=== PATIENT | female | born 1940 | race Caucasian/White ===

== ENCOUNTER → 2019-09-15 | Day surgery (SDC) | payer MEDICARE ==
[2019-09-14 08:36] VITALS: BMI 27.4
[~2019-09-15] MED LIST: LACTATED RINGERS 1,000 ML IV SCH; LIDOCAINE 1% (10MG/ML) FOR IV START INTRADERMA PRN; MORPHINE SULFATE 2 MG/ML SYRINGE IV PRN; ONDANSETRON 4 MG/2 ML VIAL IVP PRN; PROPOFOL 10 MG/ML 20 ML VIAL IV ONE; SODIUM CHLORIDE 0.9% 1,000 ML IV SCH
[2019-09-15 11:21] VITALS: TEMP 97.8
[2019-09-15 11:27] LABS: Glucose,Whole Blood 137 mg/dL (75-99)
--- NOTE | 2019-09-15 12:33 | CE ---
CARDIAC ELECTROPHYSIOLOGY REPORT DATE OF SERVICE: 09/15/2019. PROCEDURE: Electrical cardioversion. INDICATION: Persistent atrial fibrillation. CLINICAL INFORMATION: Mrs. Willoughby is an 79-year-old lady with type 2 diabetes, hypertension, hyperlipidemia, COPD with a recent onset persistent atrial fibrillation. She has been started on amiodarone and was adequately anticoagulated with Eliquis 5 mg b.i.d. and brought in for the procedure electively. PROCEDURE NOTE: Under the influence of ultra short-acting intravenous anesthetic with the anesthesiologist in attendance, a single synchronized shock was delivered with anterior and posterior patches to the chest wall of 200 joules. Patient converted to sinus rhythm, remained hemodynamically stable and neurologically intact. This was a successful electrical cardioversion. The patient will be discharged later on today if she remains stable. MMODL / ANNITAN: [id number] /
[2019-09-15 14:43] VITALS: PULSE 62
[2019-09-15 14:44] VITALS: BP 123/63; RESP 16
== END ==
LOC: CATHCVL 11:00
PROVIDERS: ATTEND Internal Medicine Interventional Cardiology
DX: I48.19 Other persistent atrial fibrillation (principal); E11.22 Type 2 diabetes mellitus with diabetic chronic kidney disease; I12.9 Hypertensive chronic kidney disease with stage 1 through stage 4 chronic kidney disease, or unspecified chronic kidney disease; N18.3 Chronic kidney disease, stage 3 (moderate); E78.5 Hyperlipidemia, unspecified; J44.9 Chronic obstructive pulmonary disease, unspecified; I25.2 Old myocardial infarction; Z79.01 Long term (current) use of anticoagulants; Z79.899 Other long term (current) drug therapy; Z79.84 Long term (current) use of oral hypoglycemic drugs; Z88.8 Allergy status to other drugs, medicaments and biological substances; Z87.891 Personal history of nicotine dependence; Z82.49 Family history of ischemic heart disease and other diseases of the circulatory system
CPT/HCPCS: 92960; J2704

== ENCOUNTER 2019-10-19 09:02 | Emergency (ER) | payer MEDICARE ==
--- NOTE | 2019-10-19 09:32 | ED ---
Back Pain HPI - General Chief Complaint: Back Pain/Injury Stated Complaint: back Time Seen by Provider: 10/19/19 09:13 Source: patient, family Limitations: no limitations - History of Present Illness Initial Comments: Patient is an 79-year-old female presenting to the emergency Department with complaints of left-sided low back pain for 2 days. Patient states she has been recovering from being in the hospital over [place] time from bronchitis and upper respiratory issues. She states she has been sleeping in a recliner because she is able to breathe better sleeping in a more upright position in. Patient states 2 days ago she noticed pain in her left low back. She describes it as cramy, sore, constant, and with some radiation into her left side and left gluteal area. She denies any falls or trauma to the area. Patient states she recently did strain her upper back reaching to try to get out of bed, however she feels like at this is different. She does have history of lumbar surgery many years ago. Patient denies any recent fever, or urinary complaints. She states she has had occasional sharp pains over her bladder. She does have a history of kidney disease. She states she's never had a kidney stone. She has no other complaints at this time. Upon arrival to the ER, BP is slightly elevated at 171/84, rest of vitals are normal. - Related Data Home Medications Medication Instructions Recorded Confirmed Amiodarone [Cordarone] 200 mg PO BID 09/14/19 09/15/19 Apixaban [Eliquis] 5 mg PO BID 09/14/19 09/15/19 Cholecalciferol [Vitamin D3 (25 1,000 unit PO DAILY 09/14/19 09/15/19 Mcg = 1000 Iu)] Diltiazem HCl [Cardizem CD] 120 mg PO Q24HR 09/14/19 09/15/19 Glimepiride [Amaryl] 0.5 mg PO AC-BRKFST 09/14/19 09/15/19 Lisinopril [Zestril] 10 mg PO DAILY 09/14/19 09/15/19 Metoprolol Tartrate [Lopressor] 25 mg PO BID 09/14/19 09/15/19 Pravastatin Sodium [Pravachol] 80 mg PO DAILY 09/14/19 09/15/19 Previous Rx's Medication Instructions Recorded Cephalexin [Keflex] 500 mg PO BID 5 Days #10 cap 10/19/19 Allergies Allergy/AdvReac Type Severity Reaction Status Date / Time celecoxib [From Celebrex] Allergy Swelling Verified 10/19/19 09:10 ibuprofen [From Motrin] Allergy Swelling Verified 10/19/19 09:10 Review of Systems ROS Statement: Those systems with pertinent positive or pertinent negative responses have been documented in the HPI. ROS Other: All systems not noted in ROS Statement are negative. Past Medical History Past Medical History: Atrial Fibrillation, Cancer, COPD, Diabetes Mellitus, Hyperlipidemia, Hypertension, Myocardial Infarction ([place]), Renal Disease Additional Past Medical History / Comment(s): uterine cancer. stage III kidney failure. [place] x2 Last Myocardial Infarction Date:: unknown History of Any Multi-Drug Resistant Organisms: None Reported Past Surgical History: Back Surgery, Cholecystectomy, Hysterectomy Past Anesthesia/Blood Transfusion Reactions: No Reported Reaction Past Psychological History: No Psychological Hx Reported Smoking Status: Former smoker Past Alcohol Use History: None Reported Past Drug Use History: None Reported - Past Family History Brother(s) Family Medical History: Cancer Additional Family Medical History / Comment(s): 2 brothers cancer. 1 brother cabg General Exam - General Exam Comments Initial Comments: GENERAL: Well-appearing, well-nourished and in no acute distress. HEAD: Atraumatic, normocephalic. EYES: Pupils equal round and reactive to light, extraocular movements intact, sclera anicteric, conjunctiva are normal. ENT: TMs normal, nares patent, oropharynx clear without exudates. Moist mucous membranes. NECK: Normal range of motion, supple without lymphadenopathy or JVD. LUNGS: Mild bilateral scattered wheezes. Patient is recovering from bronchitis. HEART: Regular rate and rhythm without murmurs, rubs or gallops. ABDOMEN: Soft, nontender, normoactive bowel sounds. No guarding, no rebound. No masses appreciated. : Deferred EXTREMITIES: Normal range of motion, no pitting or edema. No clubbing or cyanosis. Mild pain with palpation of the low back/lumbar paraspinals and gluteal region. No flank pain. NEUROLOGICAL: Normal speech. PSYCH: Normal mood, normal affect. SKIN: Warm, Dry, normal turgor, no rashes or lesions noted. Limitations: no limitations Course Vital Signs 10/19/19 10/19/19 09:07 11:07 Temperature 98.7 F 98.5 F Pulse Rate 69 66 Respiratory 18 16 Rate Blood Pressure 171/84 168/71 O2 Sat by Pulse 97 96 Oximetry Medical Decision Making - Medical Decision Making Patient is an 79-year-old female presenting with left low back pain 2 days. No injuries or falls. Vital signs are stable, no fevers. On exam patient is slightly tender in the lumbar left paraspinals and into left gluteal area. Urine does reveal evidence for UTI. Lumbar x-ray reveals no acute fractures/dislocations. Patient was given Tylenol for discomfort and will be given 1 g of Rocephin in the ER for UTI. She'll be continued on Keflex. Urine culture is pending at this time. I discussed with patient that her left low back pain could be due to her sleeping in a recliner as well as the UTI. I feel this is more musculoskeletal in nature. She will follow up with her PCP in the next 1-3 days. She is stable for discharge at this time. Return parameters were discussed with the patient and she verbalized understanding. Case discussed with Dr. guaman. - Lab Data Lab Results 10/19/19 Range/Units 09:57 Urine Color Yellow Urine Appearance Cloudy H (Clear) Urine pH 5.5 (5.0-8.0) Ur Specific [place] 1.009 (1.001-1.035) Urine Protein 2+ H (Negative) Urine Glucose (UA) Negative (Negative) Urine Ketones Negative (Negative) Urine Blood Moderate H (Negative) Urine Nitrite Negative (Negative) Urine Bilirubin Negative (Negative) Urine Urobilinogen <2.0 (<2.0) mg/dL Ur Leukocyte Esterase Moderate H (Negative) Urine RBC 7 H (0-5) /hpf Urine WBC 45 H (0-5) /hpf Ur Squamous Epith Cells <1 (0-4) /hpf Urine Bacteria Few H (None) /hpf Hyaline Casts 3 H (0-2) /lpf Urine Mucus Rare H (None) /hpf Disposition Clinical Impression: Low back pain, UTI (urinary tract infection) Disposition: HOME SELF-CARE Condition: Stable Instructions (If sedation given, give patient instructions): Urinary Tract Infection in Women (ED) Additional Instructions: Please return to the Emergency Department if symptoms worsen or any other concerns. Take antibiotics as prescribed. May take Tylenol for pain. Follow-up with PCP in 1-3 days. Prescriptions: Cephalexin [Keflex] 500 mg PO BID 5 Days #10 cap Is patient prescribed a controlled substance at d/c from ED?: No Referrals: Roger Callahan DO [Primary Care Provider] - 1-2 days
[2019-10-19 10:16] LABS: Appearance,Urine Cloudy (Clear); Bacteria,Urine Few /hpf; Bilirubin,Urine Negative (Negative); Blood,Urine Moderate (Negative); Color,Urine Yellow; Glucose,Urine (UA) Negative (Negative); Hyaline Casts,Urine 3 /lpf (0-2); Ketones,Urine Negative (Negative); Leukocyte Esterase,Urine Moderate (Negative); Mucus,Urine Rare /hpf; Nitrite,Urine Negative (Negative); PH, Urine 5.5 (5.0-8.0); Protein,Urine 2+ (Negative); RBC,Urine 7 /hpf (0-5); Specific Gravity,Urine 1.009 (1.001-1.035); Squamous Epithelial Cell,Urine <1 /hpf (0-4); Urobilinogen,Urine <2.0 mg/dL (<2.0); WBC,Urine 45 /hpf (0-5)
--- NOTE | 2019-10-19 10:24 | XR ---
EXAMINATION TYPE: XR lumbar spine 2 or 3V DATE OF EXAM: 10/19/2019 CLINICAL HISTORY: Acute back pain TECHNIQUE: Frontal and lateral images of the lumbar spine are obtained. COMPARISON: None FINDINGS: There is surgical fixation of the lumbosacral junction. Flowing anterior osteophytes are se en of the thoracolumbar spine with multilevel facet arthropathy. Multilevel intervertebral disc space narrowing is also seen. Grade 1 anterolisthesis of L5 on S1 is identified. No compression deformity present. Extensive atherosclerosis of the abdominal aorta and its branches. Diffuse osseous demineral ization. IMPRESSION: Surgical fixation of the lumbosacral spine and grade 1 anterolisthesis of L5 on S1. Moder ate multilevel degenerative disc disease. No compression deformities are seen.
[2019-10-19] MEDS ORDERED: cefTRIAXone 1,000 MG VIAL (IM USE) IM STA (10:43)
[2019-10-19] MEDS ORDERED: ACETAMINOPHEN TAB 325 MG TAB PO STA (10:43)
[2019-10-19 11:12] VITALS: BP 168/71; PULSE 66; RESP 16; TEMP 98.5
== END 2019-10-19 11:25 | disposition home or self-care (01) ==
LOC: EC 09:02
DX: N39.0 Urinary tract infection, site not specified (principal); I48.91 Unspecified atrial fibrillation; E78.5 Hyperlipidemia, unspecified; I25.2 Old myocardial infarction; I12.9 Hypertensive chronic kidney disease with stage 1 through stage 4 chronic kidney disease, or unspecified chronic kidney disease; E11.22 Type 2 diabetes mellitus with diabetic chronic kidney disease; N18.3 Chronic kidney disease, stage 3 (moderate); Z79.84 Long term (current) use of oral hypoglycemic drugs; Z79.01 Long term (current) use of anticoagulants; Z79.899 Other long term (current) drug therapy; Z90.49 Acquired absence of other specified parts of digestive tract; Z88.6 Allergy status to analgesic agent; Z87.891 Personal history of nicotine dependence; Z98.890 Other specified postprocedural states; Z85.42 Personal history of malignant neoplasm of other parts of uterus
CPT/HCPCS: 81001; 87086; 72100; 96372; 99283; J0696

== ENCOUNTER 2020-01-19 16:38 | Emergency (ER) | payer MEDICARE ==
[2020-01-19 16:49] VITALS: PULSE 57; RESP 18; TEMP 98.6
--- NOTE | 2020-01-19 17:16 | ED ---
General Adult HPI - General Chief complaint: Recheck/Abnormal Lab/Rx Stated complaint: High BP Time Seen by Provider: 01/19/20 16:57 Source: patient, RN notes reviewed Mode of arrival: ambulatory Limitations: no limitations - History of Present Illness Initial comments: Patient is a pleasant 79-year-old female presenting to the emergency department with concerns regarding blood pressure. Patient states it is been labile over the past couple of weeks. Patient states several days ago it was up to 200. Patient states today it was up to 180 systolic. Patient called her doctor and took an extra 10 mg of lisinopril at 3:30. Patient has no complaints otherwise. No speech problems or confusion or weakness. No chest pain or dyspnea. - Related Data Home Medications Medication Instructions Recorded Confirmed Amiodarone [Cordarone] 200 mg PO BID 09/14/19 09/15/19 Apixaban [Eliquis] 5 mg PO BID 09/14/19 09/15/19 Cholecalciferol [Vitamin D3 (25 1,000 unit PO DAILY 09/14/19 09/15/19 Mcg = 1000 Iu)] Diltiazem HCl [Cardizem CD] 120 mg PO Q24HR 09/14/19 09/15/19 Glimepiride [Amaryl] 0.5 mg PO AC-BRKFST 09/14/19 09/15/19 Lisinopril [Zestril] 10 mg PO DAILY 09/14/19 09/15/19 Metoprolol Tartrate [Lopressor] 25 mg PO BID 09/14/19 09/15/19 Pravastatin Sodium [Pravachol] 80 mg PO DAILY 09/14/19 09/15/19 Previous Rx's Medication Instructions Recorded Cephalexin [Keflex] 500 mg PO BID 5 Days #10 cap 10/19/19 Allergies Allergy/AdvReac Type Severity Reaction Status Date / Time celecoxib [From Celebrex] Allergy Swelling Verified 01/19/20 16:49 ibuprofen [From Motrin] Allergy Swelling Verified 01/19/20 16:49 steroid Allergy Unknown Uncoded 01/19/20 16:50 Review of Systems ROS Statement: Those systems with pertinent positive or pertinent negative responses have been documented in the HPI. ROS Other: All systems not noted in ROS Statement are negative. Constitutional: Denies: fever Eyes: Denies: eye pain ENT: Denies: ear pain Respiratory: Denies: cough, dyspnea Cardiovascular: Denies: chest pain Endocrine: Denies: fatigue Gastrointestinal: Denies: abdominal pain Genitourinary: Denies: dysuria Musculoskeletal: Denies: back pain Skin: Denies: rash Neurological: Denies: weakness, confusion Past Medical History Past Medical History: Atrial Fibrillation, Cancer, COPD, Diabetes Mellitus, Hyperlipidemia, Hypertension, Myocardial Infarction ([place]), Renal Disease Additional Past Medical History / Comment(s): uterine cancer. stage III kidney failure. [place] x2 Last Myocardial Infarction Date:: unknown History of Any Multi-Drug Resistant Organisms: None Reported Past Surgical History: Back Surgery, Cholecystectomy, Hysterectomy Past Anesthesia/Blood Transfusion Reactions: No Reported Reaction Past Psychological History: No Psychological Hx Reported Smoking Status: Former smoker Past Alcohol Use History: None Reported Past Drug Use History: None Reported - Past Family History Brother(s) Family Medical History: Cancer Additional Family Medical History / Comment(s): 2 brothers cancer. 1 brother cabg General Exam Limitations: no limitations General appearance: alert, in no apparent distress Head exam: Present: normocephalic Eye exam: Present: normal appearance, PERRL Neck exam: Present: normal inspection Respiratory exam: Present: normal lung sounds bilaterally Cardiovascular Exam: Present: regular rate, normal rhythm GI/Abdominal exam: Present: soft. Absent: tenderness Neurological exam: Present: alert, CN II-XII intact. Absent: motor sensory deficit Expanded Motor strength exam: RUE: 5, LUE: 5 Psychiatric exam: Present: normal affect, normal mood Skin exam: Present: normal color Course Vital Signs 01/19/20 01/19/20 16:45 17:38 Temperature 98.6 F Pulse Rate 57 L Respiratory 18 Rate Blood Pressure 160/74 153/70 O2 Sat by Pulse 99 Oximetry Medical Decision Making - Medical Decision Making Patient reevaluated and remained symptom-free. Blood pressure 153/70. Patient is comfortable with discharge home. Patient admits she gets anxious regarding her blood pressure. Patient also admits that she is actually had 3 recent visits to different emergency departments regarding her blood pressure. Patient advised that she could take an next of 5 mg of lisinopril blood pressure runs high. Patient is advised to do close follow-up with her primary care physician as well as her tool design checker. Disposition Clinical Impression: Hypertension Disposition: HOME SELF-CARE Condition: Stable Instructions (If sedation given, give patient instructions): Hypertension (ED) Additional Instructions: Please follow-up with your primary care physician and tool design checker in the next couple of days for recheck. Keep a diary of your blood pressure to show your doctors. Return for increased blood pressure, weakness or confusion, chest pain or difficulty breathing, worsening symptoms or other concerns. Is patient prescribed a controlled substance at d/c from ED?: No Referrals: Roger Callahan DO [Primary Care Provider] - 1-2 days Time of Disposition: 17:45
[2020-01-19 17:40] VITALS: BP 153/70
== END 2020-01-19 17:48 | disposition home or self-care (01) ==
LOC: EC 16:38
DX: I12.9 Hypertensive chronic kidney disease with stage 1 through stage 4 chronic kidney disease, or unspecified chronic kidney disease (principal); N18.3 Chronic kidney disease, stage 3 (moderate); I48.91 Unspecified atrial fibrillation; E11.9 Type 2 diabetes mellitus without complications; E78.5 Hyperlipidemia, unspecified; I25.2 Old myocardial infarction; Z79.01 Long term (current) use of anticoagulants; Z79.84 Long term (current) use of oral hypoglycemic drugs; Z79.899 Other long term (current) drug therapy; Z87.891 Personal history of nicotine dependence; Z88.6 Allergy status to analgesic agent; Z88.8 Allergy status to other drugs, medicaments and biological substances; Z85.42 Personal history of malignant neoplasm of other parts of uterus
CPT/HCPCS: 99283

== ENCOUNTER 2020-03-01 17:07 | Emergency (ER) | payer MEDICARE ==
[2020-03-01 17:12] VITALS: TEMP 98.4
[2020-03-01] MEDS ORDERED: ACETAMINOPHEN TAB 325 MG TAB PO STA (17:49)
[2020-03-01] MEDS ORDERED: ONDANSETRON 4 MG/2 ML VIAL IVP STA (18:04)
[2020-03-01] MEDS ORDERED: SODIUM CHLORIDE 0.9% 500 ML 500 ML IV STA (18:04)
[2020-03-01] MEDS ORDERED: diphenhydrAMINE 50 MG/ML 1 ML VIAL IVP STA (18:04)
[2020-03-01 18:26] LABS: Basophils % (A) 1 %; Eosinophils # (A) 0.2 k/uL (0-0.7); Eosinophils % (A) 2 %; HCT 40.5 % (34.0-46.0); HGB 14.2 gm/dL (11.4-16.0); Lymphocytes # (A) 2.1 k/uL (1.0-4.8); Lymphocytes % (A) 27 %; MCH 34.7 pg (25.0-35.0); MCHC 35.2 g/dL (31.0-37.0); MCV 98.8 fL (80.0-100.0); Mean Platelet Volume 8.1; Monocytes # (A) 0.5 k/uL (0-1.0); Monocytes % (A) 6 %; Neutrophils # (A) 4.8 k/uL (1.3-7.7); Neutrophils % (A) 62 %; Platelet Count 259 k/uL (150-450); RDW 13.5 % (11.5-15.5); WBC 7.8 k/uL (3.8-10.6)
[2020-03-01 18:31] LABS: Albumin 4.7 g/dL (3.5-5.0); Calcium 9.8 mg/dL (8.4-10.2); Magnesium 1.9 mg/dL (1.6-2.3); Potassium 5.1 mmol/L (3.5-5.1); Total Bilirubin 0.5 mg/dL (0.2-1.3); Total Protein 8.1 g/dL (6.3-8.2)
[2020-03-01 18:32] LABS: Amorphous Sediment,Urine Rare /hpf; Appearance,Urine Clear (Clear); Bacteria,Urine Few /hpf; Bilirubin,Urine Negative (Negative); Blood,Urine Small (Negative); Color,Urine Light Yellow; Glucose,Urine (UA) Negative (Negative); Ketones,Urine Negative (Negative); Leukocyte Esterase,Urine Large (Negative); Mucus,Urine Rare /hpf; Nitrite,Urine Negative (Negative); Protein,Urine Negative (Negative); RBC,Urine 3 /hpf (0-5); Specific Gravity,Urine 1.008 (1.001-1.035); Squamous Epithelial Cell,Urine <1 /hpf (0-4); Urobilinogen,Urine <2.0 mg/dL (<2.0); WBC,Urine 48 /hpf (0-5)
--- NOTE | 2020-03-01 18:39 | ED ---
Headache HPI - General Chief Complaint: Headache Stated Complaint: headache Time Seen by Provider: 03/01/20 17:39 Mode of arrival: ambulatory Limitations: no limitations - History of Present Illness Initial Comments: Patient is an 80-year-old female presenting to the emergency Department with complaints of a headache that has been intermittent for the last 10-11 days. Patient states her blood pressure has also been going up and down as well. She states she just feels more fatigued than usual. Patient states she was seen at [facility] days ago and was evaluated with lab work and a computed tomography scan which was normal. Patient states she has been mon itoring her blood pressure which has still been fluctuating. Patient states she also has a headache and wanted to be seen. She describes her headache as mostly on the top, it is intermittent. She denies that this is the worst headache of her life. She denies any falls or trauma. She states currently it is a 5/10. She denies any blurry vision, jaw pain, fever, chills. She denies any abdominal pain. She denies any vomiting. She denies any urinary complaints. She has no further complaints at this time. Upon arrival to the ER, her vital signs are stable. - Related Data Home Medications Medication Instructions Recorded Confirmed Amiodarone [Cordarone] 200 mg PO BID 09/14/19 09/15/19 Apixaban [Eliquis] 5 mg PO BID 09/14/19 09/15/19 Cholecalciferol [Vitamin D3 (25 1,000 unit PO DAILY 09/14/19 09/15/19 Mcg = 1000 Iu)] Diltiazem HCl [Cardizem CD] 120 mg PO Q24HR 09/14/19 09/15/19 Glimepiride [Amaryl] 0.5 mg PO AC-BRKFST 09/14/19 09/15/19 Lisinopril [Zestril] 10 mg PO DAILY 09/14/19 09/15/19 Metoprolol Tartrate [Lopressor] 25 mg PO BID 09/14/19 09/15/19 Pravastatin Sodium [Pravachol] 80 mg PO DAILY 09/14/19 09/15/19 Previous Rx's Medication Instructions Recorded Cephalexin [Keflex] 500 mg PO BID 5 Days #10 cap 10/19/19 Cephalexin [Keflex] 500 mg PO BID 5 Days #10 cap 03/01/20 Allergies Allergy/AdvReac Type Severity Reaction Status Date / Time celecoxib [From Celebrex] Allergy Swelling Verified 03/01/20 17:12 ibuprofen [From Motrin] Allergy Swelling Verified 03/01/20 17:12 steroid Allergy Unknown Uncoded 03/01/20 17:12 Review of Systems ROS Statement: Those systems with pertinent positive or pertinent negative responses have been documented in the HPI. ROS Other: All systems not noted in ROS Statement are negative. Past Medical History Past Medical History: Atrial Fibrillation, Cancer, COPD, Diabetes Mellitus, Hyperlipidemia, Hypertension, Myocardial Infarction ([place]), Renal Disease Additional Past Medical History / Comment(s): uterine cancer. stage III kidney failure. [place] x2 Last Myocardial Infarction Date:: unknown History of Any Multi-Drug Resistant Organisms: None Reported Past Surgical History: Back Surgery, Cholecystectomy, Hysterectomy Past Anesthesia/Blood Transfusion Reactions: No Reported Reaction Past Psychological History: No Psychological Hx Reported Past Alcohol Use History: None Reported Past Drug Use History: None Reported - Past Family History Brother(s) Family Medical History: Cancer Additional Family Medical History / Comment(s): 2 brothers cancer. 1 brother cabg General Exam - General Exam Comments Initial Comments: GENERAL: Well-appearing, well-nourished and in no acute distress. HEAD: Atraumatic, normocephalic. EYES: Pupils equal round and reactive to light, extraocular movements intact, sclera anicteric, conjunctiva are normal. ENT: TMs normal, nares patent, oropharynx clear without exudates. Moist mucous mem branes. NECK: Normal range of motion, supple without lymphadenopathy or JVD. LUNGS: Breath sounds clear to auscultation bilaterally and equal. No wheezes rales or rhonchi. HEART: Regular rate and rhythm without murmurs, rubs or gallops. ABDOMEN: Soft, nontender, normoactive bowel sounds. No guarding, no rebound. No masses appreciated. : Deferred EXTREMITIES: Normal range of motion, no pitting or edema. No clubbing or cyanosis. Strength is 5 out of 5 upper and lower extremities bilaterally. NEUROLOGICAL: Cranial nerves II through XII grossly intact. Normal speech, normal gait. PSYCH: Normal mood, normal affect. SKIN: Warm, Dry, normal turgor, no rashes or lesions noted. Limitations: no limitations Course Vital Signs 03/01/20 17:08 Temperature 98.4 F Pulse Rate 59 L Respiratory 18 Rate Blood Pressure 164/76 O2 Sat by Pulse 96 Oximetry Medical Decision Making - Medical Decision Making Patient is an 80-year-old female here for an intermittent headache over the past 2 weeks. She was seen at [facility] 3 days ago and was evaluated with lab work as well as is a normal CT of the head. Patient states her blood pressures have also been fluctuating. Her blood pressure upon arrival here today is 164/76, rest of vitals normal. Due to lab work which shows a normal white count. Creatinine is slightly elevated at 1.60. Urine does reveal a large amount leukocyte esterase, WBCs, clumps, bacteria. I did give patient pain medicine, Benadryl and some fluids for her headache. She does report improvement in her headache. Patient will be given 1 g Rocephin in the ER. I will continue her outpatient on Keflex. She states she does have a plan with her PCP in 2 days. Patient also has a referral to neurologist with the appointment March. Patient is stable for discharge and patient is in agreement with this plan of care. Return parameters were discussed with the patient she verbalized understanding. Case discussed with Dr. Butt. - Lab Data Result diagrams: 03/01/20 17:54 03/01/20 17:54 Lab Results 03/01/20 03/01/20 03/01/20 Range/Units 17:54 17:54 17:54 WBC 7.8 (3.8-10.6) k/uL RBC 4.10 (3.80-5.40) m/uL Hgb 14.2 (11.4-16.0) gm/dL Hct 40.5 (34.0-46.0) % MCV 98.8 (80.0-100.0) fL MCH 34.7 (25.0-35.0) pg MCHC 35.2 (31.0-37.0) g/dL RDW 13.5 (11.5-15.5) % Plt Count 259 (150-450) k/uL Neutrophils % 62 % Lymphocytes % 27 % Monocytes % 6 % Eosinophils % 2 % Basophils % 1 % Neutrophils # 4.8 (1.3-7.7) k/uL Lymphocytes # 2.1 (1.0-4.8) k/uL Monocytes # 0.5 (0-1.0) k/uL Eosinophils # 0.2 (0-0.7) k/uL Basophils # 0.0 (0-0.2) k/uL Sodium 135 L (137-145) mmol/L Potassium 5.1 (3.5-5.1) mmol/L Chloride 101 (98-107) mmol/L Carbon Dioxide 24 (22-30) mmol/L Anion Gap 10 mmol/L BUN 37 H (7-17) mg/dL Creatinine 1.60 H (0.52-1.04) mg/dL Est GFR (CKD-EPI)AfAm 34 (>60 ml/min/1.73 sqM) Est GFR (CKD-EPI)NonAf 30 (>60 ml/min/1.73 sqM) Glucose 115 H (74-99) mg/dL Calcium 9.8 (8.4-10.2) mg/dL Magnesium 1.9 (1.6-2.3) mg/dL Total Bilirubin 0.5 (0.2-1.3) mg/dL AST 28 (14-36) U/L ALT 28 (4-34) U/L Alkaline Phosphatase 113 (38-126) U/L Total Protein 8.1 (6.3-8.2) g/dL Albumin 4.7 (3.5-5.0) g/dL Urine Color Light Yellow Urine Appearance Clear (Clear) Urine pH 5.0 (5.0-8.0) Ur Specific [place] 1.008 (1.001-1.035) Urine Protein Negative (Negative) Urine Glucose (UA) Negative (Negative) Urine Ketones Negative (Negative) Urine Blood Small H (Negative) Urine Nitrite Negative (Negative) Urine Bilirubin Negative (Negative) Urine Urobilinogen <2.0 (<2.0) mg/dL Ur Leukocyte Esterase Large H (Negative) Urine RBC 3 (0-5) /hpf Urine WBC 48 H (0-5) /hpf Urine WBC Clumps Few H (None) /hpf Ur Squamous Epith Cells <1 (0-4) /hpf Amorphous Sediment Rare H (None) /hpf Urine Bacteria Few H (None) /hpf Urine Mucus Rare H (None) /hpf Disposition Clinical Impression: Head ache, UTI (urinary tract infection), Dehydration Disposition: HOME SELF-CARE Condition: Stable Instructions (If sedation given, give patient instructions): Urinary Tract Infection in Women (ED) Additional Instructions: Please return to the Emergency Department if symptoms worsen or any other concerns. Take antibiotic as prescribed. Follow up with PCP. Prescriptions: Cephalexin [Keflex] 500 mg PO BID 5 Days #10 cap Is patient prescribed a controlled substance at d/c from ED?: No Referrals: Roger Callahan DO [Primary Care Provider] - 1-2 days
[2020-03-01] MEDS ORDERED: cefTRIAXone IN SWFI 1,000 MG/10 ML SYRINGE IVP STA (18:52)
[2020-03-01 19:05] VITALS: BP 149/76; PULSE 86; RESP 16
== END 2020-03-01 19:04 | disposition home or self-care (01) ==
LOC: EC 17:07
DX: R51 Headache (principal); N39.0 Urinary tract infection, site not specified; E86.0 Dehydration; R79.89 Other specified abnormal findings of blood chemistry; R53.83 Other fatigue; I48.91 Unspecified atrial fibrillation; E78.5 Hyperlipidemia, unspecified; I25.2 Old myocardial infarction; I12.9 Hypertensive chronic kidney disease with stage 1 through stage 4 chronic kidney disease, or unspecified chronic kidney disease; E11.22 Type 2 diabetes mellitus with diabetic chronic kidney disease; N18.3 Chronic kidney disease, stage 3 (moderate); Z90.49 Acquired absence of other specified parts of digestive tract; Z90.710 Acquired absence of both cervix and uterus; Z85.42 Personal history of malignant neoplasm of other parts of uterus; Z79.01 Long term (current) use of anticoagulants; Z79.84 Long term (current) use of oral hypoglycemic drugs; Z79.899 Other long term (current) drug therapy; Z88.6 Allergy status to analgesic agent; Z88.8 Allergy status to other drugs, medicaments and biological substances
CPT/HCPCS: 36415; 80053; 83735; 85025; 81001; 87086; 99284; 96374; 96375 ×2; 96361; J1200; J2405; J0696

== ENCOUNTER 2020-03-11 12:29 | Inpatient (IN) | payer MEDICARE ==
[2020-03-11] MEDS ORDERED: diphenhydrAMINE 50 MG/ML 1 ML VIAL IVP STA ×2 (13:25→15:02)
[2020-03-11] MEDS ORDERED: SODIUM CHLORIDE 0.9% 1,000 ML IV STA (13:25)
[2020-03-11] MEDS ORDERED: METOCLOPRAMIDE 5 MG/ML 2 ML VIAL IVP STA (13:25)
--- NOTE | 2020-03-11 13:28 | ED ---
General Adult HPI - General Chief complaint: Headache Stated complaint: headache Time Seen by Provider: 03/11/20 12:55 Source: patient, RN notes reviewed Mode of arrival: ambulatory Limitations: no limitations - History of Present Illness Initial comments: Patient is a pleasant 80-year-old female presenting to the emergency Department with complaints of headache. Patient states headache has been present for 25 days now. Patient has been seen previously here as well as a different emergency department. Headache is frontal as well as posterior. Headache is waxing and waning, sometimes severe. Headache is currently 7 or 8/10. No nausea vomiting. No visual change. No confusion. No weakness. No history of chronic headaches. No recent injury. Patient is on Eliquis. - Related Data Home Medications Medication Instructions Recorded Confirmed Amiodarone [Cordarone] 200 mg PO DAILY 09/14/19 03/11/20 Cholecalciferol [Vitamin D3 (25 1,000 unit PO DAILY 09/14/19 03/11/20 Mcg = 1000 Iu)] Metoprolol Tartrate [Lopressor] 25 mg PO BID 09/14/19 03/11/20 Pravastatin Sodium [Pravachol] 80 mg PO HS 09/14/19 03/11/20 lisinopriL [Zestril] 10 mg PO DAILY 09/14/19 03/11/20 Apixaban [Eliquis] 2.5 mg PO BID 03/11/20 03/11/20 Furosemide [Lasix] 20 mg PO DAILY PRN 03/11/20 03/11/20 Glimepiride [Amaryl] 0.5 mg PO AC-BRKFST 03/11/20 03/11/20 Potassium Chloride [Klor-Con 20] 20 meq PO DAILY PRN 03/11/20 03/11/20 Spectravite 50+ Multivitamin 1 tab PO DAILY 03/11/20 03/11/20 amLODIPine [Norvasc] 2.5 mg PO HS 03/11/20 03/11/20 Allergies Allergy/AdvReac Type Severity Reaction Status Date / Time celecoxib [From Celebrex] Allergy Swelling Verified 03/11/20 15:12 ibuprofen [From Motrin] Allergy Swelling Verified 03/11/20 15:12 steroid Allergy Unknown Uncoded 03/11/20 12:50 Review of Systems ROS Statement: Those systems with pertinent positive or pertinent negative responses have been documented in the HPI. ROS Other: All systems not noted in ROS Statement are negative. Constitutional: Denies: fever Eyes: Denies: eye pain ENT: Denies: ear pain Respiratory: Denies: cough Cardiovascular: Denies: chest pain Endocrine: Denies: fatigue Gastrointestinal: Denies: abdominal pain Genitourinary: Denies: dysuria Musculoskeletal: Denies: back pain Skin: Denies: rash Neurological: Reports: headache. Denies: weakness, confusion Past Medical History Past Medical History: Atrial Fibrillation, Cancer, COPD, Diabetes Mellitus, Hyperlipidemia, Hypertension, Myocardial Infarction ([place]), Renal Disease Additional Past Medical History / Comment(s): uterine cancer. stage III kidney failure. [place] x2 Last Myocardial Infarction Date:: unknown History of Any Multi-Drug Resistant Organisms: None Reported Past Surgical History: Back Surgery, Cholecystectomy, Hysterectomy Past Anesthesia/Blood Transfusion Reactions: No Reported Reaction Past Psychological History: No Psychological Hx Reported Smoking Status: Never smoker Past Alcohol Use History: None Reported Past Drug Use History: None Reported - Past Family History Brother(s) Family Medical History: Cancer Additional Family Medical History / Comment(s): 2 brothers cancer. 1 brother cabg General Exam Limitations: no limitations General appearance: alert, in no apparent distress Head exam: Present: normocephalic, other (No tenderness over the temporal arteries) Eye exam: Present: normal appearance, PERRL, EOMI. Absent: nystagmus ENT exam: Present: normal oropharynx Neck exam: Present: normal inspection Respiratory exam: Present: normal lung sounds bilaterally Cardiovascular Exam: Present: regular rate, normal rhythm GI/Abdominal exam: Present: soft. Absent: tenderness Extremities exam: Present: normal inspection Neurological exam: Present: alert Psychiatric exam: Present: normal affect, normal mood Skin exam: Present: normal color Course Vital Signs 03/11/20 03/11/20 03/11/20 12:48 14:11 15:18 Temperature 98.4 F Pulse Rate 55 L 52 L 70 Respiratory 18 18 17 Rate Blood Pressure 129/69 164/72 162/69 O2 Sat by Pulse 98 99 100 Oximetry 03/11/20 15:58 Temperature Pulse Rate 57 L Respiratory 18 Rate Blood Pressure 144/63 O2 Sat by Pulse 100 Oximetry - Reevaluation(s) Reevaluation #1: 03/11/20 15:03 Discussion had with patient regarding contrast with angiogram. Patient states she believes there may be some sort of ALLERGY with contrast however is not clear what or why. Patient states when she has heart catheterization they give her Benadryl. Patient refuses steroids stating that steroid makes her stop breathing. Patient is receptive to have angiogram with Benadryl only. Discussion was also had regarding renal function. Medical Decision Making - Medical Decision Making Patient reevaluated and somewhat improved. Patient still has headache however is mild at this time. Patient states she would prefer to stay in the hospital. Case was discussed with Dr. Vázquez, covering for Dr. Callahan, who will admit. IV fluids will be continued. - Lab Data Result diagrams: 03/11/20 14:16 03/11/20 14:16 Lab Results 03/11/20 03/11/20 03/11/20 Range/Units 14:16 14:16 14:16 WBC 6.7 (3.8-10.6) k/uL RBC 4.32 (3.80-5.40) m/uL Hgb 13.6 (11.4-16.0) gm/dL Hct 41.4 (34.0-46.0) % MCV 95.9 (80.0-100.0) fL MCH 31.5 (25.0-35.0) pg MCHC 32.9 (31.0-37.0) g/dL RDW 12.8 (11.5-15.5) % Plt Count 248 (150-450) k/uL Neutrophils % 64 % Lymphocytes % 26 % Monocytes % 5 % Eosinophils % 2 % Basophils % 1 % Neutrophils # 4.3 (1.3-7.7) k/uL Lymphocytes # 1.7 (1.0-4.8) k/uL Monocytes # 0.3 (0-1.0) k/uL Eosinophils # 0.2 (0-0.7) k/uL Basophils # 0.1 (0-0.2) k/uL ESR 49 H (0-20) mm/hr PT 9.6 (9.0-12.0) sec INR 0.9 (<1.2) APTT 22.6 (22.0-30.0) sec Sodium 131 L (137-145) mmol/L Potassium 6.0 H (3.5-5.1) mmol/L Chloride 94 L (98-107) mmol/L Carbon Dioxide 27 (22-30) mmol/L Anion Gap 10 mmol/L BUN 39 H (7-17) mg/dL Creatinine 1.59 H (0.52-1.04) mg/dL Est GFR (CKD-EPI)AfAm 35 (>60 ml/min/1.73 sqM) Est GFR (CKD-EPI)NonAf 30 (>60 ml/min/1.73 sqM) Glucose 112 H (74-99) mg/dL POC Glucose (mg/dL) (75-99) mg/dL POC Glu Clinic Assistant ID Calcium 9.9 (8.4-10.2) mg/dL Total Bilirubin 0.4 (0.2-1.3) mg/dL AST 29 (14-36) U/L ALT 32 (4-34) U/L Alkaline Phosphatase 123 (38-126) U/L Total Protein 7.8 (6.3-8.2) g/dL Albumin 4.6 (3.5-5.0) g/dL 03/11/20 Range/Units 14:18 WBC (3.8-10.6) k/uL RBC (3.80-5.40) m/uL Hgb (11.4-16.0) gm/dL Hct (34.0-46.0) % MCV (80.0-100.0) fL MCH (25.0-35.0) pg MCHC (31.0-37.0) g/dL RDW (11.5-15.5) % Plt Count (150-450) k/uL Neutrophils % % Lymphocytes % % Monocytes % % Eosinophils % % Basophils % % Neutrophils # (1.3-7.7) k/uL Lymphocytes # (1.0-4.8) k/uL Monocytes # (0-1.0) k/uL Eosinophils # (0-0.7) k/uL Basophils # (0-0.2) k/uL ESR (0-20) mm/hr PT (9.0-12.0) sec INR (<1.2) APTT (22.0-30.0) sec Sodium (137-145) mmol/L Potassium (3.5-5.1) mmol/L Chloride (98-107) mmol/L Carbon Dioxide (22-30) mmol/L Anion Gap mmol/L BUN (7-17) mg/dL Creatinine (0.52-1.04) mg/dL Est GFR (CKD-EPI)AfAm (>60 ml/min/1.73 sqM) Est GFR (CKD-EPI)NonAf (>60 ml/min/1.73 sqM) Glucose (74-99) mg/dL POC Glucose (mg/dL) 121 H (75-99) mg/dL POC Glu Clinic Assistant ID [place] Calcium (8.4-10.2) mg/dL Total Bilirubin (0.2-1.3) mg/dL AST (14-36) U/L ALT (4-34) U/L Alkaline Phosphatase (38-126) U/L Total Protein (6.3-8.2) g/dL Albumin (3.5-5.0) g/dL - Radiology Data Radiology results: report reviewed (Computed tomography scan of the brain shows no hemorrhage or shift or mass effect. CT angiogram of the head and neck shows 50% stenosis origin left internal carotid artery. Otherwise patent.) Disposition Clinical Impression: Cephalgia, Acute renal failure (ARF) Disposition: ADMITTED IP TO THIS HOSP Is patient prescribed a controlled substance at d/c from ED?: No Referrals: Roger Callahan DO [Primary Care Provider] - 1-2 days Decision Time: 16:39
[2020-03-11 14:21] LABS: Glucose,Whole Blood 121 mg/dL (75-99)
[2020-03-11 14:27] LABS: Basophils # (A) 0.1 k/uL (0-0.2); Basophils % (A) 1 %; Eosinophils # (A) 0.2 k/uL (0-0.7); Eosinophils % (A) 2 %; HCT 41.4 % (34.0-46.0); HGB 13.6 gm/dL (11.4-16.0); Lymphocytes # (A) 1.7 k/uL (1.0-4.8); Lymphocytes % (A) 26 %; MCH 31.5 pg (25.0-35.0); MCHC 32.9 g/dL (31.0-37.0); MCV 95.9 fL (80.0-100.0); Mean Platelet Volume 8.1; Monocytes # (A) 0.3 k/uL (0-1.0); Monocytes % (A) 5 %; Neutrophils # (A) 4.3 k/uL (1.3-7.7); Neutrophils % (A) 64 %; Platelet Count 248 k/uL (150-450); RBC 4.32 m/uL (3.80-5.40); RDW 12.8 % (11.5-15.5); WBC 6.7 k/uL (3.8-10.6)
[2020-03-11 14:38] LABS: Albumin 4.6 g/dL (3.5-5.0); Calcium 9.9 mg/dL (8.4-10.2); Total Bilirubin 0.4 mg/dL (0.2-1.3); Total Protein 7.8 g/dL (6.3-8.2)
[2020-03-11 14:41] LABS: INR 0.9 (<1.2); Partial Thromboplastin Time 22.6 sec (22.0-30.0); Prothrombin Time 9.6 sec (9.0-12.0)
[2020-03-11] MEDS ORDERED: FAMOTIDINE 20 MG/2 ML VIAL IV STA (15:02)
[2020-03-11 15:16] LABS: Erythrocyte Sedimentation Rate 49 mm/hr (0-20)
--- NOTE | 2020-03-11 15:56 | CT ---
EXAMINATION TYPE: CT brain wo con DATE OF EXAM: 03/11/2020 HISTORY: Headache x [address] DLP: 1081.8 mGycm. Automated Exposure Control for Dose Reduction was Utilized. TECHNIQUE: CT scan of the head is performed without contrast. COMPARISON: None FINDINGS: There is no acute intracranial hemorrhage, midline shift, or mass effect identified. Moderate diffuse volume loss. The ventricles, sulci, and cisterns are prominent due to volume loss and normal in conf iguration. Patchy white matter hypodensities most likely related to chronic microvascular ischemic ch anges. No extra-axial fluid collection. Bones and extracranial soft tissues are intact. The globes are gross ly symmetric. Visualized sinuses and mastoid air cells are clear. IMPRESSION: No acute intracranial hemorrhage, midline shift, or mass effect.
--- NOTE | 2020-03-11 16:08 | CT ---
EXAMINATION TYPE: CT angio head neck DATE OF EXAM: 03/11/2020 HISTORY: Headache x 25 days. COMPARISON: None CT DLP: 427.9 mGycm. Automated Exposure Control for Dose Reduction was Utilized. TECHNIQUE: CTA scan of the neck is performed with IV Contrast, patient injected with 65 mL of Isovue 370, axial images are obtained, coronal and sagittal reformatted images are reviewed. Three-D and IN P reconstructed images are created on an independent workstation and reviewed. FINDINGS: Carotid/Vascular Structures: The vascular structures of the neck demonstrate no evidence of dissection or occlusion. There is vasc ular calcification of the bilateral carotid bulbs and proximal ICAs. There is approximately 50% steno sis of the origin of the left internal carotid artery due to calcification. The vascular structures of the head demonstrate no evidence of dissection, occlusion, or aneurysm. Th ere is codominant vertebrobasilar system. Normal variant absent right P-comm. Three-dimensional and MIP images are consistent with the above findings. IMPRESSION: 1. 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 2. Otherwise vascular structures of the head and neck are patent.
[2020-03-11] MEDS ORDERED: NALOXONE 0.4 MG/ML 1 ML VIAL IV PRN (16:39)
[2020-03-11] MEDS ORDERED: traMADol 50 MG TAB PO PRN (16:39)
[2020-03-11] MEDS ORDERED: MORPHINE SULFATE 4 MG/ML SYRINGE IV PRN (16:39)
[2020-03-11] MEDS ORDERED: SODIUM POLYSTYRENE SULFONATE 15 GM/60 ML BOTTLE PO STA (18:53)
[2020-03-11] MEDS: amLODIPine 2.5 MG TAB PO SCH (20:04)
[2020-03-11] MEDS: APIXABAN 2.5 MG TABLET PO SCH (20:04)
[2020-03-11] MEDS: PRAVASTATIN SODIUM 80 MG TAB PO SCH (20:04)
[2020-03-11] MEDS: ACETAMINOPHEN TAB 325 MG TAB PO PRN (20:04)
[2020-03-11] MEDS: SODIUM CHLORIDE 0.9% 1,000 ML IV SCH (20:08)
[2020-03-11] MEDS: INSULIN ASPART (NovoLOG) 100 UNIT/ML VIAL SQ SCH (20:41)
[2020-03-11 20:42] LABS: Glucose,Whole Blood 147 mg/dL (75-99)
[2020-03-11] MEDS ORDERED: METOPROLOL TARTRATE 25 MG TAB PO SCH (21:00)
[2020-03-11] MEDS ORDERED: DEXTROSE 50% SYRINGE 50 ML IVP STA (22:10)
--- NOTE | 2020-03-11 22:14 | P.HPIM ---
History of Present Illness This is a pleasant 80 years old female with past medical history of diabetes mellitus, hypertension, hyperlipidemia, atrial fibrillation, chronic heart failure and cardiomyopathy, chronic kidney disease stage III, 7 cm aortic aneury sm. She is patient of Dr. Callahan. She presents because of headache or 25, she went to see her PCP Dr. Callahan few days ago who prescribed him 13 with no benefit, and today comes with a several pain mainly in the frontal area radiating to the top and to the occipital area felt like pressure about 10/10 in severity, down to 6/10. Associated with numbness around the left jaw and in the right hand for the last 2 days, no weakness in arms or legs, no slurred speech, no difficulty swallowing. No neck stiffness Patient is slightly tachycardic at 105, however she is saturating 97% on 3 L oxygen, so vitals are stable. Patient denies any new medication started. CT of the brain: No acute process Unremarkable CBC and Liver Enzymes, Creatinine Increased to 1.5, It Was 1.3 on 12/2019, Potassium Is Elevated at 6.0. Sodium Was Low at 131. Review of Systems CONSTITUTIONAL: No fever, no malaise, no fatigue. HEENT: No recent visual problems or hearing problems. Denied any sore throat. CARDIOVASCULAR: No orthopnea, PND, no palpitations, no syncope. PULMONARY: No shortness of breath, no cough, no hemoptysis. GASTROINTESTINAL: No diarrhea, no nausea, no vomiting, no abdominal pain. Normoactive bowel sounds. NEUROLOGICAL: No headaches, no weakness, no numbness. HEMATOLOGICAL: Denies any bleeding or petechiae. GENITOURINARY: Denies any burning micturition, frequency, or urgency. MUSCULOSKELETAL/RHEUMATOLOGICAL: Denies any joint pain, swelling, or any muscle pain. ENDOCRINE: Denies any polyuria or polydipsia. Past Medical History Past Medical History: Atrial Fibrillation, Cancer, COPD, Diabetes Mellitus, Hyperlipidemia, Hypertension, Myocardial Infarction ([place]), Renal Disease Additional Past Medical History / Comment(s): uterine cancer. stage III kidney failure. [place] x2 Last Myocardial Infarction Date:: unknown History of Any Multi-Drug Resistant Organisms: None Reported Past Surgical History: Back Surgery, Cholecystectomy, Hysterectomy Past Anesthesia/Blood Transfusion Reactions: No Reported Reaction Past Psychological History: No Psychological Hx Reported Smoking Status: Former smoker Past Alcohol Use History: None Reported Additional Past Alcohol Use History / Comment(s): 1- 1 1/2 ppd quit 08/06 Past Drug Use History: None Reported - Past Family History Brother(s) Family Medical History: Cancer Additional Family Medical History / Comment(s): 2 brothers cancer. 1 brother cabg Medications and Allergies Home Medications Medication Instructions Recorded Confirmed Type Amiodarone [Cordarone] 200 mg PO DAILY 09/14/19 03/11/20 History Cholecalciferol [Vitamin D3 (25 1,000 unit PO DAILY 09/14/19 03/11/20 History Mcg = 1000 Iu)] Metoprolol Tartrate [Lopressor] 25 mg PO BID 09/14/19 03/11/20 History Pravastatin Sodium [Pravachol] 80 mg PO HS 09/14/19 03/11/20 History lisinopriL [Zestril] 10 mg PO DAILY 09/14/19 03/11/20 History Apixaban [Eliquis] 2.5 mg PO BID 03/11/20 03/11/20 History Furosemide [Lasix] 20 mg PO DAILY PRN 03/11/20 03/11/20 History Glimepiride [Amaryl] 0.5 mg PO AC-BRKFST 03/11/20 03/11/20 History Potassium Chloride [Klor-Con 20] 20 meq PO DAILY PRN 03/11/20 03/11/20 History Spectravite 50+ Multivitamin 1 tab PO DAILY 03/11/20 03/11/20 History amLODIPine [Norvasc] 2.5 mg PO HS 03/11/20 03/11/20 History Allergies Allergy/AdvReac Type Severity Reaction Status Date / Time celecoxib [From Celebrex] Allergy Swelling Verified 03/11/20 19:23 ibuprofen [From Motrin] Allergy Swelling Verified 03/11/20 19:23 steroid Allergy Unknown Uncoded 03/11/20 19:23 Physical Exam Vitals: Vital Signs Temp Pulse Pulse Resp BP BP Pulse Ox 03/11/20 19:09 96.3 F L 58 L 17 152/66 99 03/11/20 18:31 98.2 F 61 16 120/68 100 03/11/20 15:58 57 L 18 144/63 100 03/11/20 15:18 70 17 162/69 100 03/11/20 14:11 52 L 18 164/72 99 03/11/20 12:48 98.4 F 55 L 18 129/69 98 Intake and Output 03/11/20 03/11/20 03/11/20 06:59 14:59 22:59 Other: Voiding Method Toilet Weight 72.575 kg GENERAL: The patient is alert and oriented x3, not in any acute distress. Well developed, well nourished. HEENT: Pupils are round and equally reacting to light. EOMI. No scleral icterus. No conjunctival pallor. Normocephalic, atraumatic. No pharyngeal erythema. No thyromegaly. CARDIOVASCULAR: S1 and S2 present. No murmurs, rubs, or gallops. PULMONARY: Chest is clear to auscultation, no wheezing or crackles. ABDOMEN: Soft, nontender, nondistended, normoactive bowel sounds. No palpable organomegaly. MUSCULOSKELETAL: No joint swelling or deformity. EXTREMITIES: No cyanosis, clubbing, or pedal edema. NEUROLOGICAL: Gross neurological examination did not reveal any focal deficits. SKIN: No rashes. No petechiae Results CBC & Chem 7: 03/11/20 14:16 03/11/20 14:16 Labs: Abnormal Lab Results - Last 24 Hours (Table) 03/11/20 03/11/20 03/11/20 Range/Units 14:16 14:16 14:18 ESR 49 H (0-20) mm/hr Sodium 131 L (137-145) mmol/L Potassium 6.0 H (3.5-5.1) mmol/L Chloride 94 L (98-107) mmol/L BUN 39 H (7-17) mg/dL Creatinine 1.59 H (0.52-1.04) mg/dL Glucose 112 H (74-99) mg/dL POC Glucose (mg/dL) 121 H (75-99) mg/dL 03/11/20 Range/Units 20:40 ESR (0-20) mm/hr Sodium (137-145) mmol/L Potassium (3.5-5.1) mmol/L Chloride (98-107) mmol/L BUN (7-17) mg/dL Creatinine (0.52-1.04) mg/dL Glucose (74-99) mg/dL POC Glucose (mg/dL) 147 H (75-99) mg/dL Thrombosis Risk Factor Assmnt - Choose All That Apply Any of the Below Risk Factors Present?: Yes Each Factor Represents 1 point: Abnormal pulmonary function (COPD), Obesity (BMI >25) Other Risk Factors: Yes Each Risk Factor Represents 3 Points: Age 75 years or older Other congenital or acquired thrombophilia - If yes, enter type in comment: No Thrombosis Risk Factor Assessment Total Risk Factor Score: 5 Thrombosis Risk Factor Assessment Level: High Risk Assessment and Plan Assessment: Subacute Headache with numbness of the left jaw and right hand Acute kidney injury with Hyperkalemia Hypovolemic hyponatremia Diabetes mellitus Hypertension Hyperlipidemia Chronic heart failure and cardiomyopathy A. fib Chronic kidney disease, stage III Abdominal aortic aneurysm, 7 cm Plan: This is a pleasant 80 years old female who presents with headache and numbness of the joint and hand. Continue with pain management, consultation with neurology service. Continue with IV fluids, Kayexalate and insulin and D50. Monitor potassium. Monitor creatinine Labs and medication were reviewed.. Continue same treatment. Continue with symptomatic treatment. Resume home medication. Monitor lytes and vitals. DVT and GI prophylaxis. Further recommendations of the clinical course of the patient DVT prophylaxis: Eliquis GI Prophylaxis: Pepcid Prognosis is guarded
[2020-03-11] MEDS ORDERED: INSULIN REGULAR 100 UNIT/ML VIAL IV ONE (22:15)
[2020-03-12] MEDS: SODIUM CHLORIDE 0.9% 1,000 ML IV SCH ×3 (04:59→23:59)
[2020-03-12] MEDS: ACETAMINOPHEN TAB 325 MG TAB PO PRN (06:04)
[2020-03-12 06:52] LABS: Glucose,Whole Blood 102 mg/dL (75-99)
[2020-03-12 07:03] LABS: Calcium 8.5 mg/dL (8.4-10.2); Potassium 4.7 mmol/L (3.5-5.1)
[2020-03-12] MEDS: MULTIVITAMINS, THERA 1 EACH TAB PO SCH (08:16)
[2020-03-12] MEDS: CHOLECALCIFEROL 1,000 UNIT TAB PO SCH (08:17)
[2020-03-12] MEDS: INSULIN ASPART (NovoLOG) 100 UNIT/ML VIAL SQ SCH ×4 (08:17→21:11)
[2020-03-12] MEDS: AMIODARONE 200 MG TAB PO SCH (08:17)
[2020-03-12] MEDS: METOPROLOL TARTRATE 25 MG TAB PO SCH (08:17)
[2020-03-12] MEDS: GLIMEPIRIDE 0.5 MG TAB PO SCH ×2 (08:17→08:20)
[2020-03-12] MEDS: APIXABAN 2.5 MG TABLET PO SCH ×2 (08:17→20:49)
[2020-03-12 11:20] LABS: Glucose,Whole Blood 66 mg/dL (75-99)
[2020-03-12 11:35] LABS: Glucose,Whole Blood 77 mg/dL (75-99)
[2020-03-12] MEDS: BUTALB/APAP/CAFF 50-325-40MG TAB PO PRN ×2 (14:23→20:49)
[2020-03-12 16:58] LABS: Glucose,Whole Blood 100 mg/dL (75-99)
--- NOTE | 2020-03-12 18:00 | P.CNNES ---
History of Present Illness Consult date: 03/12/20 Reason for Consult: cephalgia Chief complaint: cephalgia History of Present Illness: The patient is an 80-year-old female who is seen in neurologic consultation on March 12, 2020, via teleneurology. The patient reports coming to the emergency department because of a headache. She says this headache has been present for the past 26 days. When she came into the hospital the headache was quite severe. She says that the severity waxes and wanes. She feels as if when the headache is real bad, her blood pres sure goes up. She noted that over the weekend, she had an episode of severe headache and found her blood pressure to be 222/91. The patient reports blurring of the vision from her left thigh. She feels this is new. She denies eye pain. She does report intermittent burning of her eyes. She denies tenderness to touch of her head. She denies nausea, vomiting, photophobia and phonophobia associated with the headache. In addition, the patient reports neck pain. She states that she has had problems with her neck for the past 2 years or so. She did buy a new pillow and this has helped with her neck pain. She does report a history of a neck x-ray showing arthritic changes. At home, the p zoe has taken Tylenol for her headache, with minimal relief. Approximately 20 minutes prior to our visit with the patient, she received a dose of Fioricet. Her headache begins to improve as we are evaluating her. Past Medical History Past Medical History: Atrial Fibrillation, Cancer, COPD, Diabetes Mellitus, Hyperlipidemia, Hypertension, Myocardial Infarction ([place]), Renal Disease Additional Past Medical History / Comment(s): uterine cancer. stage III kidney failure. [place] x2 Last Myocardial Infarction Date:: unknown History of Any Multi-Drug Resistant Organisms: None Reported Past Surgical History: Back Surgery, Cholecystectomy, Hysterectomy Past Anesthesia/Blood Transfusion Reactions: No Reported Reaction Past Psychological History: No Psychological Hx Reported Smoking Status: Former smoker Past Alcohol Use History: None Reported Additional Past Alcohol Use History / Comment(s): 1- 1 08/20 ppd quit 08/06 Past Drug Use History: None Reported - Past Family History Brother(s) Family Medical History: Cancer Additional Family Medical History / Comment(s): 2 brothers cancer. 1 brother cabg Medications and Allergies Home Medications Medication Instructions Recorded Confirmed Type Amiodarone [Cordarone] 200 mg PO DAILY 09/14/19 03/11/20 History Cholecalciferol [Vitamin D3 (25 1,000 unit PO DAILY 09/14/19 03/11/20 History Mcg = 1000 Iu)] Metoprolol Tartrate [Lopressor] 25 mg PO BID 09/14/19 03/11/20 History Pravastatin Sodium [Pravachol] 80 mg PO HS 09/14/19 03/11/20 History lisinopriL [Zestril] 10 mg PO DAILY 09/14/19 03/11/20 History Apixaban [Eliquis] 2.5 mg PO BID 03/11/20 03/11/20 History Furosemide [Lasix] 20 mg PO DAILY PRN 03/11/20 03/11/20 History Glimepiride [Amaryl] 0.5 mg PO AC-BRKFST 03/11/20 03/11/20 History Potassium Chloride [Klor-Con 20] 20 meq PO DAILY PRN 03/11/20 03/11/20 History Spectravite 50+ Multivitamin 1 tab PO DAILY 03/11/20 03/11/20 History amLODIPine [Norvasc] 2.5 mg PO HS 03/11/20 03/11/20 History Allergies Allergy/AdvReac Type Severity Reaction Status Date / Time celecoxib [From Celebrex] Allergy Swelling Verified 03/11/20 19:23 ibuprofen [From Motrin] Allergy Swelling Verified 03/11/20 19:23 steroid Allergy Unknown Uncoded 03/11/20 19:23 Physical Examination - Vital Signs Vital Signs: Vital Signs Temp Pulse Pulse Resp BP BP Pulse Ox 03/12/20 09:00 98.1 F 65 14 140/62 98 03/12/20 00:00 97.6 F 56 L 18 102/59 100 03/11/20 19:09 96.3 F L 58 L 17 152/66 99 03/11/20 18:31 98.2 F 61 16 120/68 100 03/11/20 15:58 57 L 18 144/63 100 03/11/20 15:18 70 17 162/69 100 Intake and Output 03/12/20 03/12/20 03/12/20 06:59 14:59 22:59 Intake Total 400 Balance 400 Intake: Intake, IV Titration 400 Amount Sodium Chloride 0.9% 1, 400 000 ml @ 100 mls/hr IV . Q10H [facility] Rx#:[id number] Other: Voiding Method Toilet # Voids 2 Gen.: The patient is reclining in the bed. She is well-nourished, well- developed and in no acute distress. She has a cold wash cloth on her forehead and across the back of her neck. HEENT: Head is atraumatic, normocephalic. Fundus not visualized. There is no scleral icterus. Mucous membranes are moist. There is no tenderness to palpation of the head. Neck: There is tenderness to palpation of the neck, as well as with flexion of the neck. Heart: Regular rate and rhythm Extremities: Without edema Neurological examination Mental status: The patient is awake, alert and oriented 3. Her speech is clear. There is no dysarthria or aphasia. Cranial nerves: Pupils are equal, round and reactive to light. Visual guaman are full to confrontation. Extraocular movements are intact. There is no nystagmus. Facial sensation is intact. There is no facial asymmetry. Hearing is grossly intact. Uvula and palate are midline. Shoulder shrug is symmetric. Tongue protrudes midline. Motor: Strength is 5/5 throughout Sensation: Grossly intact to light touch throughout Coordination: Finger to nose and rapid alternating movements are intact Deep tendon reflexes: 3+/4+ throughout, with the exception of the bilateral Achilles reflexes at 2+/4+. Gait: Not assessed Results - Laboratory Findings CBC and BMP: 03/11/20 14:16 03/12/20 05:52 Abnormal Lab Findings: Abnormal Labs 03/11/20 03/11/20 03/11/20 14:16 14:16 14:18 ESR 49 H Sodium 131 L Potassium 6.0 H Chloride 94 L BUN 39 H Creatinine 1.59 H Glucose 112 H POC Glucose (mg/dL) 121 H 03/11/20 03/12/20 03/12/20 20:40 05:52 06:51 ESR Sodium 135 L Potassium Chloride BUN 39 H Creatinine 1.49 H Glucose POC Glucose (mg/dL) 147 H 102 H 03/12/20 11:18 ESR Sodium Potassium Chloride BUN Creatinine Glucose POC Glucose (mg/dL) 66 L Assessment and Plan Assessment: 1. Headache, neck pain and diffuse hyperreflexia-suspect cervical spinal stenosis 2. Acute renal failure-this may contribute to headache as well Plan: 1. MRI cervical spine without gadolinium 2. If patient is medically stable, she may be discharged and have the MRI done as an outpatient Thank you for allowing me to participate in the care of this patient Time with Patient: Greater than 30 (sspent 45 minutes with patient via teleneurology)
--- NOTE | 2020-03-12 19:39 | P.PN ---
Subjective This is a pleasant 80 years old female with past medical history of diabetes mellitus, hypertension, hyperlipidemia, atrial fibrillation, chronic heart failure and cardiomyopathy, chronic kidney disease stage III, 7 cm aortic aneurysm. She is patient of Dr. Callahan. She presents because of headache or 25, she went to see her PCP Dr. Callahan few days ago who prescribed him 13 with no benefit, and today comes with a several pain mainly in the frontal area radiating to the top and to the occipital area felt like pressure about 10/10 in severity, down to 6/10. Associated with numbness around the left jaw and in the right hand for the last 2 days, no weakness in arms or legs, no slurred speech, no difficulty swallowing. No neck stiffness Patient is slightly tachycardic at 105, however she is saturating 97% on 3 L oxygen, so vitals are stable. Patient denies any new medication started. CT of the brain: No acute process Unremarkable CBC and Liver Enzymes, Creatinine Increased to 1.5, It Was 1.3 on 12/2019, Potassium Is Elevated at 6.0. Sodium Was Low at 131. 03/12/2020 Patient is awake and alert, she still have headache and numbness in her right lateral 2 fingers however numbness individual disappeared and said she has numbness in her left arm. No other complaints. Neurologist evaluated the patient and recommended MRI of the cervical spine to rule out cervical stenosis Fioricet is been added to control her pain Review of systems CONSTITUTIONAL: No fever, no malaise, no fatigue. HEENT: No recent visual problems or hearing problems. Denied any sore throat. CARDIOVASCULAR: No orthopnea, PND, no palpitations, no syncope. PULMONARY: No shortness of breath, no cough, no hemoptysis. GASTROINTESTINAL: No diarrhea, no nausea, no vomiting, no abdominal pain. Normoactive bowel sounds. NEUROLOGICAL: No headaches, no weakness, no numbness. HEMATOLOGICAL: Denies any bleeding or petechiae. GENITOURINARY: Denies any burning micturition, frequency, or urgency. MUSCULOSKELETAL/RHEUMATOLOGICAL: Denies any joint pain, swelling, or any muscle pain. ENDOCRINE: Denies any polyuria or polydipsia. Active Medications Generic Name Dose Route Start Last Admin Trade Name Freq PRN Reason Stop Dose Admin Acetaminophen 650 mg 03/11/20 16:39 03/12/20 06:04 Tylenol Tab PO 650 mg Q6HR PRN Administration Mild Pain or Fever > 100.5 Acetaminophen/Butalbital/Caffeine 1 each 03/12/20 14:09 03/12/20 14:23 Fioricet 50-325-40 PO 1 each Q4HR PRN Administration Headache Amiodarone HCl 200 mg 03/12/20 09:00 03/12/20 08:17 Cordarone PO 200 mg DAILY HAKEEM Administration Amlodipine Besylate 2.5 mg 03/11/20 21:00 03/11/20 20:04 Norvasc PO 2.5 mg HS HAKEEM Administration Apixaban 2.5 mg 03/11/20 21:00 03/12/20 08:17 Eliquis PO 2.5 mg BID HAKEEM Administration Cholecalciferol 1,000 unit 03/12/20 09:00 03/12/20 08:17 Vitamin D3 (25 Mcg = 1000 Iu) PO 1,000 unit DAILY HAKEEM Administration Glimepiride 0.5 mg 03/12/20 07:30 03/12/20 08:20 Amaryl PO Not Given AC-BRKFST ON LICENSE OF [facility] Sodium Chloride 1,000 mls @ 50 mls/hr 03/11/20 16:45 03/12/20 12:56 Saline 0.9% IV Not Given .Q20H ON LICENSE OF [facility] Insulin Aspart 0 unit 03/11/20 21:00 03/12/20 17:03 Novolog SQ Not Given [facility] Protocol Metoprolol Tartrate 25 mg 03/12/20 09:00 03/12/20 08:17 Lopressor PO 25 mg DAILY ON LICENSE OF [facility] Administration Morphine Sulfate 4 mg 03/11/20 16:39 Morphine Sulfate (Inj) IV Q4HR PRN Severe Pain Multivitamins 1 each 03/12/20 09:00 03/12/20 08:16 Theragran PO 1 each DAILY ON LICENSE OF [facility] Administration Naloxone HCl 0.2 mg 03/11/20 16:39 Narcan IV Q2M PRN Opioid Reversal Pravastatin Sodium 80 mg 03/11/20 21:00 03/11/20 20:04 Pravachol PO 80 mg HS ON LICENSE OF [facility] Administration Tramadol HCl 50 mg 03/11/20 16:39 Ultram PO Q6H PRN Moderate Pain Objective - Vital Signs Vital signs: Vital Signs Temp 98.1 F 03/12/20 09:00 Pulse 65 03/12/20 09:00 Resp 14 07/25/20 09:00 BP 140/62 03/12/20 09:00 Pulse Ox 98 03/12/20 09:00 Intake & Output 03/12/20 03/12/20 03/13/20 06:59 18:59 06:59 Intake Total 800 Balance 800 Intake: Intake, IV Titration 800 Amount Sodium Chloride 0.9% 1, 800 000 ml @ 50 mls/hr IV . Q20H [facility] Rx#:[id number] Other: Voiding Method Toilet # Voids 2 - Exam GENERAL: The patient is alert and oriented x3, not in any acute distress. Well developed, well nourished. HEENT: Pupils are round and equally reacting to light. EOMI. No scleral icterus. No conjunctival pallor. Normocephalic, atraumatic. No pharyngeal erythema. No thyromegaly. CARDIOVASCULAR: S1 and S2 present. No murmurs, rubs, or gallops. PULMONARY: Chest is clear to auscultation, no wheezing or crackles. ABDOMEN: Soft, nontender, nondistended, normoactive bowel sounds. No palpable organomegaly. MUSCULOSKELETAL: No joint swelling or deformity. EXTREMITIES: No cyanosis, clubbing, or pedal edema. NEUROLOGICAL: Gross neurological examination did not reveal any focal deficits. SKIN: No rashes. no petechiae. - Labs CBC & Chem 7: 03/11/20 14:16 03/12/20 05:52 Labs: Abnormal Lab Results - Last 24 Hours (Table) 03/11/20 03/12/20 03/12/20 Range/Units 20:40 05:52 06:51 Sodium 135 L (137-145) mmol/L BUN 39 H (7-17) mg/dL Creatinine 1.49 H (0.52-1.04) mg/dL POC Glucose (mg/dL) 147 H 102 H (75-99) mg/dL 03/12/20 03/12/20 Range/Units 11:18 16:56 Sodium (137-145) mmol/L BUN (7-17) mg/dL Creatinine (0.52-1.04) mg/dL POC Glucose (mg/dL) 66 L 100 H (75-99) mg/dL Assessment and Plan Assessment: Subacute Headache with numbness of the left jaw, left arm and right hand Chronic kidney disease with some elements of Acute kidney injury with Hyperkal emia, resolved Hypovolemic hyponatremia Diabetes mellitus Hypertension Hyperlipidemia Chronic heart failure and cardiomyopathy A. fib Chronic kidney disease, stage III Abdominal aortic aneurysm, 7 cm Plan: This is a pleasant 80 years old female who presents with headache and numbness of the joint and hand. Continue with pain management, consultation with neurol ogy service who recommended MRI of the cervical spine. Discontinue IV fluids, monitor creatinine Labs and medication were reviewed.. Continue same treatment. Continue with symptomatic treatment. Resume home medication. Monitor lytes and vitals. DVT and GI prophylaxis. Further recommendations of the clinical course of the patient DVT prophylaxis: Eliquis GI Prophylaxis: Pepcid Prognosis is guarded
[2020-03-12 20:31] LABS: Glucose,Whole Blood 107 mg/dL (75-99)
[2020-03-12] MEDS: PRAVASTATIN SODIUM 80 MG TAB PO SCH (20:49)
[2020-03-12] MEDS: amLODIPine 2.5 MG TAB PO SCH (20:49)
[2020-03-13 02:16] LABS: Glucose,Whole Blood 113 mg/dL (75-99)
[2020-03-13] MEDS: ACETAMINOPHEN TAB 325 MG TAB PO PRN ×2 (03:38→18:02)
[2020-03-13 06:40] LABS: Glucose,Whole Blood 106 mg/dL (75-99)
[2020-03-13] MEDS: MULTIVITAMINS, THERA 1 EACH TAB PO SCH (08:13)
[2020-03-13] MEDS: CHOLECALCIFEROL 1,000 UNIT TAB PO SCH (08:13)
[2020-03-13] MEDS: AMIODARONE 200 MG TAB PO SCH (08:13)
[2020-03-13] MEDS: METOPROLOL TARTRATE 25 MG TAB PO SCH (08:14)
[2020-03-13] MEDS: APIXABAN 2.5 MG TABLET PO SCH ×2 (08:14→21:00)
[2020-03-13] MEDS: INSULIN ASPART (NovoLOG) 100 UNIT/ML VIAL SQ SCH ×4 (08:14→20:52)
[2020-03-13] MEDS ORDERED: HYDROcodone/APAP 5-325MG 1 EACH TAB PO PRN (11:41)
[2020-03-13 11:54] LABS: Glucose,Whole Blood 109 mg/dL (75-99)
[2020-03-13 16:46] LABS: Glucose,Whole Blood 142 mg/dL (75-99)
[2020-03-13] MEDS: SODIUM CHLORIDE 0.9% 1,000 ML IV SCH ×2 (18:02→21:01)
[2020-03-13 19:12] VITALS: RESP 18
[2020-03-13 20:48] LABS: Glucose,Whole Blood 111 mg/dL (75-99)
[2020-03-13] MEDS: amLODIPine 2.5 MG TAB PO SCH (21:00)
[2020-03-13] MEDS: PRAVASTATIN SODIUM 80 MG TAB PO SCH (21:00)
--- NOTE | 2020-03-13 23:46 | P.PN ---
Subjective This is a pleasant 80 years old female with past medical history of diabetes mellitus, hypertension, hyperlipidemia, atrial fibrillation, chronic heart failure and cardiomyopathy, chronic kidney disease stage III, 7 cm aortic aneurysm. She is patient of Dr. Callahan. She presents because of headache or 25, she went to see her PCP Dr. Callahan few days ago who prescribed him 13 with no benefit, and today comes with a several pain mainly in the frontal area radiating to the top and to the occipital area felt like pressure about 10/10 in severity, down to 6/10. Associated with numbness around the left jaw and in the right hand for the last 2 days, no weakness in arms or legs, no slurred speech, no difficulty swallowing. No neck stiffness Patient is slightly tachycardic at 105, however she is saturating 97% on 3 L oxygen, so vitals are stable. Patient denies any new medication started. CT of the brain: No acute process Unremarkable CBC and Liver Enzymes, Creatinine Increased to 1.5, It Was 1.3 on 12/2019, Potassium Is Elevated at 6.0. Sodium Was Low at 131. 03/12/2020 Patient is awake and alert, she still have headache and numbness in her right lateral 2 fingers however numbness individual disappeared and said she has numbness in her left arm. No other complaints. Neurologist evaluated the patient and recommended MRI of the cervical spine to rule out cervical stenosis Fioricet is been added to control her pain 03/13/2020 Patient presents with headache and hyperreflexia, neurologist evaluated the patient and recommended MRI of the neck. Patient still complaining of headache which is poorly controlled, fiorocet was tried but did not work well for the patient, switched to an [place] Also patient has very little areas of numbness in her left and right upper extremities Because patient still symptomatic, and her symptoms are poorly controlled. We'll give the patient in the hospital to do the MRI tomorrow as it is not avai lable over the weekend. Other than that she is fully awake and oriented, hemodynamically stable and sugar control Sugar was low and her glimepiride was stopped, she switched to regular diet and now is around 111 Objective - Vital Signs Vital signs: Vital Signs Temp 97.6 F 03/13/20 08:43 Pulse 95 03/13/20 08:43 Resp 11 L 03/13/20 08:43 BP 141/66 03/13/20 08:43 Pulse Ox 97 03/13/20 08:43 Intake & Output 03/12/20 03/13/20 03/13/20 18:59 06:59 18:59 Intake Total 800 150 Balance 800 150 Intake: Intake, IV Titration 800 150 Amount Sodium Chloride 0.9% 1, 800 150 000 ml @ 50 mls/hr IV . Q20H [facility] Rx#:[id number] Other: Voiding Method Toilet # Voids 1 - Exam GENERAL: The patient is alert and oriented x3, not in any acute distress. Well developed, well nourished. HEENT: Pupils are round and equally reacting to light. EOMI. No scleral icterus. No conjunctival pallor. Normocephalic, atraumatic. No pharyngeal erythema. No thyromegaly. CARDIOVASCULAR: S1 and S2 present. No murmurs, rubs, or gallops. PULMONARY: Chest is clear to auscultation, no wheezing or crackles. ABDOMEN: Soft, nontender, nondistended, normoactive bowel sounds. No palpable organomegaly. MUSCULOSKELETAL: No joint swelling or deformity. EXTREMITIES: No cyanosis, clubbing, or pedal edema. NEUROLOGICAL: Gross neurological examination did not reveal any focal deficits. SKIN: No rashes. no petechiae. - Labs CBC & Chem 7: 03/11/20 14:16 03/12/20 05:52 Labs: Abnormal Lab Results - Last 24 Hours (Table) 03/12/20 03/12/20 03/13/20 Range/Units 16:56 20:29 02:14 POC Glucose (mg/dL) 100 H 107 H 113 H (75-99) mg/dL 03/13/20 03/13/20 Range/Units 06:37 11:52 POC Glucose (mg/dL) 106 H 109 H (75-99) mg/dL Assessment and Plan Assessment: Subacute Headache with numbness of the left jaw, left arm and right hand Chronic kidney disease with some elements of Acute kidney injury with Hype rkalemia, resolved Hypovolemic hyponatremia Diabetes mellitus Hypertension Hyperlipidemia Chronic heart failure and cardiomyopathy A. fib Chronic kidney disease, stage III Abdominal aortic aneurysm, 7 cm Plan: This is a pleasant 80 years old female who presents with headache and numbness of the joint and hand. Continue with pain management, consultation with [place] urology service who recommended MRI of the cervical spine. Discontinue IV fluids, monitor creatinine Labs and medication were reviewed.. Continue same treatment. Continue with symptomatic treatment. Resume home medication. Monitor lytes and vitals. DVT and GI prophylaxis. Further recommendations of the clinical course of the patient DVT prophylaxis: Eliquis GI Prophylaxis: Pepcid Prognosis is guarded
[2020-03-14] MEDS: ACETAMINOPHEN TAB 325 MG TAB PO PRN (05:35)
[2020-03-14 06:28] LABS: Glucose,Whole Blood 134 mg/dL (75-99)
[2020-03-14 07:42] VITALS: BP 140/63; PULSE 60; TEMP 96.9
[2020-03-14] MEDS: INSULIN ASPART (NovoLOG) 100 UNIT/ML VIAL SQ SCH (08:20)
[2020-03-14] MEDS: METOPROLOL TARTRATE 25 MG TAB PO SCH (08:21)
[2020-03-14] MEDS: MULTIVITAMINS, THERA 1 EACH TAB PO SCH (08:21)
[2020-03-14] MEDS: CHOLECALCIFEROL 1,000 UNIT TAB PO SCH (08:22)
[2020-03-14] MEDS: APIXABAN 2.5 MG TABLET PO SCH (08:22)
[2020-03-14] MEDS: AMIODARONE 200 MG TAB PO SCH (08:24)
--- NOTE | 2020-03-14 10:11 | P.DS ---
Providers Date of admission: 03/11/20 16:39 Expected date of discharge: 03/14/20 Attending physician: Roger Callahan Consults: 03/11/20 16:40 Consult Physician Urgent Consulting Provider: Max Trujillo Consult Reason/Comments: cephalgia Do you want consulting provider notified?: Yes Primary care physician: Roger Callahan [facility] Course: Final Diagnoses: Subacute Headache, neck pain, possible new onset of migraines, possible cervical spinal stenosis-MRI pending. Left internal carotid artery 50% stenosis, further monitoring/follow-up outpatient. Hypertension Acute on chronic renal failure, stage III, appears close to baseline with holding of AUBREY inhibitor. Hypovolemic hyponatremia Abdominal aortic aneurysm 7 cm Diabetes mellitus Hyperlipidemia Chronic A. fib CAD, history of [place] History of uterine cancer Former nicotine dependence 70-year-old female admitted with headache, neck pain , renal failure and multiple other medical issues. Evaluated by neurology with neuro workup completed. Repeat CT reported no acute intracranial hemorrhage, midline shift, or mass effect. Angiography CT reported 50% left internal carotid artery stenosis. Cervical spine MRI recommended to have either inpatient or outpatient. Patient does have orthopedic hardware from prior spinal surgery. This morning, minimal frontal headache rated at a "2/10", denies lightheadedness, dizziness or focal deficits-visual "blurriness" resolved. Reports left facial numbness resolved, some neck tightness. Denies nausea vomiting or diarrhea. Denies chest pain, palpitations or shortness of breath. Declining pain medications except for Tylenol. Significant clinical improvement. Patient has been cleared by neurology for discharge. Patient has a scheduled appointment with Dr. Pilo Vyas, neurology this Saturday03/16/20. Patient discharged home in a stable condition with guarded prognosis. The impression and plan of care has been dictated as directed. : I performed a history and examination of this patient, discussed the same with the dictator. I agree with the dictator's note ,documented as a scribe. Any additional findings or plans will be noted. Patient Condition at Discharge: Stable Plan - Discharge Summary Discharge Rx Participant: No New Discharge Prescriptions: Continue Pravastatin Sodium [Pravachol] 80 mg PO HS Amiodarone [Cordarone] 200 mg PO DAILY Metoprolol Tartrate [Lopressor] 25 mg PO BID Cholecalciferol [Vitamin D3 (25 Mcg = 1000 Iu)] 1,000 unit PO DAILY Spectravite 50+ Multivitamin 1 tab PO DAILY amLODIPine [Norvasc] 2.5 mg PO HS Apixaban [Eliquis] 2.5 mg PO BID Glimepiride [Amaryl] 0.5 mg PO AC-BRKFST Discontinued lisinopriL [Zestril] 10 mg PO DAILY Discharge Medication List Amiodarone [Cordarone] 200 mg PO DAILY 09/14/19 [History] Cholecalciferol [Vitamin D3 (25 Mcg = 1000 Iu)] 1,000 unit PO DAILY 09/14/19 [History] Metoprolol Tartrate [Lopressor] 25 mg PO BID 09/14/19 [History] Pravastatin Sodium [Pravachol] 80 mg PO HS 09/14/19 [History] Apixaban [Eliquis] 2.5 mg PO BID 03/11/20 [History] Glimepiride [Amaryl] 0.5 mg PO AC-BRKFST 03/11/20 [History] Spectravite 50+ Multivitamin 1 tab PO DAILY 03/11/20 [History] amLODIPine [Norvasc] 2.5 mg PO HS 03/11/20 [History] Follow up Appointment(s)/Referral(s): Roger Callahan DO [Primary Care Provider] - 3 Days Lina Vyas MD [REFERRING] - 03/16/20 Ambulatory/Diagnostic Orders: Complete Blood Count w/diff [LAB.AMB] Time Frame: 3 Days, Location: None Selected Activity/Diet/Wound Care/Special Instructions: If MRI not done as an inpatient. Can be scheduled as an outpatient. Aubrey on hold r/t renal f.
[2020-03-14 12:09] LABS: Hemoglobin A1C 6.4 % (4.0-6.0)
== END 2020-03-14 11:30 | disposition home or self-care (01) | DRG 552 ==
LOC: EC 12:29 → 1SOBS 16:39 → OBSVTOIN 03-14 06:38
PROVIDERS: ADMIT Family Medicine; ATTEND Family Medicine
DX: M48.02 Spinal stenosis, cervical region (principal); E87.1 Hypo-osmolality and hyponatremia; I13.0 Hypertensive heart and chronic kidney disease with heart failure and stage 1 through stage 4 chronic kidney disease, or unspecified chronic kidney disease; I42.9 Cardiomyopathy, unspecified; I48.20 Chronic atrial fibrillation, unspecified; N17.9 Acute kidney failure, unspecified; G43.909 Migraine, unspecified, not intractable, without status migrainosus; N18.3 Chronic kidney disease, stage 3 (moderate); I50.9 Heart failure, unspecified; E11.22 Type 2 diabetes mellitus with diabetic chronic kidney disease; J44.9 Chronic obstructive pulmonary disease, unspecified; E78.5 Hyperlipidemia, unspecified; E86.1 Hypovolemia; E87.5 Hyperkalemia; Z11.59 Encounter for screening for other viral diseases; I25.10 Atherosclerotic heart disease of native coronary artery without angina pectoris; I25.2 Old myocardial infarction; I65.22 Occlusion and stenosis of left carotid artery; I71.4 Abdominal aortic aneurysm, without rupture; Z79.01 Long term (current) use of anticoagulants; Z79.899 Other long term (current) drug therapy; Z88.8 Allergy status to other drugs, medicaments and biological substances; Z85.42 Personal history of malignant neoplasm of other parts of uterus; Z87.891 Personal history of nicotine dependence; Z90.710 Acquired absence of both cervix and uterus; Z90.49 Acquired absence of other specified parts of digestive tract; Z82.49 Family history of ischemic heart disease and other diseases of the circulatory system; Z80.9 Family history of malignant neoplasm, unspecified
CPT/HCPCS: 36415; 70450; 70496; 70498; 80048; 80053; 83036; 85025; 85610; 85652; 85730; 96361; 96374; 96375; 96376; 99285

== ENCOUNTER → 2020-10-26 | Outpatient (CLI) | payer MEDICARE ==
--- NOTE | 2020-10-26 15:00 | XR ---
EXAMINATION TYPE: XR shoulder complete RT DATE OF EXAM: 10/26/2020 Comparison: None Clinical History: 80-year-old female R52 pain R shoulder Findings: Mild degenerative change at the AC joint. Prominent inferior spurring is present. There is rounded co ntour of the greater tuberosity with loss of the subacromial space. Mild degenerative change with spu rring at the glenohumeral joint. Impression: 1. 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 2. Mild AC joint OA with a large inferior spur encroaching onto the subacromial space. 3. Mild glenohumeral joint OA.
== END | disposition home or self-care (01) ==
LOC: RADXRMAIN 12:51
PROVIDERS: ATTEND Family Medicine
DX: M19.011 Primary osteoarthritis, right shoulder (principal)

== ENCOUNTER → 2024-01-23 | Outpatient (CLI) | payer MEDICARE ==
--- NOTE | 2024-01-23 12:35 | US ---
EXAMINATION TYPE: US arterial LE multi level DATE OF EXAM: 01/23/2024 10:40 AM CLINICAL INDICATION: Female, 83 years old with history of [id number] PERIPHERAL VASCULAR DISEASE, UNSPECIFI ED; Non healing wound left calf History of: Smoker: Previous Hypertension: Yes Diabetic: Yes Hyperlipidemia: Yes TIA/CVA: No [place]: Yes - 10+ years ago Doppler Waveforms: Right: Biphasic Left: Biphasic Right Brachial Pressure: 125 Left Brachial Pressure: 114 Ankle-Brachial Indices: Right: 0.90 Left: CNO (Vessel hardening > 1.4; Normal 0.9 - 1.4, Moderate 0.7 - 0.9, Severe 0.5-0.7) IMPRESSION: Ankle-brachial indices and Doppler waveforms indicate mild peripheral vascular disease i n the left lower extremity and at least moderate peripheral vascular disease in the right lower extre mity.
== END | disposition home or self-care (01) ==
LOC: RADUSWWP 09:43
PROVIDERS: ATTEND Internal Medicine Interventional Cardiology
DX: E11.51 Type 2 diabetes mellitus with diabetic peripheral angiopathy without gangrene (principal); I73.9 Peripheral vascular disease, unspecified
CPT/HCPCS: 93923

== ENCOUNTER 2024-04-14 13:49 | Emergency (ER) | payer MEDICARE ==
--- NOTE | 2024-04-14 14:20 | ED ---
Recheck HPI - General Source: patient, RN notes reviewed Mode of arrival: wheelchair Limitations: no limitations <Cintia Orozco - Last Filed: 04/14/24 14:19> <Aman Butt - Last Filed: 04/14/24 17:01> - General Chief Complaint: Recheck/Abnormal Lab/Rx Stated Complaint: low hemaglobin Time Seen by Provider: 04/14/24 14:19 - History of Present Illness Initial Comments: Quick [id number] female presenting for low hemoglobin. Patient states she had labs performed by casino cage manager last week. Patient received a call stating that her hemoglobin was "in the sevens". Patient was unable to follow-up with Dr. Callahan, so she was instructed to come to the ER for hemoglobin check and possible transfusion. Patient denies symptoms. (Cintia Orozco) - Related Data Home Medications Medication Instructions Recorded Confirmed Glimepiride [Amaryl] 1 mg PO AC-BRKFST 03/11/20 04/14/24 Pravastatin Sodium [Pravachol] 80 mg PO HS 04/30/23 04/14/24 Amiodarone [Cordarone] 200 mg PO DAILY 04/14/24 04/14/24 Apixaban [Eliquis] 2.5 mg PO BID 04/14/24 04/14/24 Bumetanide [Bumex] See Taper PO HS 04/14/24 04/14/24 Metoprolol Tartrate [Lopressor] 50 mg PO BID 04/14/24 04/14/24 Previous Rx's Medication Instructions Recorded Clopidogrel [Plavix] 75 mg PO DAILY #90 tab 12/21/22 Allergies Allergy/AdvReac Type Severity Reaction Status Date / Time celecoxib [From Celebrex] Allergy Swelling Verified 04/14/24 16:46 ibuprofen [From Motrin] Allergy Swelling Verified 04/14/24 16:46 steroid Allergy Unknown Uncoded 04/14/24 16:46 Review of Systems ROS Other: All systems not noted in ROS Statement are negative. <Cintia Orozco - Last Filed: 04/14/24 14:19> ROS Other: All systems not noted in ROS Statement are negative. <Aman Butt - Last Filed: 04/14/24 17:01> ROS Statement: Those systems with pertinent positive or pertinent negative responses have been documented in the HPI. Past Medical History Past Medical History: Atrial Fibrillation, Cancer, COPD, Diabetes Mellitus, Hyperlipidemia, Hypertension, Myocardial Infarction ([place]), Renal Disease Additional Past Medical History / Comment(s): Moderate to severe mitral regurgitation/SOB, mild aortic stenosis, NIDDM, uterine cancer/surgery only, [place] x 2, stage III kidney failure Last Myocardial Infarction Date:: unknown History of Any Multi-Drug Resistant Organisms: None Reported Past Surgical History: Appendectomy, Back Surgery, Cholecystectomy, Heart Cathet erization, Heart Catheterization With Stent, Hysterectomy Additional Past Surgical History / Comment(s): Cardioversions, hysterectomy/left one ovary Past Anesthesia/Blood Transfusion Reactions: No Reported Reaction Additional Past Anesthesia/Blood Transfusion Reaction / Comment(s): Pt has had autotransfusion only. Date of Last Stent Placement:: 12/2022 Past Psychological History: No Psychological Hx Reported Smoking Status: Former smoker Past Alcohol Use History: None Reported Past Drug Use History: None Reported - Past Family History Brother(s) Family Medical History: Cancer Additional Family Medical History / Comment(s): 2 brothers cancer. 1 brother cabg <Cintia Orozco - Last Filed: 04/14/24 14:19> General Exam Limitations: no limitations <Cintia Orozco - Last Filed: 04/14/24 14:19> - General Exam Comments Initial Comments: Visual Physical Exam Vital signs reviewed General: Well-appearing, nontoxic, no acute distress. Head: Normocephalic, atraumatic Eyes: PERRLA, EOMI ENT: Airway patent Chest: Nonlabored breathing Skin: No visual rash, normal skin tone Neuro: Alert and oriented 3 Musculoskeletal: No gross abnormalities (Cintia Orozco) Course Vital Signs 04/14/24 04/14/24 13:50 15:23 Temperature 97.8 F Pulse Rate 91 77 Respiratory 18 20 Rate Blood Pressure 99/64 127/81 O2 Sat by Pulse 99 97 Oximetry Medical Decision Making <Cintia Orozco - Last Filed: 04/14/24 14:19> - Lab Data Result diagrams: 04/14/24 14:39 04/14/24 14:39 <Aman Butt - Last Filed: 04/14/24 17:01> - Medical Decision Making I completed the quick note portion of this chart signed Cintia Orozco PA-C (Cintia Orozco) Was pt. sent in by a medical professional or institution (, PA, VENDING MACHINE MECHANIC, urgent care, hospital, or detention...) When possible be specific @ -No Did you speak to anyone other than the patient for history (EMS, parent, family, police, friend...)? What history was obtained from this source @ -No Did you review nursing and triage notes (agree or disagree)? Why? @ -I reviewed and agree with nursing and triage notes Were old charts reviewed (outside hosp., previous admission, EMS record, old EKG, old radiological studies, urgent care reports/EKG's, detention records)? Report findings @ -No old charts were reviewed Differential Diagnosis (chest pain, altered mental status, abdominal pain women, abdominal pain men, vaginal bleeding, musculoskeletal, weakness, fever, dyspnea, syncope, headache, dizziness, GI bleed, back pain, seizure, CVA, palpatations, mental health)? @ -Anemia, GI bleed, iron deficiency EKG interpreted by me (3pts min.). @ -None done X-rays interpreted by me (1pt min.). @ -None done CT interpreted by me (1pt min.). @ -None done U/S interpreted by me (1pt. min.). @ -None done What testing was considered but not performed or refused? (CT, X-rays, U/S, labs)? Why? @ -None What meds were considered but not given or refused? Why? @ -None Was smoking cessation discussed for >3mins.? @ -No Were there social determinants of health that impacted care today? How? (Homelessness, low income, unemployed, alcoholism, drug addiction, transportation, low edu. Level, literacy, decrease access to med. care, half-way, rehab)? @ -No Was there de-escalation of care discussed even if they declined (Discuss DNR or withdrawal of care, Hospice)? DNR status @ -No What co-morbidities impacted this encounter? (DM, HTN, Smoking, COPD, CAD, Cancer, CVA, ARF, Chemo, Hep., AIDS, mental health diagnosis, sleep apnea, morbid obesity)? @ -Anticoagulation use Was patient admitted / discharged? Hospital course, mention meds given and route, prescriptions, significant lab abnormalities, going to OR and other pertinent info. @ -84-year-old female with alleged outpatient labs with hemoglobin of 6.7. Vital signs stable. Patient well-appearing at the bedside. Laboratory evalua tion obtained. Hemoglobin is 8.0. Previous labs were reviewed last year she had hemoglobin of 7.8. So-called blood is positive. Rest of labs unremarkable. Case was discussed in detail with Dr. Roger Callahan he request that patient be discharged and he will take care of at his office. Request patient be seen in his office before the weekend. Family and patient were notified of Dr. Callahan's recommendations. Patient discharged. Did you discuss the management of the patient with other professionals (professionals i.e. , PA, VENDING MACHINE MECHANIC, lab, RT, psych nurse, social service liaison, blanket washer, teacher, senior escrow officer, high risk case manager)? Give summary @ -See above Was critical care preformed (if so, how long)? @ -No Undiagnosed new problem with uncertain prognosis? @ -No Drug Therapy requiring intensive monitoring for toxicity (Heparin, Nitro, Insulin, Cardizem)? @ -No Were any procedures done? @ -No Diagnosis/symptom? Acute, or Chronic, or Acute on Chronic? Uncomplicated (without systemic symptoms) or Complicated (systemic symptoms)? @ -Abnormal outpatient lab Side effects of treatment? @ -No Exacerbation, Progression, or Severe Exacerbation? @ -No Poses a threat to life or bodily function? How? (Chest pain, [place], [place], pneumonia, PE, COPD, DKA, ARF, appy, cholecystitis, CVA, Diverticulitis, Homicidal, Suicidal, threat to staff... and all critical care pts) @ -yes (Aman Butt) - Lab Data Lab Results 04/14/24 04/14/24 04/14/24 Range/Units 14:38 14:39 14:39 WBC 5.6 (3.8-10.6) k/uL RBC 3.37 L (3.80-5.40) m/uL Hgb 8.0 L (11.4-16.0) gm/dL Hct 26.6 L (34.0-46.0) % MCV 79.1 L (80.0-100.0) fL MCH 23.8 L (25.0-35.0) pg MCHC 30.1 L (31.0-37.0) g/dL RDW 16.4 H (11.5-15.5) % Plt Count 394 (150-450) k/uL MPV 8.6 Neutrophils % 62 % Lymphocytes % 27 % Monocytes % 6 % Eosinophils % 1 % Basophils % 0 % Neutrophils # 3.5 (1.3-7.7) k/uL Lymphocytes # 1.5 (1.0-4.8) k/uL Monocytes # 0.4 (0-1.0) k/uL Eosinophils # 0.1 (0-0.7) k/uL Basophils # 0.0 (0-0.2) k/uL Hypochromasia Marked Poikilocytosis Slight Anisocytosis Slight Microcytosis Slight PT 12.4 (10.0-12.5) sec INR 1.2 H (<1.2) APTT 28.0 (22.0-30.0) sec Sodium (137-145) mmol/L Potassium (3.5-5.1) mmol/L Chloride (98-107) mmol/L Carbon Dioxide (22-30) mmol/L Anion Gap mmol/L BUN (7-17) mg/dL Creatinine (0.52-1.04) mg/dL Est GFR (CKD-EPI)AfAm (>60 ml/min/1.73 sqM) Est GFR (CKD-EPI)NonAf (>60 ml/min/1.73 sqM) Glucose (74-99) mg/dL Calcium (8.4-10.2) mg/dL Total Bilirubin (0.2-1.3) mg/dL AST (14-36) U/L ALT (4-34) U/L Alkaline Phosphatase (38-126) U/L Total Protein (6.3-8.2) g/dL Albumin (3.5-5.0) g/dL Stool Occult Blood (Negative) Blood Type A Positive Blood Type Recheck No Previous Record Bld Type Recheck Status [facility] ONLY 04/14/24 04/14/24 Range/Units 14:39 15:22 WBC (3.8-10.6) k/uL RBC (3.80-5.40) m/uL Hgb (11.4-16.0) gm/dL Hct (34.0-46.0) % MCV (80.0-100.0) fL MCH (25.0-35.0) pg MCHC (31.0-37.0) g/dL RDW (11.5-15.5) % Plt Count (150-450) k/uL MPV Neutrophils % % Lymphocytes % % Monocytes % % Eosinophils % % Basophils % % Neutrophils # (1.3-7.7) k/uL Lymphocytes # (1.0-4.8) k/uL Monocytes # (0-1.0) k/uL Eosinophils # (0-0.7) k/uL Basophils # (0-0.2) k/uL Hypochromasia Poikilocytosis Anisocytosis Microcytosis PT (10.0-12.5) sec INR (<1.2) APTT (22.0-30.0) sec Sodium 133 L (137-145) mmol/L Potassium 3.5 (3.5-5.1) mmol/L Chloride 94 L (98-107) mmol/L Carbon Dioxide 33 H (22-30) mmol/L Anion Gap 6 mmol/L BUN 41 H (7-17) mg/dL Creatinine 1.50 H (0.52-1.04) mg/dL Est GFR (CKD-EPI)AfAm 36 (>60 ml/min/1.73 sqM) Est GFR (CKD-EPI)NonAf 31 (>60 ml/min/1.73 sqM) Glucose 168 H (74-99) mg/dL Calcium 8.5 (8.4-10.2) mg/dL Total Bilirubin 0.4 (0.2-1.3) mg/dL AST 24 (14-36) U/L ALT 18 (4-34) U/L Alkaline Phosphatase 120 (38-126) U/L Total Protein 5.8 L (6.3-8.2) g/dL Albumin 3.1 L (3.5-5.0) g/dL Stool Occult Blood Positive H (Negative) Blood Type Blood Type Recheck Bld Type Recheck Status Disposition <Cintia Orozco - Last Filed: 04/14/24 14:19> Is patient prescribed a controlled substance at d/c from ED?: No Time of Disposition: 17:01 <Aman Butt - Last Filed: 04/14/24 17:01> Clinical Impression: Anemia Disposition: HOME SELF-CARE Condition: Good Instructions (If sedation given, give patient instructions): Anemia (ED) Referrals: Roger Callahan DO [Primary Care Provider] - 1-2 days
[2024-04-14 14:50] LABS: Anisocytosis Slight; Basophils % (A) 0 %; Eosinophils # (A) 0.1 k/uL (0-0.7); Eosinophils % (A) 1 %; HCT 26.6 % (34.0-46.0); Hypochromasia Marked; Lymphocytes # (A) 1.5 k/uL (1.0-4.8); Lymphocytes % (A) 27 %; MCH 23.8 pg (25.0-35.0); MCHC 30.1 g/dL (31.0-37.0); MCV 79.1 fL (80.0-100.0); Mean Platelet Volume 8.6; Microcytosis Slight; Monocytes # (A) 0.4 k/uL (0-1.0); Monocytes % (A) 6 %; Neutrophils # (A) 3.5 k/uL (1.3-7.7); Neutrophils % (A) 62 %; Platelet Count 394 k/uL (150-450); Poikilocytosis Slight; RBC 3.37 m/uL (3.80-5.40); RDW 16.4 % (11.5-15.5); WBC 5.6 k/uL (3.8-10.6)
[2024-04-14 15:06] LABS: INR 1.2 (<1.2); Prothrombin Time 12.4 sec (10.0-12.5)
[2024-04-14 15:12] LABS: ALT 18 U/L (4-34); AST 24 U/L (14-36); African American GFR (CKD) 36 (>60 ml/min/1.73 sqM); Albumin 3.1 g/dL (3.5-5.0); Alkaline Phosphatase 120 U/L (38-126); Anion Gap 6 mmol/L; Blood Urea Nitrogen 41 mg/dL (7-17); Calcium 8.5 mg/dL (8.4-10.2); Carbon Dioxide 33 mmol/L (22-30); Chloride 94 mmol/L (98-107); Glucose 168 mg/dL (74-99); Non-African American GFR(CKD) 31 (>60 ml/min/1.73 sqM); Potassium 3.5 mmol/L (3.5-5.1); Sodium 133 mmol/L (137-145); Total Bilirubin 0.4 mg/dL (0.2-1.3); Total Protein 5.8 g/dL (6.3-8.2)
[2024-04-14 17:20] VITALS: BP 109/82; PULSE 84; RESP 14; TEMP 97.6
== END 2024-04-14 17:23 | disposition home or self-care (01) ==
LOC: EC 13:49
DX: D64.9 Anemia, unspecified
CPT/HCPCS: 36415; 80053; 82272; 85025; 85610; 85730; 86900; 86901; 99284

== ENCOUNTER 2024-04-22 19:40 | Inpatient (IN) | payer MEDICARE ==
--- NOTE | 2024-04-22 20:48 | ED ---
General Adult HPI - General Chief complaint: Abdominal Pain Stated complaint: Feet Swollen,Bloated Time Seen by Provider: 04/22/24 20:40 Source: patient, EMS, RN notes reviewed Mode of arrival: EMS Limitations: no limitations - History of Present Illness Initial comments: This is an 84-year-old female who presents to the emergency department for abdominal bloating as well as swelling in her feet. Symptoms started 2 to 3 days ago. Reports a history of CHF and is also increasingly short of breath. States that when she has flareups her feet often swell, however she has not had swelling in her abdomen with this before. She does have generalized discomfort associated with this. She does wear oxygen at home due to COPD but has not increased usage. She is on a diuretic. Denies any chest pain associated with this. - Related Data Home Medications Medication Instructions Recorded Confirmed Glimepiride [Amaryl] 1 mg PO AC-BRKFST 03/11/20 04/23/24 Pravastatin Sodium [Pravachol] 80 mg PO HS 04/30/23 04/23/24 Amiodarone [Cordarone] 200 mg PO DAILY 04/14/24 04/23/24 Apixaban [Eliquis] 2.5 mg PO BID 04/14/24 04/23/24 Bumetanide [Bumex] 1 mg PO DAILY 04/14/24 04/23/24 Metoprolol Tartrate [Lopressor] 50 mg PO BID 04/14/24 04/23/24 Previous Rx's Medication Instructions Recorded Clopidogrel [Plavix] 75 mg PO DAILY #90 tab 12/21/22 Allergies Allergy/AdvReac Type Severity Reaction Status Date / Time celecoxib [From Celebrex] Allergy Swelling Verified 04/23/24 07:23 ibuprofen [From Motrin] Allergy Swelling Verified 04/23/24 07:23 steroid Allergy Unknown Uncoded 04/23/24 07:23 Review of Systems ROS Statement: Those systems with pertinent positive or pertinent negative responses have been documented in the HPI. ROS Other: All systems not noted in ROS Statement are negative. Past Medical History Past Medical History: Atrial Fibrillation, Cancer, COPD, Diabetes Mellitus, Hyperlipidemia, Hypertension, Myocardial Infarction ([place]), Renal Disease Additional Past Medical History / Comment(s): Moderate to severe mitral regurgitation/SOB, mild aortic stenosis, NIDDM, uterine cancer/surgery only, [place] x 2, stage III kidney failure Last Myocardial Infarction Date:: unknown History of Any Multi-Drug Resistant Organisms: None Reported Past Surgical History: Appendectomy, Back Surgery, Cholecystectomy, Heart Catheterization, Heart Catheterization With Stent, Hysterectomy Additional Past Surgical History / Comment(s): Cardioversions, hysterectomy/left one ovary Past Anesthesia/Blood Transfusion Reactions: No Reported Reaction Additional Past Anesthesia/Blood Transfusion Reaction / Comment(s): Pt has had autotransfusion only. Date of Last Stent Placement:: 12/2022 Past Psychological History: No Psychological Hx Reported Smoking Status: Former smoker Past Alcohol Use History: None Reported Past Drug Use History: None Reported - Past Family History Brother(s) Family Medical History: Cancer Additional Family Medical History / Comment(s): 2 brothers cancer. 1 brother cabg General Exam Limitations: no limitations General appearance: alert, in no apparent distress Head exam: Present: atraumatic, normocephalic, normal inspection Respiratory exam: Present: normal lung sounds bilaterally. Absent: respiratory distress, wheezes, rales, rhonchi, stridor Cardiovascular Exam: Present: regular rate, normal rhythm, normal heart sounds. Absent: systolic murmur, diastolic murmur, rubs, gallop, clicks GI/Abdominal exam: Present: distended Extremities exam: Present: pedal edema Neurological exam: Present: alert, oriented X3, CN II-XII intact Psychiatric exam: Present: normal affect, normal mood Skin exam: Present: warm, dry, intact, normal color. Absent: rash Course Vital Signs 04/22/24 04/22/24 04/22/24 19:42 22:20 23:09 Temperature 97.5 F L Pulse Rate 78 90 92 Respiratory 18 18 18 Rate Blood Pressure 125/74 121/111 133/91 O2 Sat by Pulse 93 L 98 98 Oximetry 04/23/24 04/23/24 04/23/24 00:21 03:26 04:07 Temperature Pulse Rate 74 81 69 Respiratory 18 18 16 Rate Blood Pressure 132/83 120/72 121/71 O2 Sat by Pulse 97 98 97 Oximetry 04/23/24 04/23/24 05:16 06:21 Temperature Pulse Rate 72 63 Respiratory 16 18 Rate Blood Pressure 134/94 131/67 O2 Sat by Pulse 99 97 Oximetry Medical Decision Making - Medical Decision Making This is an 84-year-old female who presents to the emergency department for shortness of breath and abdominal bloating. Was pt. sent in by a medical professional or institution? @ -No Did you speak to anyone other than the patient for history? @ -No Did you review nursing and triage notes? @ -Yes, and I agree, it is accurate with regards to the patient's symptoms. Were old charts reviewed? @ -No Differential Diagnosis? @ -Differential Dyspnea: Coronary syndrome, arrhythmia, tamponade, asthma, COPD, pulmonary embolism, pneumonia, pneumothorax, pulmonary effusion, anaphylaxis, diabetic ketoacidosis, flailed chest, pulmonary contusion, diaphragmatic rupture, anemia, neuromuscular, this is not meant to be an all-inclusive list. EKG interpreted by me (3pts min.)? @ -EKG interpreted by me demonstrating the following: Atrial fibrillation. Ventricular rate 85 bpm, QRS duration 85 ms, QTc 422 ms. X-rays interpreted by me (1pt min.)? @ -Chest x-ray obtained. My interpretation identifies bilateral airspace consolidations. CT interpreted by me (1pt min.)? @ -CT scan of the abdomen and pelvis obtained. My interpretation identifies bilateral pleural effusions. U/S interpreted by me (1pt. min.)? @ -Not obtained What testing was considered but not performed? (CT, X-rays, U/S, labs)? Why? @ -None What meds were considered but not given? Why? @ -None Did you discuss the management of the patient with other professionals? @ -Yes, Dr. Callahan, who accepts the patient for admission. Did you reconcile home meds? @ -No Was smoking cessation discussed for >3mins.? @ -No Was critical care preformed (if so, how long)? @ -No Were there social determinants of health that impacted care today? How? (Homelessness, low income, unemployed, alcoholism, drug addiction, transportation, low edu. Level, literacy, decrease access to med. care, custodial, rehab)? @ -No Was there de-escalation of care discussed even if they declined? (Discuss DNR or withdrawal of care, Hospice)? @ -No What co-morbidities impacted this encounter? (DM, HTN, Smoking, COPD, CAD, Cancer, CVA, Hep., AIDS, mental health diagnosis, sleep apnea, morbid obesity)? @ -A-fib, COPD, HTN, HLD, DM Was patient admitted / discharged? @ -Admitted. Lab work demonstrates an elevated BNP of 7210. Low hemoglobin is stable when compared with prior. Renal function is also stable when compared with prior. Urinalysis does have an elevated number of white blood cells and was sent for culture for further evaluation. Chest x-ray demonstrates bilateral consolidations and a right pleural effusion. CT scan of the abdomen and pelvis obtained as well. This demonstrates bilateral pleural effusions and findings suggestive of multilobar pneumonia. Mild colitis noted as well. Patient admitted to medicine for CHF exacerbation and multifocal pneumonia. 40mg IV Lasix administered and she was started on the pneumonia protocol with Ceftriaxone and azithromycin. Consult placed for cardiology. Blood and sputum cultures obtained as well. Case discussed with ED attending Dr. Huang. Undiagnosed new problem with uncertain prognosis? @ -None Drug Therapy requiring intensive monitoring for toxicity (Heparin, Nitro, Insulin, Cardizem)? @ -None Were any procedures done? @ -None Diagnosis/symptom? @ -CHF exacerbation Acute, or Chronic, or Acute on Chronic? @ -Acute on chronic Uncomplicated (without systemic symptoms) or Complicated (systemic symptoms)? @ -Complicated Side effects of treatment? @ -None Exacerbation, Progression, or Severe Exacerbation] @ -Severe exacerbation Poses a threat to life or bodily function? @ -Yes, can become life-threatening if not treated. Diagnosis/symptom? @ -Multifocal pneumonia Acute, or Chronic, or Acute on Chronic? @ -Acute Uncomplicated (without systemic symptoms) or Complicated (systemic symptoms)? @ -Uncomplicated Side effects of treatment? @ -None Exacerbation, Progression, or Severe Exacerbation] @ -Not applicable Poses a threat to life or bodily function? @ -Yes, can lead to further infection and - Lab Data Result diagrams: 04/23/24 08:57 04/23/24 08:57 Lab Results 04/22/24 04/22/24 04/22/24 Range/Units 21:26 21:26 21:26 WBC 10.2 (3.8-10.6) k/uL RBC 3.53 L (3.80-5.40) m/uL Hgb 8.1 L (11.4-16.0) gm/dL Hct 26.9 L (34.0-46.0) % MCV 76.2 L (80.0-100.0) fL MCH 22.8 L (25.0-35.0) pg MCHC 30.0 L (31.0-37.0) g/dL RDW 16.5 H (11.5-15.5) % Plt Count 450 (150-450) k/uL MPV 7.5 Neutrophils % 73 % Lymphocytes % 20 % Monocytes % 4 % Eosinophils % 0 % Basophils % 0 % Neutrophils # 7.5 (1.3-7.7) k/uL Lymphocytes # 2.0 (1.0-4.8) k/uL Monocytes # 0.5 (0-1.0) k/uL Eosinophils # 0.0 (0-0.7) k/uL Basophils # 0.0 (0-0.2) k/uL Hypochromasia Marked Poikilocytosis Slight Anisocytosis Slight Microcytosis Slight PT 12.1 (10.0-12.5) sec INR 1.1 (<1.2) APTT 24.8 (22.0-30.0) sec Sodium 131 L (137-145) mmol/L Potassium 4.0 (3.5-5.1) mmol/L Chloride 92 L (98-107) mmol/L Carbon Dioxide 33 H (22-30) mmol/L Anion Gap 6 mmol/L BUN 49 H (7-17) mg/dL Creatinine 1.45 H (0.52-1.04) mg/dL Est GFR (CKD-EPI)AfAm 38 (>60 ml/min/1.73 sqM) Est GFR (CKD-EPI)NonAf 33 (>60 ml/min/1.73 sqM) Glucose 147 H (74-99) mg/dL Plasma Lactic Acid Kenneth (0.7-2.0) mmol/L Calcium 8.6 (8.4-10.2) mg/dL Magnesium 1.9 (1.6-2.3) mg/dL Total Bilirubin 0.4 (0.2-1.3) mg/dL AST 30 (14-36) U/L ALT 24 (4-34) U/L Alkaline Phosphatase 120 (38-126) U/L Troponin I (0.000-0.034) ng/mL NT-Pro-B Natriuret Pep 7210 pg/mL Total Protein 6.0 L (6.3-8.2) g/dL Albumin 3.2 L (3.5-5.0) g/dL Urine Color Urine Appearance (Clear) Urine pH (5.0-8.0) Ur Specific [place] (1.001-1.035) Urine Protein (Negative) Urine Glucose (UA) (Negative) Urine Ketones (Negative) Urine Blood (Negative) Urine Nitrite (Negative) Urine Bilirubin (Negative) Urine Urobilinogen (<2.0) mg/dL Ur Leukocyte Esterase (Negative) Urine RBC (0-5) /hpf Urine WBC (0-5) /hpf Ur Squamous Epith Cells (0-4) /hpf Uric Acid Crystals (None) /hpf Urine Bacteria (None) /hpf Hyaline Casts (0-2) /lpf Urine Mucus (None) /hpf 04/22/24 04/22/24 04/22/24 Range/Units 21:26 21:26 21:57 WBC (3.8-10.6) k/uL RBC (3.80-5.40) m/uL Hgb (11.4-16.0) gm/dL Hct (34.0-46.0) % MCV (80.0-100.0) fL MCH (25.0-35.0) pg MCHC (31.0-37.0) g/dL RDW (11.5-15.5) % Plt Count (150-450) k/uL MPV Neutrophils % % Lymphocytes % % Monocytes % % Eosinophils % % Basophils % % Neutrophils # (1.3-7.7) k/uL Lymphocytes # (1.0-4.8) k/uL Monocytes # (0-1.0) k/uL Eosinophils # (0-0.7) k/uL Basophils # (0-0.2) k/uL Hypochromasia Poikilocytosis Anisocytosis Microcytosis PT (10.0-12.5) sec INR (<1.2) APTT (22.0-30.0) sec Sodium (137-145) mmol/L Potassium (3.5-5.1) mmol/L Chloride (98-107) mmol/L Carbon Dioxide (22-30) mmol/L Anion Gap mmol/L BUN (7-17) mg/dL Creatinine (0.52-1.04) mg/dL Est GFR (CKD-EPI)AfAm (>60 ml/min/1.73 sqM) Est GFR (CKD-EPI)NonAf (>60 ml/min/1.73 sqM) Glucose (74-99) mg/dL Plasma Lactic Acid Kenneth 1.2 (0.7-2.0) mmol/L Calcium (8.4-10.2) mg/dL Magnesium (1.6-2.3) mg/dL Total Bilirubin (0.2-1.3) mg/dL AST (14-36) U/L ALT (4-34) U/L Alkaline Phosphatase (38-126) U/L Troponin I <0.012 (0.000-0.034) ng/mL NT-Pro-B Natriuret Pep pg/mL Total Protein (6.3-8.2) g/dL Albumin (3.5-5.0) g/dL Urine Color Light Yellow Urine Appearance Cloudy H (Clear) Urine pH 5.0 (5.0-8.0) Ur Specific [place] 1.013 (1.001-1.035) Urine Protein Negative (Negative) Urine Glucose (UA) Negative (Negative) Urine Ketones Negative (Negative) Urine Blood Small H (Negative) Urine Nitrite Negative (Negative) Urine Bilirubin Negative (Negative) Urine Urobilinogen <2.0 (<2.0) mg/dL Ur Leukocyte Esterase Large H (Negative) Urine RBC 5 (0-5) /hpf Urine WBC 25 H (0-5) /hpf Ur Squamous Epith Cells 1 (0-4) /hpf Uric Acid Crystals Rare H (None) /hpf Urine Bacteria Rare H (None) /hpf Hyaline Casts 12 H (0-2) /lpf Urine Mucus Rare H (None) /hpf - Radiology Data Radiology results: report reviewed, image reviewed Disposition Clinical Impression: CHF exacerbation, Multifocal pneumonia Disposition: ADMITTED IP TO THIS HOSP
[2024-04-22 21:52] LABS: Anisocytosis Slight; Basophils % (A) 0 %; Eosinophils % (A) 0 %; HCT 26.9 % (34.0-46.0); HGB 8.1 gm/dL (11.4-16.0); Hypochromasia Marked; Lymphocytes % (A) 20 %; MCH 22.8 pg (25.0-35.0); MCV 76.2 fL (80.0-100.0); Mean Platelet Volume 7.5; Microcytosis Slight; Monocytes # (A) 0.5 k/uL (0-1.0); Monocytes % (A) 4 %; Neutrophils # (A) 7.5 k/uL (1.3-7.7); Neutrophils % (A) 73 %; Platelet Count 450 k/uL (150-450); Poikilocytosis Slight; RBC 3.53 m/uL (3.80-5.40); RDW 16.5 % (11.5-15.5); WBC 10.2 k/uL (3.8-10.6)
[2024-04-22 22:07] LABS: INR 1.1 (<1.2); Partial Thromboplastin Time 24.8 sec (22.0-30.0); Prothrombin Time 12.1 sec (10.0-12.5)
[2024-04-22 22:18] LABS: Appearance,Urine Cloudy (Clear); Bacteria,Urine Rare /hpf; Bilirubin,Urine Negative (Negative); Blood,Urine Small (Negative); Color,Urine Light Yellow; Glucose,Urine (UA) Negative (Negative); Hyaline Casts,Urine 12 /lpf (0-2); Ketones,Urine Negative (Negative); Leukocyte Esterase,Urine Large (Negative); Mucus,Urine Rare /hpf; Nitrite,Urine Negative (Negative); Protein,Urine Negative (Negative); RBC,Urine 5 /hpf (0-5); Specific Gravity,Urine 1.013 (1.001-1.035); Squamous Epithelial Cell,Urine 1 /hpf (0-4); Uric Acid Crystals,Urine Rare /hpf; Urobilinogen,Urine <2.0 mg/dL (<2.0); WBC,Urine 25 /hpf (0-5)
[2024-04-22 22:26] LABS: African American GFR (CKD) 38 (>60 ml/min/1.73 sqM); Anion Gap 6 mmol/L; Blood Urea Nitrogen 49 mg/dL (7-17); Calcium 8.6 mg/dL (8.4-10.2); Carbon Dioxide 33 mmol/L (22-30); Chloride 92 mmol/L (98-107); Glucose 147 mg/dL (74-99); Magnesium 1.9 mg/dL (1.6-2.3); Non-African American GFR(CKD) 33 (>60 ml/min/1.73 sqM); Sodium 131 mmol/L (137-145)
[2024-04-22 22:27] LABS: ALT 24 U/L (4-34); AST 30 U/L (14-36); Albumin 3.2 g/dL (3.5-5.0); Alkaline Phosphatase 120 U/L (38-126); Total Bilirubin 0.4 mg/dL (0.2-1.3)
[2024-04-22 22:34] LABS: NT-Pro-B-Type Natriuretic Pept 7210 pg/mL
[2024-04-22] MEDS ORDERED: ONDANSETRON 4 MG/2 ML VIAL IVP PRN (22:59)
[2024-04-22] MEDS ORDERED: NALOXONE 0.4 MG/ML 1 ML VIAL IV PRN (22:59)
[2024-04-22] MEDS ORDERED: HYDROcodone/APAP 5-325MG 1 EACH TAB PO PRN (22:59)
[2024-04-22] MEDS: FUROSEMIDE 10 MG/ML 4 ML VIAL IV STA (23:11)
[2024-04-22 23:20] LABS: Glucose,Whole Blood 183 mg/dL (70-110)
--- NOTE | 2024-04-23 00:22 | XR ---
EXAM: XR Chest, 2 Views CLINICAL HISTORY: ITS.REASON XR Reason: difficulty breathing TECHNIQUE: Frontal and lateral views of the chest. COMPARISON: No relevant prior studies available. FINDINGS: Lungs: Patchy bilateral airspace consolidations, consistent with multilobar pneumonia. Small RIGHT pleural effusion. Pleural space: See above. Heart: Cardiomegaly. Mediastinum: Unremarkable. Normal mediastinal contour. Bones/joints: Unremarkable. No acute fracture. Vasculature: Calcified aorta. IMPRESSION: Patchy bilateral airspace consolidations, consistent with multilobar pneumonia. Small RIGHT pleural effusion.
--- NOTE | 2024-04-23 00:24 | CT ---
EXAM: CT Abdomen and Pelvis Without Intravenous Contrast CLINICAL HISTORY: ITS.REASON CT Reason: Abdominal distention TECHNIQUE: Axial computed tomography images of the abdomen and pelvis without intravenous contrast. CTDI is 10.4 mGy and DLP is 161.3 mGy-cm. This CT exam was performed using one or more of the following dose reduction techniques: automated exposure control, adjustment of the mA and/or kV according to patient size, and/or use of iterative reconstruction technique. COMPARISON: No relevant prior studies available. FINDINGS: Lung bases: See below. Pleural space: Moderate RIGHT and small LEFT pleural effusions. Dependent airspace consolidations, consistent with multilobar pneumonia. ABDOMEN: Liver: Unremarkable. Gallbladder and bile ducts: Cholecystectomy. No ductal dilation. Pancreas: Unremarkable. No ductal dilation. Spleen: Unremarkable. No splenomegaly. Adrenals: Unremarkable. No mass. Kidneys and ureters: Atrophy of the kidneys. RIGHT renal cyst measures 3.4 cm. No obstructing stones. No hydronephrosis. Stomach and bowel: Mild wall thickening of the sigmoid colon, correlate for mild colitis. Diverticulosis, without acute diverticulitis. No small bowel obstruction. No free intraperitoneal air. PELVIS: Appendix: No findings to suggest acute appendicitis. Bladder: Unremarkable. No stones. Reproductive: Hysterectomy. ABDOMEN and PELVIS: Intraperitoneal space: Unremarkable. No free air. No significant fluid collection. Bones/joints: Degenerative changes of the spine. No acute fracture. No dislocation. Soft tissues: Unremarkable. Vasculature: Atherosclerotic changes of the aorta. No abdominal aortic aneurysm. Lymph nodes: Unremarkable. No enlarged lymph nodes. IMPRESSION: 1. Moderate RIGHT and small LEFT pleural effusions. Dependent airspace consolidations, consistent with multilobar pneumonia. 2. Mild wall thickening of the sigmoid colon, correlate for mild colitis. 3. Hysterectomy. 4. Cholecystectomy. 5. Diverticulosis, without acute diverticulitis. No small bowel obstruction. No free intraperitoneal air.
[2024-04-23] MEDS ORDERED: PNEUMONIA PROTOCOL UTILIZED 1 EACH MISC PO PRN (02:24)
[2024-04-23] MEDS: AZITHROMYCIN 500 MG in SODIUM CHLORIDE 0.9% 250 ML IVPB STA (04:04)
[2024-04-23] MEDS ORDERED: DEXTROSE 50% SYRINGE 50 ML IVP PRN ×2 (08:06)
[2024-04-23 09:42] LABS: Anisocytosis Slight; HCT 26.8 % (34.0-46.0); HGB 7.9 gm/dL (11.4-16.0); Hypochromasia Marked; MCH 22.3 pg (25.0-35.0); MCHC 29.4 g/dL (31.0-37.0); MCV 75.8 fL (80.0-100.0); Mean Platelet Volume 7.5; Microcytosis Slight; Platelet Count 452 k/uL (150-450); Poikilocytosis Slight; RBC 3.53 m/uL (3.80-5.40); RDW 16.5 % (11.5-15.5); WBC 9.1 k/uL (3.8-10.6)
[2024-04-23 09:55] LABS: African American GFR (CKD) 36 (>60 ml/min/1.73 sqM); Anion Gap 7 mmol/L; Blood Urea Nitrogen 47 mg/dL (7-17); Calcium 8.6 mg/dL (8.4-10.2); Carbon Dioxide 34 mmol/L (22-30); Chloride 94 mmol/L (98-107); Glucose 143 mg/dL (74-99); Non-African American GFR(CKD) 31 (>60 ml/min/1.73 sqM); Potassium 3.6 mmol/L (3.5-5.1); Sodium 135 mmol/L (137-145)
[2024-04-23] MEDS: AMIODARONE 200 MG TAB PO SCH (09:56)
[2024-04-23] MEDS: APIXABAN 2.5 MG TABLET PO SCH (09:56)
[2024-04-23] MEDS: CLOPIDOGREL 75 MG TAB PO SCH (09:56)
[2024-04-23] MEDS: FUROSEMIDE 10 MG/ML 4 ML VIAL IV SCH ×2 (09:56→21:00)
[2024-04-23] MEDS: METOPROLOL TARTRATE 50 MG TAB PO SCH (09:56)
[2024-04-23] MEDS: PANTOPRAZOLE 40 MG/10 ML VIAL IVP SCH (09:56)
[2024-04-23] MEDS: ACETAMINOPHEN TAB 325 MG TAB PO PRN (10:59)
[2024-04-23 12:26] LABS: Glucose,Whole Blood 147 mg/dL (70-110)
[2024-04-23] MEDS: INSULIN ASPART (NovoLOG) 100 UNIT/ML VIAL SQ SCH (12:30)
--- NOTE | 2024-04-23 13:41 | P.CRDCN ---
History of Present Illness Consult date: 04/23/24 Consult reason: congestive heart failure (Exacerbation) History of present illness: This is an 84-year-old female patient of Dr. Walker with past medical history of CAD with prior PCI of the LAD, persistent atrial fibrillation on Eliquis, hypertension, hyperlipidemia, diabetes, obesity, remote history of tobacco use, COPD, chronic hypoxic respiratory failure on home O2, chronic kidney disease. We have been asked to evaluate the patient for CHF. Patient was last seen in the office on 04/06 and plan was for her to follow-up with Dr. Field which she has done. Patient states that she was post to have a blood transfusion but when she arrived to the hospital her hemoglobin was high enough that she did not require a transfusion. Patient states that she developed abdominal bloating and feet swelling couple days ago and seem to be worsening. Blood pressure 117/80, heart rate 71, pulse ox 100% on 2 L nasal cannula. Patient has been started on IV Lasix 40 mg daily. EKG: Atrial fibrillation with controlled ventricular rate Chest x-ray: Patchy bilateral airspace consolidations consistent with multilobar pneumonia. Small right pleural effusion CT abdomen and pelvis for abdominal distention revealed moderate right and small left pleural effusions, possible mild colitis, diverticulosis. Laboratory studies: WBC 9.1, hemoglobin 7.9, platelet count 452. Sodium 135, potassium 3.6, BUN 47 creatinine 1.51. Troponin negative x 1. proBNP 7210. Home cardiac medications: Amiodarone 200 mg daily, Eliquis 2.5 mg twice daily, Bumex 1 mg daily, Plavix 75 mg daily, Lopressor 50 mg twice daily, pravastatin 80 mg at bedtime Cardiac catheterization 12/20/2022: Left dominant system diffusely diseased, nondominant RCA, small distribution left main okay, circumflex has diffuse disease, PDA of the circumflex has a distal subtotal 95% lesion. LAD has mid lesion 90 to 95% proximal lesion is 60% and both stented with TERRI Echocardiogram performed 03/23/2024 revealed EF 55%, moderate MR and TR, RVSP greater than 60. Lexiscan stress test performed 05/06/2020 revealed EF of 60% and no ischemia. Review Of Systems: At the time of my exam: CONSTITUTIONAL: Denies fever or chills. HEENT: Denies blurred vision, vision changes, or eye pain. Denies hemoptysis CARDIOVASCULAR: Denies chest pain. Denies orthopnea. Denies PND. Denies palpitations reports edema RESPIRATORY: Reports shortness of breath. GASTROINTESTINAL: Denies abdominal pain. Denies nausea or vomiting. HEMATOLOGIC: Denies bleeding disorders. GENITOURINARY: Denies any blood in urine. SKIN: Denies puritis. Denies rash. Physical examination: Gen: This is an 84-year-old female in no acute distress VS: reviewed HEENT: Head is atraumatic, normocephalic. Pupils equal, round. Sclerae is anicteric. NECK: Supple. No JVD. LUNGS: Diminished bilaterally. No intercostal retractions. HEART: Irregular rate and rhythm. 2/6 systolic murmur at the left sternal border. ABDOMEN: Soft No tenderness. EXTREMITIES: Mild bilateral lower extremity edema. No calf tenderness. NEUROLOGICAL: Patient is awake, alert and oriented x3. Assessment: Acute exacerbation of diastolic heart failure secondary to volume overload Chronic kidney disease Stable CAD with prior PCI Anemia Persistent atrial fibrillation Hypertension Hyperlipidemia Diabetes COPD Plan: Resume patient's home cardiac medications Consult added for nephrology regarding cautious diuresing and iron transfusion Obtain 2-D echocardiogram and Doppler study to assess cardiac structure and function Further recommendations to follow based upon clinical course Thank you kindly for this consultation. Nurse practitioner note has been reviewed, I agree with documented findings and plan of care. Patient was seen and examined. Past Medical History Past Medical History: Atrial Fibrillation, Cancer, COPD, Diabetes Mellitus, Hyperlipidemia, Hypertension, Myocardial Infarction ([place]), Renal Disease Additional Past Medical History / Comment(s): Moderate to severe mitral regurgitation/SOB, mild aortic stenosis, NIDDM, uterine cancer/surgery only, [place] x 2, stage III kidney failure Last Myocardial Infarction Date:: unknown History of Any Multi-Drug Resistant Organisms: None Reported Past Surgical History: Appendectomy, Back Surgery, Cholecystectomy, Heart Catheterization, Heart Catheterization With Stent, Hysterectomy Additional Past Surgical History / Comment(s): Cardioversions, hysterectomy/left one ovary Past Anesthesia/Blood Transfusion Reactions: No Reported Reaction Additional Past Anesthesia/Blood Transfusion Reaction / Comment(s): Pt has had autotransfusion only. Date of Last Stent Placement:: 12/2022 Past Psychological History: No Psychological Hx Reported Additional Psychological History / Comment(s): Pt resides alone. Smoking Status: Former smoker Past Alcohol Use History: None Reported Additional Past Alcohol Use History / Comment(s): Pt started smoking in 1953 was a 1- 1 1/2 ppd quit 08/06 Past Drug Use History: None Reported - Past Family History Brother(s) Family Medical History: Cancer Additional Family Medical History / Comment(s): 2 brothers cancer. 1 brother cabg Medications and Allergies Home Medications Medication Instructions Recorded Confirmed Type Glimepiride [Amaryl] 1 mg PO AC-BRKFST 03/11/20 04/23/24 History Clopidogrel [Plavix] 75 mg PO DAILY #90 tab 12/21/22 04/23/24 Rx Pravastatin Sodium [Pravachol] 80 mg PO HS 04/30/23 04/23/24 History Amiodarone [Cordarone] 200 mg PO DAILY 04/14/24 04/23/24 History Apixaban [Eliquis] 2.5 mg PO BID 04/14/24 04/23/24 History Bumetanide [Bumex] 1 mg PO DAILY 04/14/24 04/23/24 History Metoprolol Tartrate [Lopressor] 50 mg PO BID 04/14/24 04/23/24 History Allergies Allergy/AdvReac Type Severity Reaction Status Date / Time celecoxib [From Celebrex] Allergy Swelling Verified 04/23/24 07:23 ibuprofen [From Motrin] Allergy Swelling Verified 04/23/24 07:23 steroid Allergy Unknown Uncoded 04/23/24 07:23 Physical Exam Vitals: Vital Signs Temp Pulse Pulse Resp BP BP Pulse Ox 04/23/24 08:10 97.4 F L 71 21 117/80 100 04/23/24 06:21 63 18 131/67 97 04/23/24 05:16 72 16 134/94 99 04/23/24 04:07 69 16 121/71 97 04/23/24 03:26 81 18 120/72 98 04/23/24 00:21 74 18 132/83 97 04/22/24 23:09 92 18 133/91 98 04/22/24 22:20 90 18 121/111 98 04/22/24 19:42 97.5 F L 78 18 125/74 93 L Intake and Output 04/22/24 04/23/24 04/23/24 22:59 06:59 14:59 Other: Voiding Method External Catheter Weight 79.379 kg 79.379 kg Results 04/23/24 08:57 04/23/24 08:57 Cardiac Enzymes 04/22/24 04/22/24 Range/Units 21:26 21:26 AST 30 (14-36) U/L Troponin I <0.012 (0.000-0.034) ng/mL Coagulation 04/22/24 Range/Units 21:26 PT 12.1 (10.0-12.5) sec APTT 24.8 (22.0-30.0) sec CBC 04/22/24 04/23/24 Range/Units 21:26 08:57 WBC 10.2 9.1 (3.8-10.6) k/uL RBC 3.53 L 3.53 L (3.80-5.40) m/uL Hgb 8.1 L 7.9 L (11.4-16.0) gm/dL Hct 26.9 L 26.8 L (34.0-46.0) % Plt Count 450 452 H (150-450) k/uL Comprehensive Metabolic Panel 04/22/24 04/23/24 Range/Units 21:26 08:57 Sodium 131 L 135 L (137-145) mmol/L Potassium 4.0 3.6 (3.5-5.1) mmol/L Chloride 92 L 94 L (98-107) mmol/L Carbon Dioxide 33 H 34 H (22-30) mmol/L BUN 49 H 47 H (7-17) mg/dL Creatinine 1.45 H 1.51 H (0.52-1.04) mg/dL Glucose 147 H 143 H (74-99) mg/dL Calcium 8.6 8.6 (8.4-10.2) mg/dL AST 30 (14-36) U/L ALT 24 (4-34) U/L Alkaline Phosphatase 120 (38-126) U/L Total Protein 6.0 L (6.3-8.2) g/dL Albumin 3.2 L (3.5-5.0) g/dL Current Medications Generic Name Dose Route Start Last Admin Trade Name Freq PRN Reason Stop Dose Admin Acetaminophen 650 mg 04/22/24 22:59 04/23/24 10:59 Acetaminophen Tab 325 Mg Tab PO 650 mg Q6HR PRN Administration Mild Pain or Fever > 100.5 Hydrocodone Bitart/Acetaminophen 1 each 04/22/24 22:59 Hydrocodone/Apap 5-325mg 1 Each Tab PO Q4HR PRN Moderate Pain (Scale 4 to 6) Amiodarone HCl 200 mg 04/23/24 09:00 04/23/24 09:56 Amiodarone 200 Mg Tab PO 200 mg DAILY [facility] Administration Apixaban 2.5 mg 04/23/24 09:00 04/23/24 09:56 Apixaban 2.5 Mg Tablet PO 2.5 mg BID [facility] Administration Protocol Azithromycin 500 mg 04/24/24 09:00 Azithromycin 500 Mg Tab PO 04/25/24 09:01 DAILY [facility] Protocol Clopidogrel Bisulfate 75 mg 04/23/24 09:00 04/23/24 09:56 Clopidogrel 75 Mg Tab PO 75 mg DAILY [facility] Administration Dextrose/Water 25 ml 04/23/24 08:06 Dextrose 50% Syringe 50 Ml IVP PER PROTOCOL PRN Hypoglycemia Protocol Dextrose/Water 50 ml 04/23/24 08:06 Dextrose 50% Syringe 50 Ml IVP PER PROTOCOL PRN Hypoglycemia Protocol Furosemide 40 mg 04/23/24 09:00 04/23/24 09:56 Furosemide 10 Mg/Ml 4 Ml Vial IV 40 mg DAILY [facility] Administration Ceftriaxone Sodium 2 gm/ 50 mls @ 100 mls/hr 04/24/24 09:00 Sodium Chloride IVPB 04/27/24 09:29 Q24HR [facility] Protocol Insulin Aspart 0 unit 04/23/24 12:30 Insulin Aspart (Novolog) 100 Unit/Ml Vial SQ ACHS [facility] Protocol Metoprolol Tartrate 50 mg 04/23/24 09:00 04/23/24 09:56 Metoprolol Tartrate 50 Mg Tab PO 50 mg BID [facility] Administration Miscellaneous Information 1 each 04/23/24 02:24 Pneumonia Protocol Utilized 1 Each Misc PO ONCE PRN Per Protocol Naloxone HCl 0.2 mg 04/22/24 22:59 Naloxone 0.4 Mg/Ml 1 Ml Vial IV Q2M PRN Opioid Reversal Ondansetron HCl 4 mg 04/22/24 22:59 Ondansetron 4 Mg/2 Ml Vial IVP Q8HR PRN Nausea And Vomiting Pantoprazole Sodium 40 mg 04/23/24 09:00 04/23/24 09:56 Pantoprazole 40 Mg/10 Ml Vial IVP 40 mg DAILY [facility] Administration Intake and Output 04/22/24 04/23/24 04/23/24 22:59 06:59 14:59 Other: Voiding Method External Catheter Weight 79.379 kg 79.379 kg Patient Weight 04/24/24 06:59 Weight 79.379 kg 04/23/24 08:57 04/23/24 08:57
--- NOTE | 2024-04-23 15:59 | P.HPIM ---
History of Present Illness H&P Date: 04/23/24 Chief Complaint: Abdominal bloating with discomfort, swollen lower extremities This is an 84-year-old female with past medical history significant for atrial fibrillation on Eliquis, mild aortic stenosis, moderate to severe mitral regurgitation , anemia, hypertension, hyperlipidemia, [place], chronic kidney disease stage III,prior nicotine dependence, COPD, chronic hypoxic respiratory failure wears 2 L nasal cannula at home, diabetes mellitus, obesity and multiple other medical issues, presented to the ER with complaints of abdominal bloating accompanied by abdominal discomfort, bilateral lower extremity edema. Denies chest pain, palpitations. Patient reports recently she was scheduled to have a blood transfusion but her hemoglobin was sufficient and did not require tr ansfusion. Hemoglobin currently 7.9, platelets 452. proBNP was 7200, troponin negative x 1 ,EKG reported atrial fibrillation with controlled ventricular rate, chest x-ray reported patchy bilateral airspace consolidations consistent with multilobar pneumonia, small right pleural effusion. CT of abdomen and pelvis reported moderate right and small left pleural effusions, mild wall thickening of the sigmoid colon, diverticulosis. Afebrile, normal WBC. sodium 135, potassium 3.6, BUN 47, creatinine 1.51(baseline). Blood sugars ranging from 140s to 180s. UA reported negative nitrates, large leukocytes rare bacteria. Legionella negative. Review of Systems ROS Statement: Those systems with pertinent positive or pertinent negative responses have been documented in the HPI. ROS Other: All systems not noted in ROS Statement are negative. Past Medical History Past Medical History: Atrial Fibrillation, Cancer, COPD, Diabetes Mellitus, Hyperlipidemia, Hypertension, Myocardial Infarction ([place]), Renal Disease Additional Past Medical History / Comment(s): Moderate to severe mitral regurgitation/SOB, mild aortic stenosis, NIDDM, uterine cancer/surgery only, [place] x 2, stage III kidney failure Last Myocardial Infarction Date:: unknown History of Any Multi-Drug Resistant Organisms: None Reported Past Surgical History: Appendectomy, Back Surgery, Cholecystectomy, Heart Catheterization, Heart Catheterization With Stent, Hysterectomy Additional Past Surgical History / Comment(s): Cardioversions, hysterectomy/left one ovary Past Anesthesia/Blood Transfusion Reactions: No Reported Reaction Additional Past Anesthesia/Blood Transfusion Reaction / Comment(s): Pt has had autotransfusion only. Date of Last Stent Placement:: 12/2022 Past Psychological History: No Psychological Hx Reported Smoking Status: Former smoker Past Alcohol Use History: None Reported Past Drug Use History: None Reported - Past Family History Brother(s) Family Medical History: Cancer Additional Family Medical History / Comment(s): 2 brothers cancer. 1 brother cabg Medications and Allergies Home Medications Medication Instructions Recorded Confirmed Type Glimepiride [Amaryl] 1 mg PO AC-BRKFST 03/11/20 04/23/24 History Clopidogrel [Plavix] 75 mg PO DAILY #90 tab 12/21/22 04/23/24 Rx Pravastatin Sodium [Pravachol] 80 mg PO HS 04/30/23 04/23/24 History Amiodarone [Cordarone] 200 mg PO DAILY 04/14/24 04/23/24 History Apixaban [Eliquis] 2.5 mg PO BID 04/14/24 04/23/24 History Bumetanide [Bumex] 1 mg PO DAILY 04/14/24 04/23/24 History Metoprolol Tartrate [Lopressor] 50 mg PO BID 04/14/24 04/23/24 History Allergies Allergy/AdvReac Type Severity Reaction Status Date / Time celecoxib [From Celebrex] Allergy Swelling Verified 04/23/24 07:23 ibuprofen [From Motrin] Allergy Swelling Verified 04/23/24 07:23 steroid Allergy Unknown Uncoded 04/23/24 07:23 Physical Exam Vitals: Vital Signs Temp Pulse Resp BP Pulse Ox 04/23/24 06:21 63 18 131/67 97 04/23/24 05:16 72 16 134/94 99 04/23/24 04:07 69 16 121/71 97 04/23/24 03:26 81 18 120/72 98 04/23/24 00:21 74 18 132/83 97 04/22/24 23:09 92 18 133/91 98 04/22/24 22:20 90 18 121/111 98 04/22/24 19:42 97.5 F L 78 18 125/74 93 L Intake and Output 04/22/24 04/23/24 04/23/24 22:59 06:59 14:59 Other: Weight 79.379 kg GENERAL: This is a pleasant 84-year-old female, alert and oriented x 3, no acute distress. HEENT: Head is atraumatic, normocephalic. Pupils are equal, round, and reactive to light. Sclerae anicteric. Conjunctivae are clear. MMM. RESPIRATORY: Unlabored, equal air entry, clear to auscultation. No wheezes, rales, or rhonchi. No use of accessory muscles. No chest wall tenderness is noted on palpation or with deep breathing. CARDIOVASCULAR: heart irregular irregularity, systolic murmur GASTROINTESTINAL: Soft, distended , nontender, positive bowel sounds INTEGUMENTARY: No cyanosis. Minimal edema and erythema to the lower extremities, left greater than right. Scabbed scratches on left lower extremity. EXTREMITIES: 2+ peripheral pulses. Mild peripheral edema. No calf tenderness noted. NEUROLOGIC: Cranial nerves II-XII intact. PSYCHIATRIC: Awake, alert, and oriented X 3. Appropriate affect. Intact judgement and insight. Results CBC & Chem 7: 04/23/24 08:57 04/23/24 08:57 Labs: Abnormal Lab Results - Last 24 Hours (Table) 04/22/24 04/22/24 04/22/24 Range/Units 21:26 21:26 21:57 RBC 3.53 L (3.80-5.40) m/uL Hgb 8.1 L (11.4-16.0) gm/dL Hct 26.9 L (34.0-46.0) % MCV 76.2 L (80.0-100.0) fL MCH 22.8 L (25.0-35.0) pg MCHC 30.0 L (31.0-37.0) g/dL RDW 16.5 H (11.5-15.5) % Sodium 131 L (137-145) mmol/L Chloride 92 L (98-107) mmol/L Carbon Dioxide 33 H (22-30) mmol/L BUN 49 H (7-17) mg/dL Creatinine 1.45 H (0.52-1.04) mg/dL Glucose 147 H (74-99) mg/dL POC Glucose (mg/dL) (70-110) mg/dL Total Protein 6.0 L (6.3-8.2) g/dL Albumin 3.2 L (3.5-5.0) g/dL Urine Appearance Cloudy H (Clear) Urine Blood Small H (Negative) Ur Leukocyte Esterase Large H (Negative) Urine WBC 25 H (0-5) /hpf Uric Acid Crystals Rare H (None) /hpf Urine Bacteria Rare H (None) /hpf Hyaline Casts 12 H (0-2) /lpf Urine Mucus Rare H (None) /hpf 04/22/24 Range/Units 23:18 RBC (3.80-5.40) m/uL Hgb (11.4-16.0) gm/dL Hct (34.0-46.0) % MCV (80.0-100.0) fL MCH (25.0-35.0) pg MCHC (31.0-37.0) g/dL RDW (11.5-15.5) % Sodium (137-145) mmol/L Chloride (98-107) mmol/L Carbon Dioxide (22-30) mmol/L BUN (7-17) mg/dL Creatinine (0.52-1.04) mg/dL Glucose (74-99) mg/dL POC Glucose (mg/dL) 183 H (70-110) mg/dL Total Protein (6.3-8.2) g/dL Albumin (3.5-5.0) g/dL Urine Appearance (Clear) Urine Blood (Negative) Ur Leukocyte Esterase (Negative) Urine WBC (0-5) /hpf Uric Acid Crystals (None) /hpf Urine Bacteria (None) /hpf Hyaline Casts (0-2) /lpf Urine Mucus (None) /hpf Assessment and Plan Assessment: Acute CHF exacerbation, diastolic dysfunction Multilobar pneumonia Chronic hypoxic respiratory failure, wears 2 L nasal cannula O2 at home Diabetes mellitus Chronic kidney disease stage III CAD, x 2, prior PCI Moderate to severe mitral regurgitation Mild aortic stenosis Persistent atrial fibrillation coagulated on Eliquis Hypertension Hyperlipidemia COPD Former nicotine dependence Chronic lower extremity cellulitis Obesity Plan: Continue on current medication regimen ,monitoring and symptomatic treatment. 2D echo pending. Cautious diuresing with close monitoring of renal function and electrolytes .Daily weights/strict CLEM's .evaluated by cardiology with recommendations noted and appreciated including nephrology consult. Continue with antibiotics. The impression and plan of care has been dictated as directed. : I performed a history and examination of this patient, discussed the same with the dictator. I agree with the dictator's note ,documented as a scribe. Any additional findings or plans will be noted.
[2024-04-23 17:13] LABS: Glucose,Whole Blood 193 mg/dL (70-110)
[2024-04-23 20:10] LABS: Glucose,Whole Blood 193 mg/dL (70-110)
[2024-04-24 07:12] LABS: Glucose,Whole Blood 166 mg/dL (70-110)
[2024-04-24] MEDS: AZITHROMYCIN 500 MG TAB PO SCH (08:08)
[2024-04-24] MEDS: PANTOPRAZOLE 40 MG TABLET PO SCH (08:08)
[2024-04-24] MEDS: BUMETANIDE 1 MG TAB PO SCH ×2 (08:08→13:04)
[2024-04-24 08:57] LABS: Basophils # (A) 0.03 X 10*3/uL (0.00-0.10); Basophils % (A) 0.2 %; Eosinophils # (A) 0.02 X 10*3/uL (0.04-0.35); Eosinophils % (A) 0.2 %; HGB 7.3 g/dL (12.0-15.0); Lymphocytes # (A) 2.34 X 10*3/uL (0.90-5.00); Lymphocytes % (A) 18.6 %; MCH 21.5 pg (27.0-32.0); MCHC 28.1 g/dL (32.0-37.0); MCV 76.7 FL (80.0-97.0); Mean Platelet Volume 10.1 FL (9.5-12.2); Monocytes # (A) 1.02 X 10*3/uL (0.20-1.00); Monocytes % (A) 8.1 %; NRBC Per 100 WBC 0.02 X 10*3/uL (0.00-0.01); Neutrophils # (A) 9.07 X 10*3/uL (1.80-7.70); Neutrophils % (A) 72.1 %; Platelet Count 407 X 10*3/uL (140-440); RBC 3.39 X 10*6/uL (4.10-5.20); RDW 17.3 % (11.5-14.5); WBC 12.58 X 10*3/uL (4.50-10.00)
[2024-04-24 09:33] LABS: BUN/Creat Ratio 24.29 Ratio (12.00-20.00); Calcium 8.6 mg/dL (8.7-10.3); Carbon Dioxide 30.9 mmol/L (21.6-31.8); Chloride 94 mmol/L (96-109); Glucose 160 mg/dL (70-110); Sodium 138 mmol/L (135-145)
--- NOTE | 2024-04-24 11:16 | P.PN ---
Subjective Progress Note Date: 04/24/24 Consult reason: congestive heart failure (Exacerbation) History of present illness: This is an 84-year-old female patient of Dr. Walker with past medical history of CAD with prior PCI of the LAD, persistent atrial fibrillation on Eliquis, hypertension, hyperlipidemia, diabetes, obesity, remote history of tobacco use, COPD, chronic hypoxic respiratory failure on home O2, chronic kidney disease. We have been asked to evaluate the patient for CHF. Patient was last seen in the office on 04/06 and plan was for her to follow-up with Dr. Field which she has done. Patient states that she was post to have a blood transfusion but when she arrived to the hospital her hemoglobin was high enough that she did not require a transfusion. Patient states that she developed abdominal bloating and feet swelling couple days ago and seem to be worsening. Blood pressure 117/80, heart rate 71, pulse ox 100% on 2 L nasal cannula. Patient has been started on IV Lasix 40 mg daily. EKG: Atrial fibrillation with controlled ventricular rate Chest x-ray: Patchy bilateral airspace consolidations consistent with multilobar pneumonia. Small right pleural effusion CT abdomen and pelvis for abdominal distention revealed moderate right and small left pleural effusions, possible mild colitis, diverticulosis. Laboratory studies: WBC 9.1, hemoglobin 7.9, platelet count 452. Sodium 135, potassium 3.6, BUN 47 creatinine 1.51. Troponin negative x 1. proBNP 7210. Home cardiac medications: Amiodarone 200 mg daily, Eliquis 2.5 mg twice daily, Bumex 1 mg daily, Plavix 75 mg daily, Lopressor 50 mg twice daily, pravastatin 80 mg at bedtime Cardiac catheterization 12/20/2022: Left dominant system diffusely diseased, nondominant RCA, small distribution left main okay, circumflex has diffuse disease, PDA of the circumflex has a distal subtotal 95% lesion. LAD has mid lesion 90 to 95% proximal lesion is 60% and both stented with TERRI Echocardiogram performed 03/23/2024 revealed EF 55%, moderate MR and TR, RVSP greater than 60. Lexiscan stress test performed 05/06/2020 revealed EF of 60% and no ischemia. 04/24 Yesterday, patient was maintained on Lasix 40 mg IVP q12h and transitioned to Bumex 1 mg in the am and 0.5 mg in the afternoon. LE edema is much improved. Cxr films reviewed. Repeat blood work: BUN 54, creatinine 2.1. Nephrology consult in place. Physical examination: Gen: This is an 84-year-old female in no acute distress VS: reviewed HEENT: Head is atraumatic, normocephalic. Pupils equal, round. Sclerae is anicteric. NECK: Supple. No JVD. LUNGS: Diminished bilaterally. No intercostal retractions. HEART: Irregular rate and rhythm. 2/6 systolic murmur at the left sternal border. ABDOMEN: Soft No tenderness. EXTREMITIES: Mild bilateral lower extremity edema. No calf tenderness. NEUROLOGICAL: Patient is awake, alert and oriented x3. Assessment: Acute exacerbation of diastolic heart failure secondary to volume overload Chronic kidney disease Stable CAD with prior PCI Anemia Persistent atrial fibrillation Hypertension Hyperlipidemia Diabetes COPD Plan: Continue patient's home cardiac medications Consult added for nephrology regarding cautious diuresing and iron transfusion Continue Bumex 1 mg in the am and 0.5 mg in the afternoon Recommend discontinuing antibiotics If patient is cleared by nephrology, patient is cleared by cardiology and may follow up with Dr. Wlaker in 1-2 weeks. Nurse practitioner note has been reviewed, I agree with documented findings and plan of care. Patient was seen and examined. Objective - Vital Signs Vital signs: Vital Signs Temp 97.9 F 04/24/24 08:00 Pulse 76 04/24/24 08:00 Resp 15 04/24/24 08:00 BP 96/65 04/24/24 08:00 Pulse Ox 99 04/24/24 08:00 FiO2 Intake & Output 04/23/24 04/24/24 04/24/24 18:59 06:59 18:59 Output Total 325 400 Balance -325 -400 Weight 79.379 kg Output: Urine 325 400 Other: Voiding Method External Catheter # Voids 1 2 1 # Bowel Movements 2 - Labs CBC & Chem 7: 04/24/24 03:38 04/24/24 03:38 Labs: Abnormal Lab Results - Last 24 Hours (Table) 04/23/24 04/23/24 04/23/24 Range/Units 08:57 08:57 12:25 WBC (4.50-10.00) X 10*3/uL RBC 3.53 L (3.80-5.40) m/uL Hgb 7.9 L (11.4-16.0) gm/dL Hct 26.8 L (34.0-46.0) % MCV 75.8 L (80.0-100.0) fL MCH 22.3 L (25.0-35.0) pg MCHC 29.4 L (31.0-37.0) g/dL RDW 16.5 H (11.5-15.5) % Plt Count 452 H (150-450) k/uL Immature Gran # (0.00-0.04) X 10*3/uL Neutrophils # (1.80-7.70) X 10*3/uL Monocytes # (0.20-1.00) X 10*3/uL Eosinophils # (0.04-0.35) X 10*3/uL NRBC/100 WBC Diff (0.00-0.01) X 10*3/uL Sodium 135 L (137-145) mmol/L Chloride 94 L (98-107) mmol/L Carbon Dioxide 34 H (22-30) mmol/L BUN 47 H (7-17) mg/dL Creatinine 1.51 H (0.52-1.04) mg/dL Glucose 143 H (74-99) mg/dL POC Glucose (mg/dL) 147 H (70-110) mg/dL Hemoglobin A1c (<=6.0) % 04/23/24 04/23/24 04/24/24 Range/Units 17:09 20:08 03:38 WBC (4.50-10.00) X 10*3/uL RBC (3.80-5.40) m/uL Hgb (11.4-16.0) gm/dL Hct (34.0-46.0) % MCV (80.0-100.0) fL MCH (25.0-35.0) pg MCHC (31.0-37.0) g/dL RDW (11.5-15.5) % Plt Count (150-450) k/uL Immature Gran # (0.00-0.04) X 10*3/uL Neutrophils # (1.80-7.70) X 10*3/uL Monocytes # (0.20-1.00) X 10*3/uL Eosinophils # (0.04-0.35) X 10*3/uL NRBC/100 WBC Diff (0.00-0.01) X 10*3/uL Sodium (137-145) mmol/L Chloride (98-107) mmol/L Carbon Dioxide (22-30) mmol/L BUN (7-17) mg/dL Creatinine (0.52-1.04) mg/dL Glucose (74-99) mg/dL POC Glucose (mg/dL) 193 H 193 H (70-110) mg/dL Hemoglobin A1c 7.7 H (<=6.0) % 04/24/24 04/24/24 Range/Units 03:38 07:10 WBC 12.58 H (4.50-10.00) X 10*3/uL RBC 3.39 L (3.80-5.40) m/uL Hgb 7.3 L (11.4-16.0) gm/dL Hct 26.0 L (34.0-46.0) % MCV 76.7 L (80.0-100.0) fL MCH 21.5 L (25.0-35.0) pg MCHC 28.1 L (31.0-37.0) g/dL RDW 17.3 H (11.5-15.5) % Plt Count (150-450) k/uL Immature Gran # 0.10 H (0.00-0.04) X 10*3/uL Neutrophils # 9.07 H (1.80-7.70) X 10*3/uL Monocytes # 1.02 H (0.20-1.00) X 10*3/uL Eosinophils # 0.02 L (0.04-0.35) X 10*3/uL NRBC/100 WBC Diff 0.02 H (0.00-0.01) X 10*3/uL Sodium (137-145) mmol/L Chloride (98-107) mmol/L Carbon Dioxide (22-30) mmol/L BUN (7-17) mg/dL Creatinine (0.52-1.04) mg/dL Glucose (74-99) mg/dL POC Glucose (mg/dL) 166 H (70-110) mg/dL Hemoglobin A1c (<=6.0) % Microbiology - Last 24 Hours (Table) 04/22/24 22:26 Urine Culture - Final Urine,Clean Catch
[2024-04-24 12:03] LABS: Glucose,Whole Blood 131 mg/dL (70-110)
--- NOTE | 2024-04-24 12:14 | P.NPCON ---
History of Present Illness - Reason for Consult acute renal failure - History of Present Illness patient is an 84-year-old female with history of hypertension, COPD, A. fib, CK D stage IIIwith baseline creatinine around 1.4 mg/dLshe is admitted to the hospital with complaints of increased lower extremity swelling. Patient had some shortness of breath. She denied any chest pain. No significant urinary symptoms. Serum creatinine was 1.4 on 04/22/2024 and increased to 2.1 today. Patient is currently being diuresed. IV Lasix has been switched to oral Bumex. Occasional hypotension noted with systolic blood pressure in the 90s. Patient states she has been voiding. External catheter noted. Review of Systems as per HPI Past Medical History Past Medical History: Atrial Fibrillation, Cancer, COPD, Diabetes Mellitus, Hyperlipidemia, Hypertension, Myocardial Infarction (VT), Renal Disease Additional Past Medical History / Comment(s): Moderate to severe mitral regurgitation/SOB, mild aortic stenosis, NIDDM, uterine cancer/surgery only, VT x 2, stage III kidney failure Last Myocardial Infarction Date:: unknown History of Any Multi-Drug Resistant Organisms: None Reported Past Surgical History: Appendectomy, Back Surgery, Cholecystectomy, Heart Catheterization, Heart Catheterization With Stent, Hysterectomy Additional Past Surgical History / Comment(s): Cardioversions, hysterectomy/left one ovary Past Anesthesia/Blood Transfusion Reactions: No Reported Reaction Additional Past Anesthesia/Blood Transfusion Reaction / Comment(s): Pt has had autotransfusion only. Date of Last Stent Placement:: 12/2022 Past Psychological History: No Psychological Hx Reported Smoking Status: Former smoker Past Alcohol Use History: None Reported Past Drug Use History: None Reported - Past Family History Brother(s) Family Medical History: Cancer Additional Family Medical History / Comment(s): 2 brothers cancer. 1 brother cabg Medications and Allergies Home Medications Medication Instructions Recorded Confirmed Type Glimepiride [Amaryl] 1 mg PO [id number] 03/11/20 04/23/24 History Clopidogrel [Plavix] 75 mg PO DAILY #90 tab 12/21/22 04/23/24 Rx Pravastatin Sodium [Pravachol] 80 mg PO HS 04/30/23 04/23/24 History Amiodarone [Cordarone] 200 mg PO DAILY 04/14/24 04/23/24 History Apixaban [Eliquis] 2.5 mg PO BID 04/14/24 04/23/24 History Bumetanide [Bumex] 1 mg PO DAILY 04/14/24 04/23/24 History Metoprolol Tartrate [Lopressor] 50 mg PO BID 04/14/24 04/23/24 History Allergies Allergy/AdvReac Type Severity Reaction Status Date / Time celecoxib [From Celebrex] Allergy Swelling Verified 04/23/24 07:23 ibuprofen [From Motrin] Allergy Swelling Verified 04/23/24 07:23 steroid Allergy Unknown Uncoded 04/23/24 07:23 Physical Exam Vitals: Vital Signs Temp Pulse Resp BP Pulse Ox 04/24/24 08:00 97.9 F 76 15 96/65 99 04/24/24 04:00 96 04/24/24 01:34 97.9 F 75 16 114/70 99 04/23/24 21:06 88 124/85 04/23/24 20:00 16 04/23/24 19:17 97.4 F L 83 16 108/61 100 04/23/24 12:20 97.4 F L 82 18 91/60 99 Intake and Output 04/23/24 04/24/24 04/24/24 22:59 06:59 14:59 Output Total 325 400 Balance -325 -400 Output: Urine 325 400 Other: Voiding Method Bedside Commode # Voids 1 2 1 # Bowel Movements 2 1 on examination patient is comfortable awake not in any acute distress. Alert oriented 3 Examination of the heart S1 and S2 Examination of the lungs shows decreased breath sounds at the bases Abdomen is softon nontender Examination of lower extremity shows edema 1+ bilaterally APPLICATIONS INTERN exam grossly intact Results - Lab Results Most recent lab results Calcium 8.6 mg/dL (8.7-10.3) L 04/24/24 03:38 Magnesium 1.9 mg/dL (1.6-2.3) 04/22/24 21:26 04/24/24 03:38 04/24/24 03:38 Assessment and Plan Assessment: 1. Acute kidney injury, cardiorenal and associated with some degree of hypotensionand diuresis. Nonoliguric. Diuretics have been decreased. UA shows small blood, wbc's 25, no protein. 2. CK D stage III 3be with baseline creatinine about 1.4-1.5 mg/dL secondary to nephrosclerosis. 3. Acute on chronic diastolic CHF 4. Volume overload 5. Chronic A. fib 6. Coronary artery disease with previous history of coronary stents. 7. Anemia of chronic disease, rule out iron deficiency Plan: agree with decreasing diuretics. May continue current dose of Bumex. Check iron profile check post void bladder scan rule out urine retention Repeat labs in a.m. Avoid any nephrotoxic agents. Thank you for the consultation. We will continue to follow the patient with you during her hospitalization.
--- NOTE | 2024-04-24 12:17 | XR ---
EXAMINATION TYPE: XR chest 2V DATE OF EXAM: 04/24/2024 COMPARISON: 04/22/2024 HISTORY: 84-year-old female pneumonia TECHNIQUE: Frontal and lateral views FINDINGS: Heart mildly enlarged. Patchy midlung airspace opacities. Moderate right pleural effusion persists. A eration minimally improved on the left. IMPRESSION: 1. Ongoing moderate right pleural effusion with adjacent atelectasis and/or consolidation. 2. Continued patchy airspace disease, right greater than left mid lung. Slight interval improvement o n the left.
--- NOTE | 2024-04-24 15:51 | P.PN ---
Subjective Progress Note Date: 04/24/24 H&P Date: 04/23/24 Chief Complaint: Abdominal bloating with discomfort, swollen lower extremities This is an 84-year-old female with past medical history significant for atrial fibrillation on Eliquis, mild aortic stenosis, moderate to severe mitral regurg itation , anemia, hypertension, hyperlipidemia, [place], chronic kidney disease stage III,prior nicotine dependence, COPD, chronic hypoxic respiratory failure wears 2 L nasal cannula at home, diabetes mellitus, obesity and multiple other medical issues, presented to the ER with complaints of abdominal bloating accompanied by abdominal discomfort, bilateral lower extremity edema. Denies chest pain, pal pitations. Patient reports recently she was scheduled to have a blood transfusion but her hemoglobin was sufficient and did not require transfusion. Hemoglobin currently 7.9, platelets 452. proBNP was 7200, troponin negative x 1 ,EKG reported atrial fibrillation with controlled ventricular rate, chest x-ray reported patchy bilateral airspace consolidations consistent with multilobar pneumonia, small right pleural effusion. CT of abdomen and pelvis reported moderate right and small left pleural effusions, mild wall thickening of the sigmoid colon, diverticulosis. Afebrile, normal WBC. sodium 135, potassium 3.6, BUN 47, creatinine 1.51(baseline). Blood sugars ranging from 140s to 180s. UA reported negative nitrates, large leukocytes rare bacteria. Legionella negative. 04/24/2024 diuresed well on Lasix IV push yesterday, I&Os inaccurate,not weighed this morning, but does show significant improvement in bilateral lower extremity edema, and shortness of breath. Creatinine increased to 2.1. IV push diuretics transition to oral Bumex. Nephrology recommendations pending .chest x-ray reporting ongoing moderate right pleural effusion with adjacent atelectasis and/or consolidation, continued patchy airspace disease, right greater than left midlung with improvement in left pleural effusion. Objective - Vital Signs Vital signs: Vital Signs Temp 97.9 F 04/24/24 08:00 Pulse 76 04/24/24 08:00 Resp 15 04/24/24 08:00 BP 96/65 04/24/24 08:00 Pulse Ox 99 04/24/24 08:00 FiO2 Intake & Output 04/23/24 04/24/24 04/24/24 18:59 06:59 18:59 Output Total 325 400 Balance -325 -400 Weight 79.379 kg Output: Urine 325 400 Other: Voiding Method External Catheter Bedside Commode # Voids 1 2 1 # Bowel Movements 2 1 - Exam VITAL SIGNS: Reviewed. GENERAL APPEARANCE: Alert and orient x 3, sitting up in chair,, no acute distress. HEENT: pupils equal ,conjunctiva normal,MMM. NECK; supple, no JVD. RESPIRATORY: Unlabored, clear to auscultation with bilateral bases diminished CARDIOVASCULAR: S1-S2, irregular R&R, positive systolic murmur GI: abdomen soft, nontender, positive bowel sounds. EXTREMITIES: 2+ peripheral pulses. Mild peripheral edema. No calf tenderness noted. NEUROLOGIC: Cranial nerves II-XII intact. No focal deficits SKIN: Warm and dry, no rash noted. - Labs CBC & Chem 7: 04/24/24 03:38 04/24/24 03:38 Labs: Abnormal Lab Results - Last 24 Hours (Table) 04/23/24 04/23/24 04/23/24 Range/Units 12:25 17:09 20:08 WBC (4.50-10.00) X 10*3/uL RBC (4.10-5.20) X 10*6/uL Hgb (12.0-15.0) g/dL Hct (37.2-46.3) % MCV (80.0-97.0) FL MCH (27.0-32.0) pg MCHC (32.0-37.0) g/dL RDW (11.5-14.5) % Immature Gran # (0.00-0.04) X 10*3/uL Neutrophils # (1.80-7.70) X 10*3/uL Monocytes # (0.20-1.00) X 10*3/uL Eosinophils # (0.04-0.35) X 10*3/uL NRBC/100 WBC Diff (0.00-0.01) X 10*3/uL Chloride (96-109) mmol/L Anion Gap (4.00-12.00) mmol/L BUN (9.0-27.0) mg/dL Creatinine (0.6-1.5) mg/dL Est GFR (CKD-EPI) (>=60) BUN/Creatinine Ratio (12.00-20.00) Ratio Glucose (70-110) mg/dL POC Glucose (mg/dL) 147 H 193 H 193 H (70-110) mg/dL Hemoglobin A1c (<=6.0) % Calcium (8.7-10.3) mg/dL 04/24/24 04/24/24 04/24/24 Range/Units 03:38 03:38 03:38 WBC 12.58 H (4.50-10.00) X 10*3/uL RBC 3.39 L (4.10-5.20) X 10*6/uL Hgb 7.3 L (12.0-15.0) g/dL Hct 26.0 L (37.2-46.3) % MCV 76.7 L (80.0-97.0) FL MCH 21.5 L (27.0-32.0) pg MCHC 28.1 L (32.0-37.0) g/dL RDW 17.3 H (11.5-14.5) % Immature Gran # 0.10 H (0.00-0.04) X 10*3/uL Neutrophils # 9.07 H (1.80-7.70) X 10*3/uL Monocytes # 1.02 H (0.20-1.00) X 10*3/uL Eosinophils # 0.02 L (0.04-0.35) X 10*3/uL NRBC/100 WBC Diff 0.02 H (0.00-0.01) X 10*3/uL Chloride 94 L (96-109) mmol/L Anion Gap 13.10 H (4.00-12.00) mmol/L BUN 51.0 H (9.0-27.0) mg/dL Creatinine 2.1 H (0.6-1.5) mg/dL Est GFR (CKD-EPI) 23 L (>=60) BUN/Creatinine Ratio 24.29 H (12.00-20.00) Ratio Glucose 160 H (70-110) mg/dL POC Glucose (mg/dL) (70-110) mg/dL Hemoglobin A1c 7.7 H (<=6.0) % Calcium 8.6 L (8.7-10.3) mg/dL 04/24/24 Range/Units 07:10 WBC (4.50-10.00) X 10*3/uL RBC (4.10-5.20) X 10*6/uL Hgb (12.0-15.0) g/dL Hct (37.2-46.3) % MCV (80.0-97.0) FL MCH (27.0-32.0) pg MCHC (32.0-37.0) g/dL RDW (11.5-14.5) % Immature Gran # (0.00-0.04) X 10*3/uL Neutrophils # (1.80-7.70) X 10*3/uL Monocytes # (0.20-1.00) X 10*3/uL Eosinophils # (0.04-0.35) X 10*3/uL NRBC/100 WBC Diff (0.00-0.01) X 10*3/uL Chloride (96-109) mmol/L Anion Gap (4.00-12.00) mmol/L BUN (9.0-27.0) mg/dL Creatinine (0.6-1.5) mg/dL Est GFR (CKD-EPI) (>=60) BUN/Creatinine Ratio (12.00-20.00) Ratio Glucose (70-110) mg/dL POC Glucose (mg/dL) 166 H (70-110) mg/dL Hemoglobin A1c (<=6.0) % Calcium (8.7-10.3) mg/dL Microbiology - Last 24 Hours (Table) 04/22/24 22:26 Urine Culture - Final Urine,Clean Catch Assessment and Plan Assessment: Acute CHF exacerbation, diastolic dysfunction Multilobar pneumonia, ruled out. Pleural effusions, improving with diuresing. Chronic hypoxic respiratory failure, wears 2 L nasal cannula O2 at home Diabetes mellitus Acute on chronic kidney disease stage IIIB, cardiorenal CAD, x 2, prior PCI Moderate to severe mitral regurgitation Mild aortic stenosis Persistent atrial fibrillation coagulated on Eliquis Hypertension Hyperlipidemia COPD Former nicotine dependence Chronic lower extremity cellulitis Obesity Plan: Continue on current medication regimen ,monitoring and symptomatic treatment. Renal function increasing, cautious diuresing with close monitoring of renal function and electrolytes. Nephrology consult in place, recommendations pending. antibiotics discontinued, pleural effusions improving with diuresing. The impression and plan of care has been dictated as directed. : I performed a history and examination of this patient, discussed the same with the dictator. I agree with the dictator's note ,documented as a scribe. Any additional findings or plans will be noted.
[2024-04-24 17:15] LABS: Glucose,Whole Blood 185 mg/dL (70-110)
[2024-04-24 20:39] LABS: Glucose,Whole Blood 149 mg/dL (70-110)
[2024-04-25 07:09] LABS: Glucose,Whole Blood 159 mg/dL (70-110)
[2024-04-25 10:10] LABS: BUN/Creat Ratio 26.89 Ratio (12.00-20.00); Blood Urea Nitrogen 48.4 mg/dL (9.0-27.0); Calcium 8.4 mg/dL (8.7-10.3); Carbon Dioxide 32.2 mmol/L (21.6-31.8); Chloride 95 mmol/L (96-109); Glucose 152 mg/dL (70-110); Potassium 3.9 mmol/L (3.5-5.5); Sodium 138 mmol/L (135-145)
[2024-04-25 10:29] LABS: Basophils # (A) 0.04 X 10*3/uL (0.00-0.10); Basophils % (A) 0.4 %; Eosinophils # (A) 0.04 X 10*3/uL (0.04-0.35); Eosinophils % (A) 0.4 %; HCT 24.3 % (37.2-46.3); HGB 6.7 g/dL (12.0-15.0); Hypochromasia (M) 2+; Lymphocytes % (A) 21.7 %; MCH 21.7 pg (27.0-32.0); MCHC 27.6 g/dL (32.0-37.0); MCV 78.6 FL (80.0-97.0); Mean Platelet Volume 10.2 FL (9.5-12.2); Monocytes # (A) 0.86 X 10*3/uL (0.20-1.00); Monocytes % (A) 8.5 %; NRBC Per 100 WBC 0.02 X 10*3/uL (0.00-0.01); Neutrophils # (A) 6.94 X 10*3/uL (1.80-7.70); Neutrophils % (A) 68.3 %; Platelet Count 388 X 10*3/uL (140-440); RBC 3.09 X 10*6/uL (4.10-5.20); RDW 17.5 % (11.5-14.5); WBC 10.15 X 10*3/uL (4.50-10.00)
[2024-04-25 12:15] LABS: Glucose,Whole Blood 153 mg/dL (70-110)
--- NOTE | 2024-04-25 13:28 | P.PN ---
Subjective Patient is seen for follow-up for acute kidney injury. She is currently being diuresed for volume overload. Serum creatinine slightly improved to 1.8 from 2.1 yesterday. Maintained on oral Bumex. Hemoglobin dropped to 6.7 today. Scheduled to receive packed RBCs transfusion. Objective - Vital Signs Vital signs: Vital Signs Temp 97.8 F 04/25/24 12:28 Pulse 74 04/25/24 12:28 Resp 16 04/25/24 12:28 BP 105/68 04/25/24 12:28 Pulse Ox 100 04/25/24 12:28 FiO2 Intake & Output 04/24/24 04/25/24 04/25/24 18:59 06:59 18:59 Intake Total 540 120 Output Total 200 450 Balance -200 90 120 Weight 79.7 kg 79.3 kg Intake: Oral 540 120 Output: Urine 200 450 Other: Voiding Method Bedside Commode Bedside Commode # Voids 1 1 # Bowel Movements 1 - Exam patient is comfortable awake not in any acute distress. Alert oriented 3 Examination of the heart S1 and S2 Examination of the lungs shows decreased breath sounds at the bases Abdomen is softon nontender Examination of lower extremity shows edema 1+ bilaterally CIG[employer] HAND exam grossly intact - Labs CBC & Chem 7: 04/25/24 03:24 04/25/24 03:24 Labs: Abnormal Lab Results - Last 24 Hours (Table) 04/24/24 04/24/24 04/25/24 Range/Units 17:13 20:38 03:24 WBC 10.15 H (4.50-10.00) X 10*3/uL RBC 3.09 L (4.10-5.20) X 10*6/uL Hgb 6.7 A* (12.0-15.0) g/dL Hct 24.3 L (37.2-46.3) % MCV 78.6 L (80.0-97.0) FL MCH 21.7 L (27.0-32.0) pg MCHC 27.6 L (32.0-37.0) g/dL RDW 17.5 H (11.5-14.5) % Immature Gran # 0.07 H (0.00-0.04) X 10*3/uL NRBC/100 WBC Diff 0.02 H (0.00-0.01) X 10*3/uL Hypochromasia (manual) 2+ A Chloride (96-109) mmol/L Carbon Dioxide (21.6-31.8) mmol/L BUN (9.0-27.0) mg/dL Creatinine (0.6-1.5) mg/dL Est GFR (CKD-EPI) (>=60) BUN/Creatinine Ratio (12.00-20.00) Ratio Glucose (70-110) mg/dL POC Glucose (mg/dL) 185 H 149 H (70-110) mg/dL Calcium (8.7-10.3) mg/dL 04/25/24 04/25/24 04/25/24 Range/Units 03:24 07:07 12:13 WBC (4.50-10.00) X 10*3/uL RBC (4.10-5.20) X 10*6/uL Hgb (12.0-15.0) g/dL Hct (37.2-46.3) % MCV (80.0-97.0) FL MCH (27.0-32.0) pg MCHC (32.0-37.0) g/dL RDW (11.5-14.5) % Immature Gran # (0.00-0.04) X 10*3/uL NRBC/100 WBC Diff (0.00-0.01) X 10*3/uL Hypochromasia (manual) Chloride 95 L (96-109) mmol/L Carbon Dioxide 32.2 H (21.6-31.8) mmol/L BUN 48.4 H (9.0-27.0) mg/dL Creatinine 1.8 H (0.6-1.5) mg/dL Est GFR (CKD-EPI) 27 L (>=60) BUN/Creatinine Ratio 26.89 H (12.00-20.00) Ratio Glucose 152 H (70-110) mg/dL POC Glucose (mg/dL) 159 H 153 H (70-110) mg/dL Calcium 8.4 L (8.7-10.3) mg/dL Microbiology - Last 24 Hours (Table) 04/23/24 04:22 Blood Culture - Preliminary Blood Assessment and Plan Assessment: 1. Acute kidney injury, cardiorenal and associated with some degree of hypotension, severe anemia and diuresis. Nonoliguric. Diuretics have been decreased. UA shows small blood, wbc's 25, no protein. 2. CK D stage III 3be with baseline creatinine about 1.4-1.5 mg/dL secondary to nephrosclerosis. 3. Acute on chronic diastolic CHF 4. Volume overload 5. Chronic A. fib 6. Coronary artery disease with previous history of coronary stents. 7. Anemia of chronic disease, rule out iron deficiency. 1 unit packed RBCs ordered today for hemoglobin of 6.7. Plan: Continue current dose of Bumex Check iron profile check post void bladder scan rule out urine retention Repeat labs in a.m. Avoid any nephrotoxic agents.
--- NOTE | 2024-04-25 13:30 | P.PN ---
Subjective Progress Note Date: 04/25/24 This is an 84-year-old female with past medical history significant for atrial fibrillation on Eliquis, mild aortic stenosis, moderate to severe mitral regurgitation , anemia, hypertension, hyperlipidemia, OR, chronic kidney disease stage III,prior nicotine dependence, COPD, chronic hypoxic respiratory failure wears 2 L nasal cannula at home, diabetes mellitus, obesity and multiple other medical issues, presented to the ER with complaints of abdominal bloating accompanied by abdominal discomfort, bilateral lower extremity edema. Denies chest pain, palpitations. Patient reports recently she was scheduled to have a blood transfusion but her hemoglobin was sufficient and did not require transfusion. Hemoglobin currently 7.9, platelets 452. proBNP was 7200, troponin negative x 1 ,EKG reported atrial fibrillation with controlled ventricular rate, chest x-ray reported patchy bilateral airspace consolidations consistent with multilobar pneumonia, small right pleural effusion. CT of abdomen and pelvis reported moderate right and small left pleural effusions, mild wall thickening of the sigmoid colon, diverticulosis. Afebrile, normal WBC. sodium 135, potassium 3.6, BUN 47, creatinine 1.51(baseline). Blood sugars ranging from 140s to 180s. UA reported negative nitrates, large leukocytes rare bacteria. Legionella negative. 04/24/2024 diuresed well on Lasix IV push yesterday, I&Os inaccurate,not weighed this morning, but does show significant improvement in bilateral lower extremity edema, and shortness of breath. Creatinine increased to 2.1. IV push diuretics transition to oral Bumex. Nephrology recommendations pending .chest x-ray reporting ongoing moderate right pleural effusion with adjacent atelectasis and/or consolidation, continued patchy airspace disease, right greater than left midlung with improvement in left pleural effusion 04/25. Patient seen and examined. States she feels better. Hemoglobin this morning is 6.7. States swelling of legs is improved. Will order 1 unit of packed red blood cell REVIEW OF SYSTEMS: CONSTITUTIONAL: No fever, no malaise,. CARDIOVASCULAR: No chest pain, no palpitations, no syncope. PULMONARY: No shortness of breath, no cough, GASTROINTESTINAL: No diarrhea, no nausea, no vomiting, no abdominal pain. NEUROLOGICAL: No headaches, no weakness, PHYSICAL EXAMINATION: GENERAL: The patient is alert and oriented x3, not in any acute distress. Ill looking HEENT: Pupils are round and equally reacting to light. EOMI. No scleral icterus. No conjunctival pallor. Normocephalic, atraumatic. No pharyngeal erythema. No thyromegaly. CARDIOVASCULAR: S1 and S2 present. No murmurs, rubs, or gallops. PULMONARY: Diminished breath sound in the bases bilaterally ABDOMEN: Soft, nontender, nondistended, normoactive bowel sounds. No palpable organomegaly. MUSCULOSKELETAL: 1+ pitting edema lower extremities bilaterally EXTREMITIES: No cyanosis, clubbing, or pedal edema. NEUROLOGICAL: Gross neurological examination did not reveal any focal deficits. SKIN: No rashes. Assessment and plan Acute CHF exacerbation, diastolic dysfunction Multilobar pneumonia, ruled out. Pleural effusions, improving with diuresing. Anemia Chronic hypoxic respiratory failure, wears 2 L nasal cannula O2 at home Diabetes mellitus Acute on chronic kidney disease stage IIIB, cardiorenal CAD, x 2, prior PCI Moderate to severe mitral regurgitation Mild aortic stenosis Persistent atrial fibrillation coagulated on Eliquis Hypertension Hyperlipidemia COPD Former nicotine dependence Chronic lower extremity cellulitis Obesity Monitor vital signs Monitor CBC Monitor CMP Continue telemetry monitoring Ordered unit of packed red blood cell Continue amiodarone Continue Plavix and Eliquis Cardiology following nephrology consulted Labs and medication were reviewed.. Continue same treatment. Continue with symptomatic treatment. Resume home medication. Monitor labs and vitals. DVT and GI prophylaxis. Further recommendations as per clinical course of the patient Dictation was produced using [employer] dictation software. please excuse any g rammatical, word or spelling errors. Objective - Vital Signs Vital signs: Vital Signs Temp 97.8 F 04/25/24 12:28 Pulse 74 04/25/24 12:28 Resp 16 04/25/24 12:28 BP 105/68 04/25/24 12:28 Pulse Ox 100 04/25/24 12:28 FiO2 Intake & Output 04/24/24 04/25/24 04/25/24 18:59 06:59 18:59 Intake Total 540 120 Output Total 200 450 Balance -200 90 120 Weight 79.7 kg 79.3 kg Intake: Oral 540 120 Output: Urine 200 450 Other: Voiding Method Bedside Commode Bedside Commode # Voids 1 1 # Bowel Movements 1 - Labs CBC & Chem 7: 04/25/24 03:24 04/25/24 03:24 Labs: Abnormal Lab Results - Last 24 Hours (Table) 04/24/24 04/24/24 04/25/24 Range/Units 17:13 20:38 03:24 WBC 10.15 H (4.50-10.00) X 10*3/uL RBC 3.09 L (4.10-5.20) X 10*6/uL Hgb 6.7 A* (12.0-15.0) g/dL Hct 24.3 L (37.2-46.3) % MCV 78.6 L (80.0-97.0) FL MCH 21.7 L (27.0-32.0) pg MCHC 27.6 L (32.0-37.0) g/dL RDW 17.5 H (11.5-14.5) % Immature Gran # 0.07 H (0.00-0.04) X 10*3/uL NRBC/100 WBC Diff 0.02 H (0.00-0.01) X 10*3/uL Hypochromasia (manual) 2+ A Chloride (96-109) mmol/L Carbon Dioxide (21.6-31.8) mmol/L BUN (9.0-27.0) mg/dL Creatinine (0.6-1.5) mg/dL Est GFR (CKD-EPI) (>=60) BUN/Creatinine Ratio (12.00-20.00) Ratio Glucose (70-110) mg/dL POC Glucose (mg/dL) 185 H 149 H (70-110) mg/dL Calcium (8.7-10.3) mg/dL 04/25/24 04/25/24 04/25/24 Range/Units 03:24 07:07 12:13 WBC (4.50-10.00) X 10*3/uL RBC (4.10-5.20) X 10*6/uL Hgb (12.0-15.0) g/dL Hct (37.2-46.3) % MCV (80.0-97.0) FL MCH (27.0-32.0) pg MCHC (32.0-37.0) g/dL RDW (11.5-14.5) % Immature Gran # (0.00-0.04) X 10*3/uL NRBC/100 WBC Diff (0.00-0.01) X 10*3/uL Hypochromasia (manual) Chloride 95 L (96-109) mmol/L Carbon Dioxide 32.2 H (21.6-31.8) mmol/L BUN 48.4 H (9.0-27.0) mg/dL Creatinine 1.8 H (0.6-1.5) mg/dL Est GFR (CKD-EPI) 27 L (>=60) BUN/Creatinine Ratio 26.89 H (12.00-20.00) Ratio Glucose 152 H (70-110) mg/dL POC Glucose (mg/dL) 159 H 153 H (70-110) mg/dL Calcium 8.4 L (8.7-10.3) mg/dL Microbiology - Last 24 Hours (Table) 04/23/24 04:22 Blood Culture - Preliminary Blood
[2024-04-25 17:07] LABS: Glucose,Whole Blood 194 mg/dL (70-110)
[2024-04-25 20:42] LABS: Glucose,Whole Blood 168 mg/dL (70-110)
[2024-04-26 07:25] LABS: Glucose,Whole Blood 156 mg/dL (70-110)
[2024-04-26 07:40] VITALS: RESP 16
[2024-04-26 11:45] LABS: Glucose,Whole Blood 175 mg/dL (70-110)
[2024-04-26 12:47] LABS: % Iron Saturation 2.29 (12.00-45.00)
--- NOTE | 2024-04-26 12:58 | P.PN ---
Subjective Patient is seen for follow-up for acute kidney injury. She is currently being diuresed for volume overload. Serum creatinine slightly improved to 1.8 from 2.1 Maintained on oral Bumex. Status post packed RBCs transfusion yesterday for hemoglobin of 6.7. Patient is complaining of increased leg swelling today. Objective - Vital Signs Vital signs: Vital Signs Temp 97.6 F 04/26/24 12:43 Pulse 70 04/26/24 12:43 Resp 16 04/26/24 12:43 BP 119/73 04/26/24 12:43 Pulse Ox 100 04/26/24 12:43 FiO2 Intake & Output 04/25/24 04/26/24 04/26/24 18:59 06:59 18:59 Intake Total 1120 240 Output Total 900 350 Balance 220 -350 240 Weight 79.3 kg Intake: Oral 810 240 Blood Product 310 Rc As-1 Unit 310 [id number] Output: Urine 900 350 Other: Voiding Method Bedside Commode Bedside Commode # Voids 3 # Bowel Movements 1 - Exam patient is comfortable awake not in any acute distress. 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 Acute kidney injury, cardiorenal and associated with some degree of hypotension, severe anemia and diuresis. Nonoliguric. Diuretics have been decreased, however edema is worse post packed RBCs transfusion. UA shows small blood, wbc's 25, no protein. 2. CK D stage III 3be with baseline creatinine about 1.4-1.5 mg/dL secondary to nephrosclerosis. 3. Acute on chronic diastolic CHF 4. Volume overload 5. Chronic A. fib 6. Coronary artery disease with previous history of coronary stents. 7. Anemia of chronic disease, rule out iron deficiency. 1 unit packed RBCs ordered today for hemoglobin of 6.7. Plan: Add 1 dose of IV Bumex. Can replace the 1400 oral dose. Check labs Avoid any nephrotoxic agents.
--- NOTE | 2024-04-26 13:43 | P.PN ---
Subjective Progress Note Date: 04/26/24 This is an 84-year-old female with past medical history significant for atrial fibrillation on Eliquis, mild aortic stenosis, moderate to severe mitral regurgitation , anemia, hypertension, hyperlipidemia, HI, chronic kidney disease stage III,prior nicotine dependence, COPD, chronic hypoxic respiratory failure wears 2 L nasal cannula at home, diabetes mellitus, obesity and multiple other medical issues, presented to the ER with complaints of abdominal bloating accompanied by abdominal discomfort, bilateral lower extremity edema. Denies chest pain, palpitations. Patient reports recently she was scheduled to have a blood transfusion but her hemoglobin was sufficient and did not require transfusion. Hemoglobin currently 7.9, platelets 452. proBNP was 7200, troponin negative x 1 ,EKG reported atrial fibrillation with controlled ventricular rate, chest x-ray reported patchy bilateral airspace consolidations consistent with multilobar pneumonia, small right pleural effusion. CT of abdomen and pelvis reported moderate right and small left pleural effusions, mild wall thickening of the sigmoid colon, diverticulosis. Afebrile, normal WBC. sodium 135, potassium 3.6, BUN 47, creatinine 1.51(baseline). Blood sugars ranging from 140s to 180s. UA reported negative nitrates, large leukocytes rare bacteria. Legionella negative. 04/24/2024 diuresed well on Lasix IV push yesterday, I&Os inaccurate,not weighed this morning, but does show significant improvement in bilateral lower extremity edema, and shortness of breath. Creatinine increased to 2.1. IV push diuretics transition to oral Bumex. Nephrology recommendations pending .chest x-ray reporting ongoing moderate right pleural effusion with adjacent atelectasis and/or consolidation, continued patchy airspace disease, right greater than left midlung with improvement in left pleural effusion 04/25. Patient seen and examined. States she feels better. Hemoglobin this morning is 6.7. States swelling of legs is improved. Will order 1 unit of packed red blood cell 04/26. Patient seen and examined. Denies any shortness of breath at rest. Complaining of worsening swelling of legs. Vital signs stable REVIEW OF SYSTEMS: CONSTITUTIONAL: No fever, no malaise,. CARDIOVASCULAR: No chest pain, no palpitations, no syncope. PULMONARY: No shortness of breath, no cough, GASTROINTESTINAL: No diarrhea, no nausea, no vomiting, no abdominal pain. NEUROLOGICAL: No headaches, no weakness, PHYSICAL EXAMINATION: GENERAL: The patient is alert and oriented x3, not in any acute distress. Ill looking HEENT: Pupils are round and equally reacting to light. EOMI. No scleral icterus. No conjunctival pallor. Normocephalic, atraumatic. No pharyngeal erythema. No thyromegaly. CARDIOVASCULAR: S1 and S2 present. No murmurs, rubs, or gallops. PULMONARY: Diminished breath sound in the bases bilaterally ABDOMEN: Soft, nontender, nondistended, normoactive bowel sounds. No palpable organomegaly. MUSCULOSKELETAL: 1+ pitting edema lower extremities bilaterally EXTREMITIES: No cyanosis, clubbing, or pedal edema. NEUROLOGICAL: Gross neurological examination did not reveal any focal deficits. SKIN: No rashes. Assessment and plan Acute CHF exacerbation, diastolic dysfunction Multilobar pneumonia, ruled out. Pleural effusions, improving with diuresing. Anemia Chronic hypoxic respiratory failure, wears 2 L nasal cannula O2 at home Diabetes mellitus Acute on chronic kidney disease stage IIIB, cardiorenal CAD, x 2, prior PCI Moderate to severe mitral regurgitation Mild aortic stenosis Persistent atrial fibrillation coagulated on Eliquis Hypertension Hyperlipidemia COPD Former nicotine dependence Chronic lower extremity cellulitis Obesity Monitor vital signs Monitor CBC Monitor CMP Continue telemetry monitoring Ordered iron profile Continue amiodarone Continue Bumex, added additional dose of IV Bumex Continue Plavix and Eliquis Cardiology following nephrology following Labs and medication were reviewed.. Continue same treatment. Continue with symptomatic treatment. Resume home medication. Monitor labs and vitals. DVT and GI prophylaxis. Further recommendations as per clinical course of the patient Dictation was produced using [employer] dictation software. please excuse any grammatical, word or spelling errors. Objective - Vital Signs Vital signs: Vital Signs Temp 98.1 F 04/26/24 07:00 Pulse 83 04/26/24 07:00 Resp 16 04/26/24 07:00 BP 108/66 04/26/24 07:00 Pulse Ox 100 04/26/24 07:00 FiO2 Intake & Output 04/25/24 04/26/24 04/26/24 18:59 06:59 18:59 Intake Total 1120 240 Output Total 900 350 Balance 220 -350 240 Weight 79.3 kg Intake: Oral 810 240 Blood Product 310 Rc As-1 Unit 310 [id number] Output: Urine 900 350 Other: Voiding Method Bedside Commode Bedside Commode # Voids 3 # Bowel Movements 1 - Labs CBC & Chem 7: 04/25/24 03:24 04/25/24 03:24 Labs: Abnormal Lab Results - Last 24 Hours (Table) 04/25/24 04/25/24 04/25/24 Range/Units 12:13 13:10 17:06 POC Glucose (mg/dL) 153 H 194 H (70-110) mg/dL Crossmatch See Detail 04/25/24 04/26/24 Range/Units 20:40 07:23 POC Glucose (mg/dL) 168 H 156 H (70-110) mg/dL Crossmatch Microbiology - Last 24 Hours (Table) 04/23/24 04:22 Blood Culture - Preliminary Blood
[2024-04-26] MEDS: BUMETANIDE 0.25 MG/ML 4 ML VIAL IV ONE (13:50)
[2024-04-26 14:24] LABS: African American GFR (CKD) 39 (>60 ml/min/1.73 sqM); Anion Gap 2 mmol/L; Blood Urea Nitrogen 51 mg/dL (7-17); Calcium 8.3 mg/dL (8.4-10.2); Carbon Dioxide 39 mmol/L (22-30); Chloride 97 mmol/L (98-107); Glucose 139 mg/dL (74-99); Non-African American GFR(CKD) 34 (>60 ml/min/1.73 sqM); Potassium 3.4 mmol/L (3.5-5.1); Sodium 138 mmol/L (137-145)
[2024-04-26 17:16] LABS: Glucose,Whole Blood 205 mg/dL (70-110)
[2024-04-26 17:43] LABS: Anisocytosis Slight; Basophils % (A) 0 %; Eosinophils # (A) 0.1 k/uL (0-0.7); Eosinophils % (A) 1 %; HCT 26.4 % (34.0-46.0); HGB 7.8 gm/dL (11.4-16.0); Hypochromasia Marked; Lymphocytes # (A) 1.9 k/uL (1.0-4.8); Lymphocytes % (A) 22 %; MCHC 29.4 g/dL (31.0-37.0); MCV 78.1 fL (80.0-100.0); Microcytosis Slight; Monocytes # (A) 0.6 k/uL (0-1.0); Monocytes % (A) 7 %; Neutrophils # (A) 5.9 k/uL (1.3-7.7); Neutrophils % (A) 68 %; Platelet Count 371 k/uL (150-450); Poikilocytosis Moderate; RBC 3.38 m/uL (3.80-5.40); RDW 17.3 % (11.5-15.5); WBC 8.7 k/uL (3.8-10.6)
[2024-04-26 20:24] LABS: Glucose,Whole Blood 217 mg/dL (70-110)
[2024-04-27 07:08] LABS: Glucose,Whole Blood 176 mg/dL (70-110)
[2024-04-27 09:10] LABS: ALT 18 U/L (8-44); AST 18 U/L (13-35); Albumin 3.2 g/dL (3.8-4.9); Albumin/Globulin Ratio 1.28 Ratio (1.60-3.17); Alkaline Phosphatase 115 U/L (41-126); BUN/Creat Ratio 28.93 Ratio (12.00-20.00); Blood Urea Nitrogen 43.4 mg/dL (9.0-27.0); Calcium 8.5 mg/dL (8.7-10.3); Carbon Dioxide 32.4 mmol/L (21.6-31.8); Chloride 99 mmol/L (96-109); Globulin 2.5 g/dL (1.6-3.3); Glucose 148 mg/dL (70-110); Potassium 4.3 mmol/L (3.5-5.5); Sodium 143 mmol/L (135-145); Total Bilirubin 0.3 mg/dL (0.3-1.2); Total Protein 5.7 g/dL (6.2-8.2)
[2024-04-27 09:49] LABS: Basophils # (A) 0.05 X 10*3/uL (0.00-0.10); Basophils % (A) 0.5 %; Eosinophils # (A) 0.07 X 10*3/uL (0.04-0.35); Eosinophils % (A) 0.7 %; HCT 30.2 % (37.2-46.3); HGB 8.4 g/dL (12.0-15.0); Lymphocytes # (A) 2.17 X 10*3/uL (0.90-5.00); Lymphocytes % (A) 20.7 %; MCH 22.8 pg (27.0-32.0); MCHC 27.8 g/dL (32.0-37.0); MCV 82.1 FL (80.0-97.0); Mean Platelet Volume 10.4 FL (9.5-12.2); Monocytes # (A) 1.08 X 10*3/uL (0.20-1.00); Monocytes % (A) 10.3 %; NRBC Per 100 WBC 0.02 X 10*3/uL (0.00-0.01); Neutrophils # (A) 7.04 X 10*3/uL (1.80-7.70); Platelet Count 339 X 10*3/uL (140-440); RBC 3.68 X 10*6/uL (4.10-5.20); RDW 18.1 % (11.5-14.5); WBC 10.49 X 10*3/uL (4.50-10.00)
[2024-04-27 11:56] LABS: Glucose,Whole Blood 174 mg/dL (70-110)
--- NOTE | 2024-04-27 13:52 | P.PN ---
Subjective Patient is seen for follow-up for acute kidney injury. Patient is currently being diuresed for volume overload. Serum creatinine went from 1.42 to 1.5 today Status post packed RBCs transfusion yesterday for hemoglobin of 6.7. Patient continues to complain of leg swelling today. Objective - Vital Signs Vital signs: Vital Signs Temp 97.8 F 04/27/24 07:24 Pulse 71 04/27/24 07:24 Resp 16 04/27/24 07:24 BP 105/65 04/27/24 07:24 Pulse Ox 100 04/27/24 07:24 FiO2 Intake & Output 04/26/24 04/27/24 04/27/24 18:59 06:59 18:59 Intake Total 2000 500 Output Total 1200 375 Balance 800 125 Intake: Oral 2000 500 Output: Urine 1200 375 Other: Voiding Method Bedside Commode Bedside Commode - Exam Patient is seen at bedside comfortably sitting up awake and not in acute distr ess. A and O x 3 S1-S2 auscultated, no rubs murmurs or gallops appreciated. 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 - Labs CBC & Chem 7: 04/27/24 05:26 04/27/24 05:26 Labs: Abnormal Lab Results - Last 24 Hours (Table) 04/25/24 04/26/24 04/26/24 Range/Units 03:27 11:43 13:53 RBC (3.80-5.40) m/uL Hgb (11.4-16.0) gm/dL Hct (34.0-46.0) % MCV (80.0-100.0) fL MCH (25.0-35.0) pg MCHC (31.0-37.0) g/dL RDW (11.5-15.5) % Potassium 3.4 L (3.5-5.1) mmol/L Chloride 97 L (98-107) mmol/L Carbon Dioxide 39 H (22-30) mmol/L BUN 51 H (7-17) mg/dL Creatinine 1.42 H (0.52-1.04) mg/dL Glucose 139 H (74-99) mg/dL POC Glucose (mg/dL) 175 H (70-110) mg/dL Calcium 8.3 L (8.4-10.2) mg/dL Iron 10 L (50-170) UG/DL % Saturation 2.29 L (12.00-45.00) 04/26/24 04/26/24 04/26/24 Range/Units 17:15 17:15 20:23 RBC 3.38 L (3.80-5.40) m/uL Hgb 7.8 L (11.4-16.0) gm/dL Hct 26.4 L (34.0-46.0) % MCV 78.1 L (80.0-100.0) fL MCH 23.0 L (25.0-35.0) pg MCHC 29.4 L (31.0-37.0) g/dL RDW 17.3 H (11.5-15.5) % Potassium (3.5-5.1) mmol/L Chloride (98-107) mmol/L Carbon Dioxide (22-30) mmol/L BUN (7-17) mg/dL Creatinine (0.52-1.04) mg/dL Glucose (74-99) mg/dL POC Glucose (mg/dL) 205 H 217 H (70-110) mg/dL Calcium (8.4-10.2) mg/dL Iron (50-170) UG/DL % Saturation (12.00-45.00) 04/27/24 Range/Units 07:06 RBC (3.80-5.40) m/uL Hgb (11.4-16.0) gm/dL Hct (34.0-46.0) % MCV (80.0-100.0) fL MCH (25.0-35.0) pg MCHC (31.0-37.0) g/dL RDW (11.5-15.5) % Potassium (3.5-5.1) mmol/L Chloride (98-107) mmol/L Carbon Dioxide (22-30) mmol/L BUN (7-17) mg/dL Creatinine (0.52-1.04) mg/dL Glucose (74-99) mg/dL POC Glucose (mg/dL) 176 H (70-110) mg/dL Calcium (8.4-10.2) mg/dL Iron (50-170) UG/DL % Saturation (12.00-45.00) Microbiology - Last 24 Hours (Table) 04/23/24 04:22 Blood Culture - Preliminary Blood Assessment and Plan Assessment: 1. Acute kidney injury, cardiorenal and associated with some degree of hypotension, severe anemia and diuresis. Nonoliguric. Edema is worse post packed RBCs transfusion. UA shows small blood, wbc's 25, no protein. 2. CK D stage III 3be with baseline creatinine about 1.4-1.5 mg/dL secondary to nephrosclerosis. 3. Acute on chronic diastolic CHF 4. Volume overload 5. Chronic A. fib 6. Coronary artery disease with previous history of coronary stents. 7. Anemia of chronic disease, rule out iron deficiency. 1 unit packed RBCs ordered for hemoglobin of 6.7. Plan: Continue PO Bumex, added one-time dose 1.0 IV Bumex in p.m. (16: 00) Started fluid restriction 1500 cc/day Will begin Farxiga 5 mg p.o. tomorrow (04/28) Added aransep 40 Follow-up on new labs in the a.m. Avoid any nephrotoxic agents. I have seen and examined the patient with resident and agree with A&P as written. IV bumex x 1 dose today; start [id number]; add aranesp. Repeat iron studies. Hgb improved post prbc.
[2024-04-27] MEDS: DARBEPOETIN ALFA 40 MCG/0.4 ML SYRINGE SQ SCH (15:03)
[2024-04-27 17:16] LABS: Glucose,Whole Blood 146 mg/dL (70-110)
[2024-04-27] MEDS: BUMETANIDE 0.25 MG/ML 4 ML VIAL IVP ONE (17:38)
[2024-04-27 20:13] LABS: Glucose,Whole Blood 249 mg/dL (70-110)
[2024-04-28 03:54] LABS: Ferritin 34.1 ng/mL (10.0-291.0)
[2024-04-28 07:28] LABS: Glucose,Whole Blood 162 mg/dL (70-110)
[2024-04-28] MEDS: DAPAGLIFLOZIN PROPANEDIOL 5 MG TABLET PO SCH (08:18)
[2024-04-28 08:47] LABS: BUN/Creat Ratio 28.14 Ratio (12.00-20.00); Blood Urea Nitrogen 39.4 mg/dL (9.0-27.0); Calcium 8.1 mg/dL (8.7-10.3); Carbon Dioxide 33.2 mmol/L (21.6-31.8); Chloride 97 mmol/L (96-109); Glucose 135 mg/dL (70-110); Magnesium 1.7 mg/dL (1.5-2.4); Potassium 3.7 mmol/L (3.5-5.5); Sodium 140 mmol/L (135-145)
--- NOTE | 2024-04-28 09:53 | P.PN ---
Subjective Patient is seen for follow-up for acute kidney injury. Patient is currently being diuresed for volume overload. Serum creatinine improved from 1.5 to 1.4 today. Hemoglobin decreased from 8.4 to 8 today. Patient seen at bedside. No significant overnight events. Objective - Vital Signs Vital signs: Vital Signs Temp 97.7 F 04/28/24 07:19 Pulse 75 04/28/24 07:19 Resp 16 04/28/24 07:19 BP 96/59 04/28/24 07:19 Pulse Ox 100 04/28/24 07:19 FiO2 Intake & Output 04/27/24 04/28/24 04/28/24 18:59 06:59 18:59 Intake Total 900 720 358 Output Total 300 910 Balance 600 -190 358 Weight 79.3 kg Intake: Oral 900 720 358 Output: Urine 300 910 Other: Voiding Method Bedside Commode # Bowel Movements 1 1 - Exam Patient is seen at bedside comfortably sitting up awake and not in acute distress. A and O x 3 S1-S2 auscultated, no rubs murmurs or gallops appreciated. Auscultation of the lungs show decreased breath sounds at the bases especially in left lung field Abdomen is soft nontender with no distention rebound or guarding Lower extremity edema noted to be 23+ bilaterally, unchanged from yesterday perhaps slightly improved. 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 - Labs CBC & Chem 7: 04/28/24 03:43 04/28/24 03:43 Labs: Abnormal Lab Results - Last 24 Hours (Table) 04/27/24 04/27/24 04/27/24 Range/Units 05:26 05:26 11:55 WBC 10.49 H (4.50-10.00) X 10*3/uL RBC 3.68 L (4.10-5.20) X 10*6/uL Hgb 8.4 L (12.0-15.0) g/dL Hct 30.2 L (37.2-46.3) % MCH 22.8 L (27.0-32.0) pg MCHC 27.8 L (32.0-37.0) g/dL RDW 18.1 H (11.5-14.5) % Immature Gran # 0.08 H (0.00-0.04) X 10*3/uL Monocytes # 1.08 H (0.20-1.00) X 10*3/uL NRBC/100 WBC Diff 0.02 H (0.00-0.01) X 10*3/uL Carbon Dioxide (21.6-31.8) mmol/L BUN (9.0-27.0) mg/dL Est GFR (CKD-EPI) (>=60) BUN/Creatinine Ratio (12.00-20.00) Ratio Glucose (70-110) mg/dL POC Glucose (mg/dL) 174 H (70-110) mg/dL Calcium (8.7-10.3) mg/dL Iron 15 L (50-170) UG/DL 04/27/24 04/27/24 04/28/24 Range/Units 17:14 20:11 03:43 WBC (4.50-10.00) X 10*3/uL RBC (4.10-5.20) X 10*6/uL Hgb (12.0-15.0) g/dL Hct (37.2-46.3) % MCH (27.0-32.0) pg MCHC (32.0-37.0) g/dL RDW (11.5-14.5) % Immature Gran # (0.00-0.04) X 10*3/uL Monocytes # (0.20-1.00) X 10*3/uL NRBC/100 WBC Diff (0.00-0.01) X 10*3/uL Carbon Dioxide 33.2 H (21.6-31.8) mmol/L BUN 39.4 H (9.0-27.0) mg/dL Est GFR (CKD-EPI) 37 L (>=60) BUN/Creatinine Ratio 28.14 H (12.00-20.00) Ratio Glucose 135 H (70-110) mg/dL POC Glucose (mg/dL) 146 H 249 H (70-110) mg/dL Calcium 8.1 L (8.7-10.3) mg/dL Iron (50-170) UG/DL 04/28/24 Range/Units 07:24 WBC (4.50-10.00) X 10*3/uL RBC (4.10-5.20) X 10*6/uL Hgb (12.0-15.0) g/dL Hct (37.2-46.3) % MCH (27.0-32.0) pg MCHC (32.0-37.0) g/dL RDW (11.5-14.5) % Immature Gran # (0.00-0.04) X 10*3/uL Monocytes # (0.20-1.00) X 10*3/uL NRBC/100 WBC Diff (0.00-0.01) X 10*3/uL Carbon Dioxide (21.6-31.8) mmol/L BUN (9.0-27.0) mg/dL Est GFR (CKD-EPI) (>=60) BUN/Creatinine Ratio (12.00-20.00) Ratio Glucose (70-110) mg/dL POC Glucose (mg/dL) 162 H (70-110) mg/dL Calcium (8.7-10.3) mg/dL Iron (50-170) UG/DL Assessment and Plan Assessment: 1. Acute kidney injury, cardiorenal and associated with some degree of hypotension, severe anemia and diuresis. Nonoliguric. Edema is worse post packed RBCs transfusion. UA shows small blood, wbc's 25, no protein. Improved. 2. CK D stage III 3be with baseline creatinine about 1.4-1.5 mg/dL secondary to nephrosclerosis. 3. Acute on chronic diastolic CHF 4. Volume overload 5. Chronic A. fib 6. Coronary artery disease with previous history of coronary stents. 7. Anemia of chronic disease, rule out iron deficiency. 1 unit packed RBCs ordered for hemoglobin of 6.7. Gave 40 aransep, hemoglobin still decreased from 8.4 to 8.0 today. Plan: Gave one-time 1 mg IV Bumex, and changed patient's normal p.o. Bumex to 1 mg twice daily Started patient on 20 potassium chloride p.o. daily and magnesium 400 mg daily Continue fluid restriction 1500 cc/day Started Farxiga 5 mg p.o. today (04/28) Continue aransep 40 Avoid any nephrotoxic agents. Patient being transferred to rehab facility, by 04/30 recheck BMP magnesium I have seen and examined the patient with residnet and agree with A&P as written. F/u outpatient 1 week post d/c.
[2024-04-28 11:01] LABS: Anisocytosis Slight; HCT 27.9 % (34.0-46.0); Hypochromasia Marked; MCH 23.2 pg (25.0-35.0); MCHC 28.7 g/dL (31.0-37.0); MCV 80.9 fL (80.0-100.0); Mean Platelet Volume 8.3; Microcytosis Slight; Platelet Count 364 k/uL (150-450); Poikilocytosis Slight; RBC 3.45 m/uL (3.80-5.40); RDW 17.7 % (11.5-15.5); WBC 7.5 k/uL (3.8-10.6)
[2024-04-28] MEDS: MAGNESIUM SULFATE-D5W PMX 1 GM in DEXTROSE/WATER 1 100ML.BAG IVPB ONE (11:07)
--- NOTE | 2024-04-28 11:26 | P.PN ---
Subjective Progress Note Date: 04/27/24 H&P Date: 04/23/24 Chief Complaint: Abdominal bloating with discomfort, swollen lower extremities This is an 84-year-old female with past medical history significant for atrial fibrillation on Eliquis, mild aortic stenosis, moderate to severe mitral regurg itation , anemia, hypertension, hyperlipidemia, [place], chronic kidney disease stage III,prior nicotine dependence, COPD, chronic hypoxic respiratory failure wears 2 L nasal cannula at home, diabetes mellitus, obesity and multiple other medical issues, presented to the ER with complaints of abdominal bloating accompanied by abdominal discomfort, bilateral lower extremity edema. Denies chest pain, pal pitations. Patient reports recently she was scheduled to have a blood transfusion but her hemoglobin was sufficient and did not require transfusion. Hemoglobin currently 7.9, platelets 452. proBNP was 7200, troponin negative x 1 ,EKG reported atrial fibrillation with controlled ventricular rate, chest x-ray reported patchy bilateral airspace consolidations consistent with multilobar pneumonia, small right pleural effusion. CT of abdomen and pelvis reported moderate right and small left pleural effusions, mild wall thickening of the sigmoid colon, diverticulosis. Afebrile, normal WBC. sodium 135, potassium 3.6, BUN 47, creatinine 1.51(baseline). Blood sugars ranging from 140s to 180s. UA reported negative nitrates, large leukocytes rare bacteria. Legionella negative. 04/24/2024 diuresed well on Lasix IV push yesterday, I&Os inaccurate,not weighed this morning, but does show significant improvement in bilateral lower extremity edema, and shortness of breath. Creatinine increased to 2.1. IV push diuretics transition to oral Bumex. Nephrology recommendations pending .chest x-ray reporting ongoing moderate right pleural effusion with adjacent atelectasis and/or consolidation, continued patchy airspace disease, right greater than left midlung with improvement in left pleural effusion. 04/27/2024 yesterday received 1 unit packed RBCs for hemoglobin 6.7. Current hemoglobin 8.4. Creatinine decreased further to 1.5. Additional Bumex IV x 1 ordered for complaints of increased bilateral lower extremity edema, posttransfusion. Fluid restrictions initiated. Maintaining O2 sats in the high 90s on 2 L nasal cannula. Objective - Vital Signs Vital signs: Vital Signs Temp 97.9 F 04/27/24 12:31 Pulse 84 04/27/24 12:31 Resp 16 04/27/24 12:31 BP 102/65 04/27/24 12:31 Pulse Ox 100 04/27/24 12:31 FiO2 Intake & Output 04/26/24 04/27/24 04/27/24 18:59 06:59 18:59 Intake Total 2000 500 660 Output Total 1200 375 300 Balance 800 125 360 Intake: Oral 2000 500 660 Output: Urine 1200 375 300 Other: Voiding Method Bedside Commode Bedside Commode # Bowel Movements 1 - Exam VITAL SIGNS: Reviewed. GENERAL APPEARANCE: Alert and orient x 3, sitting up in bed,no acute distress. HEENT: pupils equal ,conjunctiva normal,MMM. NECK; supple, no JVD. RESPIRATORY: Unlabored, clear to auscultation with bilateral bases diminished CARDIOVASCULAR: S1-S2, irregular R&R, positive systolic murmur GI: abdomen soft, nontender, positive bowel sounds. EXTREMITIES: Positive edema. No calf tenderness noted. NEUROLOGIC: Cranial nerves II-XII intact. No focal deficits SKIN: Warm and dry, no rash noted. - Labs CBC & Chem 7: 04/28/24 03:43 04/28/24 03:43 Labs: Abnormal Lab Results - Last 24 Hours (Table) 04/26/24 04/26/24 04/26/24 Range/Units 17:15 17:15 20:23 WBC (4.50-10.00) X 10*3/uL RBC 3.38 L (3.80-5.40) m/uL Hgb 7.8 L (11.4-16.0) gm/dL Hct 26.4 L (34.0-46.0) % MCV 78.1 L (80.0-100.0) fL MCH 23.0 L (25.0-35.0) pg MCHC 29.4 L (31.0-37.0) g/dL RDW 17.3 H (11.5-15.5) % Immature Gran # (0.00-0.04) X 10*3/uL Monocytes # (0.20-1.00) X 10*3/uL NRBC/100 WBC Diff (0.00-0.01) X 10*3/uL Carbon Dioxide (21.6-31.8) mmol/L BUN (9.0-27.0) mg/dL Est GFR (CKD-EPI) (>=60) BUN/Creatinine Ratio (12.00-20.00) Ratio Glucose (70-110) mg/dL POC Glucose (mg/dL) 205 H 217 H (70-110) mg/dL Calcium (8.7-10.3) mg/dL Total Protein (6.2-8.2) g/dL Albumin (3.8-4.9) g/dL Albumin/Globulin Ratio (1.60-3.17) Ratio 04/27/24 04/27/24 04/27/24 Range/Units 05:26 05:26 07:06 WBC 10.49 H (4.50-10.00) X 10*3/uL RBC 3.68 L (3.80-5.40) m/uL Hgb 8.4 L (11.4-16.0) gm/dL Hct 30.2 L (34.0-46.0) % MCV (80.0-100.0) fL MCH 22.8 L (25.0-35.0) pg MCHC 27.8 L (31.0-37.0) g/dL RDW 18.1 H (11.5-15.5) % Immature Gran # 0.08 H (0.00-0.04) X 10*3/uL Monocytes # 1.08 H (0.20-1.00) X 10*3/uL NRBC/100 WBC Diff 0.02 H (0.00-0.01) X 10*3/uL Carbon Dioxide 32.4 H (21.6-31.8) mmol/L BUN 43.4 H (9.0-27.0) mg/dL Est GFR (CKD-EPI) 34 L (>=60) BUN/Creatinine Ratio 28.93 H (12.00-20.00) Ratio Glucose 148 H (70-110) mg/dL POC Glucose (mg/dL) 176 H (70-110) mg/dL Calcium 8.5 L (8.7-10.3) mg/dL Total Protein 5.7 L (6.2-8.2) g/dL Albumin 3.2 L (3.8-4.9) g/dL Albumin/Globulin Ratio 1.28 L (1.60-3.17) Ratio 04/27/24 Range/Units 11:55 WBC (4.50-10.00) X 10*3/uL RBC (3.80-5.40) m/uL Hgb (11.4-16.0) gm/dL Hct (34.0-46.0) % MCV (80.0-100.0) fL MCH (25.0-35.0) pg MCHC (31.0-37.0) g/dL RDW (11.5-15.5) % Immature Gran # (0.00-0.04) X 10*3/uL Monocytes # (0.20-1.00) X 10*3/uL NRBC/100 WBC Diff (0.00-0.01) X 10*3/uL Carbon Dioxide (21.6-31.8) mmol/L BUN (9.0-27.0) mg/dL Est GFR (CKD-EPI) (>=60) BUN/Creatinine Ratio (12.00-20.00) Ratio Glucose (70-110) mg/dL POC Glucose (mg/dL) 174 H (70-110) mg/dL Calcium (8.7-10.3) mg/dL Total Protein (6.2-8.2) g/dL Albumin (3.8-4.9) g/dL Albumin/Globulin Ratio (1.60-3.17) Ratio Microbiology - Last 24 Hours (Table) 04/23/24 04:22 Blood Culture - Preliminary Blood Assessment and Plan Assessment: Acute CHF exacerbation, diastolic dysfunction Multilobar pneumonia, ruled out. Pleural effusions, improving with diuresing. Chronic hypoxic respiratory failure, wears 2 L nasal cannula O2 at home Diabetes mellitus Acute on chronic kidney disease stage IIIB, cardiorenal CAD, x 2, prior PCI Moderate to severe mitral regurgitation Mild aortic stenosis Persistent atrial fibrillation coagulated on Eliquis Hypertension Hyperlipidemia COPD Former nicotine dependence Chronic lower extremity cellulitis Obesity Plan: Continue on current medication regimen ,monitoring and symptomatic treatment. Diuretics as per nephrology. Fluid restrictions. Discharge planning in progress for subacute rehab., Pending authorization. The impression and plan of care has been dictated as directed. : I performed a history and examination of this patient, discussed the same with the dictator. I agree with the dictator's note ,documented as a scribe. Any additional findings or plans will be noted.
[2024-04-28 12:15] LABS: Glucose,Whole Blood 186 mg/dL (70-110)
[2024-04-28 12:42] VITALS: BP 104/68; PULSE 70; TEMP 98.2
[2024-04-28] MEDS: BUMETANIDE 0.25 MG/ML 4 ML VIAL IVP ONE (13:14)
--- NOTE | 2024-04-28 13:26 | P.DS ---
Providers Date of admission: 04/22/24 23:00 Expected date of discharge: 04/28/24 Attending physician: Roger Callahan Consults: 04/23/24 12:26 Consult Physician Routine Consulting Provider: Tim Field Consult Reason/Comments: Diuresing, fe infusion Do you want consulting provider notified?: Yes Primary care physician: Roger Callahan Hospital Course: Final Diagnoses: Acute CHF exacerbation, diastolic dysfunction secondary to fluid volume overload Multilobar pneumonia, ruled out. Pleural effusions, improving with diuresing. Chronic hypoxic respiratory failure, wears 2 L nasal cannula O2 at home Diabetes mellitus Acute on chronic kidney disease stage IIIB, cardiorenal CAD, x 2, prior PCI Moderate to severe mitral regurgitation Mild aortic stenosis Persistent atrial fibrillation coagulated on Eliquis Hypertension Hyperlipidemia COPD Former nicotine dependence Chronic lower extremity cellulitis Obesity, BMI 30 Hospital course:This is an 84-year-old female with past medical history significant for atrial fibrillation on Eliquis, mild aortic stenosis, moderate to severe mitral regurgitation , anemia, hypertension, hyperlipidemia, [place], chronic kidney disease stage III,prior nicotine dependence, COPD, chronic hypoxic respiratory failure wears 2 L nasal cannula at home, diabetes mellitus, obesity and multiple other medical issues, presented to the ER with complaints o f abdominal bloating accompanied by abdominal discomfort, bilateral lower extremity edema. Denies chest pain, palpitations. Patient reports recently she was scheduled to have a blood transfusion but her hemoglobin was sufficient and did not require transfusion. Hemoglobin currently 7.9, platelets 452. proBNP was 7200, troponin negative x 1 ,EKG reported atrial fibrillation with controlled ventricular rate, chest x-ray reported patchy bilateral airspace consolidations consistent with multilobar pneumonia, small right pleural effusion. CT of abdomen and pelvis reported moderate right and small left pleural effusions, mild wall thickening of the sigmoid colon, diverticulosis. Afebrile, normal WBC. sodium 135, potassium 3.6, BUN 47, creatinine 1.51(baseline). Blood sugars ranging from 140s to 180s. UA reported negative nitrates, large leukocytes rare bacteria. Legionella negative. 04/24/2024 diuresed well on Lasix IV push yesterday, I&Os inaccurate,not weighed this morning, but does show significant improvement in bilateral lower extremity edema, and shortness of breath. Creatinine increased to 2.1. IV push diuretics transition to oral Bumex. Nephrology recommendations pending .chest x-ray reporting ongoing moderate right pleural effusion with adjacent atelectasis and/or consolidation, continued patchy airspace disease, right greater than left midlung with improvement in left pleural effusion. Significant clinical improvement. Continues on fluid restrictions, Bumex as per nephrology. Sodium 140, potassium 3.7, bicarb 33.2, mag 1.7, BUN 39.4 and creatinine 1.4. Currently maintaining O2 sats of 100% on room air. Bilateral lower extremity edema 2+. She received additional IV push Bumex as per nephrology. Patient will be discharged to [facility] subacute rehab today in a stable condition with guarded prognosis pending final DC recommendations and clearance per nephrology. The impression and plan of care has been dictated as directed. : I performed a history and examination of this patient, discussed the same with the dictator. I agree with the dictator's note ,documented as a scribe. Any additional findings or plans will be noted. Patient Condition at Discharge: Stable Plan - Discharge Summary Discharge Rx Participant: No New Discharge Prescriptions: New Darbepoetin Keon [Aranesp] 40 mcg SQ Q7D each Acetaminophen Tab [Tylenol] 650 mg PO Q6HR PRN tab PRN Reason: Mild Pain Or Fever > 100.5 Dapagliflozin Propanediol [Farxiga] 5 mg PO DAILY tab INSULIN LISPRO (HumaLOG) [humaLOG] 0 unit SQ ACHS #10 ml Pantoprazole [Protonix] 40 mg PO AC-BRKFST tab Bumetanide [BUMEX] 0.5 mg PO 1400 #30 tablet Continue Glimepiride [Amaryl] 1 mg PO AC-BRKFST Pravastatin Sodium [Pravachol] 80 mg PO HS Bumetanide [BUMEX] 1 mg PO DAILY Clopidogrel [Plavix] 75 mg PO DAILY #90 tab Apixaban [Eliquis] 2.5 mg PO BID Amiodarone [Cordarone] 200 mg PO DAILY Metoprolol Tartrate [Lopressor] 50 mg PO BID Discharge Medication List Glimepiride [Amaryl] 1 mg PO AC-BRKFST 03/11/20 [History] Clopidogrel [Plavix] 75 mg PO DAILY #90 tab 12/21/22 [Rx] Pravastatin Sodium [Pravachol] 80 mg PO HS 04/30/23 [History] Amiodarone [Cordarone] 200 mg PO DAILY 04/14/24 [History] Apixaban [Eliquis] 2.5 mg PO BID 04/14/24 [History] Bumetanide [BUMEX] 1 mg PO DAILY 04/14/24 [History] Metoprolol Tartrate [Lopressor] 50 mg PO BID 04/14/24 [History] Acetaminophen Tab [Tylenol] 650 mg PO Q6HR PRN tab 04/28/24 [Rx] Bumetanide [BUMEX] 0.5 mg PO 1400 #30 tablet 04/28/24 [Rx] Dapagliflozin Propanediol [Farxiga] 5 mg PO DAILY tab 04/28/24 [Rx] Darbepoetin Keon [Aranesp] 40 mcg SQ Q7D each 04/28/24 [Rx] INSULIN LISPRO (HumaLOG) [humaLOG] 0 unit SQ ACHS #10 ml 04/28/24 [Rx] Pantoprazole [Protonix] 40 mg PO AC-BRKFST tab 04/28/24 [Rx] Follow up Appointment(s)/Referral(s): [facility], [NON-STAFF] - As Needed Roger Callahan DO [Primary Care Provider] - 1 Week (After DC from subacute rehab) Activity/Diet/Wound Care/Special Instructions: [facility] subacute rehab CBC, BMP in 2 days 1500 mL/day fluid restrictions Discharge Disposition: TRANSFER TO SNF/ECF
[2024-04-28] MEDS ORDERED: BUMETANIDE 1 MG TAB PO SCH ×2 (14:00→17:00)
[2024-04-28] MEDS: POTASSIUM CHLORIDE ER 20 MEQ TAB.ER PO SCH (14:24)
[2024-04-28] MEDS: MAGNESIUM OXIDE 400 MG TAB PO SCH (14:24)
[2024-04-28 23:11] LABS: % Iron Saturation 3.41 (12.00-45.00)
== END 2024-04-28 15:13 | DRG 291 ==
LOC: EC 19:40 → 5NMEDONC 23:00
PROVIDERS: ADMIT Family Medicine; ATTEND Family Medicine
PROC: 30233N1 Transfusion of Nonautologous Red Blood Cells into Peripheral Vein, Percutaneous Approach (ICD-10-PCS; principal; 2024-04-25)
DX: I13.0 Hypertensive heart and chronic kidney disease with heart failure and stage 1 through stage 4 chronic kidney disease, or unspecified chronic kidney disease (principal); I50.33 Acute on chronic diastolic (congestive) heart failure; I48.19 Other persistent atrial fibrillation; J96.11 Chronic respiratory failure with hypoxia; N17.9 Acute kidney failure, unspecified; L03.116 Cellulitis of left lower limb; L03.115 Cellulitis of right lower limb; Z79.01 Long term (current) use of anticoagulants; Z79.899 Other long term (current) drug therapy; E11.22 Type 2 diabetes mellitus with diabetic chronic kidney disease; E78.5 Hyperlipidemia, unspecified; I25.10 Atherosclerotic heart disease of native coronary artery without angina pectoris; D63.1 Anemia in chronic kidney disease; J44.9 Chronic obstructive pulmonary disease, unspecified; E66.9 Obesity, unspecified; N18.32 Chronic kidney disease, stage 3b; I34.0 Nonrheumatic mitral (valve) insufficiency; Z87.891 Personal history of nicotine dependence; I25.2 Old myocardial infarction; Z68.30 Body mass index [BMI] 30.0-30.9, adult; Z99.81 Dependence on supplemental oxygen; Z79.02 Long term (current) use of antithrombotics/antiplatelets; Z79.84 Long term (current) use of oral hypoglycemic drugs; Z95.5 Presence of coronary angioplasty implant and graft; Z85.42 Personal history of malignant neoplasm of other parts of uterus
CPT/HCPCS: 36415; 71046; 74176; 80048; 80053; 81001; 82728; 83036; 83540; 83550; 83605; 83735; 83880; 84484; 85025; 85027; 85610; 85730; 86850; 86900; 86901; 86920; 87040; 87086; 87449; 93005; 94760; 96365; 96366; 96367; 96374; 99285

== ENCOUNTER 2024-06-01 11:48 | Inpatient (IN) | payer MEDICARE ==
--- NOTE | 2024-06-01 12:39 | ED ---
General Adult HPI - General Chief complaint: Recheck/Abnormal Lab/Rx Stated complaint: Weakness Time Seen by Provider: 06/01/24 12:16 Source: patient, RN notes reviewed Mode of arrival: wheelchair Limitations: no limitations - History of Present Illness Initial comments: Patient is an 84-year-old female present to the emergency department from her family manager for low blood pressure. Patient states she has not been feeling well for the past week. Patient does have dysuria as well as mid back discomfort. No nausea or vomiting. No fever. Patient has known stage IV renal disease however is not on dialysis. - Related Data Home Medications Medication Instructions Recorded Confirmed Glimepiride [Amaryl] 1 mg PO [id number] 03/11/20 06/01/24 Pravastatin Sodium [Pravachol] 80 mg PO HS 04/30/23 06/01/24 Amiodarone [Cordarone] 200 mg PO DAILY 04/14/24 06/01/24 Apixaban [Eliquis] 2.5 mg PO BID 04/14/24 06/01/24 Doxycycline Hyclate 100 mg PO DIRECTED 06/01/24 06/01/24 Metoprolol Tartrate [Lopressor] 50 mg PO BID 06/01/24 06/01/24 Midodrine [ProAmatine] 5 mg PO DIRECTED 06/01/24 06/01/24 Previous Rx's Medication Instructions Recorded Clopidogrel [Plavix] 75 mg PO DAILY #90 tab 12/21/22 Bumetanide [BUMEX] 1 mg PO BID@0900,1600 tab 04/28/24 Potassium Chloride ER [K-Dur 20] 20 meq PO DAILY #30 tab 04/28/24 Allergies Allergy/AdvReac Type Severity Reaction Status Date / Time atorvastatin [From Lipitor] Allergy Nausea Verified 06/01/24 13:42 celecoxib [From Celebrex] Allergy Swelling Verified 06/01/24 13:42 ibuprofen [From Motrin] Allergy Swelling, Verified 06/01/24 13:42 itching Penicillins Allergy Swelling Verified 06/01/24 13:42 steroid AdvReac shaking Uncoded 06/01/24 13:42 Review of Systems ROS Statement: Those systems with pertinent positive or pertinent negative responses have been documented in the HPI. ROS Other: All systems not noted in ROS Statement are negative. Constitutional: Denies: fever Eyes: Denies: eye pain ENT: Denies: ear pain Gastrointestinal: Denies: abdominal pain, vomiting Genitourinary: Reports: dysuria Musculoskeletal: Reports: as per HPI Past Medical History Past Medical History: Atrial Fibrillation, Cancer, COPD, Diabetes Mellitus, Hyperlipidemia, Hypertension, Myocardial Infarction (RI), Renal Disease Additional Past Medical History / Comment(s): Moderate to severe mitral regurgitation/SOB, mild aortic stenosis, NIDDM, uterine cancer/surgery only, RI x 2, stage III kidney failure Last Myocardial Infarction Date:: unknown History of Any Multi-Drug Resistant Organisms: None Reported Past Surgical History: Appendectomy, Back Surgery, Cholecystectomy, Heart Catheterization, Heart Catheterization With Stent, Hysterectomy Additional Past Surgical History / Comment(s): Cardioversions, hysterectomy/left one ovary Past Anesthesia/Blood Transfusion Reactions: No Reported Reaction Additional Past Anesthesia/Blood Transfusion Reaction / Comment(s): Pt has had autotransfusion only. Date of Last Stent Placement:: 12/2022 Past Psychological History: No Psychological Hx Reported Smoking Status: Former smoker Past Alcohol Use History: None Reported Past Drug Use History: None Reported - Past Family History Brother(s) Family Medical History: Cancer Additional Family Medical History / Comment(s): 2 brothers cancer. 1 brother cabg General Exam Limitations: no limitations General appearance: alert, in no apparent distress Head exam: Present: normocephalic Eye exam: Present: normal appearance Neck exam: Present: normal inspection Respiratory exam: Present: normal lung sounds bilaterally Cardiovascular Exam: Present: irregular rhythm GI/Abdominal exam: Present: soft. Absent: tenderness, pulsatile mass Extremities exam: Present: normal inspection. Absent: pedal edema, calf tenderness Back exam: Present: CVA tenderness (R), CVA tenderness (L) Neurological exam: Present: alert. Absent: motor sensory deficit Psychiatric exam: Present: normal affect, normal mood Skin exam: Present: normal color Course Vital Signs 06/01/24 06/01/24 06/01/24 12:04 12:55 15:10 Temperature 97.3 F L Pulse Rate 79 77 73 Respiratory 18 18 18 Rate Blood Pressure 81/51 86/58 86/71 O2 Sat by Pulse 97 100 100 Oximetry 06/01/24 06/01/24 06/01/24 15:50 16:12 16:21 Temperature Pulse Rate 78 58 L 63 Respiratory 18 18 18 Rate Blood Pressure 87/50 82/51 83/51 O2 Sat by Pulse 94 L 100 100 Oximetry 06/01/24 06/01/24 06/01/24 16:35 16:59 17:14 Temperature 98.4 F Pulse Rate 66 63 Respiratory 18 18 Rate Blood Pressure 84/56 97/41 83/39 O2 Sat by Pulse 94 L 4 L Oximetry 06/01/24 06/01/24 06/01/24 17:33 17:39 17:59 Temperature 98.4 F 98.4 F Pulse Rate 74 96 Respiratory 18 20 Rate Blood Pressure 83/48 92/72 O2 Sat by Pulse 97 100 Oximetry 06/01/24 06/01/24 18:04 18:26 Temperature 97.7 F Pulse Rate 71 63 Respiratory 18 18 Rate Blood Pressure 92/72 91/49 O2 Sat by Pulse 100 100 Oximetry EKG Findings - EKG Results: EKG: interpreted by HENRIETTA (Septal Q waves. Low QRS voltage), normal axis, normal ST/T EKG shows: atrial fibrillation Medical Decision Making - Medical Decision Making Was pt. sent in by a medical professional or institution (, PA, IMPLEMENTATION ANALYST, urgent care, hospital, or assisted...) When possible be specific @ -Patient was sent in by her family manager Did you speak to anyone other than the patient for history (EMS, parent, family, police, friend...)? What history was obtained from this source @ -No Did you review nursing and triage notes (agree or disagree)? Why? @ -I reviewed and agree with nursing and triage notes Were old charts reviewed (outside hosp., previous admission, EMS record, old EKG, old radiological studies, urgent care reports/EKG's, assisted records)? Report findings @ -Previous labs reviewed including renal function and hemoglobin. Previous chest x-ray also shows right-sided effusion Differential Diagnosis (chest pain, altered mental status, abdominal pain women, abdominal pain men, vaginal bleeding, weakness, fever, dyspnea, syncope, headache, dizziness, GI bleed, back pain, seizure, CVA, palpatations, mental health, musculoskeletal)? @ -Differential Weakness: Hypoglycemia, shock, sepsis, hyponatremia, anemia, infection, RI, ETOH, adverse medicine reaction, overdose, stroke, this is not meant to be an all-inclusive list. EKG interpreted by me (3pts min.). @ -As above X-rays interpreted by me (1pt min.). @ -Chest x-ray shows right-sided effusion CT interpreted by me (1pt min.). @ -CT scan shows right-sided pleural effusion otherwise nonspecific finding U/S interpreted by me (1pt. min.). @ -None done What testing was considered but not performed or refused? (CT, X-rays, U/S, la bs)? Why? @ -None What meds were considered but not given or refused? Why? @ -None Did you discuss the management of the patient with other professionals (professionals i.e. Dr., PA, IMPLEMENTATION ANALYST, lab, RT, psych nurse, social service technician, water meter installer, teacher, motorcycle police officer, porter sample case)? Give summary @ -Case was discussed with Dr. Callahan who will admit his patient with consult with Dr. Perez who patient has seen as an outpatient Was smoking cessation discussed for >3mins.? @ -No Was critical care preformed (if so, how long)? @ -31 minutes critical care time Were there social determinants of health that impacted care today? How? (Homelessness, low income, unemployed, alcoholism, drug addiction, transporta tion, low edu. Level, literacy, decrease access to med. care, alf, rehab)? @ -No Was there de-escalation of care discussed even if they declined (Discuss DNR or withdrawal of care, Hospice)? DNR status @ -No What co-morbidities impacted this encounter? (DM, HTN, Smoking, COPD, CAD, Cancer, CVA, ARF, Chemo, Hep., AIDS, mental health diagnosis, sleep apnea, morbid obesity)? @ -None Was patient admitted / discharged? Hospital course, mention meds given and route, prescriptions, significant lab abnormalities, going to OR and other pertinent info. @ -Patient presents with generalized weakness and low blood pressure. IV fluids improved blood pressure significantly. Patient has evidence of NERISSA. There may be associated small GI bleed. There is suggestion of urinary tract infection, cultures, lactic acid and IV antibiotics have all been ordered. Undiagnosed new problem with uncertain prognosis? @ -No Drug Therapy requiring intensive monitoring for toxicity (Heparin, Nitro, Insulin, Cardizem)? @ -No Were any procedures done? @ -No Diagnosis/symptom? @ -Acute kidney injury Acute, or Chronic, or Acute on Chronic? @ -Acute Uncomplicated (without systemic symptoms) or Complicated (systemic symptoms)? @ -Located with hypotension and questionable GI Side effects of treatment? @ -No Exacerbation, Progression, or Severe Exacerbation? @ -No Poses a threat to life or bodily function? How? (Chest pain, USA, RI, pneumonia, PE, COPD, DKA, ARF, appy, cholecystitis, CVA, Diverticulitis, Homicidal, Suicidal, threat to staff... and all critical care pts) @ -Threat to renal function - Lab Data Result diagrams: 06/01/24 13:39 06/01/24 13:39 Lab Results 06/01/24 06/01/24 06/01/24 Range/Units 13:29 13:39 13:39 WBC 11.1 H (3.8-10.6) k/uL RBC 2.92 L (3.80-5.40) m/uL Hgb 6.3 L* D (11.4-16.0) gm/dL Hct 20.6 L (34.0-46.0) % MCV 70.8 L D (80.0-100.0) fL MCH 21.5 L (25.0-35.0) pg MCHC 30.4 L (31.0-37.0) g/dL RDW 19.0 H (11.5-15.5) % Plt Count 490 H (150-450) k/uL MPV 7.6 Neutrophils % 79 % Lymphocytes % 16 % Monocytes % 4 % Eosinophils % 0 % Basophils % 0 % Neutrophils # 8.8 H (1.3-7.7) k/uL Lymphocytes # 1.7 (1.0-4.8) k/uL Monocytes # 0.5 (0-1.0) k/uL Eosinophils # 0.0 (0-0.7) k/uL Basophils # 0.0 (0-0.2) k/uL Hypochromasia Marked Poikilocytosis Slight Anisocytosis Slight Microcytosis Marked PT 12.5 (10.0-12.5) sec INR 1.2 H (<1.2) APTT 26.2 (22.0-30.0) sec Sodium (137-145) mmol/L Potassium (3.5-5.1) mmol/L Chloride (98-107) mmol/L Carbon Dioxide (22-30) mmol/L Anion Gap mmol/L BUN (7-17) mg/dL Creatinine (0.52-1.04) mg/dL Est GFR (CKD-EPI)AfAm (>60 ml/min/1.73 sqM) Est GFR (CKD-EPI)NonAf (>60 ml/min/1.73 sqM) Glucose (74-99) mg/dL Lactic Ac Sepsis Rflx Plasma Lactic Acid Kenneth (0.7-2.0) mmol/L Calcium (8.4-10.2) mg/dL Total Bilirubin (0.2-1.3) mg/dL AST (14-36) U/L ALT (4-34) U/L Alkaline Phosphatase (38-126) U/L Total Protein (6.3-8.2) g/dL Albumin (3.5-5.0) g/dL Urine Color Colorless Urine Appearance Cloudy H (Clear) Urine pH 5.0 (5.0-8.0) Ur Specific [place] 1.015 (1.001-1.035) Urine Protein Negative (Negative) Urine Glucose (UA) Negative (Negative) Urine Ketones Negative (Negative) Urine Blood Negative (Negative) Urine Nitrite Negative (Negative) Urine Bilirubin Negative (Negative) Urine Urobilinogen <2.0 (<2.0) mg/dL Ur Leukocyte Esterase Large H (Negative) Urine WBC 16 H (0-5) /hpf Ur Squamous Epith Cells 1 (0-4) /hpf Urine Bacteria Rare H (None) /hpf Hyaline Casts 24 H (0-2) /lpf Urine Mucus Rare H (None) /hpf Stool Occult Blood (Negative) Blood Type Blood Type Recheck Bld Type Recheck Status Antibody Screen Crossmatch Spec Expiration Date 06/01/24 06/01/24 06/01/24 Range/Units 13:39 13:39 14:33 WBC (3.8-10.6) k/uL RBC (3.80-5.40) m/uL Hgb (11.4-16.0) gm/dL Hct (34.0-46.0) % MCV (80.0-100.0) fL MCH (25.0-35.0) pg MCHC (31.0-37.0) g/dL RDW (11.5-15.5) % Plt Count (150-450) k/uL MPV Neutrophils % % Lymphocytes % % Monocytes % % Eosinophils % % Basophils % % Neutrophils # (1.3-7.7) k/uL Lymphocytes # (1.0-4.8) k/uL Monocytes # (0-1.0) k/uL Eosinophils # (0-0.7) k/uL Basophils # (0-0.2) k/uL Hypochromasia Poikilocytosis Anisocytosis Microcytosis PT (10.0-12.5) sec INR (<1.2) APTT (22.0-30.0) sec Sodium 130 L (137-145) mmol/L Potassium 3.5 (3.5-5.1) mmol/L Chloride 89 L (98-107) mmol/L Carbon Dioxide 31 H (22-30) mmol/L Anion Gap 10 mmol/L BUN 122 H* (7-17) mg/dL Creatinine 2.64 H (0.52-1.04) mg/dL Est GFR (CKD-EPI)AfAm 18 (>60 ml/min/1.73 sqM) Est GFR (CKD-EPI)NonAf 16 (>60 ml/min/1.73 sqM) Glucose 152 H (74-99) mg/dL Lactic Ac Sepsis Rflx Y Plasma Lactic Acid Kenneth 2.1 H* (0.7-2.0) mmol/L Calcium 8.9 (8.4-10.2) mg/dL Total Bilirubin 0.6 (0.2-1.3) mg/dL AST 28 (14-36) U/L ALT 16 (4-34) U/L Alkaline Phosphatase 108 (38-126) U/L Total Protein 6.2 L (6.3-8.2) g/dL Albumin 3.4 L (3.5-5.0) g/dL Urine Color Urine Appearance (Clear) Urine pH (5.0-8.0) Ur Specific [place] (1.001-1.035) Urine Protein (Negative) Urine Glucose (UA) (Negative) Urine Ketones (Negative) Urine Blood (Negative) Urine Nitrite (Negative) Urine Bilirubin (Negative) Urine Urobilinogen (<2.0) mg/dL Ur Leukocyte Esterase (Negative) Urine WBC (0-5) /hpf Ur Squamous Epith Cells (0-4) /hpf Urine Bacteria (None) /hpf Hyaline Casts (0-2) /lpf Urine Mucus (None) /hpf Stool Occult Blood (Negative) Blood Type Blood Type Recheck Bld Type Recheck Status Antibody Screen Crossmatch Spec Expiration Date 06/01/24 06/01/24 06/01/24 Range/Units 15:15 16:08 18:39 WBC (3.8-10.6) k/uL RBC (3.80-5.40) m/uL Hgb (11.4-16.0) gm/dL Hct (34.0-46.0) % MCV (80.0-100.0) fL MCH (25.0-35.0) pg MCHC (31.0-37.0) g/dL RDW (11.5-15.5) % Plt Count (150-450) k/uL MPV Neutrophils % % Lymphocytes % % Monocytes % % Eosinophils % % Basophils % % Neutrophils # (1.3-7.7) k/uL Lymphocytes # (1.0-4.8) k/uL Monocytes # (0-1.0) k/uL Eosinophils # (0-0.7) k/uL Basophils # (0-0.2) k/uL Hypochromasia Poikilocytosis Anisocytosis Microcytosis PT (10.0-12.5) sec INR (<1.2) APTT (22.0-30.0) sec Sodium (137-145) mmol/L Potassium (3.5-5.1) mmol/L Chloride (98-107) mmol/L Carbon Dioxide (22-30) mmol/L Anion Gap mmol/L BUN (7-17) mg/dL Creatinine (0.52-1.04) mg/dL Est GFR (CKD-EPI)AfAm (>60 ml/min/1.73 sqM) Est GFR (CKD-EPI)NonAf (>60 ml/min/1.73 sqM) Glucose (74-99) mg/dL Lactic Ac Sepsis Rflx Plasma Lactic Acid Kenneth 1.9 (0.7-2.0) mmol/L Calcium (8.4-10.2) mg/dL Total Bilirubin (0.2-1.3) mg/dL AST (14-36) U/L ALT (4-34) U/L Alkaline Phosphatase (38-126) U/L Total Protein (6.3-8.2) g/dL Albumin (3.5-5.0) g/dL Urine Color Urine Appearance (Clear) Urine pH (5.0-8.0) Ur Specific [place] (1.001-1.035) Urine Protein (Negative) Urine Glucose (UA) (Negative) Urine Ketones (Negative) Urine Blood (Negative) Urine Nitrite (Negative) Urine Bilirubin (Negative) Urine Urobilinogen (<2.0) mg/dL Ur Leukocyte Esterase (Negative) Urine WBC (0-5) /hpf Ur Squamous Epith Cells (0-4) /hpf Urine Bacteria (None) /hpf Hyaline Casts (0-2) /lpf Urine Mucus (None) /hpf Stool Occult Blood Positive H (Negative) Blood Type A Positive Blood Type Recheck A Pos Bld Type Recheck Status No Antibody Screen NEGATIVE Crossmatch See Detail Spec Expiration Date 06/04/20242314 Disposition Clinical Impression: Acute kidney injury Disposition: ADMITTED IP TO THIS HOSP Is patient prescribed a controlled substance at d/c from ED?: No Referrals: Roger Callahan DO [Primary Care Provider] - 1-2 days Time of Disposition: 19:29
[2024-06-01] MEDS: SODIUM CHLORIDE 0.9% 1,000 ML IV SCH (13:24)
[2024-06-01 14:01] LABS: Anisocytosis Slight; Basophils % (A) 0 %; Eosinophils % (A) 0 %; HCT 20.6 % (34.0-46.0); Hypochromasia Marked; Lymphocytes # (A) 1.7 k/uL (1.0-4.8); Lymphocytes % (A) 16 %; MCH 21.5 pg (25.0-35.0); MCHC 30.4 g/dL (31.0-37.0); Mean Platelet Volume 7.6; Microcytosis Marked; Monocytes # (A) 0.5 k/uL (0-1.0); Monocytes % (A) 4 %; Neutrophils # (A) 8.8 k/uL (1.3-7.7); Neutrophils % (A) 79 %; Platelet Count 490 k/uL (150-450); Poikilocytosis Slight; RBC 2.92 m/uL (3.80-5.40); WBC 11.1 k/uL (3.8-10.6)
[2024-06-01 14:04] LABS: HGB 6.3 gm/dL (11.4-16.0)
[2024-06-01 14:13] LABS: INR 1.2 (<1.2); Partial Thromboplastin Time 26.2 sec (22.0-30.0); Prothrombin Time 12.5 sec (10.0-12.5)
[2024-06-01 14:25] LABS: ALT 16 U/L (4-34); AST 28 U/L (14-36); African American GFR (CKD) 18 (>60 ml/min/1.73 sqM); Albumin 3.4 g/dL (3.5-5.0); Alkaline Phosphatase 108 U/L (38-126); Anion Gap 10 mmol/L; Calcium 8.9 mg/dL (8.4-10.2); Carbon Dioxide 31 mmol/L (22-30); Chloride 89 mmol/L (98-107); Glucose 152 mg/dL (74-99); Non-African American GFR(CKD) 16 (>60 ml/min/1.73 sqM); Potassium 3.5 mmol/L (3.5-5.1); Sodium 130 mmol/L (137-145); Total Bilirubin 0.6 mg/dL (0.2-1.3); Total Protein 6.2 g/dL (6.3-8.2)
--- NOTE | 2024-06-01 14:28 | XR ---
EXAMINATION TYPE: XR chest 2V DATE OF EXAM: 06/01/2024 2:20 PM CLINICAL INDICATION: Female, 84 years old with history of Fever; COMPARISON: Chest radiographs from 04/24/2024 TECHNIQUE: XR chest 2V Frontal view of the chest. FINDINGS: Lungs/Pleura: Moderate right blunting of the costophrenic angles There is no evidence of left pleural effusion, focal consolidation, or pneumothorax. Pulmonary vascularity: Unremarkable. Heart/mediastinum: Cardiomediastinal silhouette is enlarged. Atherosclerotic calcifications are seen in the aorta. Musculoskeletal: No acute osseous pathology. IMPRESSION: 1. Moderate right pleural effusion. 2. Cardiomegaly. [facility], , 06/01/2024 2:25 PM
[2024-06-01 14:29] LABS: Appearance,Urine Cloudy (Clear); Bacteria,Urine Rare /hpf; Bilirubin,Urine Negative (Negative); Blood,Urine Negative (Negative); Color,Urine Colorless; Glucose,Urine (UA) Negative (Negative); Hyaline Casts,Urine 24 /lpf (0-2); Ketones,Urine Negative (Negative); Leukocyte Esterase,Urine Large (Negative); Mucus,Urine Rare /hpf; Nitrite,Urine Negative (Negative); Protein,Urine Negative (Negative); Specific Gravity,Urine 1.015 (1.001-1.035); Squamous Epithelial Cell,Urine 1 /hpf (0-4); Urobilinogen,Urine <2.0 mg/dL (<2.0); WBC,Urine 16 /hpf (0-5)
[2024-06-01 14:33] LABS: Blood Urea Nitrogen 122 mg/dL (7-17)
[2024-06-01 14:46] LABS: MCV 70.8 fL (80.0-100.0)
[2024-06-01] MEDS: SODIUM CHLORIDE 0.9% 1,000 ML IV STA ×2 (15:04→15:05)
[2024-06-01] MEDS: SODIUM CHLORIDE 0.9% 500 ML 500 ML IV STA (15:05)
--- NOTE | 2024-06-01 19:09 | CT ---
EXAMINATION TYPE: CT abdomen pelvis wo con CT DLP: 883.6 mGycm, Automated exposure control for dose reduction was used. DATE OF EXAM: 06/01/2024 4:51 PM COMPARISON: 04/22/2024 CLINICAL INDICATION:Female, 84 years old with history of abp; abdominal pain TECHNIQUE: Axial CT of the abdomen and pelvis. Sagittal and coronal reformats were created on a [employer] workstation. Contrast used: mL of , (none if empty) Oral contrast used: without Oral Contrast (none if empty) FINDINGS: Exam is limited without contrast. LOWER CHEST: Moderate to large right pleural effusion with adjacent opacity, likely atelectasis. Vamshi r left basilar subsegmental atelectasis. Correlate to exclude superimposed infectious process. Heart appears enlarged. Coronary arterial calcifications are present. Prominent pericardial fat. ABDOMEN LIVER: Unremarkable unenhanced appearance. GALLBLADDER AND BILE DUCTS: Gallbladder not seen, likely absent. PANCREAS: Fatty infiltrated without acute finding. SPLEEN: Spleen is unremarkable. Small adjacent splenule suggested. ADRENAL GLANDS: Moderately thickened and small nodular appearance, may be seen with hyperplasia and/o r adenomatoid change. KIDNEYS AND URETERS: Kidneys appear moderately atrophic. Calcifications left renal hilum likely vascu lar. There is a 3.7 cm partially exophytic hypodense nodule in the right kidney, most likely a cyst. No definite ureteral calculi or hydronephrosis. PELVIS BLADDER: Unremarkable REPRODUCTIVE: The uterus appears absent, correlate for hysterectomy. ABDOMEN & PELVIS STOMACH AND BOWEL: Stomach and small bowel are nondistended, no evidence of obstruction. No evidenc e of appendicitis. Mild to moderate stool throughout the colon. Some segments of colon are not well a ssessed and there are motion limitations. Numerous sigmoid diverticula are present without clear evid ence of focal inflammatory process; technically a mild colitis could exist. PERITONEUM/RETROPERITONEUM: Trace free pelvic fluid appears present, of uncertain etiology or signi ficance. VASCULATURE: Moderate to severe atherosclerotic calcifications are present throughout the abdominal a tanna and its branches. No evidence of aortic aneurysm. LYMPH NODES: No enlarged nodes by CT size criteria. SOFT TISSUE/ABDOMINAL WALL: Mild edema. MUSCULOSKELETAL: Moderate chronic degenerative changes. Chronic deformity right hemipelvis. Hardware fixation posterior elements at the lumbosacral junction. No clearly acute osseous pathology. IMPRESSION: 1. Limited unenhanced study shows no clear evidence of an acute obstructive or inflammatory process in the abdomen or pelvis. 2. Trace free pelvic fluid. 3. Colonic diverticula are present, without signs of inflammation to suggest diverticulitis. Technic ally cannot exclude mild colitis. 4. Cardiomegaly with moderate right pleural effusion. Correlate for CHF. [facility], , 06/01/2024 7:07 PM
[2024-06-01] MEDS: ONDANSETRON 4 MG/2 ML VIAL IVP STA (19:55)
[2024-06-01] MEDS ORDERED: NALOXONE 0.4 MG/ML 1 ML VIAL IV PRN (20:08)
[2024-06-01] MEDS: ACETAMINOPHEN IV (For NPO) 1,000 MG in EMPTY BAG 1 BAG IVPB STA (20:52)
[2024-06-01] MEDS: PRAVASTATIN SODIUM 80 MG TAB PO SCH (21:40)
[2024-06-01] MEDS: MIDODRINE 5 MG TAB PO SCH (21:40)
[2024-06-01] MEDS: PANTOPRAZOLE 40 MG/10 ML VIAL IV SCH (21:40)
[2024-06-02] MEDS: ACETAMINOPHEN TAB 325 MG TAB PO PRN (05:04)
[2024-06-02] MEDS: ONDANSETRON 4 MG/2 ML VIAL IVP PRN (05:46)
[2024-06-02 07:41] LABS: Glucose,Whole Blood 121 mg/dL (70-110)
[2024-06-02 08:10] LABS: Anisocytosis Slight; Basophils % (A) 0 %; Eosinophils % (A) 0 %; HCT 26.1 % (34.0-46.0); Hypochromasia Marked; Lymphocytes # (A) 1.6 k/uL (1.0-4.8); Lymphocytes % (A) 14 %; MCH 23.3 pg (25.0-35.0); MCHC 29.9 g/dL (31.0-37.0); Mean Platelet Volume 7.5; Microcytosis Slight; Monocytes # (A) 0.7 k/uL (0-1.0); Monocytes % (A) 6 %; Neutrophils % (A) 78 %; Platelet Count 433 k/uL (150-450); Poikilocytosis Marked; RBC 3.35 m/uL (3.80-5.40); RDW 18.8 % (11.5-15.5); WBC 11.5 k/uL (3.8-10.6)
[2024-06-02] MEDS: AMIODARONE 200 MG TAB PO SCH (08:15)
[2024-06-02] MEDS: GLIMEPIRIDE 1 MG TAB PO SCH (08:16)
[2024-06-02 08:21] LABS: HGB 7.8 gm/dL (11.4-16.0)
[2024-06-02 08:22] LABS: MCV 78.1 fL (80.0-100.0)
[2024-06-02 08:31] LABS: ALT 56 U/L (4-34); AST 57 U/L (14-36); African American GFR (CKD) 18 (>60 ml/min/1.73 sqM); Albumin 2.8 g/dL (3.5-5.0); Alkaline Phosphatase 163 U/L (38-126); Anion Gap 9 mmol/L; Calcium 7.9 mg/dL (8.4-10.2); Carbon Dioxide 27 mmol/L (22-30); Chloride 96 mmol/L (98-107); Glucose 103 mg/dL (74-99); Non-African American GFR(CKD) 15 (>60 ml/min/1.73 sqM); Potassium 3.6 mmol/L (3.5-5.1); Sodium 132 mmol/L (137-145); Total Bilirubin 0.6 mg/dL (0.2-1.3); Total Protein 5.4 g/dL (6.3-8.2)
[2024-06-02 08:33] LABS: Blood Urea Nitrogen 112 mg/dL (7-17)
[2024-06-02] MEDS ORDERED: DEXTROSE 50% SYRINGE 50 ML IVP PRN ×2 (10:14)
[2024-06-02 12:06] LABS: Glucose,Whole Blood 116 mg/dL (70-110)
[2024-06-02] MEDS: INSULIN ASPART (NovoLOG) 100 UNIT/ML VIAL SQ SCH (12:06)
--- NOTE | 2024-06-02 12:49 | P.NPCON ---
History of Present Illness - Reason for Consult Consult date: 06/02/24 Requesting physician: Shin Richard - History of Present Illness Patient is an 84-year-old female with past medical history of CKD stage IIIb - IV(baseline creatinine 1.4-1.5), atrial fibrillation, uterine cancer, COPD with home oxygen 2 L, diabetes mellitus, [place] presented to the ED for low blood press ure upon advice from her passenger vessel chef. She mentions not feeling well for the past week. She mentions following up with Dr. Field regularly for CKD stage IV. Patient seen today in renal consultation for NERISSA. Her BUN is 112, creatinine 2.71, GFR 15. UA is cloudy, large leukocyte esterase, 16 WBC and 24 hyaline cast. She mentions having dysuria, lower abdominal pain, chills and lower back pain. Denies fever, nausea, vomiting, chest pain, hematuria, black tarry stools, bright red blood per rectum. She denies using NSAIDs as her passenger vessel chef advised her not to take them. No urinary complaints. Bladder scan showed only 18ml of urine. BP on admission was 81/51. Hb 6.3 on admission. Chest x-ray shows moderate right pleural effusion and cardiomegaly. CTAP shows no clear evidence of acute obstructive or inflammatory process, trace free pelvic fluid, colonic diverticula, cardiomegaly with moderate right pleural effusion. Stool occult blood is positive. Past Medical History Past Medical History: Atrial Fibrillation, Cancer, COPD, Diabetes Mellitus, Hyperlipidemia, Hypertension, Myocardial Infarction ([place]), Renal Disease Additional Past Medical History / Comment(s): Moderate to severe mitral regurgitation/SOB, mild aortic stenosis, NIDDM, uterine cancer/surgery only, [place] x 2, stage III kidney failure Last Myocardial Infarction Date:: unknown History of Any Multi-Drug Resistant Organisms: None Reported Past Surgical History: Appendectomy, Back Surgery, Cholecystectomy, Heart Catheterization, Heart Catheterization With Stent, Hysterectomy Additional Past Surgical History / Comment(s): Cardioversions, hysterectomy/left one ovary Past Anesthesia/Blood Transfusion Reactions: No Reported Reaction Additional Past Anesthesia/Blood Transfusion Reaction / Comment(s): Pt has had autotransfusion only. Date of Last Stent Placement:: 12/2022 Past Psychological History: No Psychological Hx Reported Smoking Status: Former smoker Past Alcohol Use History: None Reported Past Drug Use History: None Reported - Past Family History Brother(s) Family Medical History: Cancer Additional Family Medical History / Comment(s): 2 brothers cancer. 1 brother cabg Medications and Allergies Home Medications Medication Instructions Recorded Confirmed Type Glimepiride [Amaryl] 1 mg PO AC-BRKFST 03/11/20 06/01/24 History Clopidogrel [Plavix] 75 mg PO DAILY #90 tab 12/21/22 06/01/24 Rx Pravastatin Sodium [Pravachol] 80 mg PO HS 04/30/23 06/01/24 History Amiodarone [Cordarone] 200 mg PO DAILY 04/14/24 06/01/24 History Apixaban [Eliquis] 2.5 mg PO BID 04/14/24 06/01/24 History Bumetanide [BUMEX] 1 mg PO BID@0900,1600 tab 04/28/24 06/01/24 Rx Potassium Chloride ER [K-Dur 20] 20 meq PO DAILY #30 tab 04/28/24 06/01/24 Rx Doxycycline Hyclate 100 mg PO DIRECTED 06/01/24 06/01/24 History Metoprolol Tartrate [Lopressor] 50 mg PO BID 06/01/24 06/01/24 History Midodrine [ProAmatine] 5 mg PO DIRECTED 06/01/24 06/01/24 History Allergies Allergy/AdvReac Type Severity Reaction Status Date / Time atorvastatin [From Lipitor] Allergy Nausea Verified 06/01/24 13:42 celecoxib [From Celebrex] Allergy Swelling Verified 06/01/24 13:42 ibuprofen [From Motrin] Allergy Swelling, Verified 06/01/24 13:42 itching Penicillins Allergy Swelling Verified 06/01/24 13:42 steroid AdvReac shaking Uncoded 06/01/24 13:42 Physical Exam Vitals: Vital Signs Temp Pulse Resp BP Pulse Ox 06/02/24 09:19 70 18 104/68 94 L 06/02/24 06:17 72 16 100/52 99 06/02/24 05:17 78 16 98/61 99 06/02/24 04:25 67 14 87/52 99 06/02/24 03:12 98.0 F 64 14 95/48 100 06/02/24 01:34 65 12 103/56 100 06/02/24 00:00 70 16 103/65 100 06/01/24 21:46 69 16 108/75 100 06/01/24 20:51 97.6 F 82 16 97/66 100 06/01/24 18:26 63 18 91/49 100 06/01/24 18:04 97.7 F 71 18 92/72 100 06/01/24 17:59 96 20 92/72 100 06/01/24 17:39 98.4 F 74 18 83/48 97 06/01/24 17:33 98.4 F 06/01/24 17:14 98.4 F 63 18 83/39 4 L 06/01/24 16:59 66 18 97/41 94 L 06/01/24 16:35 84/56 06/01/24 16:21 63 18 83/51 100 06/01/24 16:12 58 L 18 82/51 100 06/01/24 15:50 78 18 87/50 94 L 06/01/24 15:10 73 18 86/71 100 06/01/24 12:55 77 18 86/58 100 06/01/24 12:04 97.3 F L 79 18 81/51 97 Intake and Output 06/01/24 06/02/24 06/02/24 22:59 06:59 14:59 Intake Total 310 Balance 310 Intake: Blood Product 310 Rc As-1 Unit 310 [id number] General: patient in acute distress, appears at stated age, overweight Derm: warm, dry, intact Cardiovascular: S1 S2 reg, no murmur Lungs: Diminished sounds Abdominal: lower abdomen tender to palpation, soft Extremities: trace edema Results - Lab Results Most recent lab results Calcium 7.9 mg/dL (8.4-10.2) L 06/02/24 07:49 06/02/24 07:49 06/02/24 07:49 Assessment and Plan Assessment: Acute kidney injury, ATN, oliguric 2/2 hypotension and severe anemia. UA shows no blood or protein, hyaline cast 24, WBC 16. No obstruction on CT abdomen Pyuria, r/o UTI Hypotension from anemia and volume depletion. R/o underlying infection. BP on admission 81/51. Hypovolemic Hyponatremia, improved with saline administration. Moderate right pleural effusion CAD with history of [place] and coronary stents Microcytic Anemia with history of severe iron deficiency. S/p PRBC transfusion during this admission and on previous admission with iron infusion in April. H/o anemia of chronic disease. Stool occult blood positive. Plan: Decrease IV fluids, H/o diastolic CHF Accurate I/Os Resume home med midodrine, increase dose if BP remains low Repeat labs in am Avoid nephrotoxic agents Check iron profile Maintain on aranesp Thank you for the consultation. We will continue to follow during the hospitalization. Patient is seen and examined. Agree with resident's findings, assessment and plan
[2024-06-02] MEDS: DARBEPOETIN ALFA 60 MCG/0.3 ML SYRINGE SQ SCH (14:49)
--- NOTE | 2024-06-02 15:15 | P.HPIM ---
History of Present Illness H&P Date: 06/02/24 This is an 84-year-old female with past medical history significant for atrial fibrillation on Eliquis, mild aortic stenosis, moderate to severe mitral regurgitation , uterine cancer, anemia, hypertension, hyperlipidemia, [place], chronic kidney disease stage III,prior nicotine dependence, COPD, chronic h ypoxic respiratory failure wears 2 L nasal cannula at home, diabetes mellitus, obesity and multiple other medical issues, presented to the ER as advised by her cash applications coordinator, Dr. Crespo for low blood pressure and not feeling well over the last week. Reports some nausea, abdominal bloating, diarrhea x 2 days-reports 1 bright red bloody stool, mild lower extremity edema, exertional shortness of breath. EKG reported atrial fibrillation, chest x-ray reported moderate right blunting of the costophrenic angles/ moderate right pleural effusion.CT of abdomen pelvis reported no clear evidence of acute obstructive or inflammatory process in the abdomen or pelvis, trace free pelvic fluid, colonic diverticula, cannot exclude mild colitis, cardiomegaly with moderate right pleural effusion, correlate for CHF. Afebrile, WBC 11.5. Hemoglobin on admission 6.3, received 1 unit of packed RBCs currently 7.8. Positive stool for occult blood. platelets 433, sodium 132, potassium 3.6, bicarb 27, BUN 112, creatinine 2.71. Blood sugars controlled. Lactic acid 2.1, 1.9. Minimally elevated LFTs/T. bili within normal limits. Review of Systems ROS Statement: Those systems with pertinent positive or pertinent negative responses have been documented in the HPI. ROS Other: All systems not noted in ROS Statement are negative. Past Medical History Past Medical History: Atrial Fibrillation, Cancer, COPD, Diabetes Mellitus, Hyperlipidemia, Hypertension, Myocardial Infarction ([place]), Renal Disease Additional Past Medical History / Comment(s): Moderate to severe mitral regurgitation/SOB, mild aortic stenosis, NIDDM, uterine cancer/surgery only, [place] x 2, stage III kidney failure Last Myocardial Infarction Date:: unknown History of Any Multi-Drug Resistant Organisms: None Reported Past Surgical History: Appendectomy, Back Surgery, Cholecystectomy, Heart Catheterization, Heart Catheterization With Stent, Hysterectomy Additional Past Surgical History / Comment(s): Cardioversions, hysterectomy/left one ovary Past Anesthesia/Blood Transfusion Reactions: No Reported Reaction Additional Past Anesthesia/Blood Transfusion Reaction / Comment(s): Pt has had autotransfusion only. Date of Last Stent Placement:: 12/2022 Past Psychological History: No Psychological Hx Reported Smoking Status: Former smoker Past Alcohol Use History: None Reported Past Drug Use History: None Reported - Past Family History Brother(s) Family Medical History: Cancer Additional Family Medical History / Comment(s): 2 brothers cancer. 1 brother cabg Medications and Allergies Home Medications Medication Instructions Recorded Confirmed Type Glimepiride [Amaryl] 1 mg PO AC-BRKFST 03/11/20 06/01/24 History Clopidogrel [Plavix] 75 mg PO DAILY #90 tab 12/21/22 06/01/24 Rx Pravastatin Sodium [Pravachol] 80 mg PO HS 04/30/23 06/01/24 History Amiodarone [Cordarone] 200 mg PO DAILY 04/14/24 06/01/24 History Apixaban [Eliquis] 2.5 mg PO BID 04/14/24 06/01/24 History Bumetanide [BUMEX] 1 mg PO BID@0900,1600 tab 04/28/24 06/01/24 Rx Potassium Chloride ER [K-Dur 20] 20 meq PO DAILY #30 tab 04/28/24 06/01/24 Rx Doxycycline Hyclate 100 mg PO DIRECTED 06/01/24 06/01/24 History Metoprolol Tartrate [Lopressor] 50 mg PO BID 06/01/24 06/01/24 History Midodrine [ProAmatine] 5 mg PO DIRECTED 06/01/24 06/01/24 History Allergies Allergy/AdvReac Type Severity Reaction Status Date / Time atorvastatin [From Lipitor] Allergy Nausea Verified 06/01/24 13:42 celecoxib [From Celebrex] Allergy Swelling Verified 06/01/24 13:42 ibuprofen [From Motrin] Allergy Swelling, Verified 06/01/24 13:42 itching Penicillins Allergy Swelling Verified 06/01/24 13:42 steroid AdvReac shaking Uncoded 06/01/24 13:42 Physical Exam Vitals: Vital Signs Temp Pulse Resp BP Pulse Ox 06/02/24 09:19 70 18 104/68 94 L 06/02/24 06:17 72 16 100/52 99 06/02/24 05:17 78 16 98/61 99 06/02/24 04:25 67 14 87/52 99 06/02/24 03:12 98.0 F 64 14 95/48 100 06/02/24 01:34 65 12 103/56 100 06/02/24 00:00 70 16 103/65 100 06/01/24 21:46 69 16 108/75 100 06/01/24 20:51 97.6 F 82 16 97/66 100 06/01/24 18:26 63 18 91/49 100 06/01/24 18:04 97.7 F 71 18 92/72 100 06/01/24 17:59 96 20 92/72 100 06/01/24 17:39 98.4 F 74 18 83/48 97 06/01/24 17:33 98.4 F 06/01/24 17:14 98.4 F 63 18 83/39 4 L 06/01/24 16:59 66 18 97/41 94 L 06/01/24 16:35 84/56 06/01/24 16:21 63 18 83/51 100 06/01/24 16:12 58 L 18 82/51 100 06/01/24 15:50 78 18 87/50 94 L 06/01/24 15:10 73 18 86/71 100 06/01/24 12:55 77 18 86/58 100 06/01/24 12:04 97.3 F L 79 18 81/51 97 Intake and Output 06/01/24 06/02/24 06/02/24 22:59 06:59 14:59 Intake Total 310 Balance 310 Intake: Blood Product 310 Rc As-1 Unit 310 [id number] GENERAL: This is a pleasant 84-year-old female, alert and oriented x 3, no acute distress. HEENT: Head is atraumatic, normocephalic. Pupils are equal, round, and reactive to light. Sclerae anicteric. Conjunctivae are clear. MMM. RESPIRATORY: Unlabored, equal air entry, clear to auscultation. No wheezes, rales, or rhonchi. No use of accessory muscles. No chest wall tenderness is noted on palpation or with deep breathing. CARDIOVASCULAR: heart irregular irregularity, systolic murmur GASTROINTESTINAL: Soft, nondistended, bilateral lower abdominal tenderness, positive bowel sounds SKIN: Warm and dry. EXTREMITIES: 2+ peripheral pulses. Mild peripheral edema. No calf tenderness noted. NEUROLOGIC: Cranial nerves II-XII intact. PSYCHIATRIC: Cranial nerves II through XII grossly intact ,appropriate affect. Intact judgement and insight. Results CBC & Chem 7: 06/02/24 07:49 06/02/24 07:49 Labs: Abnormal Lab Results - Last 24 Hours (Table) 06/01/24 06/01/24 06/01/24 Range/Units 13:29 13:39 13:39 WBC 11.1 H (3.8-10.6) k/uL RBC 2.92 L (3.80-5.40) m/uL Hgb 6.3 L* D (11.4-16.0) gm/dL Hct 20.6 L (34.0-46.0) % MCV 70.8 L D (80.0-100.0) fL MCH 21.5 L (25.0-35.0) pg MCHC 30.4 L (31.0-37.0) g/dL RDW 19.0 H (11.5-15.5) % Plt Count 490 H (150-450) k/uL Neutrophils # 8.8 H (1.3-7.7) k/uL INR 1.2 H (<1.2) Sodium (137-145) mmol/L Chloride (98-107) mmol/L Carbon Dioxide (22-30) mmol/L BUN (7-17) mg/dL Creatinine (0.52-1.04) mg/dL Glucose (74-99) mg/dL POC Glucose (mg/dL) (70-110) mg/dL Plasma Lactic Acid Kenneth (0.7-2.0) mmol/L Calcium (8.4-10.2) mg/dL AST (14-36) U/L ALT (4-34) U/L Alkaline Phosphatase (38-126) U/L Total Protein (6.3-8.2) g/dL Albumin (3.5-5.0) g/dL Urine Appearance Cloudy H (Clear) Ur Leukocyte Esterase Large H (Negative) Urine WBC 16 H (0-5) /hpf Urine Bacteria Rare H (None) /hpf Hyaline Casts 24 H (0-2) /lpf Urine Mucus Rare H (None) /hpf Stool Occult Blood (Negative) Crossmatch 06/01/24 06/01/24 06/01/24 Range/Units 13:39 13:39 15:15 WBC (3.8-10.6) k/uL RBC (3.80-5.40) m/uL Hgb (11.4-16.0) gm/dL Hct (34.0-46.0) % MCV (80.0-100.0) fL MCH (25.0-35.0) pg MCHC (31.0-37.0) g/dL RDW (11.5-15.5) % Plt Count (150-450) k/uL Neutrophils # (1.3-7.7) k/uL INR (<1.2) Sodium 130 L (137-145) mmol/L Chloride 89 L (98-107) mmol/L Carbon Dioxide 31 H (22-30) mmol/L BUN 122 H* (7-17) mg/dL Creatinine 2.64 H (0.52-1.04) mg/dL Glucose 152 H (74-99) mg/dL POC Glucose (mg/dL) (70-110) mg/dL Plasma Lactic Acid Kenneth 2.1 H* (0.7-2.0) mmol/L Calcium (8.4-10.2) mg/dL AST (14-36) U/L ALT (4-34) U/L Alkaline Phosphatase (38-126) U/L Total Protein 6.2 L (6.3-8.2) g/dL Albumin 3.4 L (3.5-5.0) g/dL Urine Appearance (Clear) Ur Leukocyte Esterase (Negative) Urine WBC (0-5) /hpf Urine Bacteria (None) /hpf Hyaline Casts (0-2) /lpf Urine Mucus (None) /hpf Stool Occult Blood (Negative) Crossmatch See Detail 06/01/24 06/02/24 06/02/24 Range/Units 16:08 07:38 07:49 WBC 11.5 H (3.8-10.6) k/uL RBC 3.35 L (3.80-5.40) m/uL Hgb 7.8 L D (11.4-16.0) gm/dL Hct 26.1 L (34.0-46.0) % MCV 78.1 L D (80.0-100.0) fL MCH 23.3 L (25.0-35.0) pg MCHC 29.9 L (31.0-37.0) g/dL RDW 18.8 H (11.5-15.5) % Plt Count (150-450) k/uL Neutrophils # 9.0 H (1.3-7.7) k/uL INR (<1.2) Sodium (137-145) mmol/L Chloride (98-107) mmol/L Carbon Dioxide (22-30) mmol/L BUN (7-17) mg/dL Creatinine (0.52-1.04) mg/dL Glucose (74-99) mg/dL POC Glucose (mg/dL) 121 H (70-110) mg/dL Plasma Lactic Acid Kenneth (0.7-2.0) mmol/L Calcium (8.4-10.2) mg/dL AST (14-36) U/L ALT (4-34) U/L Alkaline Phosphatase (38-126) U/L Total Protein (6.3-8.2) g/dL Albumin (3.5-5.0) g/dL Urine Appearance (Clear) Ur Leukocyte Esterase (Negative) Urine WBC (0-5) /hpf Urine Bacteria (None) /hpf Hyaline Casts (0-2) /lpf Urine Mucus (None) /hpf Stool Occult Blood Positive H (Negative) Crossmatch 06/02/24 Range/Units 07:49 WBC (3.8-10.6) k/uL RBC (3.80-5.40) m/uL Hgb (11.4-16.0) gm/dL Hct (34.0-46.0) % MCV (80.0-100.0) fL MCH (25.0-35.0) pg MCHC (31.0-37.0) g/dL RDW (11.5-15.5) % Plt Count (150-450) k/uL Neutrophils # (1.3-7.7) k/uL INR (<1.2) Sodium 132 L (137-145) mmol/L Chloride 96 L (98-107) mmol/L Carbon Dioxide (22-30) mmol/L BUN 112 H* (7-17) mg/dL Creatinine 2.71 H (0.52-1.04) mg/dL Glucose 103 H (74-99) mg/dL POC Glucose (mg/dL) (70-110) mg/dL Plasma Lactic Acid Kenneth (0.7-2.0) mmol/L Calcium 7.9 L (8.4-10.2) mg/dL AST 57 H (14-36) U/L ALT 56 H (4-34) U/L Alkaline Phosphatase 163 H (38-126) U/L Total Protein 5.4 L (6.3-8.2) g/dL Albumin 2.8 L (3.5-5.0) g/dL Urine Appearance (Clear) Ur Leukocyte Esterase (Negative) Urine WBC (0-5) /hpf Urine Bacteria (None) /hpf Hyaline Casts (0-2) /lpf Urine Mucus (None) /hpf Stool Occult Blood (Negative) Crossmatch Assessment and Plan Assessment: Acute on chronic kidney disease stage IIIB, cardiorenal, baseline creatinine 1.4-1.5 Acute GI bleed, acute blood loss anemia, stool for occult blood positive, chest post 1 unit packed RBCs Possible acute on chronic CHF, diastolic dysfunction ,moderate to large right pleural effusion, Possible acute UTI, UA reports large leukocytes, elevated WBCs negative nitrates. Bladder scan reported 18 mL, denies urinary dysuria, frequency or hematuria. Hyponatremia, mild Hypotension on admission, secondary to all the above Lactic acidosis mild, corrected Chronic hypoxic respiratory failure, wears 2 L nasal cannula O2 at home Diabetes mellitus CAD, prior PCI Moderate to severe mitral regurgitation Mild aortic stenosis Persistent atrial fibrillation anticoagulated on Eliquis Hypertension, history of Hyperlipidemia COPD Former nicotine dependence History of uterine cancer Chronic lower extremity cellulitis Obesity, BMI 27 Plan: Continue on current medication resume ,monitoring and symptomatic treatment. Diuretics on hold, midodrine for hypotension, nephrology following. proBNP pending .echo ordered if not done in the last 6 months, cardiology consulted.empiric antibiotics, ceftriaxone for potential UTI. No GI services this week-General Surgery consulted for GI bleed, reports no previous colonoscopy. Close monitoring of hemoglobin, renal function, electrolytes with repeat labs ordered for a.m. The impression and plan of care has been dictated as directed. : I performed a history and examination of this patient, discussed the same with the dictator. I agree with the dictator's note ,documented as a scribe. Any additional findings or plans will be noted.
--- NOTE | 2024-06-02 15:29 | P.GSCN ---
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 Patient had reported not feeling well for the past week. Patient reports having nausea and dry heaves. She denies any abdominal pain. She does report having diarrhea for the past 2 days. She reported blood in the bowel movement yesterday x 1 episode she thinks. Patient reports that she was told that there was blood in the stool. Stool for occult blood is positive. Hemoglobin is 6.3 has gone up to 7.8 after unit of blood. Vitals are currently stable. She does have a history of iron deficiency anemia and anemia of chronic kidney disease. Patient denies having had EGD or colonoscopy in the past. PAST MEDICAL HISTORY: See below PAST SURGICAL HISTORY: See below MEDICATIONS: See below ALLERGIES: See below SOCIAL HISTORY: No illicit drug use. REVIEW OF SYSTEMS: CONSTITUTIONAL: Denies fever or chills. HEENT: Denies blurred vision, vision changes, or eye pain. Denies hemoptysis CARDIOVASCULAR: Denies chest pain or pressure. RESPIRATORY: No shortness of breath. GASTROINTESTINAL: See HPI for pertinent findings HEMATOLOGIC: Denies bleeding disorders. GENITOURINARY: Denies any blood in urine or increased urinary frequency. SKIN: Denies pruitis. Denies rash. PHYSICAL EXAM: VITAL SIGNS: Reviewed GENERAL: Well-developed in no acute distress. HEENT: No sclera icterus. Extraocular movements grossly intact. Moist buccal mucosa. Head is atraumatic, normocephalic. No nasal drainage. ABDOMEN: Soft. Nondistended. Nondistended NEUROLOGIC: Alert and oriented. Cranial nerves II through XII grossly intact. LABORATORY DATA: WBC 11.5 Hgb 6.3 up to 7.8 platelets 433 Sodium 132 potassium 3.6 creatinine 2.71 BUN elevated Total bilirubin 0.6 mildly elevated LFTs Stool for occult blood positive IMAGING: CT scan abdomen pelvis limited unenhanced study shows no clear evidence of acute obstructive or inflammatory process in the abdomen or pelvis. Trace free fluid. Colonic diverticula are present without diverticulitis. Cannot exclude mild colitis. Cardiomegaly with moderate right pleural effusion. Correlate for CHF. Chest x-ray reports moderate right pleural effusion ASSESSMENT: 1. Anemia with acute GI bleed. Stool for occult blood positive. Patient did require blood transfusion 2. History of iron deficiency anemia and anemia of chronic kidney disease 3. Hypotension PLAN: -Continue to monitor hemoglobin -Continue to monitor for any signs or symptoms of bleeding -Continue IV fluids -Continue Protonix -Further recommendations forthcoming per surgeon regarding possible endoscopies Physician Power Plant Operations Manager note has been reviewed by physician. Signing provider agrees with the documented findings, assessment, and plan of care. Past Medical History Past Medical History: Atrial Fibrillation, Cancer, COPD, Diabetes Mellitus, Hyperlipidemia, Hypertension, Myocardial Infarction (ID), Renal Disease Additional Past Medical History / Comment(s): Moderate to severe mitral regurgitation/SOB, mild aortic stenosis, NIDDM, uterine cancer/surgery only, [place] x 2, stage III kidney failure Last Myocardial Infarction Date:: unknown History of Any Multi-Drug Resistant Organisms: None Reported Past Surgical History: Appendectomy, Back Surgery, Cholecystectomy, Heart Catheterization, Heart Catheterization With Stent, Hysterectomy Additional Past Surgical History / Comment(s): Cardioversions, hysterectomy/left one ovary Past Anesthesia/Blood Transfusion Reactions: No Reported Reaction Additional Past Anesthesia/Blood Transfusion Reaction / Comm: Pt has had autotransfusion only. Date of Last Stent Placement:: 12/2022 Past Psychological History: No Psychological Hx Reported Smoking Status: Former smoker Past Alcohol Use History: None Reported Past Drug Use History: None Reported - Past Family History Brother(s) Family Medical History: Cancer Additional Family Medical History / Comment(s): 2 brothers cancer. 1 brother cabg Medications and Allergies Home Medications Medication Instructions Recorded Confirmed Type Glimepiride [Amaryl] 1 mg PO AC-BRKFST 03/11/20 06/01/24 History Clopidogrel [Plavix] 75 mg PO DAILY #90 tab 12/21/22 06/01/24 Rx Pravastatin Sodium [Pravachol] 80 mg PO HS 04/30/23 06/01/24 History Amiodarone [Cordarone] 200 mg PO DAILY 04/14/24 06/01/24 History Apixaban [Eliquis] 2.5 mg PO BID 04/14/24 06/01/24 History Bumetanide [BUMEX] 1 mg PO BID@0900,1600 tab 04/28/24 06/01/24 Rx Potassium Chloride ER [K-Dur 20] 20 meq PO DAILY #30 tab 04/28/24 06/01/24 Rx Doxycycline Hyclate 100 mg PO DIRECTED 06/01/24 06/01/24 History Metoprolol Tartrate [Lopressor] 50 mg PO BID 06/01/24 06/01/24 History Midodrine [ProAmatine] 5 mg PO DIRECTED 06/01/24 06/01/24 History Allergies Allergy/AdvReac Type Severity Reaction Status Date / Time atorvastatin [From Lipitor] Allergy Nausea Verified 06/01/24 13:42 celecoxib [From Celebrex] Allergy Swelling Verified 06/01/24 13:42 ibuprofen [From Motrin] Allergy Swelling, Verified 06/01/24 13:42 itching Penicillins Allergy Swelling Verified 06/01/24 13:42 steroid AdvReac shaking Uncoded 06/01/24 13:42 Surgical - Exam Osteopathic Statement: *. No significant issues noted on an osteopathic structural exam other than those noted in the History and Physical/Consult. Vital Signs Temp Pulse Resp BP Pulse Ox 97.3 F L 79 18 81/51 97 06/01/24 12:04 06/01/24 12:04 06/01/24 12:04 06/01/24 12:04 06/01/24 12:04 Results - Labs 06/02/24 07:49 06/02/24 07:49 Abnormal Lab Results - Last 24 Hours (Table) 06/01/24 06/01/24 06/02/24 Range/Units 15:15 16:08 07:38 WBC (3.8-10.6) k/uL RBC (3.80-5.40) m/uL Hgb (11.4-16.0) gm/dL Hct (34.0-46.0) % MCV (80.0-100.0) fL MCH (25.0-35.0) pg MCHC (31.0-37.0) g/dL RDW (11.5-15.5) % Neutrophils # (1.3-7.7) k/uL Sodium (137-145) mmol/L Chloride (98-107) mmol/L BUN (7-17) mg/dL Creatinine (0.52-1.04) mg/dL Glucose (74-99) mg/dL POC Glucose (mg/dL) 121 H (70-110) mg/dL Calcium (8.4-10.2) mg/dL AST (14-36) U/L ALT (4-34) U/L Alkaline Phosphatase (38-126) U/L Total Protein (6.3-8.2) g/dL Albumin (3.5-5.0) g/dL Stool Occult Blood Positive H (Negative) Crossmatch See Detail 06/02/24 06/02/24 06/02/24 Range/Units 07:49 07:49 12:05 WBC 11.5 H (3.8-10.6) k/uL RBC 3.35 L (3.80-5.40) m/uL Hgb 7.8 L D (11.4-16.0) gm/dL Hct 26.1 L (34.0-46.0) % MCV 78.1 L D (80.0-100.0) fL MCH 23.3 L (25.0-35.0) pg MCHC 29.9 L (31.0-37.0) g/dL RDW 18.8 H (11.5-15.5) % Neutrophils # 9.0 H (1.3-7.7) k/uL Sodium 132 L (137-145) mmol/L Chloride 96 L (98-107) mmol/L BUN 112 H* (7-17) mg/dL Creatinine 2.71 H (0.52-1.04) mg/dL Glucose 103 H (74-99) mg/dL POC Glucose (mg/dL) 116 H (70-110) mg/dL Calcium 7.9 L (8.4-10.2) mg/dL AST 57 H (14-36) U/L ALT 56 H (4-34) U/L Alkaline Phosphatase 163 H (38-126) U/L Total Protein 5.4 L (6.3-8.2) g/dL Albumin 2.8 L (3.5-5.0) g/dL Stool Occult Blood (Negative) Crossmatch Diabetes panel 06/02/24 Range/Units 07:49 Sodium 132 L (137-145) mmol/L Potassium 3.6 (3.5-5.1) mmol/L Chloride 96 L (98-107) mmol/L Carbon Dioxide 27 (22-30) mmol/L BUN 112 H* (7-17) mg/dL Creatinine 2.71 H (0.52-1.04) mg/dL Glucose 103 H (74-99) mg/dL Calcium 7.9 L (8.4-10.2) mg/dL AST 57 H (14-36) U/L ALT 56 H (4-34) U/L Alkaline Phosphatase 163 H (38-126) U/L Total Protein 5.4 L (6.3-8.2) g/dL Albumin 2.8 L (3.5-5.0) g/dL Calcium panel 06/02/24 Range/Units 07:49 Calcium 7.9 L (8.4-10.2) mg/dL Albumin 2.8 L (3.5-5.0) g/dL Pituitary panel 06/02/24 Range/Units 07:49 Sodium 132 L (137-145) mmol/L Potassium 3.6 (3.5-5.1) mmol/L Chloride 96 L (98-107) mmol/L Carbon Dioxide 27 (22-30) mmol/L BUN 112 H* (7-17) mg/dL Creatinine 2.71 H (0.52-1.04) mg/dL Glucose 103 H (74-99) mg/dL Calcium 7.9 L (8.4-10.2) mg/dL Adrenal panel 06/02/24 Range/Units 07:49 Sodium 132 L (137-145) mmol/L Potassium 3.6 (3.5-5.1) mmol/L Chloride 96 L (98-107) mmol/L Carbon Dioxide 27 (22-30) mmol/L BUN 112 H* (7-17) mg/dL Creatinine 2.71 H (0.52-1.04) mg/dL Glucose 103 H (74-99) mg/dL Calcium 7.9 L (8.4-10.2) mg/dL Total Bilirubin 0.6 (0.2-1.3) mg/dL AST 57 H (14-36) U/L ALT 56 H (4-34) U/L Alkaline Phosphatase 163 H (38-126) U/L Total Protein 5.4 L (6.3-8.2) g/dL Albumin 2.8 L (3.5-5.0) g/dL Assessment and Plan Assessment: rule out acute blood loss anemia -offered colonoscopy to patient, refused for now -no gross blood, just fecal occult blood + -continue to trend hgb for now Time with Patient: Less than 30
[2024-06-02 17:21] LABS: Glucose,Whole Blood 143 mg/dL (70-110)
[2024-06-02 19:02] LABS: % Iron Saturation 6.32 (12.00-45.00)
[2024-06-02 23:57] LABS: Glucose,Whole Blood 84 mg/dL (70-110)
[2024-06-03 05:59] LABS: Glucose,Whole Blood 56 mg/dL (70-110)
[2024-06-03 06:14] LABS: Glucose,Whole Blood 69 mg/dL (70-110)
[2024-06-03 06:29] LABS: Glucose,Whole Blood 85 mg/dL (70-110)
[2024-06-03 06:50] LABS: African American GFR (CKD) 17 (>60 ml/min/1.73 sqM); Anion Gap 7 mmol/L; Calcium 8.2 mg/dL (8.4-10.2); Carbon Dioxide 25 mmol/L (22-30); Chloride 101 mmol/L (98-107); Glucose 72 mg/dL (74-99); Non-African American GFR(CKD) 15 (>60 ml/min/1.73 sqM); Potassium 3.3 mmol/L (3.5-5.1); Sodium 133 mmol/L (137-145)
[2024-06-03 06:51] LABS: Blood Urea Nitrogen 105 mg/dL (7-17)
--- NOTE | 2024-06-03 09:32 | CA ---
Transthoracic Echo Report Name: Charisse Willoughby Age: 84 Gender: F : 1940 Exam Date: 06/02/2024 15:09 Exam Location: [place] Echo Ht (in): 67 Wt (lb): 175 Ordering Physician: Belen Soliman Attending/Referring Phys: Outside Production Inspector Bontia Aldrich RDCS Procedure CPT: Indications: LV function, CHF Cardiac Hx: Technical Quality: Fair Contrast 1: Total Dose (mL): Contrast 2: Total Dose (mL): MEASUREMENTS (Male / Female) Normal Values 2D ECHO LV Diastolic Diameter PLAX 3.7 cm 4.2 - 5.9 / 3.9 - 5.3 cm LV Systolic Diameter PLAX 2.6 cm IVS Diastolic Thickness 0.7 cm 0.6 - 1.0 / 0.6 - 0.9 cm LVPW Diastolic Thickness 0.9 cm 0.6 - 1.0 / 0.6 - 0.9 cm LV Relative Wall Thickness 0.4 RV Internal Dim ED PLAX 3.6 cm LVOT Diameter 1.7 cm LA Volume 79.2 cm??? 18 - 58 / 22 - 52 cm??? LA Volume Index 40.6 cm???/m??? 16 - 28 cm???/m??? Ascending Aorta Diameter 3.4 cm DOPPLER AV Peak Velocity 188.6 cm/s AV Peak Gradient 14.2 mmHg AV Mean Velocity 131.0 cm/s AV Mean Gradient 7.6 mmHg AV Velocity Time Integral 45.5 cm LVOT Peak Velocity 128.4 cm/s LVOT Peak Gradient 6.6 mmHg LVOT Velocity Time Integral 31.0 cm LVOT Stroke Volume 67.5 cm??? LVOT Stroke Volume Index 35.4 ml/m??? LVOT Cardiac Index 2246.8 cm???/min???m??? AV Area Cont Eq vti 1.5 cm??? AV Area Cont Eq pk 1.5 cm??? MV Peak Velocity 133.4 cm/s MV Peak Gradient 7.1 mmHg MV Mean Velocity 69.6 cm/s MV Mean Gradient 2.5 mmHg MV Velocity Time Integral 28.9 cm MR Peak Velocity 433.0 cm/s MR Peak Gradient 75.0 mmHg MR Flow Rate PISA 66.9 cm???/s MR ERO PISA 0.2 cm??? MR Regurgitant Volume PISA 22.8 cm??? TR Peak Velocity 267.1 cm/s TR Peak Gradient 28.5 mmHg Right Atrial Pressure 15.0 mmHg Pulmonary Artery Systolic Pressu 43.5 mmHg Right Ventricular Systolic Press 43.5 mmHg PV Peak Velocity 75.8 cm/s PV Peak Gradient 2.3 mmHg FINDINGS Left Ventricle Left ventricular ejection fraction is estimated at 55-60 %. Left ventricular cavity size normal. Left ventricular wall thickness normal. No obvious regional wall motion abnormalities. Right Ventricle Right ventricular dilatation with reduced function. Mild pulmonary hypertension. Right Atrium Severe right atrial dilatation. Left Atrium Severely increased left atrial volume. Mildly increased left atrial area. Mitral Valve Mitral valve thickened. No evidence for mitral valve prolapse. Mild mitral stenosis. Moderate mitral regurgitation. Aortic Valve Trileaflet aortic valve. Diffuse thickening of the aortic valve cusps with reduced excursion. At least mild aortic stenosis with some component of low flow low gradient. No aortic regurgitation. Tricuspid Valve Structurally normal tricuspid valve. No tricuspid stenosis. [id number] tricuspid regurgitation. Pulmonic Valve Pulmonic valve not well visualized. No pulmonic stenosis. Trace pulmonic regurgitation. Pericardium No pericardial effusion. Prominent epicardial fat. Aorta Normal size aortic root and proximal ascending aorta. CONCLUSIONS Left ventricular ejection fraction 55-60% Severe biatrial enlargement RVSP 43 Moderate mitral regurgitation Mild mitral stenosis Mild aortic stenosis Moderate to severe tricuspid regurgitation No pericardial effusion Previewed by: Dr. Ry Goldman DO (Electronically Signed) Final Date: 03 June 2024 09:31
--- NOTE | 2024-06-03 10:00 | P.CRDCN ---
History of Present Illness History of present illness: HISTORY OF PRESENT ILLNESS: This is a 84-year-old female with a past medical history significant for atrial fibrillation, coronary artery disease, hypertension, hyperlipidemia, and diabet es. Patient follows in the office with Dr. Walker. We have been asked to see the patient in consultation for CHF/pleural effusion. Patient examined at the bedside. Patient states she was at a routine nephrology appointment when she was found to be hypotensive and was directed to come to the emergency room. Patient's blood pressure was 80s over 50s upon arrival to the emergency room. Patient was found to be anemic with a hemoglobin of 6.3. She was also found to have worsening kidney function with a creatinine of 2.64. Patient's Eliquis has been placed on hold. General surgery has been consulted to evaluate patient. Patient's diuretics also remain on hold. Creatinine today is 2.75. Patient currently denies any chest pain or pressure. She denies any shortness of breath. DIAGNOSTICS: - EKG reveals atrial fibrillation with no signs of acute ischemia - Chest xray moderate right pleural effusion. Cardiomegaly. - Laboratory data: WBC 11.5. Hemoglobin 7.8. Platelet count 433. Sodium 133. Potassium 3.3. BUN 105. Creatinine 2.75. proBNP 11,300. - Current home cardiac medications include amiodarone 200 mg daily, Bumex 1 mg twice a day, Eliquis 2.5 mg twice a day, Plavix 75 mg daily, metoprolol tartrate 50 mg twice a day, Pravachol 80 mg at night - Echocardiogram obtained this admission reveals ejection fraction 55 to 60%, mild pulmonary hypertension, mild mitral stenosis, moderate mitral regurgitation, mild aortic stenosis, moderate to severe tricuspid regurgitation and no pericardial effusion. - Cardiac catheterization history: December 2022 revealing left dominant system. Diffusely diseased nondominant RCA small distribution, left main without significant stenosis, circumflex has diffuse disease, PDA of circumflex has distal subtotal 95% lesion. LAD has mid lesion 90 to 95% stenosis, proximal lesion 60%. Patient underwent stenting of the proximal and mid LAD. REVIEW OF SYSTEMS: At the time of my exam: CONSTITUTIONAL: Denies fever or chills. HEENT: Denies blurred vision, vision changes, or eye pain. Denies hemoptysis CARDIOVASCULAR: Denies chest pain. Denies orthopnea. Denies PND. Denies palpitations RESPIRATORY: Denies shortness of breath. GASTROINTESTINAL: Denies abdominal pain. Denies nausea or vomiting. HEMATOLOGIC: Denies bleeding disorders. GENITOURINARY: Denies any blood in urine. SKIN: Denies pruitis. Denies rash. PHYSICAL EXAM: VITAL SIGNS: Reviewed. GENERAL: Well-developed in no acute distress. HEENT: Head is normocephalic. Pupils are equal, round. Sclerae anicteric. Mucous membranes of the mouth are moist. Neck supple. No JVD or thyromegaly LUNGS: Respirations even and unlabored. Lungs essentially clear to auscultation bilaterally, diminished. HEART: Irregular rate and rhythm. S1 and S2 heard. Systolic murmur noted. ABDOMEN: Soft. Nondistended. Nontender. EXTREMITIES: Normal range of motion. No clubbing or cyanosis. Peripheral pulses intact. Trace bilateral lower extremity edema NEUROLOGIC: Awake and alert. Oriented x 3. ASSESSMENT: Hypotension secondary to intravascular volume depletion Acute on chronic anemia, status post RBC transfusion Acute on chronic kidney disease Moderate right pleural effusion Chronic congestive heart failure with preserved EF, currently not in acute exacerbation Persistent atrial fibrillation Coronary artery disease with previous stenting of the proximal and mid LAD, 12/2022 Mild pulmonary hypertension Chronic hypoxic respiratory failure on home oxygen Valvular heart disease including mild MS, moderate MR, mild , moderate to severe TR Hypertension Hyperlipidemia Diabetes PLAN: 2D echo obtained and reviewed Continue to hold Eliquis due to anemia. General surgery following. Plavix does not need to be resumed from a cardiac standpoint as patient stenting was greater than 1 year ago. Will add aspirin 81 mg. Continue to hold diuretics and nephrotoxic agents Continue to monitor kidney function. Nephrology following Further recommendations pending patient course Nurse practitioner note has been reviewed by physician. Signing provider agrees with the documented findings, assessment, and plan of care documented by TAPE KELLER OPERATOR as a scribe. Past Medical History Past Medical History: Atrial Fibrillation, Cancer, COPD, Diabetes Mellitus, Hyperlipidemia, Hypertension, Myocardial Infarction (CO), Renal Disease Additional Past Medical History / Comment(s): Moderate to severe mitral regurgitation/SOB, mild aortic stenosis, NIDDM, uterine cancer/surgery only, [place] x 2, stage III kidney failure Last Myocardial Infarction Date:: unknown History of Any Multi-Drug Resistant Organisms: None Reported Past Surgical History: Appendectomy, Back Surgery, Cholecystectomy, Heart Catheterization, Heart Catheterization With Stent, Hysterectomy Additional Past Surgical History / Comment(s): Cardioversions, hysterectomy/left one ovary Past Anesthesia/Blood Transfusion Reactions: No Reported Reaction Additional Past Anesthesia/Blood Transfusion Reaction / Comment(s): Pt has had autotransfusion only. Date of Last Stent Placement:: 12/2022 Past Psychological History: No Psychological Hx Reported Smoking Status: Former smoker Past Alcohol Use History: None Reported Past Drug Use History: None Reported - Past Family History Brother(s) Family Medical History: Cancer Additional Family Medical History / Comment(s): 2 brothers cancer. 1 brother cabg Medications and Allergies Home Medications Medication Instructions Recorded Confirmed Type Glimepiride [Amaryl] 1 mg PO AC-BRKFST 03/11/20 06/01/24 History Clopidogrel [Plavix] 75 mg PO DAILY #90 tab 12/21/22 06/01/24 Rx Pravastatin Sodium [Pravachol] 80 mg PO HS 04/30/23 06/01/24 History Amiodarone [Cordarone] 200 mg PO DAILY 04/14/24 06/01/24 History Apixaban [Eliquis] 2.5 mg PO BID 04/14/24 06/01/24 History Bumetanide [BUMEX] 1 mg PO BID@0900,1600 tab 04/28/24 06/01/24 Rx Potassium Chloride ER [K-Dur 20] 20 meq PO DAILY #30 tab 04/28/24 06/01/24 Rx Doxycycline Hyclate 100 mg PO DIRECTED 06/01/24 06/01/24 History Metoprolol Tartrate [Lopressor] 50 mg PO BID 06/01/24 06/01/24 History Midodrine [ProAmatine] 5 mg PO DIRECTED 06/01/24 06/01/24 History Allergies Allergy/AdvReac Type Severity Reaction Status Date / Time atorvastatin [From Lipitor] Allergy Nausea Verified 06/01/24 13:42 celecoxib [From Celebrex] Allergy Swelling Verified 06/01/24 13:42 ibuprofen [From Motrin] Allergy Swelling, Verified 06/01/24 13:42 itching Penicillins Allergy Swelling Verified 06/01/24 13:42 steroid AdvReac shaking Uncoded 06/01/24 13:42 Physical Exam Vitals: Vital Signs Temp Pulse Pulse Resp BP BP Pulse Ox 06/03/24 08:00 97.4 F L 84 17 118/66 99 06/03/24 04:00 64 16 98/64 99 06/02/24 23:27 98.6 F 63 18 98/61 100 06/02/24 20:19 65 19 100/62 99 06/02/24 17:27 98 F 62 18 94/67 100 06/02/24 16:46 71 20 104/61 99 06/02/24 13:52 69 18 102/58 99 06/02/24 13:37 64 18 106/62 100 06/02/24 12:12 67 18 106/62 100 Intake and Output 06/02/24 06/03/24 06/03/24 22:59 06:59 14:59 Output Total 850 200 Balance -850 -200 Output: Urine 850 200 Other: Voiding Method External Catheter External Catheter External Catheter # Bowel Movements 1 Weight 79.379 kg 80 kg Results 06/02/24 07:49 06/03/24 06:23 Comprehensive Metabolic Panel 06/03/24 Range/Units 06:23 Sodium 133 L (137-145) mmol/L Potassium 3.3 L (3.5-5.1) mmol/L Chloride 101 (98-107) mmol/L Carbon Dioxide 25 (22-30) mmol/L BUN 105 H* (7-17) mg/dL Creatinine 2.75 H (0.52-1.04) mg/dL Glucose 72 L (74-99) mg/dL Calcium 8.2 L (8.4-10.2) mg/dL Current Medications Generic Name Dose Route Start Last Admin Trade Name Compa PRN Reason Stop Dose Admin Acetaminophen 650 mg 06/01/24 20:08 06/03/24 08:19 Acetaminophen Tab 325 Mg Tab PO 650 mg Q6HR PRN Administration Mild Pain or Fever > 100.5 Amiodarone HCl 200 mg 06/02/24 09:00 06/03/24 08:19 Amiodarone 200 Mg Tab PO 200 mg DAILY HAKEEM Administration Darbepoetin Keon 60 mcg 06/02/24 14:00 06/02/24 14:49 Darbepoetin Keon 60 Mcg/0.3 Ml Syringe SQ 60 mcg Q7D HAKEEM Administration Dextrose/Water 25 ml 06/02/24 10:14 Dextrose 50% Syringe 50 Ml IVP PER PROTOCOL PRN Hypoglycemia Protocol Dextrose/Water 50 ml 06/02/24 10:14 Dextrose 50% Syringe 50 Ml IVP PER PROTOCOL PRN Hypoglycemia Protocol Sodium Chloride 1,000 mls @ 70 mls/hr 06/01/24 12:45 06/03/24 03:14 Saline 0.9% IV Not Given .[id number] HAKEEM Ceftriaxone Sodium 1 gm/ 50 mls @ 100 mls/hr 06/02/24 09:00 06/03/24 08:19 Sodium Chloride IVPB 100 mls/hr Q24HR HAKEEM Administration Protocol Insulin Aspart 0 unit 06/02/24 11:00 06/03/24 06:25 Insulin Aspart (Novolog) 100 Unit/Ml Vial SQ Not Given Q6HR [facility] Protocol Midodrine 5 mg 06/01/24 20:30 06/03/24 06:28 Midodrine 5 Mg Tab PO 5 mg AC-TID HAKEEM Administration Naloxone HCl 0.2 mg 06/01/24 20:08 Naloxone 0.4 Mg/Ml 1 Ml Vial IV Q2M PRN Opioid Reversal Ondansetron HCl 4 mg 06/01/24 20:08 06/02/24 22:19 Ondansetron 4 Mg/2 Ml Vial IVP 4 mg Q8HR PRN Administration Nausea And Vomiting Pantoprazole Sodium 40 mg 06/01/24 20:15 06/03/24 08:19 Pantoprazole 40 Mg/10 Ml Vial IV 40 mg DAILY HAKEEM Administration Petrolatum 1 applic 06/02/24 19:03 Zinc Oxide Paste (Z-Guard) 1 Applic TOPICAL BID PRN Wound Healing Protocol Pravastatin Sodium 80 mg 06/01/24 21:00 06/02/24 20:32 Pravastatin Sodium 80 Mg Tab PO 80 mg HS HAKEEM Administration Intake and Output 06/02/24 06/03/24 06/03/24 22:59 06:59 14:59 Output Total 850 200 Balance -850 -200 Output: Urine 850 200 Other: Voiding Method External Catheter External Catheter External Catheter # Bowel Movements 1 Weight 79.379 kg 80 kg 06/02/24 07:49 06/03/24 06:23
--- NOTE | 2024-06-03 10:28 | P.PN ---
Subjective Progress Note Date: 06/03/24 H&P Date: 06/02/24 This is an 84-year-old female with past medical history significant for atrial fibrillation on Eliquis, mild aortic stenosis, moderate to severe mitral regurgitation , uterine cancer, anemia, hypertension, hyperlipidemia, [place], chronic kidney disease stage III,prior nicotine dependence, COPD, chronic hypoxic respiratory failure wears 2 L nasal cannula at home, diabetes mellitus, obesity and multiple other medical issues, presented to the ER as advised by her rail track layer, Dr. Crespo for low blood pressure and not feeling well over the last week. Reports some nausea, abdominal bloating, diarrhea x 2 day,mild lower extremity edema, exertional shortness of breath. EKG reported atrial fibrillation, chest x-ray reported moderate right blunting of the costophrenic angles/ moderate right pleural effusion.CT of abdomen pelvis reported no clear evidence of acute obstructive or inflammatory process in the abdomen or pelvis, trace free pelvic fluid, colonic diverticula, cannot exclude mild colitis, cardiomegaly with moderate right pleural effusion, correlate for CHF. Afebrile, WBC 11.5. Hemoglobin on admission 6.3, received 1 unit of packed RBCs currently 7.8. Positive stool for occult blood. platelets 433, sodium 132, potassium 3.6, bicarb 27, BUN 112, creatinine 2.71. Blood sugars controlled. Lactic acid 2.1, 1.9. Minimally elevated LFTs/T. bili within normal limits. 06/03/2024 3-4 nonbloody episodes of diarrhea reported this morning, C. difficile culture ordered. Urine culture reported no growth after 18 hours, afebrile, antibiotics discontinued. echo reported EF 55 to 60%, severe biatrial enlargement, RV SP 43, moderate mitral regurgitation, moderate to severe tricuspid regurgitation, mild aortic stenosis. BNP 11,300. Creatinine 2.75, BUN 105, bicarb 25. Potassium 3.3, receiving supplementation. Blood Sugars controlled, hemoglobin A1c 6.9. Objective - Vital Signs Vital signs: Vital Signs Temp 97.4 F L 06/03/24 08:00 Pulse 84 06/03/24 08:00 Resp 17 06/03/24 08:00 BP 118/66 06/03/24 08:00 Pulse Ox 99 06/03/24 08:00 FiO2 Intake & Output 06/02/24 06/03/24 06/03/24 18:59 06:59 18:59 Output Total 350 700 Balance -350 -700 Weight 79.379 kg 80 kg Output: Urine 350 700 Other: Voiding Method External Catheter External Catheter # Bowel Movements 1 - Exam GENERAL: This is a pleasant 84-year-old female, alert and oriented x 3, no acute distress. HEENT: Head is atraumatic, normocephalic. Pupils are equal, round, and reactive to light. Sclerae anicteric. Conjunctivae are clear. MMM. RESPIRATORY: Unlabored, equal air entry, clear to auscultation. CARDIOVASCULAR: heart irregular irregularity, systolic murmur GASTROINTESTINAL: Soft, nondistended, nontender, positive bowel sounds SKIN: Warm and dry. EXTREMITIES: 2+ peripheral pulses. Mild peripheral edema. No calf tenderness noted. NEUROLOGIC: Cranial nerves II-XII intact. No focal deficits. - Labs CBC & Chem 7: 06/02/24 07:49 06/03/24 06:23 Labs: Abnormal Lab Results - Last 24 Hours (Table) 06/02/24 06/02/24 06/02/24 Range/Units 12:05 12:33 17:20 Sodium (137-145) mmol/L Potassium (3.5-5.1) mmol/L BUN (7-17) mg/dL Creatinine (0.52-1.04) mg/dL Glucose (74-99) mg/dL POC Glucose (mg/dL) 116 H 143 H (70-110) mg/dL Calcium (8.4-10.2) mg/dL Iron 29 L (50-170) UG/DL % Saturation 6.32 L (12.00-45.00) 06/03/24 06/03/24 06/03/24 Range/Units 05:57 06:12 06:23 Sodium 133 L (137-145) mmol/L Potassium 3.3 L (3.5-5.1) mmol/L BUN 105 H* (7-17) mg/dL Creatinine 2.75 H (0.52-1.04) mg/dL Glucose 72 L (74-99) mg/dL POC Glucose (mg/dL) 56 L 69 L (70-110) mg/dL Calcium 8.2 L (8.4-10.2) mg/dL Iron (50-170) UG/DL % Saturation (12.00-45.00) Microbiology - Last 24 Hours (Table) 06/01/24 13:29 Urine Culture - Final Urine,Voided 06/01/24 13:39 Blood Culture - Preliminary Blood Assessment and Plan Assessment: Acute on chronic kidney disease stage IIIB, cardiorenal, baseline creatinine 1.4-1.5 Acute GI bleed, acute blood loss anemia, stool for occult blood positive, chest post 1 unit packed RBCs Hypotension on admission, secondary to all the above, including hypovolemia Hyponatremia, mild Diarrhea, R/O C-Diff Chronic CHF, diastolic dysfunction.Echo reporting EF 55 to 60%. Mild , Moderate to severe tricuspid regurgitation Moderate mitral regurgitation Pulmonary hypertension, RVSP 43 Moderate to large right pleural effusion, Acute UTI, ruled out, urine culture reporting no growth. Lactic acidosis mild, corrected Chronic hypoxic respiratory failure, wears 2 L nasal cannula O2 at home Diabetes mellitus, hemoglobin A1c 6.9 CAD, prior PCI Moderate to severe mitral regurgitation Mild aortic stenosis Persistent atrial fibrillation anticoagulated on Eliquis Hypertension, history of Hyperlipidemia COPD Former nicotine dependence History of uterine cancer Chronic lower extremity cellulitis Obesity, BMI 27 Plan: Continue on current medication resume ,monitoring and symptomatic treatment. Three episodes of diarrhea, C. difficile ordered. CBC pending .diuretics, Eliquis remain on hold. IV fluids as per nephrology. Antibiotics discontinued, urine culture negative.No previous colonoscopy, general surgery recommending colonoscopy, patient declining. Close monitoring of hemoglobin, renal function, electrolytes with repeat labs ordered for a.m. cardiology and nephrology following. The impression and plan of care has been dictated as directed. : I performed a history and examination of this patient, discussed the same with the dictator. I agree with the dictator's note ,documented as a scribe. Any additional findings or plans will be noted.
[2024-06-03] MEDS: POTASSIUM CHLORIDE ER 20 MEQ TAB.ER PO STA (11:34)
[2024-06-03 11:37] LABS: Glucose,Whole Blood 135 mg/dL (70-110)
--- NOTE | 2024-06-03 11:48 | P.PN ---
Subjective Progress Note Date: 06/03/24 Principal diagnosis: Acute kidney injury, ATN, oliguric 2/2 hypotension and severe anemia Hospital course: Patient is an 84-year-old female with past medical history of CKD stage IIIb - IV(baseline creatinine 1.4-1.5), atrial fibrillation, uterine cancer, COPD with home oxygen 2 L, diabetes mellitus, [place] presented to the ED for low blood pressure upon advice from her storage architect. She mentions not feeling well for the past week. She mentions following up with Dr. Field regularly for CKD stage IV. Patient seen today in renal consultation for NERISSA. Her BUN is 112, creatinine 2.71, GFR 15. UA is cloudy, large leukocyte esterase, 16 WBC and 24 hyaline cast. She mentions having dysuria, lower abdominal pain, chills and lower back pain. Denies fever, nausea, vomiting, chest pain, hematuria, black tarry stools, bright red blood per rectum. She denies using NSAIDs as her storage architect advised her not to take them. No urinary complaints. Bladder scan showed only 18ml of urine. BP on admission was 81/51. Hb 6.3 on admission. Chest x-ray shows moderate right pleural effusion and cardiomegaly. CTAP shows no clear evidence of acute obstructive or inflammatory process, trace free pelvic fluid, colonic diverticula, cardiomegaly with moderate right pleural effusion. Stool occult blood is positive. 06/03/24 Patient seen today.She has had of diarrhea four episodes today.Also complains of dysuria. She notes an improvement in back pain. Denies nausea, vomiting and abdominal pain. Labs show sodium 133, potassium 3.3, BUN 105, creatinine 2.75, GFR 15. Urine culture and blood culture not show any growth. 24 Hr urine output is 1050 ml. Objective - Vital Signs Vital signs: Vital Signs Temp 98.6 F 06/02/24 23:27 Pulse 64 06/03/24 04:00 Resp 16 06/03/24 04:00 BP 98/64 06/03/24 04:00 Pulse Ox 99 06/03/24 04:00 FiO2 Intake & Output 06/02/24 06/03/24 06/03/24 18:59 06:59 18:59 Output Total 350 700 Balance -350 -700 Weight 79.379 kg 80 kg Output: Urine 350 700 Other: Voiding Method External Catheter # Bowel Movements 1 - Exam General: patient in acute distress, appears at stated age, overweight Derm: warm, dry, intact Cardiovascular: S1 S2 reg, no murmur Lungs: Diminished sounds Abdominal: lower abdomen tender to palpation, soft Extremities: trace edema - Labs CBC & Chem 7: 06/03/24 06:23 06/03/24 06:23 Labs: Abnormal Lab Results - Last 24 Hours (Table) 06/02/24 06/02/24 06/02/24 Range/Units 12:05 12:33 17:20 Sodium (137-145) mmol/L Potassium (3.5-5.1) mmol/L BUN (7-17) mg/dL Creatinine (0.52-1.04) mg/dL Glucose (74-99) mg/dL POC Glucose (mg/dL) 116 H 143 H (70-110) mg/dL Calcium (8.4-10.2) mg/dL Iron 29 L (50-170) UG/DL % Saturation 6.32 L (12.00-45.00) 06/03/24 06/03/24 06/03/24 Range/Units 05:57 06:12 06:23 Sodium 133 L (137-145) mmol/L Potassium 3.3 L (3.5-5.1) mmol/L BUN 105 H* (7-17) mg/dL Creatinine 2.75 H (0.52-1.04) mg/dL Glucose 72 L (74-99) mg/dL POC Glucose (mg/dL) 56 L 69 L (70-110) mg/dL Calcium 8.2 L (8.4-10.2) mg/dL Iron (50-170) UG/DL % Saturation (12.00-45.00) Microbiology - Last 24 Hours (Table) 06/01/24 13:29 Urine Culture - Final Urine,Voided 06/01/24 13:39 Blood Culture - Preliminary Blood Assessment and Plan Assessment: 1. Acute kidney injury, ATN, oliguric 2/2 hypotension and severe anemia. UA shows no blood or protein, hyaline cast 24, WBC 16. No obstruction on CT abdomen. BUN disproportionately elevated from GI bleed. 2. Pyuria. Urine culture shows no growth. 3. Hypotension from anemia and volume depletion. R/o underlying infection. 4. Hypovolemic Hyponatremia, improved with saline administration. 5. Moderate right pleural effusion 6. CAD with history of [place] and coronary stents, H/o diastolic CHF. proBNP 89517 7. Microcytic Anemia with history of severe iron deficiency. S/p PRBC transfusion during this admission and on previous admission with iron infusion in April. H/o anemia of chronic disease. Stool occult blood positive. Iron saturation 6.32%. 8. Hypokalemia secondary to GI fluid loss. Plan: Continue 0.9 normal saline 70ml/hr Accurate I/Os Repeat labs in am Avoid nephrotoxic agents Maintain on aranesp Potassium replacement 40meq. Patient is seen and examined. Agree with resident's findings, assessment and plan
[2024-06-03 12:45] LABS: Anisocytosis Slight; HCT 27.3 % (34.0-46.0); HGB 8.1 gm/dL (11.4-16.0); Hypochromasia Marked; MCH 23.8 pg (25.0-35.0); MCHC 29.7 g/dL (31.0-37.0); Mean Platelet Volume 8.2; Microcytosis Slight; Platelet Count 463 k/uL (150-450); Poikilocytosis Marked; RBC 3.41 m/uL (3.80-5.40); RDW 19.2 % (11.5-15.5)
--- NOTE | 2024-06-03 12:45 | P.PN ---
Subjective Progress Note Date: 06/03/24 CHIEF COMPLAINT: Anemia HISTORY OF PRESENT ILLNESS: Patient had 3 episodes of diarrhea this morning. No blood reported in the stools per nursing staff. Patient denies any abdominal pain. CBC for today pending. Hemoglobin yesterday was 7.8 after 1 unit of blood. Creatinine 2.75 potassium 3.3 and being replaced. Iron low at 29. Patient seen by cardiology and felt not to be in CHF exacerbation. PHYSICAL EXAM: VITAL SIGNS: Reviewed. GENERAL: Well-developed in no acute distress. ABDOMEN: Soft. Nondistended. Nontender. NEUROLOGIC: Alert and oriented. Cranial nerves II through XII grossly intact. ASSESSMENT: 1. Anemia with no active bleeding. Stool for occult blood positive. 2. History of iron deficiency anemia and anemia of chronic kidney disease 3. Hypotension PLAN: -Patient has refused colonoscopy at this time -If hemoglobin remains stable no need for endoscopy -Continue to monitor hemoglobin -Continue to monitor for any signs or symptoms of bleeding Physician Slot Editor note has been reviewed by physician. Signing provider agrees with the documented findings, assessment, and plan of care. Objective - Vital Signs Vital signs: Vital Signs Temp 97.4 F L 06/03/24 08:00 Pulse 65 06/03/24 11:51 Resp 18 06/03/24 11:51 BP 95/55 06/03/24 11:51 Pulse Ox 99 06/03/24 11:51 FiO2 Intake & Output 06/02/24 06/03/24 06/03/24 18:59 06:59 18:59 Intake Total 118 Output Total 350 700 Balance -350 -700 118 Weight 79.379 kg 80 kg 80 kg Intake: Oral 118 Output: Urine 350 700 Other: Voiding Method External Catheter External Catheter # Bowel Movements 1 - Labs CBC & Chem 7: 06/03/24 06:23 06/03/24 06:23 Labs: Abnormal Lab Results - Last 24 Hours (Table) 06/02/24 06/02/24 06/03/24 Range/Units 12:33 17:20 05:57 Sodium (137-145) mmol/L Potassium (3.5-5.1) mmol/L BUN (7-17) mg/dL Creatinine (0.52-1.04) mg/dL Glucose (74-99) mg/dL POC Glucose (mg/dL) 143 H 56 L (70-110) mg/dL Hemoglobin A1c (<=6.0) % Calcium (8.4-10.2) mg/dL Iron 29 L (50-170) UG/DL % Saturation 6.32 L (12.00-45.00) 06/03/24 06/03/24 06/03/24 Range/Units 06:12 06:23 06:23 Sodium 133 L (137-145) mmol/L Potassium 3.3 L (3.5-5.1) mmol/L BUN 105 H* (7-17) mg/dL Creatinine 2.75 H (0.52-1.04) mg/dL Glucose 72 L (74-99) mg/dL POC Glucose (mg/dL) 69 L (70-110) mg/dL Hemoglobin A1c 6.9 H (<=6.0) % Calcium 8.2 L (8.4-10.2) mg/dL Iron (50-170) UG/DL % Saturation (12.00-45.00) 06/03/24 Range/Units 11:36 Sodium (137-145) mmol/L Potassium (3.5-5.1) mmol/L BUN (7-17) mg/dL Creatinine (0.52-1.04) mg/dL Glucose (74-99) mg/dL POC Glucose (mg/dL) 135 H (70-110) mg/dL Hemoglobin A1c (<=6.0) % Calcium (8.4-10.2) mg/dL Iron (50-170) UG/DL % Saturation (12.00-45.00) Microbiology - Last 24 Hours (Table) 06/01/24 13:29 Urine Culture - Final Urine,Voided 06/01/24 13:39 Blood Culture - Preliminary Blood Assessment and Plan Assessment: 84 yo female w/ no active bleeding -diarrhea as of today -currently testing for c.dif -colonoscopy at some point to rule out malignancy Time with Patient: Less than 30
[2024-06-03 16:42] LABS: Glucose,Whole Blood 201 mg/dL (70-110)
[2024-06-03 17:25] LABS: Glucose,Whole Blood 256 mg/dL (70-110)
[2024-06-03] MEDS: ZINC OXIDE PASTE (Z-GUARD) 1 APPLIC TOPICAL PRN (20:54)
[2024-06-03] MEDS: IPRATROPIUM-ALBUTEROL 3 ML NEB INHALATION PRN (21:21)
[2024-06-04 00:07] LABS: Glucose,Whole Blood 108 mg/dL (70-110)
[2024-06-04 06:21] LABS: Glucose,Whole Blood 95 mg/dL (70-110)
[2024-06-04 07:27] LABS: Anisocytosis Slight; Basophils % (A) 0 %; Eosinophils # (A) 0.1 k/uL (0-0.7); Eosinophils % (A) 1 %; HCT 28.7 % (34.0-46.0); HGB 8.3 gm/dL (11.4-16.0); Hypochromasia Marked; Lymphocytes # (A) 1.7 k/uL (1.0-4.8); Lymphocytes % (A) 17 %; MCH 23.1 pg (25.0-35.0); MCV 79.7 fL (80.0-100.0); Mean Platelet Volume 7.2; Microcytosis Slight; Monocytes # (A) 0.5 k/uL (0-1.0); Monocytes % (A) 5 %; Neutrophils # (A) 7.8 k/uL (1.3-7.7); Neutrophils % (A) 77 %; Platelet Count 401 k/uL (150-450); Poikilocytosis Marked; RDW 19.7 % (11.5-15.5); WBC 10.2 k/uL (3.8-10.6)
[2024-06-04 07:41] LABS: African American GFR (CKD) 20 (>60 ml/min/1.73 sqM); Anion Gap 8 mmol/L; Blood Urea Nitrogen 93 mg/dL (7-17); Calcium 8.2 mg/dL (8.4-10.2); Carbon Dioxide 24 mmol/L (22-30); Chloride 102 mmol/L (98-107); Glucose 80 mg/dL (74-99); Non-African American GFR(CKD) 17 (>60 ml/min/1.73 sqM); Sodium 134 mmol/L (137-145)
[2024-06-04] MEDS: ASPIRIN 81 MG PO SCH (07:46)
[2024-06-04 07:49] LABS: Potassium 4.5 mmol/L (3.5-5.1)
--- NOTE | 2024-06-04 08:53 | P.PN ---
Subjective Progress Note Date: 06/04/24 Principal diagnosis: Acute kidney injury, ATN, oliguric 2/2 hypotension and severe anemia Hospital course: Patient is an 84-year-old female with past medical history of CKD stage IIIb - IV(baseline creatinine 1.4-1.5), atrial fibrillation, uterine cancer, COPD with home oxygen 2 L, diabetes mellitus, [place] presented to the ED for low blood pressure upon advice from her medical social consultant. She mentions not feeling well for the past week. She mentions following up with Dr. Field regularly for CKD stage IV. Patient seen today in renal consultation for NERISSA. Her BUN is 112, creatinine 2.71, GFR 15. UA is cloudy, large leukocyte esterase, 16 WBC and 24 hyaline cast. She mentions having dysuria, lower abdominal pain, chills and lower back pain. Denies fever, nausea, vomiting, chest pain, hematuria, black tarry stools, bright red blood per rectum. She denies using NSAIDs as her medical social consultant advised her not to take them. No urinary complaints. Bladder scan showed only 18ml of urine. BP on admission was 81/51. Hb 6.3 on admission. Chest x-ray shows moderate right pleural effusion and cardiomegaly. CTAP shows no clear evidence of acute obstructive or inflammatory process, trace free pelvic fluid, colonic diverticula, cardiomegaly with moderate right pleural effusion. Stool occult blood is positive. 06/03/24 Patient seen today.She has had of diarrhea four episodes today.Also complains of dysuria. She notes an improvement in back pain. Denies nausea, vomiting and abdominal pain. Labs show sodium 133, potassium 3.3, BUN 105, creatinine 2.75, GFR 15. Urine culture and blood culture not show any growth. 24 Hr urine output is 1050 ml. 06/04/24 Patient evaluated today. Complains of dysuria. Denies abdomninal pain, chest pain, shortness of breath. Her C. difficile EIA is negative. Labs today show Hb 8.3, Na 134, BUN 93, creatinine 2.45. 24hr Urine output 1850 ml. Objective - Vital Signs Vital signs: Vital Signs Temp 97.4 F L 06/04/24 07:31 Pulse 71 06/04/24 07:31 Resp 20 06/04/24 07:31 BP 126/66 06/04/24 07:31 Pulse Ox 100 06/04/24 07:31 FiO2 Intake & Output 06/03/24 06/04/24 06/04/24 18:59 06:59 18:59 Intake Total 592 Output Total 400 350 Balance 192 -350 Weight 80 kg 83 kg Intake: Oral 592 Output: Urine 400 350 Other: Voiding Method External Catheter External Catheter External Catheter # Bowel Movements 3 - Exam General: patient in acute distress, appears at stated age, overweight Derm: warm, dry, intact Cardiovascular: S1 S2 reg, no murmur Lungs: Currently on 2L O2 via NC, Diminished sounds Abdominal: non tender to palpation, soft Extremities: trace edema - Labs CBC & Chem 7: 06/04/24 06:38 06/04/24 06:38 Labs: Abnormal Lab Results - Last 24 Hours (Table) 06/03/24 06/03/24 06/03/24 Range/Units 06:23 06:23 11:36 RBC 3.41 L (3.80-5.40) m/uL Hgb 8.1 L (11.4-16.0) gm/dL Hct 27.3 L (34.0-46.0) % MCV (80.0-100.0) fL MCH 23.8 L (25.0-35.0) pg MCHC 29.7 L (31.0-37.0) g/dL RDW 19.2 H (11.5-15.5) % Plt Count 463 H (150-450) k/uL Neutrophils # (1.3-7.7) k/uL Sodium (137-145) mmol/L BUN (7-17) mg/dL Creatinine (0.52-1.04) mg/dL POC Glucose (mg/dL) 135 H (70-110) mg/dL Hemoglobin A1c 6.9 H (<=6.0) % Calcium (8.4-10.2) mg/dL 06/03/24 06/03/24 06/04/24 Range/Units 16:40 17:24 06:38 RBC 3.60 L (3.80-5.40) m/uL Hgb 8.3 L (11.4-16.0) gm/dL Hct 28.7 L (34.0-46.0) % MCV 79.7 L (80.0-100.0) fL MCH 23.1 L (25.0-35.0) pg MCHC 29.0 L (31.0-37.0) g/dL RDW 19.7 H (11.5-15.5) % Plt Count (150-450) k/uL Neutrophils # 7.8 H (1.3-7.7) k/uL Sodium (137-145) mmol/L BUN (7-17) mg/dL Creatinine (0.52-1.04) mg/dL POC Glucose (mg/dL) 201 H 256 H (70-110) mg/dL Hemoglobin A1c (<=6.0) % Calcium (8.4-10.2) mg/dL 06/04/24 Range/Units 06:38 RBC (3.80-5.40) m/uL Hgb (11.4-16.0) gm/dL Hct (34.0-46.0) % MCV (80.0-100.0) fL MCH (25.0-35.0) pg MCHC (31.0-37.0) g/dL RDW (11.5-15.5) % Plt Count (150-450) k/uL Neutrophils # (1.3-7.7) k/uL Sodium 134 L (137-145) mmol/L BUN 93 H (7-17) mg/dL Creatinine 2.45 H (0.52-1.04) mg/dL POC Glucose (mg/dL) (70-110) mg/dL Hemoglobin A1c (<=6.0) % Calcium 8.2 L (8.4-10.2) mg/dL Microbiology - Last 24 Hours (Table) 06/01/24 13:39 Blood Culture - Preliminary Blood Assessment and Plan Assessment: 1. Acute kidney injury, ATN, oliguric 2/2 hypotension and severe anemia. UA shows no blood or protein, hyaline cast 24, WBC 16. No obstruction on CT abdomen. BUN disproportionately elevated due to GI bleed. 2. Pyuria. Urine culture shows no growth. 3. Hypotension from anemia and volume depletion. Blood culture shows no growth. 4. Hypovolemic hyponatremia, improved with saline administration. 5. Moderate right pleural effusion 6. CAD with history of [place] and coronary stents, H/o diastolic CHF. proBNP [id number]. EF 55-60% 06/02/24. 7. Microcytic Anemia with history of severe iron deficiency. S/p PRBC transfusion during this admission and on previous admission with iron infusion in April. H/o anemia of chronic disease. Stool occult blood positive. Iron saturation 6.32%. 8. Hypokalemia secondary to GI fluid loss. Improved Plan: Decrease 0.9 normal saline to 50 ml/hr Accurate I/Os Repeat labs in am Avoid nephrotoxic agents Maintain on aranesp Agree with resident's findings, assessment and plan
[2024-06-04 12:10] LABS: Glucose,Whole Blood 151 mg/dL (70-110)
--- NOTE | 2024-06-04 12:14 | P.PN ---
Subjective HISTORY OF PRESENT ILLNESS: This is a 84-year-old female with a past medical history significant for atrial fibrillation, coronary artery disease, hypertension, hyperlipidemia, and diabetes. Patient follows in the office with Dr. Walker. We have been asked to see the patient in consultation for CHF/pleural effusion. Patient examined at the bedside. Patient states she was at a routine nephrology appointment when she was found to be hypotensive and was directed to come to the emergency room. Patient's blood pressure was 80s over 50s upon arrival to the emergency room. Patient was found to be anemic with a hemoglobin of 6.3. She was also found to have worsening kidney function with a creatinine of 2.64. Patient's Eliquis has been placed on hold. General surgery has been consulted to evaluate patient. Patient's diuretics also remain on hold. Creatinine today is 2.75. Patient currently denies any chest pain or pressure. She denies any shortness of breath. DIAGNOSTICS: - EKG reveals atrial fibrillation with no signs of acute ischemia - Chest xray moderate right pleural effusion. Cardiomegaly. - Laboratory data: WBC 11.5. Hemoglobin 7.8. Platelet count 433. Sodium 133. Potassium 3.3. BUN 105. Creatinine 2.75. proBNP 11,300. - Current home cardiac medications include amiodarone 200 mg daily, Bumex 1 mg twice a day, Eliquis 2.5 mg twice a day, Plavix 75 mg daily, metoprolol tartrate 50 mg twice a day, Pravachol 80 mg at night - Echocardiogram obtained this admission reveals ejection fraction 55 to 60%, mild pulmonary hypertension, mild mitral stenosis, moderate mitral regurgitation, mild aortic stenosis, moderate to severe tricuspid regurgitation and no pericardial effusion. - Cardiac catheterization history: December 2022 revealing left dominant system. Diffusely diseased nondominant RCA small distribution, left main without significant stenosis, circumflex has diffuse disease, PDA of circumflex has distal subtotal 95% lesion. LAD has mid lesion 90 to 95% stenosis, proximal lesion 60%. Patient underwent stenting of the proximal and mid LAD. 06/04/2024 Patient examined this morning. She is sitting up in the chair. Patient currently denies chest pain or pressure. She denies shortness of breath. She continues to be on IV fluids. Creatinine improved to 2.45. Patient's Eliquis remains on hold. Hemoglobin today 8.3. Telemetry reveals atrial fibrillation with controlled ventricular rate. PHYSICAL EXAM: VITAL SIGNS: Reviewed. GENERAL: Well-developed in no acute distress. HEENT: Head is normocephalic. Pupils are equal, round. Sclerae anicteric. Mucous membranes of the mouth are moist. Neck supple. No JVD or thyromegaly LUNGS: Respirations even and unlabored. Lungs essentially clear to auscultation bilaterally, diminished. HEART: Irregular rate and rhythm. S1 and S2 heard. Systolic murmur noted. ABDOMEN: Soft. Nondistended. Nontender. EXTREMITIES: Normal range of motion. No clubbing or cyanosis. Peripheral pulses intact. No lower extremity edema NEUROLOGIC: Awake and alert. Oriented x 3. ASSESSMENT: Hypotension secondary to intravascular volume depletion Acute on chronic anemia, status post RBC transfusion Acute on chronic kidney disease Moderate right pleural effusion Chronic congestive heart failure with preserved EF, currently not in acute exacerbation Persistent atrial fibrillation Coronary artery disease with previous stenting of the proximal and mid LAD, 01/05 23 Mild pulmonary hypertension Chronic hypoxic respiratory failure on home oxygen Valvular heart disease including mild MS, moderate MR, mild , moderate to severe TR Hypertension Hyperlipidemia Diabetes PLAN: 2D echo obtained and reviewed Continue to hold Eliquis due to anemia. General surgery following. Possible plans for endoscopy. Await further input. Plavix does not need to be resumed from a cardiac standpoint as patient stenting was greater than 1 year ago. Aspirin 81 mg added. Continue to hold diuretics and nephrotoxic agents Continue to monitor kidney function. Nephrology following. Recommend cautious IV fluid hydration due to history of congestive heart failure Further recommendations pending patient course Nurse practitioner note has been reviewed by physician. Signing provider agrees with the documented findings, assessment, and plan of care documented by SEMI DRIVER as a scribe. Objective - Vital Signs Vital signs: Vital Signs Temp 97.3 F L 06/04/24 11:01 Pulse 67 06/04/24 11:01 Resp 18 06/04/24 11:01 BP 102/61 06/04/24 11:01 Pulse Ox 97 06/04/24 11:01 FiO2 Intake & Output 06/03/24 06/04/24 06/04/24 18:59 06:59 18:59 Intake Total 592 Output Total 400 350 Balance 192 -350 Weight 80 kg 83 kg Intake: Oral 592 Output: Urine 400 350 Other: Voiding Method External Catheter External Catheter External Catheter # Bowel Movements 3 - Labs CBC & Chem 7: 06/04/24 06:38 06/04/24 06:38 Labs: Abnormal Lab Results - Last 24 Hours (Table) 06/03/24 06/03/24 06/03/24 Range/Units 06:23 16:40 17:24 RBC 3.41 L (3.80-5.40) m/uL Hgb 8.1 L (11.4-16.0) gm/dL Hct 27.3 L (34.0-46.0) % MCV (80.0-100.0) fL MCH 23.8 L (25.0-35.0) pg MCHC 29.7 L (31.0-37.0) g/dL RDW 19.2 H (11.5-15.5) % Plt Count 463 H (150-450) k/uL Neutrophils # (1.3-7.7) k/uL Sodium (137-145) mmol/L BUN (7-17) mg/dL Creatinine (0.52-1.04) mg/dL POC Glucose (mg/dL) 201 H 256 H (70-110) mg/dL Calcium (8.4-10.2) mg/dL 06/04/24 06/04/24 Range/Units 06:38 06:38 RBC 3.60 L (3.80-5.40) m/uL Hgb 8.3 L (11.4-16.0) gm/dL Hct 28.7 L (34.0-46.0) % MCV 79.7 L (80.0-100.0) fL MCH 23.1 L (25.0-35.0) pg MCHC 29.0 L (31.0-37.0) g/dL RDW 19.7 H (11.5-15.5) % Plt Count (150-450) k/uL Neutrophils # 7.8 H (1.3-7.7) k/uL Sodium 134 L (137-145) mmol/L BUN 93 H (7-17) mg/dL Creatinine 2.45 H (0.52-1.04) mg/dL POC Glucose (mg/dL) (70-110) mg/dL Calcium 8.2 L (8.4-10.2) mg/dL Microbiology - Last 24 Hours (Table) 06/01/24 13:39 Blood Culture - Preliminary Blood
--- NOTE | 2024-06-04 16:17 | P.PN ---
Progress Note - Text Progress Note Date: 06/04/24 CHIEF COMPLAINT: Anemia HISTORY OF PRESENT ILLNESS: NAEO. No episodes of bloody bowel movements. Hgb has remained stable. PHYSICAL EXAM: VITAL SIGNS: Reviewed. GENERAL: Well-developed in no acute distress. ABDOMEN: Soft. Nondistended. Nontender. NEUROLOGIC: Alert and oriented. Cranial nerves II through XII grossly intact. ASSESSMENT: 1. Anemia with no active bleeding. Stool for occult blood positive. 2. History of iron deficiency anemia and anemia of chronic kidney disease 3. Hypotension PLAN: -Patient refused colonoscopy yesterday. Hgb is stable. Patient can have Regular Diet and have outpatient colonoscopy. Follow up information in chart. -Continue to monitor hemoglobin -Continue to monitor for any signs or symptoms of bleeding Axel Tucker DO [facility] [phone]
--- NOTE | 2024-06-04 16:55 | P.PN ---
Subjective Progress Note Date: 06/04/24 H&P Date: 06/02/24 This is an 84-year-old female with past medical history significant for atrial fibrillation on Eliquis, mild aortic stenosis, moderate to severe mitral regurgitation , uterine cancer, anemia, hypertension, hyperlipidemia, ID, chronic kidney disease stage III,prior nicotine dependence, COPD, chronic hypoxic respiratory failure wears 2 L nasal cannula at home, diabetes mellitus, obesity and multiple other medical issues, presented to the ER as advised by her director critical care, Dr. Crespo for low blood pressure and not feeling well over the last week. Reports some nausea, abdominal bloating, diarrhea x 2 day,mild lower extremity edema, exertional shortness of breath. EKG reported atrial fibrillation, chest x-ray reported moderate right blunting of the costophrenic angles/ moderate right pleural effusion.CT of abdomen pelvis reported no clear evidence of acute obstructive or inflammatory process in the abdomen or pelvis, trace free pelvic fluid, colonic diverticula, cannot exclude mild colitis, cardiomegaly with moderate right pleural effusion, correlate for CHF. Afebrile, WBC 11.5. Hemoglobin on admission 6.3, received 1 unit of packed RBCs currently 7.8. Positive stool for occult blood. platelets 433, sodium 132, potassium 3.6, bicarb 27, BUN 112, creatinine 2.71. Blood sugars controlled. Lactic acid 2.1, 1.9. Minimally elevated LFTs/T. bili within normal limits. 06/03/2024 3-4 nonbloody episodes of diarrhea reported this morning, C. difficile culture ordered. Urine culture reported no growth after 18 hours, afebrile, antibiotics discontinued. echo reported EF 55 to 60%, severe biatrial enlargement, RV SP 43, moderate mitral regurgitation, moderate to severe tricuspid regurgitation, mild aortic stenosis. BNP 11,300. Creatinine 2.75, BUN 105, bicarb 25. Potassium 3.3, receiving supplementation. Blood Sugars controlled, hemoglobin A1c 6.9. 06/04/2024 no further bowel movements since last night/nonbloody. C difficile negative. Hemoglobin 8.3. Telemetry atrial fibrillation, controlled ventricular rate. Eliquis on hold for potential endoscopy. evaluated by PT recommending subacute rehab. Maintain on IV fluid hydration as per nephrology, bicarb 24, renal function slowly improving, BUN 93, creatinine 2.45. Sodium 134. Objective - Vital Signs Vital signs: Vital Signs Temp 97.3 F L 06/04/24 11:01 Pulse 79 06/04/24 15:14 Resp 18 06/04/24 15:14 BP 116/67 06/04/24 15:14 Pulse Ox 100 06/04/24 15:14 FiO2 Intake & Output 06/03/24 06/04/24 06/04/24 18:59 06:59 18:59 Intake Total 592 Output Total 400 350 500 Balance 192 -350 -500 Weight 80 kg 83 kg Intake: Oral 592 Output: Urine 400 350 500 Other: Voiding Method External Catheter External Catheter External Catheter # Bowel Movements 3 - Exam GENERAL: alert and oriented x 3, sitting up in chair, no acute distress. HEENT: Head is atraumatic, normocephalic. Pupils are equal, round, and reactive to light. Sclerae anicteric. Conjunctivae are clear. MMM. RESPIRATORY: Unlabored, equal air entry, clear to auscultation. CARDIOVASCULAR: heart irregular irregularity, systolic murmur GASTROINTESTINAL: Soft, nondistended, nontender, positive bowel sounds SKIN: Warm and dry. EXTREMITIES: 2+ peripheral pulses. Mild peripheral edema. No calf tenderness noted. NEUROLOGIC: Cranial nerves II-XII intact. No focal deficits. - Labs CBC & Chem 7: 06/04/24 06:38 06/04/24 06:38 Labs: Abnormal Lab Results - Last 24 Hours (Table) 06/03/24 06/03/24 06/04/24 Range/Units 16:40 17:24 06:38 RBC 3.60 L (3.80-5.40) m/uL Hgb 8.3 L (11.4-16.0) gm/dL Hct 28.7 L (34.0-46.0) % MCV 79.7 L (80.0-100.0) fL MCH 23.1 L (25.0-35.0) pg MCHC 29.0 L (31.0-37.0) g/dL RDW 19.7 H (11.5-15.5) % Neutrophils # 7.8 H (1.3-7.7) k/uL Sodium (137-145) mmol/L BUN (7-17) mg/dL Creatinine (0.52-1.04) mg/dL POC Glucose (mg/dL) 201 H 256 H (70-110) mg/dL Calcium (8.4-10.2) mg/dL 06/04/24 06/04/24 Range/Units 06:38 12:04 RBC (3.80-5.40) m/uL Hgb (11.4-16.0) gm/dL Hct (34.0-46.0) % MCV (80.0-100.0) fL MCH (25.0-35.0) pg MCHC (31.0-37.0) g/dL RDW (11.5-15.5) % Neutrophils # (1.3-7.7) k/uL Sodium 134 L (137-145) mmol/L BUN 93 H (7-17) mg/dL Creatinine 2.45 H (0.52-1.04) mg/dL POC Glucose (mg/dL) 151 H (70-110) mg/dL Calcium 8.2 L (8.4-10.2) mg/dL Microbiology - Last 24 Hours (Table) 06/01/24 13:39 Blood Culture - Preliminary Blood Assessment and Plan Assessment: Acute on chronic kidney disease stage IIIB, cardiorenal, baseline creatinine 1.4-1.5 Acute GI bleed, acute blood loss anemia, stool for occult blood positive, status post 1 unit packed RBCs Hypotension on admission, secondary to all the above, including hypovolemia, improving Hyponatremia, improving Chronic CHF, diastolic dysfunction.Echo reporting EF 55 to 60%. Mild , Moderate to severe tricuspid regurgitation Moderate mitral regurgitation Pulmonary hypertension, RVSP 43 Moderate to large right pleural effusion, Chronic hypoxic respiratory failure, wears 2 L nasal cannula O2 at home Diabetes mellitus, hemoglobin A1c 6.9 CAD, prior PCI Persistent atrial fibrillation Hypertension, history of Hyperlipidemia COPD Former nicotine dependence History of uterine cancer Obesity, BMI 27 Acute UTI, ruled out, urine culture reporting no growth. Lactic acidosis mild, corrected Diarrhea, C-Diff.Colitis ruled out Plan: Continue on current medication resume ,monitoring and symptomatic treatment. Eliquis remain on hold, pending potential endoscopy as per general surgery. IV fluids as per nephrology. Close monitoring of hemoglobin, renal function, electrolytes with repeat labs ordered for a.m. evaluated by PT recommending subacute rehab. Discharge planning in progress for [facility] subacute rehab at discharge. The impression and plan of care has been dictated as directed. : I performed a history and examination of this patient, discussed the same with the dictator. I agree with the dictator's note ,documented as a scribe. Any additional findings or plans will be noted.
[2024-06-04 17:14] LABS: Glucose,Whole Blood 142 mg/dL (70-110)
[2024-06-04 20:20] LABS: Glucose,Whole Blood 238 mg/dL (70-110)
[2024-06-05 05:52] LABS: Glucose,Whole Blood 174 mg/dL (70-110)
[2024-06-05 06:58] LABS: Anisocytosis Slight; HCT 25.7 % (34.0-46.0); HGB 7.8 gm/dL (11.4-16.0); Hypochromasia Marked; MCH 23.9 pg (25.0-35.0); MCHC 30.4 g/dL (31.0-37.0); MCV 78.7 fL (80.0-100.0); Mean Platelet Volume 8.1; Microcytosis Slight; Platelet Count 383 k/uL (150-450); Poikilocytosis Marked; RBC 3.27 m/uL (3.80-5.40); RDW 19.6 % (11.5-15.5); WBC 9.7 k/uL (3.8-10.6)
[2024-06-05 07:18] LABS: African American GFR (CKD) 17 (>60 ml/min/1.73 sqM); Anion Gap 5 mmol/L; Blood Urea Nitrogen 85 mg/dL (7-17); Calcium 8.4 mg/dL (8.4-10.2); Carbon Dioxide 25 mmol/L (22-30); Chloride 106 mmol/L (98-107); Glucose 147 mg/dL (74-99); Non-African American GFR(CKD) 15 (>60 ml/min/1.73 sqM); Potassium 4.4 mmol/L (3.5-5.1); Sodium 136 mmol/L (137-145)
--- NOTE | 2024-06-05 09:24 | P.PN ---
Subjective Progress Note Date: 06/05/24 Principal diagnosis: Acute kidney injury, ATN, oliguric 2/2 hypotension and severe anemia Hospital course: Patient is an 84-year-old female with past medical history of CKD stage IIIb - IV(baseline creatinine 1.4-1.5), atrial fibrillation, uterine cancer, COPD with home oxygen 2 L, diabetes mellitus, AL presented to the ED for low blood pressure upon advice from her technology coach. She mentions not feeling well for the past week. She mentions following up with Dr. Field regularly for CKD stage IV. Patient seen today in renal consultation for NERISSA. Her BUN is 112, creatinine 2.71, GFR 15. UA is cloudy, large leukocyte esterase, 16 WBC and 24 hyaline cast. She mentions having dysuria, lower abdominal pain, chills and lower back pain. Denies fever, nausea, vomiting, chest pain, hematuria, black tarry stools, bright red blood per rectum. She denies using NSAIDs as her technology coach advised her not to take them. No urinary complaints. Bladder scan showed only 18ml of urine. BP on admission was 81/51. Hb 6.3 on admission. Chest x-ray shows moderate right pleural effusion and cardiomegaly. CTAP shows no clear evidence of acute obstructive or inflammatory process, trace free pelvic fluid, colonic diverticula, cardiomegaly with moderate right pleural effusion. Stool occult blood is positive. 06/03/24 Patient seen today.She has had of diarrhea four episodes today.Also complains of dysuria. She notes an improvement in back pain. Denies nausea, vomiting and abdominal pain. Labs show sodium 133, potassium 3.3, BUN 105, creatinine 2.75, GFR 15. Urine culture and blood culture not show any growth. 24 Hr urine output is 1050 ml. 06/04/24 Patient evaluated today. Complains of dysuria. Denies abdomninal pain, chest pain, shortness of breath. Her C. difficile EIA is negative. Labs today show Hb 8.3, Na 134, BUN 93, creatinine 2.45. 24hr Urine output 1050 ml. 05/06/2024 Patient seen sitting in the chair besides her bed today. Reports poor intake as its difficult for her to get up and go to the restroom and she doesn't like using briefs. Denies abdominal pain, dysuria, chest pain, shortness of breath. Labs today show hemoglobin 7.8, sodium 136, BUN 85, creatinine 2.75. 24-hour urine output 750 mL. Objective - Vital Signs Vital signs: Vital Signs Temp 96.8 F L 06/05/24 07:41 Pulse 86 06/05/24 07:41 Resp 17 06/05/24 07:41 BP 125/70 06/05/24 08:15 Pulse Ox 96 06/05/24 07:41 FiO2 Intake & Output 06/04/24 06/05/24 06/05/24 18:59 06:59 18:59 Intake Total 600 Output Total 500 Balance 100 Weight 81.2 kg Intake: Oral 600 Output: Urine 500 Other: Voiding Method External Catheter External Catheter Bedside Commode External Catheter # Voids 5 # Bowel Movements 1 1 # Emeses 1 - Exam General: patient in acute distress, appears at stated age, overweight Derm: warm, dry, intact Cardiovascular: S1 S2 reg, no murmur Lungs: Currently on 2L O2 via NC, Diminished sounds Abdominal: non tender to palpation, soft Extremities: pitting edema on b/l LE - Labs CBC & Chem 7: 06/06/24 05:57 06/06/24 05:57 Labs: Abnormal Lab Results - Last 24 Hours (Table) 06/04/24 06/04/24 06/04/24 Range/Units 12:04 17:10 20:09 RBC (3.80-5.40) m/uL Hgb (11.4-16.0) gm/dL Hct (34.0-46.0) % MCV (80.0-100.0) fL MCH (25.0-35.0) pg MCHC (31.0-37.0) g/dL RDW (11.5-15.5) % Sodium (137-145) mmol/L BUN (7-17) mg/dL Creatinine (0.52-1.04) mg/dL Glucose (74-99) mg/dL POC Glucose (mg/dL) 151 H 142 H 238 H (70-110) mg/dL 06/05/24 06/05/24 06/05/24 Range/Units 05:48 06:04 06:04 RBC 3.27 L (3.80-5.40) m/uL Hgb 7.8 L (11.4-16.0) gm/dL Hct 25.7 L (34.0-46.0) % MCV 78.7 L (80.0-100.0) fL MCH 23.9 L (25.0-35.0) pg MCHC 30.4 L (31.0-37.0) g/dL RDW 19.6 H (11.5-15.5) % Sodium 136 L (137-145) mmol/L BUN 85 H (7-17) mg/dL Creatinine 2.75 H (0.52-1.04) mg/dL Glucose 147 H (74-99) mg/dL POC Glucose (mg/dL) 174 H (70-110) mg/dL Microbiology - Last 24 Hours (Table) 06/01/24 13:39 Blood Culture - Preliminary Blood Assessment and Plan Assessment: 1. Acute kidney injury, ATN, oliguric 2/2 hypotension and severe anemia. UA shows no blood or protein, hyaline cast 24, WBC 16. No obstruction on CT abdomen. BUN disproportionately elevated due to GI bleed. 2. Pyuria. Urine culture shows no growth. 3. Hypotension from anemia and volume depletion. Blood culture shows no growth. 4. Hypovolemic hyponatremia, improved with saline administration. 5. Moderate right pleural effusion 6. CAD with history of AL and coronary stents, H/o diastolic CHF. proBNP 94026. EF 55-60% 06/02/24. 7. Microcytic Anemia with history of severe iron deficiency. S/p PRBC transfusion during this admission and on previous admission with iron infusion in April. H/o anemia of chronic disease. Stool occult blood positive. Iron saturation 6.32%. 8. Hypokalemia secondary to GI fluid loss. Improved Plan: Discontinue normal saline Accurate I/Os Repeat labs in am Avoid nephrotoxic agents Maintain on aranesp
[2024-06-05 11:56] LABS: Glucose,Whole Blood 196 mg/dL (70-110)
--- NOTE | 2024-06-05 12:22 | P.PN ---
Subjective HISTORY OF PRESENT ILLNESS: This is a 84-year-old female with a past medical history significant for atrial fibrillation, coronary artery disease, hypertension, hyperlipidemia, and diabetes. Patient follows in the office with Dr. Walker. We have been asked to see the patient in consultation for CHF/pleural effusion. Patient examined at the bedside. Patient states she was at a routine nephrology appointment when she was found to be hypotensive and was directed to come to the emergency room. Patient's blood pressure was 80s over 50s upon arrival to the emergency room. Patient was found to be anemic with a hemoglobin of 6.3. She was also found to have worsening kidney function with a creatinine of 2.64. Patient's Eliquis has been placed on hold. General surgery has been consulted to evaluate patient. Patient's diuretics also remain on hold. Creatinine today is 2.75. Patient currently denies any chest pain or pressure. She denies any shortness of breath. DIAGNOSTICS: - EKG reveals atrial fibrillation with no signs of acute ischemia - Chest xray moderate right pleural effusion. Cardiomegaly. - Laboratory data: WBC 11.5. Hemoglobin 7.8. Platelet count 433. Sodium 133. Potassium 3.3. BUN 105. Creatinine 2.75. proBNP 11,300. - Current home cardiac medications include amiodarone 200 mg daily, Bumex 1 mg twice a day, Eliquis 2.5 mg twice a day, Plavix 75 mg daily, metoprolol tartrate 50 mg twice a day, Pravachol 80 mg at night - Echocardiogram obtained this admission reveals ejection fraction 55 to 60%, mild pulmonary hypertension, mild mitral stenosis, moderate mitral regurgitation, mild aortic stenosis, moderate to severe tricuspid regurgitation and no pericardial effusion. - Cardiac catheterization history: December 2022 revealing left dominant system. Diffusely diseased nondominant RCA small distribution, left main without significant stenosis, circumflex has diffuse disease, PDA of circumflex has distal subtotal 95% lesion. LAD has mid lesion 90 to 95% stenosis, proximal lesion 60%. Patient underwent stenting of the proximal and mid LAD. 06/04/2024 Patient examined this morning. She is sitting up in the chair. Patient currently denies chest pain or pressure. She denies shortness of breath. She continues to be on IV fluids. Creatinine improved to 2.45. Patient's Eliquis remains on hold. Hemoglobin today 8.3. Telemetry reveals atrial fibrillation with controlled ventricular rate. 06/05/2024 Patient examined this morning bedside. Patient currently denies chest pain or pressure. She denies shortness of breath. She remains on IV fluids at 50 cc an hour. Creatinine 2.75 today. Patient's Eliquis remains on hold. Hemoglobin 7.8. PHYSICAL EXAM: VITAL SIGNS: Reviewed. GENERAL: Well-developed in no acute distress. HEENT: Head is normocephalic. Pupils are equal, round. Sclerae anicteric. Mucous membranes of the mouth are moist. Neck supple. No JVD or thyromegaly LUNGS: Respirations even and unlabored. Lungs essentially clear to auscultation bilaterally, diminished. HEART: Irregular rate and rhythm. S1 and S2 heard. Systolic murmur noted. ABDOMEN: Soft. Nondistended. Nontender. EXTREMITIES: Normal range of motion. No clubbing or cyanosis. Peripheral pulses intact. No lower extremity edema NEUROLOGIC: Awake and alert. Oriented x 3. ASSESSMENT: Hypotension secondary to intravascular volume depletion Acute on chronic anemia, status post RBC transfusion Acute on chronic kidney disease Moderate right pleural effusion Chronic congestive heart failure with preserved EF, currently not in acute exacerbation Persistent atrial fibrillation Coronary artery disease with previous stenting of the proximal and mid LAD, 12/2022 Mild pulmonary hypertension Chronic hypoxic respiratory failure on home oxygen Valvular heart disease including mild MS, moderate MR, mild , moderate to severe TR Hypertension Hyperlipidemia Diabetes PLAN: 2D echo obtained and reviewed Continue to hold Eliquis due to anemia. General surgery following. Apparently patient refused colonoscopy. However there is some discussion this morning about possibly scheduling endoscopy. Await further input from general surgery. Plavix does not need to be resumed from a cardiac standpoint as patient stenting was greater than 1 year ago. Aspirin 81 mg added. Continue to hold diuretics and nephrotoxic agents Continue to monitor kidney function. Nephrology following. Recommend cautious IV fluid hydration due to history of congestive heart failure Further recommendations pending patient course Nurse practitioner note has been reviewed by physician. Signing provider agrees with the documented findings, assessment, and plan of care documented by FILTER PRESS SUPERVISOR as a scribe. Objective - Vital Signs Vital signs: Vital Signs Temp 97.6 F 06/05/24 10:55 Pulse 82 06/05/24 10:55 Resp 19 06/05/24 10:55 BP 98/63 06/05/24 10:55 Pulse Ox 96 06/05/24 07:41 FiO2 Intake & Output 06/04/24 06/05/24 06/05/24 18:59 06:59 18:59 Intake Total 600 Output Total 500 Balance 100 Weight 81.2 kg Intake: Oral 600 Output: Urine 500 Other: Voiding Method External Catheter External Catheter Bedside Commode External Catheter # Voids 5 # Bowel Movements 1 1 # Emeses 1 - Labs CBC & Chem 7: 06/05/24 06:04 06/05/24 06:04 Labs: Abnormal Lab Results - Last 24 Hours (Table) 06/04/24 06/04/24 06/05/24 Range/Units 17:10 20:09 05:48 RBC (3.80-5.40) m/uL Hgb (11.4-16.0) gm/dL Hct (34.0-46.0) % MCV (80.0-100.0) fL MCH (25.0-35.0) pg MCHC (31.0-37.0) g/dL RDW (11.5-15.5) % Sodium (137-145) mmol/L BUN (7-17) mg/dL Creatinine (0.52-1.04) mg/dL Glucose (74-99) mg/dL POC Glucose (mg/dL) 142 H 238 H 174 H (70-110) mg/dL 06/05/24 06/05/24 06/05/24 Range/Units 06:04 06:04 11:54 RBC 3.27 L (3.80-5.40) m/uL Hgb 7.8 L (11.4-16.0) gm/dL Hct 25.7 L (34.0-46.0) % MCV 78.7 L (80.0-100.0) fL MCH 23.9 L (25.0-35.0) pg MCHC 30.4 L (31.0-37.0) g/dL RDW 19.6 H (11.5-15.5) % Sodium 136 L (137-145) mmol/L BUN 85 H (7-17) mg/dL Creatinine 2.75 H (0.52-1.04) mg/dL Glucose 147 H (74-99) mg/dL POC Glucose (mg/dL) 196 H (70-110) mg/dL Microbiology - Last 24 Hours (Table) 06/01/24 13:39 Blood Culture - Preliminary Blood
--- NOTE | 2024-06-05 14:17 | P.PN ---
Subjective Progress Note Date: 06/05/24 CHIEF COMPLAINT: Anemia HISTORY OF PRESENT ILLNESS: Patient having bowel movements with no blood. Hemoglobin did trend down from 8.3-7.8. Cardiology service has discontinued the Eliquis due to her anemia. Medicine service is requesting that colonoscopy completed for anemia workup. Patient denies any abdominal pain. Denies any nausea or vomiting. PHYSICAL EXAM: VITAL SIGNS: Reviewed. GENERAL: in no acute distress. ABDOMEN: Soft. Nondistended. Nontender. NEUROLOGIC: Alert and oriented. Cranial nerves II through XII grossly intact. ASSESSMENT: 1. Anemia with no active bleeding. Stool for occult blood positive. 2. History of iron deficiency anemia and anemia of chronic kidney disease PLAN: -Colonoscopy initially scheduled for tomorrow. Patient again refused colonoscopy. Patient reports that she just wants to eat regular food. She refused to clear liquids. -At this time colonoscopy for tomorrow has been canceled. Resume regular diet. Discussed case with medicine nurse practitioner. -Recommend colonoscopy in the outpatient setting -Continue to monitor hemoglobin -Continue to monitor for any signs or symptoms of bleeding Physician Probate Clerk note has been reviewed by physician. Signing provider agrees with the documented findings, assessment, and plan of care. Objective - Vital Signs Vital signs: Vital Signs Temp 97.6 F 06/05/24 10:55 Pulse 82 06/05/24 10:55 Resp 19 06/05/24 10:55 BP 98/63 06/05/24 10:55 Pulse Ox 96 06/05/24 07:41 FiO2 Intake & Output 06/04/24 06/05/24 06/05/24 18:59 06:59 18:59 Intake Total 600 Output Total 500 Balance 100 Weight 81.2 kg Intake: Oral 600 Output: Urine 500 Other: Voiding Method External Catheter External Catheter Bedside Commode External Catheter # Voids 5 # Bowel Movements 1 1 # Emeses 1 - Labs CBC & Chem 7: 06/05/24 06:04 06/05/24 06:04 Labs: Abnormal Lab Results - Last 24 Hours (Table) 06/04/24 06/04/24 06/04/24 Range/Units 12:04 17:10 20:09 RBC (3.80-5.40) m/uL Hgb (11.4-16.0) gm/dL Hct (34.0-46.0) % MCV (80.0-100.0) fL MCH (25.0-35.0) pg MCHC (31.0-37.0) g/dL RDW (11.5-15.5) % Sodium (137-145) mmol/L BUN (7-17) mg/dL Creatinine (0.52-1.04) mg/dL Glucose (74-99) mg/dL POC Glucose (mg/dL) 151 H 142 H 238 H (70-110) mg/dL 06/05/24 06/05/24 06/05/24 Range/Units 05:48 06:04 06:04 RBC 3.27 L (3.80-5.40) m/uL Hgb 7.8 L (11.4-16.0) gm/dL Hct 25.7 L (34.0-46.0) % MCV 78.7 L (80.0-100.0) fL MCH 23.9 L (25.0-35.0) pg MCHC 30.4 L (31.0-37.0) g/dL RDW 19.6 H (11.5-15.5) % Sodium 136 L (137-145) mmol/L BUN 85 H (7-17) mg/dL Creatinine 2.75 H (0.52-1.04) mg/dL Glucose 147 H (74-99) mg/dL POC Glucose (mg/dL) 174 H (70-110) mg/dL 06/05/24 Range/Units 11:54 RBC (3.80-5.40) m/uL Hgb (11.4-16.0) gm/dL Hct (34.0-46.0) % MCV (80.0-100.0) fL MCH (25.0-35.0) pg MCHC (31.0-37.0) g/dL RDW (11.5-15.5) % Sodium (137-145) mmol/L BUN (7-17) mg/dL Creatinine (0.52-1.04) mg/dL Glucose (74-99) mg/dL POC Glucose (mg/dL) 196 H (70-110) mg/dL Microbiology - Last 24 Hours (Table) 06/01/24 13:39 Blood Culture - Preliminary Blood
[2024-06-05] MEDS: PEG 3350 (236 GM/BTL) + LYTES 4,000 ML BOTTLE PO ONE (14:38)
[2024-06-05] MEDS: FUROSEMIDE 10 MG/ML 4 ML VIAL IV STA (15:23)
--- NOTE | 2024-06-05 16:02 | P.PN ---
Subjective Progress Note Date: 06/05/24 H&P Date: 06/02/24 This is an 84-year-old female with past medical history significant for atrial fibrillation on Eliquis, mild aortic stenosis, moderate to severe mitral regurgitation , uterine cancer, anemia, hypertension, hyperlipidemia, [place], chronic kidney disease stage III,prior nicotine dependence, COPD, chronic hypoxic respiratory failure wears 2 L nasal cannula at home, diabetes mellitus, obesity and multiple other medical issues, presented to the ER as advised by her it instructor, Dr. Crespo for low blood pressure and not feeling well over the last week. Reports some nausea, abdominal bloating, diarrhea x 2 day,mild lower extremity edema, exertional shortness of breath. EKG reported atrial fibrillation, chest x-ray reported moderate right blunting of the costophrenic angles/ moderate right pleural effusion.CT of abdomen pelvis reported no clear evidence of acute obstructive or inflammatory process in the abdomen or pelvis, trace free pelvic fluid, colonic diverticula, cannot exclude mild colitis, cardiomegaly with moderate right pleural effusion, correlate for CHF. Afebrile, WBC 11.5. Hemoglobin on admission 6.3, received 1 unit of packed RBCs currently 7.8. Positive stool for occult blood. platelets 433, sodium 132, potassium 3.6, bicarb 27, BUN 112, creatinine 2.71. Blood sugars controlled. Lactic acid 2.1, 1.9. Minimally elevated LFTs/T. bili within normal limits. 06/03/2024 3-4 nonbloody episodes of diarrhea reported this morning, C. difficile culture ordered. Urine culture reported no growth after 18 hours, afebrile, antibiotics discontinued. echo reported EF 55 to 60%, severe biatrial enlargement, RV SP 43, moderate mitral regurgitation, moderate to severe tricuspid regurgitation, mild aortic stenosis. BNP 11,300. Creatinine 2.75, BUN 105, bicarb 25. Potassium 3.3, receiving supplementation. Blood Sugars controlled, hemoglobin A1c 6.9. 06/04/2024 no further bowel movements since last night/nonbloody. C difficile negative. Hemoglobin 8.3. Telemetry atrial fibrillation, controlled ventricular rate. Eliquis on hold for potential endoscopy. evaluated by PT recommending subacute rehab. Maintain on IV fluid hydration as per nephrology, bicarb 24, renal function slowly improving, BUN 93, creatinine 2.45. Sodium 134. 06/05/2024 Cardiology recommending holding anticoagulation until source of anemia is investigated. General surgery had previously offered patient colonoscopy which she had refused, subsequently surgery recommended outpatient endoscopy. This morning hemoglobin has decreased to 7.8, discussed with general surgery regarding possibly rescheduling for colonoscopy, as patient continues off anticoagulation in a patient with persistent atrial fibrillation. Renal function worsening, bicarb 25, BUN 85, creatinine 2.75. Denies nausea vomiting. No further bowel movements today. Denies abdominal pain. Denies chest pain, palpitations or shortness of breath. Painting O2 sats in the high 90s on 2 L nasal cannula. Evaluated by PT,recommended subacute rehab. Objective - Vital Signs Vital signs: Vital Signs Temp 97.6 F 06/05/24 15:34 Pulse 75 06/05/24 15:34 Resp 18 06/05/24 15:34 BP 102/70 06/05/24 15:34 Pulse Ox 96 06/05/24 15:34 FiO2 Intake & Output 06/04/24 06/05/24 06/05/24 18:59 06:59 18:59 Intake Total 600 Output Total 500 Balance 100 Weight 81.2 kg 81.2 kg Intake: Oral 600 Output: Urine 500 Other: Voiding Method External Catheter External Catheter Bedside Commode External Catheter # Voids 5 1 # Bowel Movements 1 1 1 # Emeses 1 - Exam GENERAL: alert and oriented x 3, sitting up in chair, no acute distress. HEENT: Atraumatic, normocephalic. Pupils are equal, round, and reactive to light. Sclerae anicteric. Conjunctivae are clear. MMM. RESPIRATORY: Unlabored, equal air entry, clear to auscultation. CARDIOVASCULAR: heart irregular irregularity, systolic murmur GASTROINTESTINAL: Soft, nondistended, nontender, positive bowel sounds SKIN: Warm and dry. EXTREMITIES: 2+ peripheral pulses. Mild peripheral edema. No calf tenderness noted. NEUROLOGIC: Cranial nerves II-XII intact. No focal deficits. - Labs CBC & Chem 7: 06/05/24 06:04 06/05/24 06:04 Labs: Abnormal Lab Results - Last 24 Hours (Table) 06/04/24 06/04/24 06/05/24 Range/Units 17:10 20:09 05:48 RBC (3.80-5.40) m/uL Hgb (11.4-16.0) gm/dL Hct (34.0-46.0) % MCV (80.0-100.0) fL MCH (25.0-35.0) pg MCHC (31.0-37.0) g/dL RDW (11.5-15.5) % Sodium (137-145) mmol/L BUN (7-17) mg/dL Creatinine (0.52-1.04) mg/dL Glucose (74-99) mg/dL POC Glucose (mg/dL) 142 H 238 H 174 H (70-110) mg/dL 06/05/24 06/05/24 06/05/24 Range/Units 06:04 06:04 11:54 RBC 3.27 L (3.80-5.40) m/uL Hgb 7.8 L (11.4-16.0) gm/dL Hct 25.7 L (34.0-46.0) % MCV 78.7 L (80.0-100.0) fL MCH 23.9 L (25.0-35.0) pg MCHC 30.4 L (31.0-37.0) g/dL RDW 19.6 H (11.5-15.5) % Sodium 136 L (137-145) mmol/L BUN 85 H (7-17) mg/dL Creatinine 2.75 H (0.52-1.04) mg/dL Glucose 147 H (74-99) mg/dL POC Glucose (mg/dL) 196 H (70-110) mg/dL Microbiology - Last 24 Hours (Table) 06/01/24 13:39 Blood Culture - Preliminary Blood Assessment and Plan Assessment: Acute on chronic kidney disease stage IIIB, cardiorenal, baseline creatinine 1.4-1.5, secondary to hypovolemia, anemia, hypotension Acute GI bleed, acute blood loss anemia, stool for occult blood positive, chest post 1 unit packed RBCs Hypotension on admission, secondary to all the above, including hypovolemia Hyponatremia, mild C. difficile colitis ruled out Chronic CHF, diastolic dysfunction.Echo reporting EF 55 to 60%. Mild , Moderate to severe tricuspid regurgitation Moderate mitral regurgitation Pulmonary hypertension, RVSP 43 Moderate to large right pleural effusion, Acute UTI, ruled out, urine culture reporting no growth. Lactic acidosis mild, corrected Chronic hypoxic respiratory failure, wears 2 L nasal cannula O2 at home Diabetes mellitus, hemoglobin A1c 6.9 CAD, prior PCI Moderate to severe mitral regurgitation Mild aortic stenosis Persistent atrial fibrillation anticoagulated on Eliquis Hypertension, history of Hyperlipidemia COPD Former nicotine dependence History of uterine cancer Chronic lower extremity cellulitis Obesity, BMI 27 Plan: Continue on current medication resume ,monitoring and symptomatic treatment. Cardiology recommending no anticoagulation secondary to anemia of unclear etiology. discussed with general surgery reattempting colonoscopy for the anemia workup. Close monitoring of hemoglobin, renal function, electrolytes with repeat labs ordered for a.m. cardiology and nephrology following. Prognosis guarded given multiple complex medical issues. The impression and plan of care has been dictated as directed. : I performed a history and examination of this patient, discussed the same with the dictator. I agree with the dictator's note ,documented as a scribe. Any additional findings or plans will be noted.
[2024-06-05 18:05] LABS: Glucose,Whole Blood 203 mg/dL (70-110)
[2024-06-05 20:07] LABS: Glucose,Whole Blood 213 mg/dL (70-110)
[2024-06-06 00:07] LABS: Glucose,Whole Blood 119 mg/dL (70-110)
[2024-06-06 06:10] LABS: Glucose,Whole Blood 113 mg/dL (70-110)
[2024-06-06 06:54] LABS: African American GFR (CKD) 23 (>60 ml/min/1.73 sqM); Anion Gap 6 mmol/L; Blood Urea Nitrogen 78 mg/dL (7-17); Calcium 8.4 mg/dL (8.4-10.2); Carbon Dioxide 26 mmol/L (22-30); Chloride 106 mmol/L (98-107); Glucose 92 mg/dL (74-99); Non-African American GFR(CKD) 20 (>60 ml/min/1.73 sqM); Potassium 3.5 mmol/L (3.5-5.1); Sodium 138 mmol/L (137-145)
[2024-06-06 07:09] LABS: Anisocytosis Moderate; HCT 26.2 % (34.0-46.0); Hypochromasia Marked; MCHC 30.6 g/dL (31.0-37.0); MCV 78.4 fL (80.0-100.0); Mean Platelet Volume 8.2; Microcytosis Slight; Platelet Count 361 k/uL (150-450); Poikilocytosis Marked; RBC 3.35 m/uL (3.80-5.40); RDW 20.1 % (11.5-15.5); WBC 9.4 k/uL (3.8-10.6)
--- NOTE | 2024-06-06 11:35 | P.PN ---
Progress Note - Text Progress Note Date: 06/06/24 CHIEF COMPLAINT: Anemia HISTORY OF PRESENT ILLNESS: NAEO. Patient is resting comfortable. PHYSICAL EXAM: VITAL SIGNS: Reviewed. GENERAL: in no acute distress. ABDOMEN: Soft. Nondistended. Nontender. NEUROLOGIC: Alert and oriented. Cranial nerves II through XII grossly intact. ASSESSMENT: 1. Anemia with no active bleeding. Stool for occult blood positive. 2. History of iron deficiency anemia and anemia of chronic kidney disease PLAN: -Colonoscopy initially scheduled twice. Patient again refused colonoscopy. Patient reports that she just wants to eat regular food. She refused to clear liquids. -At this time colonoscopy for has been canceled. Resume regular diet. Discus sed case with medicine. -Recommend colonoscopy in the outpatient setting -Continue to monitor hemoglobin -Continue to monitor for any signs or symptoms of bleeding Axel Tucker DO [facility] [phone]
[2024-06-06 11:53] LABS: Glucose,Whole Blood 219 mg/dL (70-110)
--- NOTE | 2024-06-06 12:28 | P.PN ---
Subjective patient is seen for follow-up for acute kidney injury. No significant complaints today. IV fluids were discontinued yesterday and patient received 1 dose of IV Lasix. Serum creatinine decreased to 2.1 today. Objective - Vital Signs Vital signs: Vital Signs Temp 97.4 F L 06/06/24 09:05 Pulse 80 06/06/24 12:00 Resp 16 06/06/24 12:00 BP 112/69 06/06/24 12:00 Pulse Ox 99 06/06/24 12:00 FiO2 Intake & Output 06/05/24 06/06/24 06/06/24 18:59 06:59 18:59 Output Total 1400 Balance -1400 Weight 81.2 kg 80.5 kg Output: Urine 1400 Other: Voiding Method Bedside Commode Bedside Commode External Catheter External Catheter # Voids 1 # Bowel Movements 1 - Exam patient is comfortable with no acute distress. 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 - Labs CBC & Chem 7: 06/06/24 05:57 06/06/24 05:57 Labs: Abnormal Lab Results - Last 24 Hours (Table) 06/05/24 06/05/24 06/06/24 Range/Units 18:04 20:03 00:06 RBC (3.80-5.40) m/uL Hgb (11.4-16.0) gm/dL Hct (34.0-46.0) % MCV (80.0-100.0) fL MCH (25.0-35.0) pg MCHC (31.0-37.0) g/dL RDW (11.5-15.5) % BUN (7-17) mg/dL Creatinine (0.52-1.04) mg/dL POC Glucose (mg/dL) 203 H 213 H 119 H (70-110) mg/dL 06/06/24 06/06/24 06/06/24 Range/Units 05:57 05:57 06:08 RBC 3.35 L (3.80-5.40) m/uL Hgb 8.0 L (11.4-16.0) gm/dL Hct 26.2 L (34.0-46.0) % MCV 78.4 L (80.0-100.0) fL MCH 24.0 L (25.0-35.0) pg MCHC 30.6 L (31.0-37.0) g/dL RDW 20.1 H (11.5-15.5) % BUN 78 H (7-17) mg/dL Creatinine 2.16 H (0.52-1.04) mg/dL POC Glucose (mg/dL) 113 H (70-110) mg/dL 06/06/24 Range/Units 11:49 RBC (3.80-5.40) m/uL Hgb (11.4-16.0) gm/dL Hct (34.0-46.0) % MCV (80.0-100.0) fL MCH (25.0-35.0) pg MCHC (31.0-37.0) g/dL RDW (11.5-15.5) % BUN (7-17) mg/dL Creatinine (0.52-1.04) mg/dL POC Glucose (mg/dL) 219 H (70-110) mg/dL Assessment and Plan Assessment: 1. Acute kidney injury, ATN, oliguric 2/2 hypotension and severe anemia. UA shows no blood or protein, hyaline cast 24, WBC 16. No obstruction on CT abdomen. BUN disproportionately elevated due to GI bleed. 2. Pyuria. Urine culture shows no growth. 3. Hypotension from anemia and volume depletion. Blood culture shows no growth. 4. Hypovolemic hyponatremia, improved with saline administration. 5. Moderate right pleural effusion 6. CAD with history of PA and coronary stents, H/o diastolic CHF. proBNP 60288. EF 55-60% 06/02/24. 7. Anemia with history of severe iron deficiency. S/p PRBC transfusion during this admission and on previous admission with iron infusion in April. H/o anemia of chronic disease. Stool occult blood positive. Iron saturation 6.32%. 8. Hypokalemia secondary to GI fluid loss. Improved 9. Volume overload Plan: continue off of IV fluids Repeat IV Lasix Repeat labs in a.m. Resume home dose of Bumex tomorrow.
[2024-06-06] MEDS: FUROSEMIDE 10 MG/ML 4 ML VIAL IV STA (13:30)
--- NOTE | 2024-06-06 14:15 | P.PN ---
Subjective Progress Note Date: 06/06/24 This is an 84-year-old female with past medical history significant for atrial fibrillation on Eliquis, mild aortic stenosis, moderate to severe mitral regurgitation , uterine cancer, anemia, hypertension, hyperlipidemia, [place], chronic kidney disease stage III,prior nicotine dependence, COPD, chronic hypoxic respiratory failure wears 2 L nasal cannula at home, diabetes mellitus, obesity and multiple other medical issues, presented to the ER as advised by her mini shifter, Dr. Crespo for low blood pressure and not feeling well over the last week. Reports some nausea, abdominal bloating, diarrhea x 2 day,mild lower extremity edema, exertional shortness of breath. EKG reported atrial fibrillation, chest x-ray reported moderate right blunting of the costophrenic angles/ moderate right pleural effusion.CT of abdomen pelvis reported no clear evidence of acute obstructive or inflammatory process in the abdomen or pelvis, trace free pelvic fluid, colonic diverticula, cannot exclude mild colitis, cardiomegaly with moderate right pleural effusion, correlate for CHF. Afebrile, WBC 11.5. Hemoglobin on admission 6.3, received 1 unit of packed RBCs currently 7.8. Positive stool for occult blood. platelets 433, sodium 132, potassium 3.6, bicarb 27, BUN 112, creatinine 2.71. Blood sugars controlled. Lactic acid 2.1, 1.9. Minimally elevated LFTs/T. bili within normal limits. 06/03/2024 3-4 nonbloody episodes of diarrhea reported this morning, C. difficile culture ordered. Urine culture reported no growth after 18 hours, afebrile, antibiotics discontinued. echo reported EF 55 to 60%, severe biatrial enlargement, RV SP 43, moderate mitral regurgitation, moderate to severe tricuspid regurgitation, mild aortic stenosis. BNP 11,300. Creatinine 2.75, BUN 105, bicarb 25. Potassium 3.3, receiving supplementation. Blood Sugars controlled, hemoglobin A1c 6.9. 06/04/2024 no further bowel movements since last night/nonbloody. C difficile negative. Hemoglobin 8.3. Telemetry atrial fibrillation, controlled ventricular rate. Eliquis on hold for potential endoscopy. evaluated by PT recommending subacute rehab. Maintain on IV fluid hydration as per nephrology, bicarb 24, renal function slowly improving, BUN 93, creatinine 2.45. Sodium 134. 06/05/2024 Cardiology recommending holding anticoagulation until source of anemia is investigated. General surgery had previously offered patient colonoscopy which she had refused, subsequently surgery recommended outpatient endoscopy. This morning hemoglobin has decreased to 7.8, discussed with general surgery regarding possibly rescheduling for colonoscopy, as patient continues off anticoagulation in a patient with persistent atrial fibrillation. Renal function worsening, bicarb 25, BUN 85, creatinine 2.75. Denies nausea vomiting. No further bowel movements today. Denies abdominal pain. Denies chest pain, palpitations or shortness of breath. Painting O2 sats in the high 90s on 2 L nasal cannula. Evaluated by PT,recommended subacute rehab 06/06. Patient seen and examined. Blood work done this morning showed WBC 9.4, hemoglobin 8, platelet count 361, sodium 130, potassium 3.5, BUN 70, creatinine 2.16. No further episode of blood in the stools REVIEW OF SYSTEMS: CONSTITUTIONAL: No fever, no malaise,. CARDIOVASCULAR: No chest pain, no palpitations, no syncope. PULMONARY: No shortness of breath, no cough, GASTROINTESTINAL: No diarrhea, no nausea, no vomiting, no abdominal pain. NEUROLOGICAL: No headaches, no weakness, PHYSICAL EXAMINATION: GENERAL: The patient is alert and oriented x3, not in any acute distress. Well developed, well nourished. HEENT: Pupils are round and equally reacting to light. EOMI. No scleral icterus. No conjunctival pallor. Normocephalic, atraumatic. No pharyngeal erythema. No thyromegaly. CARDIOVASCULAR: S1 and S2 present. No murmurs, rubs, or gallops. PULMONARY: Chest is clear to auscultation, no wheezing or crackles. ABDOMEN: Soft, nontender, nondistended, normoactive bowel sounds. No palpable organomegaly. MUSCULOSKELETAL: No joint swelling or deformity. EXTREMITIES: No cyanosis, clubbing, or pedal edema. NEUROLOGICAL: Gross neurological examination did not reveal any focal deficits. SKIN: No rashes. Assessment and plan Acute on chronic kidney disease stage IIIB, cardiorenal, baseline creatinine 1.4-1.5, secondary to hypovolemia, anemia, hypotension Acute GI bleed, acute blood loss anemia, stool for occult blood positive, chest post 1 unit packed RBCs Hypotension on admission, secondary to all the above, including hypovolemia Hyponatremia, mild C. difficile colitis ruled out Chronic CHF, diastolic dysfunction.Echo reporting EF 55 to 60%. Mild , Moderate to severe tricuspid regurgitation Moderate mitral regurgitation Pulmonary hypertension, RVSP 43 Moderate to large right pleural effusion, Acute UTI, ruled out, urine culture reporting no growth. Lactic acidosis mild, corrected Chronic hypoxic respiratory failure, wears 2 L nasal cannula O2 at home Diabetes mellitus, hemoglobin A1c 6.9 CAD, prior PCI Moderate to severe mitral regurgitation Mild aortic stenosis Persistent atrial fibrillation anticoagulated on Eliquis Hypertension, history of Hyperlipidemia COPD Former nicotine dependence History of uterine cancer Chronic lower extremity cellulitis Obesity, BMI 27 Monitor vital signs Monitor CBC Monitor CMP Continue telemetry monitoring I's and O's, daily weights avoid nephrotoxic agents Continue amiodarone Continue aspirin, pravastatin. Cardiology following Nephrology following General Surgery following, patient refusing colonoscopy. PT OT recommend rehab Labs and medication were reviewed.. Continue same treatment. Continue with symptomatic treatment. Resume home medication. Monitor labs and vitals. DVT and GI prophylaxis. Further recommendations as per clinical course of the patient Dictation was produced using [employer] dictation software. please excuse any grammatical, word or spelling errors. Objective - Vital Signs Vital signs: Vital Signs Temp 97.4 F L 06/06/24 09:05 Pulse 86 06/06/24 09:05 Resp 16 06/06/24 09:05 BP 100/57 06/06/24 09:05 Pulse Ox 100 06/06/24 09:05 FiO2 Intake & Output 06/05/24 06/06/24 06/06/24 18:59 06:59 18:59 Output Total 1400 Balance -1400 Weight 81.2 kg 80.5 kg Output: Urine 1400 Other: Voiding Method Bedside Commode Bedside Commode External Catheter External Catheter # Voids 1 # Bowel Movements 1 - Labs CBC & Chem 7: 06/06/24 05:57 06/06/24 05:57 Labs: Abnormal Lab Results - Last 24 Hours (Table) 06/05/24 06/05/24 06/05/24 Range/Units 11:54 18:04 20:03 RBC (3.80-5.40) m/uL Hgb (11.4-16.0) gm/dL Hct (34.0-46.0) % MCV (80.0-100.0) fL MCH (25.0-35.0) pg MCHC (31.0-37.0) g/dL RDW (11.5-15.5) % BUN (7-17) mg/dL Creatinine (0.52-1.04) mg/dL POC Glucose (mg/dL) 196 H 203 H 213 H (70-110) mg/dL 06/06/24 06/06/24 06/06/24 Range/Units 00:06 05:57 05:57 RBC 3.35 L (3.80-5.40) m/uL Hgb 8.0 L (11.4-16.0) gm/dL Hct 26.2 L (34.0-46.0) % MCV 78.4 L (80.0-100.0) fL MCH 24.0 L (25.0-35.0) pg MCHC 30.6 L (31.0-37.0) g/dL RDW 20.1 H (11.5-15.5) % BUN 78 H (7-17) mg/dL Creatinine 2.16 H (0.52-1.04) mg/dL POC Glucose (mg/dL) 119 H (70-110) mg/dL 06/06/24 Range/Units 06:08 RBC (3.80-5.40) m/uL Hgb (11.4-16.0) gm/dL Hct (34.0-46.0) % MCV (80.0-100.0) fL MCH (25.0-35.0) pg MCHC (31.0-37.0) g/dL RDW (11.5-15.5) % BUN (7-17) mg/dL Creatinine (0.52-1.04) mg/dL POC Glucose (mg/dL) 113 H (70-110) mg/dL
[2024-06-06 16:45] LABS: Glucose,Whole Blood 125 mg/dL (70-110)
[2024-06-06 19:58] LABS: Glucose,Whole Blood 200 mg/dL (70-110)
[2024-06-07 00:34] LABS: Glucose,Whole Blood 150 mg/dL (70-110)
--- NOTE | 2024-06-07 05:29 | P.PN ---
Progress Note - Text Progress Note Date: 06/07/24 CHIEF COMPLAINT: Anemia HISTORY OF PRESENT ILLNESS: NAEO. Patient is resting comfortable. PHYSICAL EXAM: VITAL SIGNS: Reviewed. GENERAL: in no acute distress. ABDOMEN: Soft. Nondistended. Nontender. NEUROLOGIC: Alert and oriented. Cranial nerves II through XII grossly intact. ASSESSMENT: 1. Anemia with no active bleeding. Stool for occult blood positive. 2. History of iron deficiency anemia and anemia of chronic kidney disease PLAN: -Colonoscopy initially scheduled twice. Patient again refused colonoscopy. Patient reports that she just wants to eat regular food. She refused to clear liquids. -At this time colonoscopy for has been canceled. Resume regular diet. Discus sed case with medicine. -Recommend colonoscopy in the outpatient setting -Continue to monitor hemoglobin -Continue to monitor for any signs or symptoms of bleeding Axel Tucker DO [facility] [phone]
[2024-06-07 06:38] LABS: Glucose,Whole Blood 154 mg/dL (70-110)
[2024-06-07 11:36] LABS: Glucose,Whole Blood 224 mg/dL (70-110)
--- NOTE | 2024-06-07 11:38 | P.PN ---
Subjective patient is seen for follow-up for acute kidney injury. No significant complaints today. IV fluids were discontinued and patient has received IV Lasix. Serum creatinine decreased to 2.1 study. Objective - Vital Signs Vital signs: Vital Signs Temp 97.5 F L 06/07/24 08:34 Pulse 82 06/07/24 08:34 Resp 16 06/07/24 08:34 BP 110/60 06/07/24 08:34 Pulse Ox 97 06/07/24 08:34 FiO2 Intake & Output 06/06/24 06/07/24 06/07/24 18:59 06:59 18:59 Intake Total 10 90 Output Total 1000 600 600 Balance -1000 -590 -510 Weight 79.8 kg Intake: IV 10 0.9 10 Oral 90 Output: Urine 1000 600 600 Other: Voiding Method Bedside Commode External Catheter External Catheter External Catheter - Exam patient is comfortable with no acute distress. 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 Acute kidney injury, ATN, oliguric 2/2 hypotension and severe anemia. UA shows no blood or protein, hyaline cast 24, WBC 16. No obstruction on CT abdomen. BUN disproportionately elevated due to GI bleed. 2. Pyuria. Urine culture shows no growth. 3. Hypotension from anemia and volume depletion. Blood culture shows no growth. 4. Hypovolemic hyponatremia, improved with saline administration. 5. Moderate right pleural effusion 6. CAD with history of CO and coronary stents, H/o diastolic CHF. proBNP 26221. EF 55-60% 06/02/24. 7. Anemia with history of severe iron deficiency. S/p PRBC transfusion during this admission and on previous admission with iron infusion in April. H/o anemia of chronic disease. Stool occult blood positive. Iron saturation 6.32%. 8. Hypokalemia secondary to GI fluid loss. Improved 9. Volume overload Plan: continue off of IV fluids Repeat labs Resume home dose of Bumex.
[2024-06-07 11:40] LABS: Anion Gap 6 mmol/L; Blood Urea Nitrogen 65 mg/dL (7-17); Carbon Dioxide 29 mmol/L (22-30); Chloride 105 mmol/L (98-107); Glucose 171 mg/dL (74-99); Potassium 3.8 mmol/L (3.5-5.1); Sodium 140 mmol/L (137-145)
[2024-06-07 11:41] LABS: African American GFR (CKD) 30 (>60 ml/min/1.73 sqM); Calcium 8.4 mg/dL (8.4-10.2); Non-African American GFR(CKD) 26 (>60 ml/min/1.73 sqM)
[2024-06-07] MEDS: BUMETANIDE 1 MG TAB PO SCH (11:45)
--- NOTE | 2024-06-07 12:57 | P.PN ---
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 Crespo for low blood pressure and not feeling well over the last week. Reports some nausea, abdominal bloating, diarrhea x 2 day,mild lower extremity edema, exertional shortness of breath. EKG reported atrial fibrillation, chest x-ray reported moderate right blunting of the costophrenic angles/ moderate right pleural effusion.CT of abdomen pelvis reported no clear evidence of acute obstructive or inflammatory process in the abdomen or pelvis, trace free pelvic fluid, colonic diverticula, cannot exclude mild colitis, cardiomegaly with moderate right pleural effusion, correlate for CHF. Afebrile, WBC 11.5. Hemoglobin on admission 6.3, received 1 unit of packed RBCs currently 7.8. Positive stool for occult blood. platelets 433, sodium 132, potassium 3.6, bicarb 27, BUN 112, creatinine 2.71. Blood sugars controlled. Lactic acid 2.1, 1.9. Minimally elevated LFTs/T. bili within normal limits. 06/03/2024 3-4 nonbloody episodes of diarrhea reported this morning, C. difficile culture ordered. Urine culture reported no growth after 18 hours, afebrile, antibiotics discontinued. echo reported EF 55 to 60%, severe biatrial enlargement, RV SP 43, moderate mitral regurgitation, moderate to severe tricuspid regurgitation, mild aortic stenosis. BNP 11,300. Creatinine 2.75, BUN 105, bicarb 25. Potassium 3.3, receiving supplementation. Blood Sugars controlled, hemoglobin A1c 6.9. 06/04/2024 no further bowel movements since last night/nonbloody. C difficile negative. Hemoglobin 8.3. Telemetry atrial fibrillation, controlled ventricular rate. Eliquis on hold for potential endoscopy. evaluated by PT recommending subacute rehab. Maintain on IV fluid hydration as per nephrology, bicarb 24, renal function slowly improving, BUN 93, creatinine 2.45. Sodium 134. 06/05/2024 Cardiology recommending holding anticoagulation until source of anemia is investigated. General surgery had previously offered patient colonoscopy which she had refused, subsequently surgery recommended outpatient endoscopy. This morning hemoglobin has decreased to 7.8, discussed with general surgery regarding possibly rescheduling for colonoscopy, as patient continues off anticoagulation in a patient with persistent atrial fibrillation. Renal function worsening, bicarb 25, BUN 85, creatinine 2.75. Denies nausea vomiting. No further bowel movements today. Denies abdominal pain. Denies chest pain, palpitations or shortness of breath. Painting O2 sats in the high 90s on 2 L nasal cannula. Evaluated by PT,recommended subacute rehab 06/06. Patient seen and examined. Blood work done this morning showed WBC 9.4, hemoglobin 8, platelet count 361, sodium 130, potassium 3.5, BUN 70, creatinine 2.16. No further episode of blood in the stools 06/07. Patient seen and examined. States she feels better. Currently off fluids. Hemoglobin remained stable REVIEW OF SYSTEMS: CONSTITUTIONAL: No fever, no malaise,. CARDIOVASCULAR: No chest pain, no palpitations, no syncope. PULMONARY: No shortness of breath, no cough, GASTROINTESTINAL: No diarrhea, no nausea, no vomiting, no abdominal pain. NEUROLOGICAL: No headaches, no weakness, PHYSICAL EXAMINATION: GENERAL: The patient is alert and oriented x3, not in any acute distress. Well developed, well nourished. HEENT: Pupils are round and equally reacting to light. EOMI. No scleral icterus. No conjunctival pallor. Normocephalic, atraumatic. No pharyngeal erythema. No thyromegaly. CARDIOVASCULAR: S1 and S2 present. No murmurs, rubs, or gallops. PULMONARY: Chest is clear to auscultation, no wheezing or crackles. ABDOMEN: Soft, nontender, nondistended, normoactive bowel sounds. No palpable organomegaly. MUSCULOSKELETAL: No joint swelling or deformity. EXTREMITIES: No cyanosis, clubbing, or pedal edema. NEUROLOGICAL: Gross neurological examination did not reveal any focal deficits. SKIN: No rashes. Assessment and plan Acute on chronic kidney disease stage IIIB, cardiorenal, baseline creatinine 1.4-1.5, secondary to hypovolemia, anemia, hypotension Acute GI bleed, acute blood loss anemia, stool for occult blood positive, chest post 1 unit packed RBCs Hypotension on admission, secondary to all the above, including hypovolemia Hyponatremia, mild C. difficile colitis ruled out Chronic CHF, diastolic dysfunction.Echo reporting EF 55 to 60%. Mild , Moderate to severe tricuspid regurgitation Moderate mitral regurgitation Pulmonary hypertension, RVSP 43 Moderate to large right pleural effusion, Acute UTI, ruled out, urine culture reporting no growth. Lactic acidosis mild, corrected Chronic hypoxic respiratory failure, wears 2 L nasal cannula O2 at home Diabetes mellitus, hemoglobin A1c 6.9 CAD, prior PCI Moderate to severe mitral regurgitation Mild aortic stenosis Persistent atrial fibrillation anticoagulated on Eliquis Hypertension, history of Hyperlipidemia COPD Former nicotine dependence History of uterine cancer Chronic lower extremity cellulitis Obesity, BMI 27 Monitor vital signs Monitor CBC Monitor CMP Continue telemetry monitoring I's and O's, daily weights avoid nephrotoxic agents Continue amiodarone Continue aspirin, pravastatin. Cardiology following Nephrology following General Surgery following, patient refusing colonoscopy. PT OT recommend rehab Labs and medication were reviewed.. Continue same treatment. Continue with symptomatic treatment. Resume home medication. Monitor labs and vitals. DVT and GI prophylaxis. Further recommendations as per clinical course of the patient Dictation was produced using [employer] dictation software. please excuse any grammatical, word or spelling errors. Objective - Vital Signs Vital signs: Vital Signs Temp 97.4 F L 06/07/24 11:40 Pulse 72 06/07/24 11:40 Resp 16 06/07/24 11:40 BP 95/66 06/07/24 11:40 Pulse Ox 100 06/07/24 11:40 FiO2 Intake & Output 06/06/24 06/07/24 06/07/24 18:59 06:59 18:59 Intake Total 10 90 Output Total 1000 600 600 Balance -1000 -590 -510 Weight 79.8 kg Intake: IV 10 0.9 10 Oral 90 Output: Urine 1000 600 600 Other: Voiding Method Bedside Commode External Catheter External Catheter External Catheter - Labs CBC & Chem 7: 06/06/24 05:57 06/07/24 10:58 Labs: Abnormal Lab Results - Last 24 Hours (Table) 06/06/24 06/06/24 06/07/24 Range/Units 16:43 19:56 00:32 BUN (7-17) mg/dL Creatinine (0.52-1.04) mg/dL Glucose (74-99) mg/dL POC Glucose (mg/dL) 125 H 200 H 150 H (70-110) mg/dL 06/07/24 06/07/24 06/07/24 Range/Units 06:37 10:58 11:35 BUN 65 H (7-17) mg/dL Creatinine 1.73 H (0.52-1.04) mg/dL Glucose 171 H (74-99) mg/dL POC Glucose (mg/dL) 154 H 224 H (70-110) mg/dL Microbiology - Last 24 Hours (Table) 06/01/24 13:39 Blood Culture - Final Blood
[2024-06-07 16:22] LABS: Glucose,Whole Blood 183 mg/dL (70-110)
[2024-06-07 18:28] LABS: Glucose,Whole Blood 185 mg/dL (70-110)
[2024-06-07 20:42] LABS: Glucose,Whole Blood 191 mg/dL (70-110)
[2024-06-07 23:59] LABS: Glucose,Whole Blood 175 mg/dL (70-110)
[2024-06-08 05:54] LABS: Glucose,Whole Blood 162 mg/dL (70-110)
--- NOTE | 2024-06-08 09:01 | P.PN ---
Subjective Patient is seen in follow-up for acute kidney injury on chronic kidney disease. On oral Bumex. Nonoliguric. Currently on nasal cannula. Denies chest pain or shortness of breath. Vital signs are stable. General: No acute distress. HEENT: Head exam is unremarkable. On nasal cannula. LUNGS: No audible rhonchi or wheezes. HEART: Rate and Rhythm are regular. ABDOMEN: Nontender. EXTREMITITES: 2+ edema. Objective - Vital Signs Vital signs: Vital Signs Temp 97.3 F L 06/08/24 07:00 Pulse 90 06/08/24 07:00 Resp 18 06/08/24 07:00 BP 103/66 06/08/24 07:00 Pulse Ox 100 06/08/24 07:00 FiO2 Intake & Output 06/07/24 06/08/24 06/08/24 18:59 06:59 18:59 Intake Total 720 10 Output Total 1050 700 Balance -330 -690 Intake: IV 10 0.9 10 Oral 720 Output: Urine 1050 700 Other: Voiding Method External Catheter External Catheter - Labs CBC & Chem 7: 06/06/24 05:57 06/07/24 10:58 Labs: Abnormal Lab Results - Last 24 Hours (Table) 06/07/24 06/07/24 06/07/24 Range/Units 10:58 11:35 16:19 BUN 65 H (7-17) mg/dL Creatinine 1.73 H (0.52-1.04) mg/dL Glucose 171 H (74-99) mg/dL POC Glucose (mg/dL) 224 H 183 H (70-110) mg/dL 06/07/24 06/07/24 06/07/24 Range/Units 18:26 20:35 23:58 BUN (7-17) mg/dL Creatinine (0.52-1.04) mg/dL Glucose (74-99) mg/dL POC Glucose (mg/dL) 185 H 191 H 175 H (70-110) mg/dL 06/08/24 Range/Units 05:52 BUN (7-17) mg/dL Creatinine (0.52-1.04) mg/dL Glucose (74-99) mg/dL POC Glucose (mg/dL) 162 H (70-110) mg/dL Assessment and Plan Plan: Assessment: 1. Acute kidney injury secondary to ATN secondary to cardiorenal syndrome. Creatinine peaked at 2.75 this admission and was 1.73 yesterday. Nonoliguric. 2. Chronic kidney disease stage IIIb with baseline creatinine near 1.5. Etiology is nephrosclerosis and cardiorenal syndrome. No proteinuria on UA. No hydronephrosis noted on imaging. 3. Volume overload. 4. Acute on chronic diastolic CHF with moderate mitral and moderate to severe tricuspid regurgitation. 5. Anemia of chronic kidney disease maintained on Aranesp. Plan: Maintain Bumex. Add Farxiga. Add fluid restriction. Avoid nephrotoxins. Continue to monitor renal function and urine output.
[2024-06-08] MEDS: DAPAGLIFLOZIN PROPANEDIOL 5 MG TABLET PO SCH (09:42)
[2024-06-08 11:08] LABS: African American GFR (CKD) 31 (>60 ml/min/1.73 sqM); Anion Gap 5 mmol/L; Blood Urea Nitrogen 58 mg/dL (7-17); Calcium 8.2 mg/dL (8.4-10.2); Carbon Dioxide 34 mmol/L (22-30); Chloride 101 mmol/L (98-107); Glucose 232 mg/dL (74-99); Magnesium 1.7 mg/dL (1.6-2.3); Non-African American GFR(CKD) 27 (>60 ml/min/1.73 sqM); Potassium 3.6 mmol/L (3.5-5.1); Sodium 140 mmol/L (137-145)
--- NOTE | 2024-06-08 11:29 | P.PN ---
Subjective Progress Note Date: 06/08/24 HPI: This lady is 84 years of age has history of persistent atrial fibrillation CAD previous of proximal and mid LAD. Last cardiac cath was December 2022 which revealed diffusely diseased nondominant RCA left main was okay circumflex had diffuse disease. Circumflex had a 95% stenosis LAD had a mid lesion of 90 to 95% underwent stenting of mid LAD. She was here with mostly atrial fibrillation rapid ventricular rate and also diastolic heart failure and kidney injury with creatinine in the range of 2.5. However patient has now developed some blisters on her lower extremity which are quite painful. They are pulses are diminished I will request Dr. Berman to see her in this regard for possible rupture of the blisters if he feels necessary and also assessment of ischemia of lower extremities. Same medical regimen rate control appears to be good can be discharged after seen by vascular surgeon.. PHYSICIAL EXAM: Vitals are stable 1 cm JVD, S1-S2 with a regular rate and rhythm and short systolic murmur. Lungs reveal diminished air entry abdomen is soft lower extremities reveal diminished pulses with the blisters on the legs noted which are painful Central nervous system grossly no focal deficit. IMPRESSION: 1. Lower extremity bilateral blisters request Dr. Berman's input. 2. CAD with previous PCI. 3. Persistent atrial fibrillation with fair rate control. 4. Acute on chronic kidney injury. 5. Beatties mellitus. RECOMMENDATIONS: Continue rate control seek input from Dr. Berman regarding lower extremity blisters. Discharge after his evaluation and when okay by admitting doctor to [facility] facility. Objective - Vital Signs Vital signs: Vital Signs Temp 97.3 F L 06/08/24 07:00 Pulse 90 06/08/24 07:00 Resp 18 06/08/24 07:00 BP 103/66 06/08/24 07:00 Pulse Ox 100 06/08/24 07:00 FiO2 Intake & Output 06/07/24 06/08/24 06/08/24 18:59 06:59 18:59 Intake Total 720 10 118 Output Total 1050 700 Balance -330 -690 118 Intake: IV 10 0.9 10 Oral 720 118 Output: Urine 1050 700 Other: Voiding Method External Catheter External Catheter External Catheter - Labs CBC & Chem 7: 06/06/24 05:57 06/08/24 10:31 Labs: Abnormal Lab Results - Last 24 Hours (Table) 06/07/24 06/07/24 06/07/24 Range/Units 10:58 11:35 16:19 Carbon Dioxide (22-30) mmol/L BUN 65 H (7-17) mg/dL Creatinine 1.73 H (0.52-1.04) mg/dL Glucose 171 H (74-99) mg/dL POC Glucose (mg/dL) 224 H 183 H (70-110) mg/dL Calcium (8.4-10.2) mg/dL 06/07/24 06/07/24 06/07/24 Range/Units 18:26 20:35 23:58 Carbon Dioxide (22-30) mmol/L BUN (7-17) mg/dL Creatinine (0.52-1.04) mg/dL Glucose (74-99) mg/dL POC Glucose (mg/dL) 185 H 191 H 175 H (70-110) mg/dL Calcium (8.4-10.2) mg/dL 06/08/24 06/08/24 Range/Units 05:52 10:31 Carbon Dioxide 34 H (22-30) mmol/L BUN 58 H (7-17) mg/dL Creatinine 1.68 H (0.52-1.04) mg/dL Glucose 232 H (74-99) mg/dL POC Glucose (mg/dL) 162 H (70-110) mg/dL Calcium 8.2 L (8.4-10.2) mg/dL
--- NOTE | 2024-06-08 11:53 | P.PN ---
Subjective Progress Note Date: 06/08/24 CHIEF COMPLAINT: Anemia HISTORY OF PRESENT ILLNESS: Patient continues to refuse colonoscopy. She reports she is having bowel movements with no blood. She denies any abdominal pain. She is tolerating diet. Her Eliquis remains on hold. Last hemoglobin stable at 8.0 on 06/06/2024 PHYSICAL EXAM: VITAL SIGNS: Reviewed. GENERAL: in no acute distress. ABDOMEN: Soft. Nondistended. Nontender. NEUROLOGIC: Alert and oriented. Cranial nerves II through XII grossly intact. ASSESSMENT: 1. Anemia with no active bleeding. Stool for occult blood positive. 2. History of iron deficiency anemia and anemia of chronic kidney disease PLAN: -Patient continues to refuse colonoscopy -Patient can be discharged from surgical standpoint when medically cleared -Colonoscopy can be completed outpatient if this is something the patient would like to do -Surgical service will sign off. Please call with any questions or concerns. Physician Career Development Manager note has been reviewed by physician. Signing provider agrees with the documented findings, assessment, and plan of care. Attestation Patient seen and examined at bedside. Continues to refuse colonoscopy. No plan for other further surgical intervention at this point as the patient is refusing. Please call for any reevaluation should it be required. Gabriele Perez, Objective - Vital Signs Vital signs: Vital Signs Temp 97.3 F L 06/08/24 07:00 Pulse 90 06/08/24 07:00 Resp 18 06/08/24 07:00 BP 103/66 06/08/24 07:00 Pulse Ox 100 06/08/24 07:00 FiO2 Intake & Output 06/07/24 06/08/24 06/08/24 18:59 06:59 18:59 Intake Total 720 10 118 Output Total 1050 700 Balance -330 -690 118 Intake: IV 10 0.9 10 Oral 720 118 Output: Urine 1050 700 Other: Voiding Method External Catheter External Catheter External Catheter - Labs CBC & Chem 7: 06/06/24 05:57 06/08/24 10:31 Labs: Abnormal Lab Results - Last 24 Hours (Table) 06/07/24 06/07/24 06/07/24 Range/Units 16:19 18:26 20:35 Carbon Dioxide (22-30) mmol/L BUN (7-17) mg/dL Creatinine (0.52-1.04) mg/dL Glucose (74-99) mg/dL POC Glucose (mg/dL) 183 H 185 H 191 H (70-110) mg/dL Calcium (8.4-10.2) mg/dL 06/07/24 06/08/24 06/08/24 Range/Units 23:58 05:52 10:31 Carbon Dioxide 34 H (22-30) mmol/L BUN 58 H (7-17) mg/dL Creatinine 1.68 H (0.52-1.04) mg/dL Glucose 232 H (74-99) mg/dL POC Glucose (mg/dL) 175 H 162 H (70-110) mg/dL Calcium 8.2 L (8.4-10.2) mg/dL
[2024-06-08 13:18] LABS: Glucose,Whole Blood 146 mg/dL (70-110)
--- NOTE | 2024-06-08 14:13 | P.GSCN ---
History of Present Illness History of present illness: 84-year-old white female consulted patient has a bilateral lower extremity blister formation noted patient is a large blister on the left lower extremity and right lower extremity also complaining of pain in the left foot on the dorsal aspect patient has history of atrial fibrillation coronary artery disease postcoronary artery stent placement and history of diabetes. Surgical history patient had a hysterectomy and gallbladder surgery and back surgery done in the past Chest examination chest is clear good in both lung. Second sound present Abdomen soft nontender vascular femorals are 1+ bilateral DP by the Doppler bilateral has a large blister on the anterior aspect of the lower extremity and also on the right lower extremity we placed Silvadene cream both lower extremity with the compression wrap dressing should be changed on daily with you Past Medical History Past Medical History: Atrial Fibrillation, Cancer, COPD, Diabetes Mellitus, Hyperlipidemia, Hypertension, Myocardial Infarction (DE), Renal Disease Additional Past Medical History / Comment(s): Moderate to severe mitral regurgitation/SOB, mild aortic stenosis, NIDDM, uterine cancer/surgery only, DE x 2, stage III kidney failure Last Myocardial Infarction Date:: unknown History of Any Multi-Drug Resistant Organisms: None Reported Past Surgical History: Appendectomy, Back Surgery, Cholecystectomy, Heart Catheterization, Heart Catheterization With Stent, Hysterectomy Additional Past Surgical History / Comment(s): Cardioversions, hysterectomy/left one ovary Past Anesthesia/Blood Transfusion Reactions: No Reported Reaction Additional Past Anesthesia/Blood Transfusion Reaction / Comm: Pt has had autotransfusion only. Date of Last Stent Placement:: 12/2022 Past Psychological History: No Psychological Hx Reported Smoking Status: Former smoker Past Alcohol Use History: None Reported Past Drug Use History: None Reported - Past Family History Brother(s) Family Medical History: Cancer Additional Family Medical History / Comment(s): 2 brothers cancer. 1 brother cabg Medications and Allergies Home Medications Medication Instructions Recorded Confirmed Type Glimepiride [Amaryl] 1 mg PO [id number] 03/11/20 06/01/24 History Pravastatin Sodium [Pravachol] 80 mg PO HS 04/30/23 06/01/24 History Amiodarone [Cordarone] 200 mg PO DAILY 04/14/24 06/01/24 History Apixaban [Eliquis] 2.5 mg PO BID 04/14/24 06/01/24 History Bumetanide [BUMEX] 1 mg PO BID@0900,1600 tab 04/28/24 06/01/24 Rx Potassium Chloride ER [K-Dur 20] 20 meq PO DAILY #30 tab 04/28/24 06/01/24 Rx Doxycycline Hyclate 100 mg PO DIRECTED 06/01/24 06/01/24 History Metoprolol Tartrate [Lopressor] 50 mg PO BID 06/01/24 06/01/24 History Midodrine [ProAmatine] 5 mg PO DIRECTED 06/01/24 06/01/24 History Allergies Allergy/AdvReac Type Severity Reaction Status Date / Time atorvastatin [From Lipitor] Allergy Nausea Verified 06/01/24 13:42 celecoxib [From Celebrex] Allergy Swelling Verified 06/01/24 13:42 ibuprofen [From Motrin] Allergy Swelling, Verified 06/01/24 13:42 itching Penicillins Allergy Swelling Verified 06/01/24 13:42 steroid AdvReac shaking Uncoded 06/01/24 13:42 Surgical - Exam Vital Signs Temp Pulse Resp BP Pulse Ox 97.3 F L 79 18 81/51 97 06/01/24 12:04 06/01/24 12:04 06/01/24 12:04 06/01/24 12:04 06/01/24 12:04 Results - Labs 06/06/24 05:57 06/08/24 10:31 Abnormal Lab Results - Last 24 Hours (Table) 06/07/24 06/07/24 06/07/24 Range/Units 16:19 18:26 20:35 Carbon Dioxide (22-30) mmol/L BUN (7-17) mg/dL Creatinine (0.52-1.04) mg/dL Glucose (74-99) mg/dL POC Glucose (mg/dL) 183 H 185 H 191 H (70-110) mg/dL Calcium (8.4-10.2) mg/dL 06/07/24 06/08/24 06/08/24 Range/Units 23:58 05:52 10:31 Carbon Dioxide 34 H (22-30) mmol/L BUN 58 H (7-17) mg/dL Creatinine 1.68 H (0.52-1.04) mg/dL Glucose 232 H (74-99) mg/dL POC Glucose (mg/dL) 175 H 162 H (70-110) mg/dL Calcium 8.2 L (8.4-10.2) mg/dL 06/08/24 Range/Units 13:16 Carbon Dioxide (22-30) mmol/L BUN (7-17) mg/dL Creatinine (0.52-1.04) mg/dL Glucose (74-99) mg/dL POC Glucose (mg/dL) 146 H (70-110) mg/dL Calcium (8.4-10.2) mg/dL Diabetes panel 06/08/24 Range/Units 10:31 Sodium 140 (137-145) mmol/L Potassium 3.6 (3.5-5.1) mmol/L Chloride 101 (98-107) mmol/L Carbon Dioxide 34 H (22-30) mmol/L BUN 58 H (7-17) mg/dL Creatinine 1.68 H (0.52-1.04) mg/dL Glucose 232 H (74-99) mg/dL Calcium 8.2 L (8.4-10.2) mg/dL Calcium panel 06/08/24 Range/Units 10:31 Calcium 8.2 L (8.4-10.2) mg/dL Pituitary panel 06/08/24 Range/Units 10:31 Sodium 140 (137-145) mmol/L Potassium 3.6 (3.5-5.1) mmol/L Chloride 101 (98-107) mmol/L Carbon Dioxide 34 H (22-30) mmol/L BUN 58 H (7-17) mg/dL Creatinine 1.68 H (0.52-1.04) mg/dL Glucose 232 H (74-99) mg/dL Calcium 8.2 L (8.4-10.2) mg/dL Adrenal panel 06/08/24 Range/Units 10:31 Sodium 140 (137-145) mmol/L Potassium 3.6 (3.5-5.1) mmol/L Chloride 101 (98-107) mmol/L Carbon Dioxide 34 H (22-30) mmol/L BUN 58 H (7-17) mg/dL Creatinine 1.68 H (0.52-1.04) mg/dL Glucose 232 H (74-99) mg/dL Calcium 8.2 L (8.4-10.2) mg/dL
[2024-06-08] MEDS: MAGNESIUM OXIDE 400 MG TAB PO SCH (15:45)
[2024-06-08] MEDS: POTASSIUM CHLORIDE ER 20 MEQ TAB.ER PO SCH (15:45)
[2024-06-08 17:26] LABS: Glucose,Whole Blood 161 mg/dL (70-110)
[2024-06-08 20:35] LABS: Glucose,Whole Blood 211 mg/dL (70-110)
--- NOTE | 2024-06-08 21:30 | P.PN ---
Subjective Progress Note Date: 06/08/24 H&P Date: 06/02/24 This is an 84-year-old female with past medical history significant for atrial fibrillation on Eliquis, mild aortic stenosis, moderate to severe mitral regurgitation , uterine cancer, anemia, hypertension, hyperlipidemia, VT, chronic kidney disease stage III,prior nicotine dependence, COPD, chronic hypoxic respiratory failure wears 2 L nasal cannula at home, diabetes mellitus, obesity and multiple other medical issues, presented to the ER as advised by her rubber down, Dr. Crespo for low blood pressure and not feeling well over the last week. Reports some nausea, abdominal bloating, diarrhea x 2 day,mild lower extremity edema, exertional shortness of breath. EKG reported atrial fibrillation, chest x-ray reported moderate right blunting of the costophrenic angles/ moderate right pleural effusion.CT of abdomen pelvis reported no clear evidence of acute obstructive or inflammatory process in the abdomen or pelvis, trace free pelvic fluid, colonic diverticula, cannot exclude mild colitis, cardiomegaly with moderate right pleural effusion, correlate for CHF. Afebrile, WBC 11.5. Hemoglobin on admission 6.3, received 1 unit of packed RBCs currently 7.8. Positive stool for occult blood. platelets 433, sodium 132, potassium 3.6, bicarb 27, BUN 112, creatinine 2.71. Blood sugars controlled. Lactic acid 2.1, 1.9. Minimally elevated LFTs/T. bili within normal limits. 06/03/2024 3-4 nonbloody episodes of diarrhea reported this morning, C. difficile culture ordered. Urine culture reported no growth after 18 hours, afebrile, antibiotics discontinued. echo reported EF 55 to 60%, severe biatrial enlargement, RV SP 43, moderate mitral regurgitation, moderate to severe tricuspid regurgitation, mild aortic stenosis. BNP 11,300. Creatinine 2.75, BUN 105, bicarb 25. Potassium 3.3, receiving supplementation. Blood Sugars controlled, hemoglobin A1c 6.9. 06/04/2024 no further bowel movements since last night/nonbloody. C difficile negative. Hemoglobin 8.3. Telemetry atrial fibrillation, controlled ventricular rate. Eliquis on hold for potential endoscopy. evaluated by PT recommending subacute rehab. Maintain on IV fluid hydration as per nephrology, bicarb 24, renal function slowly improving, BUN 93, creatinine 2.45. Sodium 134. 06/05/2024 Cardiology recommending holding anticoagulation until source of anemia is investigated. General surgery had previously offered patient colonoscopy which she had refused, subsequently surgery recommended outpatient endoscopy. This morning hemoglobin has decreased to 7.8, discussed with general surgery regarding possibly rescheduling for colonoscopy, as patient continues off anticoagulation in a patient with persistent atrial fibrillation. Renal function worsening, bicarb 25, BUN 85, creatinine 2.75. Denies nausea vomiting. No further bowel movements today. Denies abdominal pain. Denies chest pain, palpitations or shortness of breath. Painting O2 sats in the high 90s on 2 L nasal cannula. Evaluated by PT,recommended subacute rehab. 06/08/2024 Patient was seen today doing better with no complaints except her lower extremities have now created blisters that are currently weeping clear fluid she denies any shortness of breath vomiting diarrhea or constipation. Her breathing is better and she has been working with PT but is not ambulating really well at this time they have recommended subacute rehab at discharge. Objective - Vital Signs Vital signs: Vital Signs Temp 97.6 F 06/05/24 15:34 Pulse 75 06/05/24 15:34 Resp 18 06/05/24 15:34 BP 102/70 06/05/24 15:34 Pulse Ox 96 06/05/24 15:34 FiO2 Intake & Output 06/04/24 06/05/24 06/05/24 18:59 06:59 18:59 Intake Total 600 Output Total 500 Balance 100 Weight 81.2 kg 81.2 kg Intake: Oral 600 Output: Urine 500 Other: Voiding Method External Catheter External Catheter Bedside Commode External Catheter # Voids 5 1 # Bowel Movements 1 1 1 # Emeses 1 - Exam GENERAL: alert and oriented x 3, sitting up in chair, no acute distress. HEENT: Atraumatic, normocephalic. Pupils are equal, round, and reactive to light. Sclerae anicteric. Conjunctivae are clear. MMM. RESPIRATORY: Unlabored, equal air entry, clear to auscultation. CARDIOVASCULAR: heart irregular irregularity, systolic murmur GASTROINTESTINAL: Soft, nondistended, nontender, positive bowel sounds SKIN: Warm and dry. EXTREMITIES: 2+ peripheral pulses. Mild peripheral edema. No calf tenderness noted. NEUROLOGIC: Cranial nerves II-XII intact. No focal deficits. - Labs CBC & Chem 7: 06/05/24 06:04 06/05/24 06:04 Labs: Abnormal Lab Results - Last 24 Hours (Table) 06/04/24 06/04/24 06/05/24 Range/Units 17:10 20:09 05:48 RBC (3.80-5.40) m/uL Hgb (11.4-16.0) gm/dL Hct (34.0-46.0) % MCV (80.0-100.0) fL MCH (25.0-35.0) pg MCHC (31.0-37.0) g/dL RDW (11.5-15.5) % Sodium (137-145) mmol/L BUN (7-17) mg/dL Creatinine (0.52-1.04) mg/dL Glucose (74-99) mg/dL POC Glucose (mg/dL) 142 H 238 H 174 H (70-110) mg/dL 06/05/24 06/05/24 06/05/24 Range/Units 06:04 06:04 11:54 RBC 3.27 L (3.80-5.40) m/uL Hgb 7.8 L (11.4-16.0) gm/dL Hct 25.7 L (34.0-46.0) % MCV 78.7 L (80.0-100.0) fL MCH 23.9 L (25.0-35.0) pg MCHC 30.4 L (31.0-37.0) g/dL RDW 19.6 H (11.5-15.5) % Sodium 136 L (137-145) mmol/L BUN 85 H (7-17) mg/dL Creatinine 2.75 H (0.52-1.04) mg/dL Glucose 147 H (74-99) mg/dL POC Glucose (mg/dL) 196 H (70-110) mg/dL Microbiology - Last 24 Hours (Table) 06/01/24 13:39 Blood Culture - Preliminary Blood Assessment and Plan Assessment: Acute on chronic kidney disease stage IIIB, cardiorenal, baseline creatinine 1.4-1.5, secondary to hypovolemia, anemia, hypotension Acute GI bleed, acute blood loss anemia, stool for occult blood positive, chest post 1 unit packed RBCs Hypotension on admission, secondary to all the above, including hypovolemia Hyponatremia, mild C. difficile colitis ruled out Chronic CHF, diastolic dysfunction.Echo reporting EF 55 to 60%. Mild , Moderate to severe tricuspid regurgitation Moderate mitral regurgitation Pulmonary hypertension, RVSP 43 Moderate to large right pleural effusion, Acute UTI, ruled out, urine culture reporting no growth. Lactic acidosis mild, corrected Chronic hypoxic respiratory failure, wears 2 L nasal cannula O2 at home Diabetes mellitus, hemoglobin A1c 6.9 CAD, prior PCI Moderate to severe mitral regurgitation Mild aortic stenosis Persistent atrial fibrillation anticoagulated on Eliquis Hypertension, history of Hyperlipidemia COPD Former nicotine dependence History of uterine cancer Chronic lower extremity cellulitis Obesity, BMI 27 Plan: Continue on current medication resume ,monitoring and symptomatic treatment. Cardiology recommending no anticoagulation secondary to anemia of unclear etiology. discussed with general surgery reattempting colonoscopy for the anemia workup. Close monitoring of hemoglobin, renal function, electrolytes with repeat labs ordered for a.m. cardiology and nephrology following. Prognosis guarded given multiple complex medical issues. Objective - Vital Signs Vital signs: Vital Signs Temp 97.5 F L 06/08/24 20:00 Pulse 95 06/08/24 20:00 Resp 17 06/08/24 20:00 BP 106/64 06/08/24 20:00 Pulse Ox 99 06/08/24 20:00 FiO2 Intake & Output 06/08/24 06/08/24 06/09/24 06:59 18:59 06:59 Intake Total 10 1078 Output Total 700 200 Balance -690 878 Intake: IV 10 0.9 10 Oral 1078 Output: Urine 700 200 Other: Voiding Method External Catheter External Catheter # Voids 1 - Labs CBC & Chem 7: 06/06/24 05:57 06/08/24 10:31 Labs: Abnormal Lab Results - Last 24 Hours (Table) 06/07/24 06/08/24 06/08/24 Range/Units 23:58 05:52 10:31 Carbon Dioxide 34 H (22-30) mmol/L BUN 58 H (7-17) mg/dL Creatinine 1.68 H (0.52-1.04) mg/dL Glucose 232 H (74-99) mg/dL POC Glucose (mg/dL) 175 H 162 H (70-110) mg/dL Calcium 8.2 L (8.4-10.2) mg/dL 06/08/24 06/08/24 06/08/24 Range/Units 13:16 17:23 20:34 Carbon Dioxide (22-30) mmol/L BUN (7-17) mg/dL Creatinine (0.52-1.04) mg/dL Glucose (74-99) mg/dL POC Glucose (mg/dL) 146 H 161 H 211 H (70-110) mg/dL Calcium (8.4-10.2) mg/dL
[2024-06-08 23:52] LABS: Glucose,Whole Blood 152 mg/dL (70-110)
[2024-06-09 06:04] LABS: Glucose,Whole Blood 163 mg/dL (70-110)
[2024-06-09] MEDS: METOPROLOL TARTRATE 50 MG TAB PO SCH (08:35)
[2024-06-09] MEDS: AMIODARONE 200 MG TAB PO SCH (08:35)
[2024-06-09 09:00] LABS: BUN/Creat Ratio 28.82 Ratio (12.00-20.00); Calcium 8.2 mg/dL (8.7-10.3); Carbon Dioxide 28.7 mmol/L (21.6-31.8); Chloride 102 mmol/L (96-109); Glucose 145 mg/dL (70-110); Magnesium 1.7 mg/dL (1.5-2.4); Sodium 144 mmol/L (135-145)
[2024-06-09 10:45] VITALS: BMI 27.5
--- NOTE | 2024-06-09 11:42 | P.PN ---
Subjective HISTORY OF PRESENT ILLNESS: This is a 84-year-old female with a past medical history significant for atrial fibrillation, coronary artery disease, hypertension, hyperlipidemia, and diabetes. Patient follows in the office with Dr. Walker. We have been asked to see the patient in consultation for CHF/pleural effusion. Patient examined at the bedside. Patient states she was at a routine nephrology appointment when she was found to be hypotensive and was directed to come to the emergency room. Patient's blood pressure was 80s over 50s upon arrival to the emergency room. Patient was found to be anemic with a hemoglobin of 6.3. She was also found to have worsening kidney function with a creatinine of 2.64. Patient's Eliquis has been placed on hold. General surgery has been consulted to evaluate patient. Patient's diuretics also remain on hold. Creatinine today is 2.75. Patient currently denies any chest pain or pressure. She denies any shortness of breath. DIAGNOSTICS: - EKG reveals atrial fibrillation with no signs of acute ischemia - Chest xray moderate right pleural effusion. Cardiomegaly. - Laboratory data: WBC 11.5. Hemoglobin 7.8. Platelet count 433. Sodium 133. Potassium 3.3. BUN 105. Creatinine 2.75. proBNP 11,300. - Current home cardiac medications include amiodarone 200 mg daily, Bumex 1 mg twice a day, Eliquis 2.5 mg twice a day, Plavix 75 mg daily, metoprolol tartrate 50 mg twice a day, Pravachol 80 mg at night - Echocardiogram obtained this admission reveals ejection fraction 55 to 60%, mild pulmonary hypertension, mild mitral stenosis, moderate mitral regurgitation, mild aortic stenosis, moderate to severe tricuspid regurgitation and no pericardial effusion. - Cardiac catheterization history: December 2022 revealing left dominant system. Diffusely diseased nondominant RCA small distribution, left main without significant stenosis, circumflex has diffuse disease, PDA of circumflex has distal subtotal 95% lesion. LAD has mid lesion 90 to 95% stenosis, proximal lesion 60%. Patient underwent stenting of the proximal and mid LAD. 06/04/2024 Patient examined this morning. She is sitting up in the chair. Patient currently denies chest pain or pressure. She denies shortness of breath. She continues to be on IV fluids. Creatinine improved to 2.45. Patient's Eliquis remains on hold. Hemoglobin today 8.3. Telemetry reveals atrial fibrillation with controlled ventricular rate. 06/05/2024 Patient examined this morning bedside. Patient currently denies chest pain or pressure. She denies shortness of breath. She remains on IV fluids at 50 cc an hour. Creatinine 2.75 today. Patient's Eliquis remains on hold. Hemoglobin 7.8. PHYSICAL EXAM: VITAL SIGNS: Reviewed. GENERAL: Well-developed in no acute distress. HEENT: Head is normocephalic. Pupils are equal, round. Sclerae anicteric. Mucous membranes of the mouth are moist. Neck supple. No JVD or thyromegaly LUNGS: Respirations even and unlabored. Lungs essentially clear to auscultation bilaterally, diminished. HEART: Irregular rate and rhythm. S1 and S2 heard. Systolic murmur noted. ABDOMEN: Soft. Nondistended. Nontender. EXTREMITIES: Normal range of motion. No clubbing or cyanosis. Peripheral pulses intact. Patient with gauze dressings to bilateral lower extremities NEUROLOGIC: Awake and alert. Oriented x 3. ASSESSMENT: Hypotension secondary to intravascular volume depletion Acute on chronic anemia, status post RBC transfusion Suspected GI bleed, patient refusing colonoscopy Acute on chronic kidney disease Moderate right pleural effusion Chronic congestive heart failure with preserved EF, currently not in acute exacerbation Persistent atrial fibrillation Coronary artery disease with previous stenting of the proximal and mid LAD, 12/2022 Mild pulmonary hypertension Chronic hypoxic respiratory failure on home oxygen Valvular heart disease including mild MS, moderate MR, mild , moderate to sev ere TR Hypertension Hyperlipidemia Diabetes Blisters on bilateral lower extremities PLAN: 2D echo obtained and reviewed Continue to hold Eliquis due to anemia/suspected GI bleed. [facility] Patient continues to refuse colonoscopy. Continue aspirin 81 mg daily. Resume metoprolol 50 mg twice a day Decrease amiodarone to 200 mg every 48 hours Increase midodrine to 7.5 mg 3 times a day Wound care to lower extremities per Dr. Berman's recommendations Further recommendations pending patient course Nurse practitioner note has been reviewed by physician. Signing provider agrees with the documented findings, assessment, and plan of care documented by [employer] as a scribe. Objective - Vital Signs Vital signs: Vital Signs Temp 97.9 F 06/09/24 08:10 Pulse 93 06/09/24 10:32 Resp 15 06/09/24 08:10 BP 102/65 06/09/24 08:10 Pulse Ox 100 06/09/24 08:10 FiO2 Intake & Output 06/08/24 06/09/24 06/09/24 18:59 06:59 18:59 Intake Total 1078 Output Total 200 2 Balance 878 -2 Weight 79.8 kg Intake: Oral 1078 Output: Urine 200 2 Other: Voiding Method External Catheter External Catheter External Catheter # Voids 1 - Labs CBC & Chem 7: 06/06/24 05:57 06/09/24 03:34 Labs: Abnormal Lab Results - Last 24 Hours (Table) 06/08/24 06/08/24 06/08/24 Range/Units 13:16 17:23 20:34 Anion Gap (4.00-12.00) mmol/L BUN (9.0-27.0) mg/dL Creatinine (0.6-1.5) mg/dL Est GFR (CKD-EPI) (>=60) BUN/Creatinine Ratio (12.00-20.00) Ratio Glucose (70-110) mg/dL POC Glucose (mg/dL) 146 H 161 H 211 H (70-110) mg/dL Calcium (8.7-10.3) mg/dL 06/08/24 06/09/24 06/09/24 Range/Units 23:50 03:34 06:03 Anion Gap 13.30 H (4.00-12.00) mmol/L BUN 49.0 H (9.0-27.0) mg/dL Creatinine 1.7 H (0.6-1.5) mg/dL Est GFR (CKD-EPI) 29 L (>=60) BUN/Creatinine Ratio 28.82 H (12.00-20.00) Ratio Glucose 145 H (70-110) mg/dL POC Glucose (mg/dL) 152 H 163 H (70-110) mg/dL Calcium 8.2 L (8.7-10.3) mg/dL
--- NOTE | 2024-06-09 11:45 | P.PN ---
Subjective Patient is seen in follow-up for acute kidney injury on chronic kidney disease. On oral Bumex and Farxiga. Nonoliguric. Currently on nasal cannula. Denies chest pain or shortness of breath. Vital signs are stable. General: No acute distress. HEENT: Head exam is unremarkable. On nasal cannula. LUNGS: No audible rhonchi or wheezes. HEART: Rate and Rhythm are regular. ABDOMEN: Nontender. EXTREMITITES: 2+ edema. Objective - Vital Signs Vital signs: Vital Signs Temp 97.9 F 06/09/24 08:10 Pulse 93 06/09/24 10:32 Resp 15 06/09/24 08:10 BP 102/65 06/09/24 08:10 Pulse Ox 100 06/09/24 08:10 FiO2 Intake & Output 06/08/24 06/09/24 06/09/24 18:59 06:59 18:59 Intake Total 1078 Output Total 200 2 Balance 878 -2 Weight 79.8 kg Intake: Oral 1078 Output: Urine 200 2 Other: Voiding Method External Catheter External Catheter External Catheter # Voids 1 - Labs CBC & Chem 7: 06/06/24 05:57 06/09/24 03:34 Labs: Abnormal Lab Results - Last 24 Hours (Table) 06/08/24 06/08/24 06/08/24 Range/Units 13:16 17:23 20:34 Anion Gap (4.00-12.00) mmol/L BUN (9.0-27.0) mg/dL Creatinine (0.6-1.5) mg/dL Est GFR (CKD-EPI) (>=60) BUN/Creatinine Ratio (12.00-20.00) Ratio Glucose (70-110) mg/dL POC Glucose (mg/dL) 146 H 161 H 211 H (70-110) mg/dL Calcium (8.7-10.3) mg/dL 06/08/24 06/09/24 06/09/24 Range/Units 23:50 03:34 06:03 Anion Gap 13.30 H (4.00-12.00) mmol/L BUN 49.0 H (9.0-27.0) mg/dL Creatinine 1.7 H (0.6-1.5) mg/dL Est GFR (CKD-EPI) 29 L (>=60) BUN/Creatinine Ratio 28.82 H (12.00-20.00) Ratio Glucose 145 H (70-110) mg/dL POC Glucose (mg/dL) 152 H 163 H (70-110) mg/dL Calcium 8.2 L (8.7-10.3) mg/dL Assessment and Plan Plan: Assessment: 1. Acute kidney injury secondary to ATN secondary to cardiorenal syndrome. Creatinine peaked at 2.75 this admission and stable at 1.7. Nonoliguric. 2. Chronic kidney disease stage IIIb with baseline creatinine near 1.5. Etiology is nephrosclerosis and cardiorenal syndrome. No proteinuria on UA. No hydronephrosis noted on imaging. 3. Volume overload. Improved with diuresis. 4. Acute on chronic diastolic CHF with moderate mitral and moderate to severe tricuspid regurgitation. 5. Anemia of chronic kidney disease maintained on Aranesp. Plan: Maintain Bumex. Maintain Farxiga. Maintain fluid restriction. Change to cardiac diet. Avoid nephrotoxins. Continue to monitor renal function and urine output. Patient will be going to rehab facility. Repeat BMP and magnesium level 2 to 3 days postdischarge. Follow-up outpatient 1 week postdischarge.
[2024-06-09 12:14] VITALS: RESP 20
[2024-06-09 12:14] LABS: Glucose,Whole Blood 170 mg/dL (70-110)
[2024-06-09] MEDS: MIDODRINE 5 MG TAB PO SCH (12:51)
[2024-06-09 14:24] VITALS: BP 94/60; PULSE 87; TEMP 97.7
--- NOTE | 2024-06-09 16:01 | P.DS ---
Providers Date of admission: 06/01/24 20:10 Expected date of discharge: 06/09/24 Attending physician: Roger Callahan Consults: 06/01/24 20:08 Consult Physician Routine Consulting Provider: Shania Lopez Consult Reason/Comments: renal disease Do you want consulting provider notified?: Yes 06/02/24 14:28 Consult Physician Routine Consulting Provider: Ry Goldman Consult Reason/Comments: CHF/Moderate to large right pleural effusion Do you want consulting provider notified?: Yes 06/08/24 09:53 Consult Physician Routine Consulting Provider: Jose Luis Berman Consult Reason/Comments: leg wounds Do you want consulting provider notified?: Yes Primary care physician: Roger Callahan - Discharge Diagnosis(es) (1) Acute kidney injury Current Visit: Yes Status: Acute (2) Positive occult stool blood test Current Visit: Yes Status: Acute (3) Acute renal failure (ARF) Current Visit: No Status: Acute (4) Anemia in chronic kidney disease Current Visit: No Status: Acute (5) Atrial fibrillation Current Visit: No Status: Acute (6) CHF exacerbation Current Visit: No Status: Acute Plan - Discharge Summary Discharge Rx Participant: No New Discharge Prescriptions: Discontinued RX: Clopidogrel [Plavix] 75 mg PO DAILY #90 tab No Action RX: Glimepiride [Amaryl] 1 mg PO AC-BRK RX: Pravastatin Sodium [Pravachol] 80 mg PO HS RX: Bumetanide [BUMEX] 1 mg PO BID@0900,1600 tab Metoprolol Tartrate [Lopressor] 50 mg PO BID Midodrine [ProAmatine] 5 mg PO DIRECTED RX: Apixaban [Eliquis] 2.5 mg PO BID RX: Amiodarone [Cordarone] 200 mg PO DAILY RX: Potassium Chloride ER [K-Dur 20] 20 meq PO DAILY #30 tab RX: Doxycycline Hyclate 100 mg PO DIRECTED Discharge Medication List RX: Glimepiride [Amaryl] 1 mg PO [id number] 03/11/20 [History] RX: Pravastatin Sodium [Pravachol] 80 mg PO HS 04/30/23 [History] RX: Amiodarone [Cordarone] 200 mg PO DAILY 04/14/24 [History] RX: Apixaban [Eliquis] 2.5 mg PO BID 04/14/24 [History] RX: Bumetanide [BUMEX] 1 mg PO BID@0900,1600 tab 04/28/24 [Rx] RX: Potassium Chloride ER [K-Dur 20] 20 meq PO DAILY #30 tab 04/28/24 [Rx] Metoprolol Tartrate [Lopressor] 50 mg PO BID 06/01/24 [History] Midodrine [ProAmatine] 5 mg PO DIRECTED 06/01/24 [History] RX: Doxycycline Hyclate 100 mg PO DIRECTED 06/01/24 [History] Follow up Appointment(s)/Referral(s): [facility], [NON-STAFF] - Axel Tucker DO [Medical Doctor] - 1 Week Roger Callahan DO [Primary Care Provider] - 2 Weeks
--- NOTE | 2024-06-20 14:44 | CDI ---
Documentation Clarification Form Date: 06/20/2024 02:28:22 PM From: Belen Camargo Phone: Admit Date: 06/01/2024 08:10:00 PM Patient Name: Charisse Willoughby Visit Number: [id number] Discharge Date: 06/09/2024 05:54:00 PM ATTENTION: The Clinical Documentation Specialists (CDI) and [facility] Coding Staff appreciate your assistance in clarifying documentation. Please respond to the clarification below the line at the bottom and electronically sign. The CDI & [facility] Coding staff will review the response and follow-up if needed. Please note: Queries are made part of the Legal Health Record. If you have any questions, please contact the author of this message via ITS. Doctor/Provider: Tim Field CKDstage IIIb - IV is documented per 06/02 Consult Note and throughout the Progress Notes. Additional clarification regarding the stage of CKD is requested. History/Risk Factors: 84yo F, ATN on CKD, hypotension, ABLA, melena, persistent A Fib, Hxuterine cancer,COPDw O2, DMII, pyuria, hypovolemic,hyponatremia, moderate rightpleural effusion, CADsp AR, ACDHF, WALTER, hypokalemia Historical: baseline creatinine 1.4-1.5 Clinical Indicators: eGFR: 06/01 16-18 06/02 15 06/09 29 BUN: 06/01 122 06/02 112 06/03 105 (BUNdisproportionately elevated from GI bleed.) CR: 06/01 2.64 06/02 2.71 06/03 2.75 06/04 2.45 Treatment: Decrease IV fluids,H/o diastolic CHF. Accurate I/Os. Resume home med midodrine, increase dose if BP remains low. Repeat labs in am. Avoid nephrotoxic agents. Check iron profile. Maintain on aranesp. Please clarify the stage of the CKD, if known: [ ] CKD Stage 3b [ x ] CKD Stage 4 [ ] Other, please specify [ ] Unable to determine Reference: National Kid[employer] Stage 1 eGFR = 90 and kidney damage for =3 months Stage 2 eGFR 60-89 and kidney damage for =3 months Stage 3a eGFR 45-59 and kidney damage for =3 months Stage 3b eGFR 30-44 and kidney damage for =3 months Stage 4 eGFR 15-29 r and kidney damage for =3 months Stage 5 eGFR <15 and kidney damage for =3 months (Template last revised: August 2023) MTDD
== END 2024-06-09 17:54 | DRG 377 ==
LOC: EC 11:48 → 3SCARD 20:10 → 5NMEDONC 06-02 16:29 → 3SCARD 06-02 16:53 → 6NMEDSUR 06-07 22:09
PROVIDERS: ADMIT Family Medicine; ATTEND Family Medicine
PROC: 30233N1 Transfusion of Nonautologous Red Blood Cells into Peripheral Vein, Percutaneous Approach (ICD-10-PCS; principal; 2024-06-01)
DX: K92.1 Melena (principal); I50.33 Acute on chronic diastolic (congestive) heart failure; N17.0 Acute kidney failure with tubular necrosis; J96.11 Chronic respiratory failure with hypoxia; D62 Acute posthemorrhagic anemia; I13.0 Hypertensive heart and chronic kidney disease with heart failure and stage 1 through stage 4 chronic kidney disease, or unspecified chronic kidney disease; I48.19 Other persistent atrial fibrillation; J91.8 Pleural effusion in other conditions classified elsewhere; E87.20 Acidosis, unspecified; E87.1 Hypo-osmolality and hyponatremia; N18.4 Chronic kidney disease, stage 4 (severe); L03.115 Cellulitis of right lower limb; L03.116 Cellulitis of left lower limb; I27.20 Pulmonary hypertension, unspecified; E11.22 Type 2 diabetes mellitus with diabetic chronic kidney disease; J44.9 Chronic obstructive pulmonary disease, unspecified; D63.1 Anemia in chronic kidney disease; Z99.81 Dependence on supplemental oxygen; D50.9 Iron deficiency anemia, unspecified; E66.9 Obesity, unspecified; E86.1 Hypovolemia; I08.3 Combined rheumatic disorders of mitral, aortic and tricuspid valves; E78.5 Hyperlipidemia, unspecified; S80.822A Blister (nonthermal), left lower leg, initial encounter; S80.821A Blister (nonthermal), right lower leg, initial encounter; I95.89 Other hypotension; I25.10 Atherosclerotic heart disease of native coronary artery without angina pectoris; E87.6 Hypokalemia; R82.81 Pyuria; R30.0 Dysuria; R19.7 Diarrhea, unspecified; Z87.891 Personal history of nicotine dependence; Z95.5 Presence of coronary angioplasty implant and graft; I25.2 Old myocardial infarction; Z85.42 Personal history of malignant neoplasm of other parts of uterus; Z79.02 Long term (current) use of antithrombotics/antiplatelets; Z79.01 Long term (current) use of anticoagulants; Z79.84 Long term (current) use of oral hypoglycemic drugs; Z79.899 Other long term (current) drug therapy; Z68.27 Body mass index [BMI] 27.0-27.9, adult
CPT/HCPCS: 36415; 36430; 71046; 74176; 80048; 80053; 81001; 82272; 83036; 83540; 83550; 83605; 83735; 83880; 85025; 85027; 85610; 85730; 86850; 86900; 86901; 86920; 87040; 87086; 87324; 93005; 93306; 94640; 94664; 96365; 96366; 96367; 96372; 96375; 96376; 99291

== ENCOUNTER 2024-06-11 16:29 | Emergency (ER) | payer MEDICARE ==
[2024-06-11 16:44] VITALS: TEMP 97.8
--- NOTE | 2024-06-11 17:31 | ED ---
Recheck HPI - General Chief Complaint: Recheck/Abnormal Lab/Rx Stated Complaint: abn labs Time Seen by Provider: 06/11/24 16:53 Source: patient, EMS, RN notes reviewed, old records reviewed Mode of arrival: EMS Limitations: no limitations - History of Present Illness Initial Comments: This is a 84-year-old female to ER for evaluation of low hemoglobin she was sent from outside facility for low hemoglobin MD Complaint: abnormal lab (Low hemoglobin) -: days(s) Returns Today for: Called Because of Abnormal Lab/Test Symptoms Since Prior Visit: no new symptoms Context: called for abnormal lab result Associated Symptoms: none Treatments Prior to Arrival: other - Related Data Home Medications Medication Instructions Recorded Confirmed Glimepiride [Amaryl] 1 mg PO DAILY@0600 03/11/20 06/16/24 Pravastatin Sodium [Pravachol] 80 mg PO HS@209904/30/23 06/16/24 Amiodarone [Cordarone] 200 mg PO DAILY@0904/14/24 06/16/24 Apixaban [Eliquis] 2.5 mg PO BID@0900,209904/14/24 06/16/24 Metoprolol Tartrate [Lopressor] 50 mg PO BID@0900,209906/01/24 06/16/24 Aspirin 81 mg PO DAILY@0906/11/24 06/16/24 Colchicine See Taper PO DIRECTED 06/11/24 06/16/24 Glucerna Shake 1 can PO DAILY@0900 06/11/24 06/16/24 Midodrine [ProAmatine] 7.5 mg PO AC-TID@,,06/11/24 06/16/24 Potassium Chloride ER [K-Dur 20] 20 meq PO DAILY@0900 06/11/24 06/16/24 Darbepoetin Keon [Aranesp] 60 mcg SQ TU 06/16/24 06/16/24 Glucagon Emergency Kit 1 mg IM ONCE PRN 06/16/24 06/16/24 Loperamide HCl [Imodium A-D] 2 - 4 mg PO TID PRN MDD 8 mg 06/16/24 06/16/24 Ondansetron [Zofran] 4 mg PO TID PRN 06/16/24 06/16/24 Previous Rx's Medication Instructions Recorded Bumetanide [BUMEX] 1 mg PO BID@0900,1600 tab 04/28/24 Acetaminophen Tab [Tylenol] 650 mg PO Q6HR PRN tab 06/09/24 Ipratropium-Albuterol Nebulize 3 ml INHALATION RT-TID PRN each 06/09/24 [Duoneb 0.5 mg-3 mg/3 ml Soln] Allergies Allergy/AdvReac Type Severity Reaction Status Date / Time atorvastatin [From Lipitor] Allergy Nausea Verified 06/16/24 10:55 celecoxib [From Celebrex] Allergy Swelling Verified 06/16/24 10:55 ibuprofen [From Motrin] Allergy Swelling, Verified 06/16/24 10:55 itching Penicillins Allergy Swelling Verified 06/16/24 10:55 steroid AdvReac shaking Uncoded 06/01/24 13:42 Review of Systems ROS Statement: Those systems with pertinent positive or pertinent negative responses have been documented in the HPI. ROS Other: All systems not noted in ROS Statement are negative. Past Medical History Past Medical History: Atrial Fibrillation, Cancer, COPD, Diabetes Mellitus, Hyperlipidemia, Hypertension, Myocardial Infarction (NV), Renal Disease Additional Past Medical History / Comment(s): Moderate to severe mitral regurg itation/SOB, mild aortic stenosis, NIDDM, uterine cancer/surgery only, NV x 2, stage III kidney failure Last Myocardial Infarction Date:: unknown History of Any Multi-Drug Resistant Organisms: None Reported Past Surgical History: Appendectomy, Back Surgery, Cholecystectomy, Heart Catheterization, Heart Catheterization With Stent, Hysterectomy Additional Past Surgical History / Comment(s): Cardioversions, hysterectomy/left one ovary Past Anesthesia/Blood Transfusion Reactions: No Reported Reaction Additional Past Anesthesia/Blood Transfusion Reaction / Comment(s): Pt has had autotransfusion only. Date of Last Stent Placement:: 12/2022 Past Psychological History: No Psychological Hx Reported Smoking Status: Former smoker Past Alcohol Use History: None Reported Past Drug Use History: None Reported - Past Family History Brother(s) Family Medical History: Cancer Additional Family Medical History / Comment(s): 2 brothers cancer. 1 brother cabg General Exam General appearance: alert, in no apparent distress Head exam: Present: atraumatic, normocephalic, normal inspection Eye exam: Present: normal appearance, PERRL, EOMI. Absent: scleral icterus, conjunctival injection, periorbital swelling ENT exam: Present: normal exam, mucous membranes moist Neck exam: Present: normal inspection. Absent: tenderness, meningismus, lymphadenopathy Respiratory exam: Present: normal lung sounds bilaterally. Absent: respiratory distress, wheezes, rales, rhonchi, stridor Cardiovascular Exam: Present: regular rate, normal rhythm, normal heart sounds. Absent: systolic murmur, diastolic murmur, rubs, gallop, clicks GI/Abdominal exam: Present: soft, normal bowel sounds. Absent: distended, tenderness, guarding, rebound, rigid Extremities exam: Present: normal inspection, full ROM, normal capillary refill. Absent: tenderness, pedal edema, joint swelling, calf tenderness Back exam: Present: normal inspection Neurological exam: Present: alert, oriented X3, CN II-XII intact Psychiatric exam: Present: normal affect, normal mood Skin exam: Present: warm, dry, intact, normal color. Absent: rash Course Vital Signs 06/11/24 06/11/24 06/11/24 16:37 18:00 19:35 Temperature 97.8 F Pulse Rate 87 78 80 Respiratory 16 16 18 Rate Blood Pressure 109/76 110/80 O2 Sat by Pulse 100 100 94 L Oximetry - Reevaluation(s) Reevaluation #1: 06/11/24 17:31 Medical records reviewed Reevaluation #2: 06/11/24 17:31 Patient symptoms unchanged Reevaluation #3: 06/11/24 17:31 Patient informed of results and questions answered Reevaluation #4: Was pt. sent in by a medical professional or institution (, PA, [employer], urgent care, hospital, or senior living...) When possible be specific @ -no Did you speak to anyone other than the patient for history (EMS, parent, family, police, friend...)? What history was obtained from this source @ -no Did you review nursing and triage notes (agree or disagree)? Why? @ -agree Are old charts reviewed (outside hosp., previous admission, EMS record, old EKG, old radiological studies, urgent care reports/EKG's, senior living records)? Report findings @ -yes Differential Diagnosis (chest pain, altered mental status, abdominal pain women, abdominal pain men, vaginal bleeding, weakness, fever, dyspnea, syncope, headache, dizziness, GI bleed, back pain, seizure, CVA, palpatations, mental health, musculoskeletal)? @ -prior EKG interpreted by me (3pts min.). @ -no X-rays interpreted by me (1pt min.). @ -no CT interpreted by me (1pt min.). @ -no U/S interpreted by me (1pt. min.). @ -no What testing was considered but not performed or refused? (CT, X-rays, U/S, labs)? Why? @ -none What meds were considered but not given or refused? Why? @ -none Did you discuss the management of the patient with other professionals (professionals i.e. Dr., PA, [employer], lab, RT, psych nurse, social research assistant, lawyer real estate, teacher, chief operations officer, family independence case manager)? Give summary @ -no Was smoking cessation discussed for >3mins.? @ -no Was critical care preformed (if so, how long)? @ -no Were there social determinants of health that impacted care today? How? (Homelessness, low income, unemployed, alcoholism, drug addiction, transportation, low edu. Level, literacy, decrease access to med. care, m[facility], rehab)? @ -none Was there de-escalation of care discussed even if they declined (Discuss DNR or withdrawal of care, Hospice)? DNR status @ -no What co-morbidities impacted this encounter? (DM, HTN, Smoking, COPD, CAD, Cancer, CVA, ARF, Chemo, Hep., AIDS, mental health diagnosis, sleep apnea, morbid obesity)? @ -none Was patient admitted / discharged? Hospital course, mention meds given and route, prescriptions, significant lab abnormalities, going to OR and other pertinent info. @ - 84 female with hemoglobin 7.1 patient can be discharged home Discharge Undiagnosed new problem with uncertain prognosis? @ -no Drug Therapy requiring intensive monitoring for toxicity (Heparin, Nitro, Insulin, Cardizem)? @ -no Were any procedures done? @ -no Diagnosis/symptom? @ -Anemia Acute, or Chronic, or Acute on Chronic? @ -Acute Uncomplicated (without systemic symptoms) or Complicated (systemic symptoms)? @ -Complicated Side effects of treatment? @ -no Exacerbation, Progression, or Severe Exacerbation? @ -exacerbation Poses a threat to life or bodily function? How? (Chest pain, USA, NV, pneumonia, PE, COPD, DKA, ARF, appy, cholecystitis, CVA, Diverticulitis, Homicidal, Suicida l, threat to staff... and all critical care pts) @ -yes extremes of age Reevaluation #5: Differential Weakness: Hypoglycemia, shock, sepsis, hyponatremia, anemia, infection, NV, ETOH, adverse medicine reaction, overdose, stroke, this is not meant to be an all-inclusive li st. Medical Decision Making - Medical Decision Making 84 female with hemoglobin 7.1 patient can be discharged home - Lab Data Result diagrams: 06/11/24 17:25 06/11/24 17:25 Lab Results 06/11/24 06/11/24 06/11/24 Range/Units 17:25 17:25 17:25 WBC 9.4 (3.8-10.6) k/uL RBC 3.16 L (3.80-5.40) m/uL Hgb 7.1 L (11.4-16.0) gm/dL Hct 24.5 L (34.0-46.0) % MCV 77.4 L (80.0-100.0) fL MCH 22.6 L (25.0-35.0) pg MCHC 29.2 L (31.0-37.0) g/dL RDW 20.4 H (11.5-15.5) % Plt Count 304 (150-450) k/uL MPV 7.7 Neutrophils % 68 % Lymphocytes % 22 % Monocytes % 6 % Eosinophils % 1 % Basophils % 0 % Neutrophils # 6.4 (1.3-7.7) k/uL Lymphocytes # 2.1 (1.0-4.8) k/uL Monocytes # 0.6 (0-1.0) k/uL Eosinophils # 0.1 (0-0.7) k/uL Basophils # 0.0 (0-0.2) k/uL Hypochromasia Marked Poikilocytosis Marked Anisocytosis Moderate Microcytosis Moderate PT 11.5 (10.0-12.5) sec INR 1.1 (<1.2) APTT 26.0 (22.0-30.0) sec Sodium 138 (137-145) mmol/L Potassium 4.3 (3.5-5.1) mmol/L Chloride 99 (98-107) mmol/L Carbon Dioxide 31 H (22-30) mmol/L Anion Gap 8 mmol/L BUN 59 H (7-17) mg/dL Creatinine 1.89 H (0.52-1.04) mg/dL Est GFR (CKD-EPI)AfAm 27 (>60 ml/min/1.73 sqM) Est GFR (CKD-EPI)NonAf 24 (>60 ml/min/1.73 sqM) Glucose 146 H (74-99) mg/dL Plasma Lactic Acid Kenneth (0.7-2.0) mmol/L Calcium 8.1 L (8.4-10.2) mg/dL Phosphorus 4.2 (2.5-4.5) mg/dL Magnesium 1.6 (1.6-2.3) mg/dL Total Bilirubin 0.4 (0.2-1.3) mg/dL AST 26 (14-36) U/L ALT 16 (4-34) U/L Alkaline Phosphatase 119 (38-126) U/L Troponin I (0.000-0.034) ng/mL Total Protein 5.7 L (6.3-8.2) g/dL Albumin 2.8 L (3.5-5.0) g/dL Blood Type Blood Type Recheck Bld Type Recheck Status Antibody Screen Spec Expiration Date 06/11/24 06/11/24 06/11/24 Range/Units 17:25 17:25 17:25 WBC (3.8-10.6) k/uL RBC (3.80-5.40) m/uL Hgb (11.4-16.0) gm/dL Hct (34.0-46.0) % MCV (80.0-100.0) fL MCH (25.0-35.0) pg MCHC (31.0-37.0) g/dL RDW (11.5-15.5) % Plt Count (150-450) k/uL MPV Neutrophils % % Lymphocytes % % Monocytes % % Eosinophils % % Basophils % % Neutrophils # (1.3-7.7) k/uL Lymphocytes # (1.0-4.8) k/uL Monocytes # (0-1.0) k/uL Eosinophils # (0-0.7) k/uL Basophils # (0-0.2) k/uL Hypochromasia Poikilocytosis Anisocytosis Microcytosis PT (10.0-12.5) sec INR (<1.2) APTT (22.0-30.0) sec Sodium (137-145) mmol/L Potassium (3.5-5.1) mmol/L Chloride (98-107) mmol/L Carbon Dioxide (22-30) mmol/L Anion Gap mmol/L BUN (7-17) mg/dL Creatinine (0.52-1.04) mg/dL Est GFR (CKD-EPI)AfAm (>60 ml/min/1.73 sqM) Est GFR (CKD-EPI)NonAf (>60 ml/min/1.73 sqM) Glucose (74-99) mg/dL Plasma Lactic Acid Kenneth 1.2 (0.7-2.0) mmol/L Calcium (8.4-10.2) mg/dL Phosphorus (2.5-4.5) mg/dL Magnesium (1.6-2.3) mg/dL Total Bilirubin (0.2-1.3) mg/dL AST (14-36) U/L ALT (4-34) U/L Alkaline Phosphatase (38-126) U/L Troponin I <0.012 (0.000-0.034) ng/mL Total Protein (6.3-8.2) g/dL Albumin (3.5-5.0) g/dL Blood Type A Positive Blood Type Recheck A Pos Bld Type Recheck Status No Antibody Screen NEGATIVE Spec Expiration Date 06/14/20242324 Disposition Clinical Impression: Weakness, Atrial fibrillation, Anemia Disposition: HOME SELF-CARE Condition: Fair Instructions (If sedation given, give patient instructions): Anemia (ED) Is patient prescribed a controlled substance at d/c from ED?: No Referrals: Roger Callahan DO [Primary Care Provider] - 1-2 days Time of Disposition: 18:00
[2024-06-11 17:56] LABS: Anisocytosis Moderate; Basophils % (A) 0 %; Eosinophils # (A) 0.1 k/uL (0-0.7); Eosinophils % (A) 1 %; HCT 24.5 % (34.0-46.0); HGB 7.1 gm/dL (11.4-16.0); Hypochromasia Marked; Lymphocytes # (A) 2.1 k/uL (1.0-4.8); Lymphocytes % (A) 22 %; MCH 22.6 pg (25.0-35.0); MCHC 29.2 g/dL (31.0-37.0); MCV 77.4 fL (80.0-100.0); Mean Platelet Volume 7.7; Microcytosis Moderate; Monocytes # (A) 0.6 k/uL (0-1.0); Monocytes % (A) 6 %; Neutrophils # (A) 6.4 k/uL (1.3-7.7); Neutrophils % (A) 68 %; Platelet Count 304 k/uL (150-450); Poikilocytosis Marked; RBC 3.16 m/uL (3.80-5.40); RDW 20.4 % (11.5-15.5); WBC 9.4 k/uL (3.8-10.6)
[2024-06-11 18:01] LABS: INR 1.1 (<1.2); Prothrombin Time 11.5 sec (10.0-12.5)
[2024-06-11] MEDS: SODIUM CHLORIDE 0.9% 1,000 ML IV STA (18:05)
[2024-06-11 18:06] LABS: ALT 16 U/L (4-34); AST 26 U/L (14-36); African American GFR (CKD) 27 (>60 ml/min/1.73 sqM); Albumin 2.8 g/dL (3.5-5.0); Alkaline Phosphatase 119 U/L (38-126); Anion Gap 8 mmol/L; Blood Urea Nitrogen 59 mg/dL (7-17); Calcium 8.1 mg/dL (8.4-10.2); Carbon Dioxide 31 mmol/L (22-30); Chloride 99 mmol/L (98-107); Glucose 146 mg/dL (74-99); Magnesium 1.6 mg/dL (1.6-2.3); Non-African American GFR(CKD) 24 (>60 ml/min/1.73 sqM); Phosphorus 4.2 mg/dL (2.5-4.5); Potassium 4.3 mmol/L (3.5-5.1); Sodium 138 mmol/L (137-145); Total Bilirubin 0.4 mg/dL (0.2-1.3); Total Protein 5.7 g/dL (6.3-8.2)
[2024-06-11 19:37] VITALS: BP 110/80; PULSE 80; RESP 18
== END 2024-06-11 20:00 | disposition home or self-care (01) ==
LOC: EC 16:29
DX: D64.9 Anemia, unspecified (principal); I48.91 Unspecified atrial fibrillation; Z88.0 Allergy status to penicillin; Z88.6 Allergy status to analgesic agent; Z88.8 Allergy status to other drugs, medicaments and biological substances; Z79.01 Long term (current) use of anticoagulants; Z87.891 Personal history of nicotine dependence
CPT/HCPCS: 36415; 80053; 83605; 83735; 84100; 84484; 85025; 85610; 85730; 86850; 86900; 86901; 93005; 96360; 96361; 99283

== ENCOUNTER 2024-06-16 09:54 | Inpatient (IN) | payer MEDICARE ==
[2024-06-16 10:11] LABS: Glucose,Whole Blood 62 mg/dL (70-110)
[2024-06-16 10:12] VITALS: TEMP 97.1
--- NOTE | 2024-06-16 10:15 | ED ---
General Adult HPI - General Stated complaint: Hypoglycemia Time Seen by Provider: 06/16/24 10:05 Source: EMS Mode of arrival: EMS Limitations: no limitations - History of Present Illness Initial comments: Dictation was produced using Fridge dictation software. please excuse any gram matical, word or spelling errors. Chief Complaint: 84-year-old female brought to the emergency department for hypoglycemia History of Present Illness: Patient is 84-year-old female she was brought in by EMS from [facility]. Patient allegedly had low blood sugar. EMS upon arrival states that patient was mentating appropriately and appeared well. Upon EMS arrival patient's mentation began to decrease. She had a sugar checked and it was in the 40s. She was given amp of D50 with improvement. Patient takes metformin. Patient does not take insulin according to EMS. Patient is full code. Patient denies any complaints at this time. The ROS documented in this emergency department record has been reviewed and confirmed by me. Those systems with pertinent positive or negative responses have been documented in the HPI. All other systems are other negative and/or noncontributory. - Related Data Home Medications Medication Instructions Recorded Confirmed Glimepiride [Amaryl] 1 mg PO DAILY@0600 03/11/20 06/16/24 Pravastatin Sodium [Pravachol] 80 mg PO HS@209904/30/23 06/16/24 Amiodarone [Cordarone] 200 mg PO DAILY@0904/14/24 06/16/24 Apixaban [Eliquis] 2.5 mg PO BID@09,209904/14/24 06/16/24 Metoprolol Tartrate [Lopressor] 50 mg PO BID@09,209906/01/24 06/16/24 Aspirin 81 mg PO DAILY@0906/11/24 06/16/24 Colchicine See Taper PO DIRECTED 06/11/24 06/16/24 Glucerna Shake 1 can PO DAILY@0900 06/11/24 06/16/24 Midodrine [ProAmatine] 7.5 mg PO AC-TID@08,12,17 06/11/24 06/16/24 Potassium Chloride ER [K-Dur 20] 20 meq PO DAILY@0900 06/11/24 06/16/24 Darbepoetin Keon [Aranesp] 60 mcg SQ TU 06/16/24 06/16/24 Glucagon Emergency Kit 1 mg IM ONCE PRN 06/16/24 06/16/24 Loperamide HCl [Imodium A-D] 2 - 4 mg PO TID PRN MDD 8 mg 06/16/24 06/16/24 Ondansetron [Zofran] 4 mg PO TID PRN 06/16/24 06/16/24 Previous Rx's Medication Instructions Recorded Bumetanide [BUMEX] 1 mg PO BID@0900,1600 tab 04/28/24 Acetaminophen Tab [Tylenol] 650 mg PO Q6HR PRN tab 06/09/24 Ipratropium-Albuterol Nebulize 3 ml INHALATION RT-TID PRN each 06/09/24 [Duoneb 0.5 mg-3 mg/3 ml Soln] Allergies Allergy/AdvReac Type Severity Reaction Status Date / Time atorvastatin [From Lipitor] Allergy Nausea Verified 06/16/24 10:55 celecoxib [From Celebrex] Allergy Swelling Verified 06/16/24 10:55 ibuprofen [From Motrin] Allergy Swelling, Verified 06/16/24 10:55 itching Penicillins Allergy Swelling Verified 06/16/24 10:55 steroid AdvReac shaking Uncoded 06/01/24 13:42 Review of Systems ROS Statement: Those systems with pertinent positive or pertinent negative responses have been documented in the HPI. ROS Other: All systems not noted in ROS Statement are negative. Past Medical History Past Medical History: Atrial Fibrillation, Cancer, COPD, Diabetes Mellitus, Hyperlipidemia, Hypertension, Myocardial Infarction (OR), Renal Disease Additional Past Medical History / Comment(s): Moderate to severe mitral regurgitation/SOB, mild aortic stenosis, NIDDM, uterine cancer/surgery only, OR x 2, stage III kidney failure Last Myocardial Infarction Date:: unknown History of Any Multi-Drug Resistant Organisms: None Reported Past Surgical History: Appendectomy, Back Surgery, Cholecystectomy, Heart Ca theterization, Heart Catheterization With Stent, Hysterectomy Additional Past Surgical History / Comment(s): Cardioversions, hysterectomy/left one ovary Past Anesthesia/Blood Transfusion Reactions: No Reported Reaction Additional Past Anesthesia/Blood Transfusion Reaction / Comment(s): Pt has had autotransfusion only. Date of Last Stent Placement:: 12/2022 Past Psychological History: No Psychological Hx Reported Smoking Status: Former smoker Past Alcohol Use History: None Reported Past Drug Use History: None Reported - Past Family History Brother(s) Family Medical History: Cancer Additional Family Medical History / Comment(s): 2 brothers cancer. 1 brother cabg General Exam - General Exam Comments Initial Comments: PHYSICAL EXAM: General Impression: Alert and oriented x3, not in acute distress HEENT: Normocephalic atraumatic, extra-ocular movements intact, pupils equal and reactive to light bilaterally, mucous membranes moist. Cardiovascular: Heart regular rate and rhythm Chest: Able to complete full sentences, no retractions, no tachypnea Abdomen: abdomen soft, non-tender, non-distended, no organomegaly Musculoskeletal: Pulses present and equal in all extremities, no peripheral edema Motor: no focal deficits noted Neurological: CN II-XII grossly intact, no focal motor or sensory deficits noted Skin: Intact with no visualized rashes Psych: Normal affect and mood Limitations: no limitations Course Vital Signs 06/16/24 06/16/24 06/16/24 09:59 10:49 11:15 Temperature 97.1 F L Pulse Rate 62 58 L Respiratory 16 18 Rate Blood Pressure 69/49 80/43 80/56 O2 Sat by Pulse 94 L 87 L Oximetry 06/16/24 06/16/24 06/16/24 11:47 12:03 12:35 Temperature Pulse Rate 61 52 L 51 L Respiratory 18 18 18 Rate Blood Pressure 60/50 66/52 56/40 O2 Sat by Pulse 93 L 93 L Oximetry 06/16/24 06/16/24 06/16/24 12:55 13:05 13:11 Temperature Pulse Rate 51 L Respiratory 16 Rate Blood Pressure 54/35 61/39 66/26 O2 Sat by Pulse 100 Oximetry 06/16/24 06/16/24 06/16/24 13:13 13:15 13:17 Temperature Pulse Rate 57 L 58 L 55 L Respiratory Rate Blood Pressure 71/50 74/22 79/53 O2 Sat by Pulse Oximetry 06/16/24 06/16/24 06/16/24 13:20 13:23 13:25 Temperature Pulse Rate 50 L 57 L Respiratory Rate Blood Pressure 83/62 68/48 81/53 O2 Sat by Pulse Oximetry 06/16/24 13:39 Temperature Pulse Rate 50 L Respiratory Rate Blood Pressure 66/50 O2 Sat by Pulse Oximetry - Reevaluation(s) Reevaluation #1: 06/16/24 12:31 Patient's blood pressure did not improve despite IV hydration. Central line was placed in the right for. Patient tolerated procedure well. Patient given 30 cc/kg based on ideal body weight. She was given antibiotics. Lactic acidosis 2.9. Patient started on quad strength pressors. EKG Findings - EKG Comments: EKG Findings:: My EKG interpretation: Ventricular rate 63, unable to delineate rhythm due to quality EKG. QRS 92, QTc 422 no QTC prolongation, no ST or T-wave changes noted. EKG compared to June 01, 2024 showing no changes. Overall, this EKG is unremarkable Medical Decision Making - Medical Decision Making Was pt. sent in by a medical professional or institution ([facility], [facility], urgent care, hospital, or correction...) When possible be specific @ -No Did you speak to anyone other than the patient for history (EMS, parent, family, police, friend...)? What history was obtained from this source @ -No Did you review nursing and triage notes (agree or disagree)? Why? @ -I reviewed and agree with nursing and triage notes Were old charts reviewed (outside hosp., previous admission, EMS record, old EKG, old radiological studies, urgent care reports/EKG's, correction records)? Report findings @ -No old charts were reviewed Differential Diagnosis (chest pain, altered mental status, abdominal pain women, abdominal pain men, vaginal bleeding, musculoskeletal, weakness, fever, dyspnea, syncope, headache, dizziness, GI bleed, back pain, seizure, CVA, palpatations, mental health)? @ -Differential Weakness: Hypoglycemia, shock, sepsis, hyponatremia, anemia, infection, OR, ETOH, adverse medicine reaction, overdose, stroke, this is not meant to be an all-inclusive list. EKG interpreted by me (3pts min.). @ -See above X-rays interpreted by me (1pt min.). @ -Chest x-ray shows CHF with right pleural effusion. Abdominal x-ray shows dilated bile CT interpreted by me (1pt min.). @ -None done U/S interpreted by me (1pt. min.). @ -None done What testing was considered but not performed or refused? (CT, X-rays, U/S, labs)? Why? @ -None What meds were considered but not given or refused? Why? @ -None Was smoking cessation discussed for >3mins.? @ -No Were there social determinants of health that impacted care today? How? (Homelessness, low income, unemployed, alcoholism, drug addiction, transportation, low edu. Level, literacy, decrease access to med. care, nursing home, rehab)? @ -No Was there de-escalation of care discussed even if they declined (Discuss DNR or withdrawal of care, Hospice)? DNR status @ -No What co-morbidities impacted this encounter? (DM, HTN, Smoking, COPD, CAD, Cancer, CVA, ARF, Chemo, Hep., AIDS, mental health diagnosis, sleep apnea, morbid obesity)? @ -Cardiomyopathy Was patient admitted / discharged? Hospital course, mention meds given and route, prescriptions, significant lab abnormalities, going to OR and other pertinent info. @ -84-year-old female arrived to the emergency department from correction for hypoglycemia. Patient does not use insulin. Patient at the bedside noticed significant distress. She did complain of some vague abdominal pain and back pain. Patient's sugar precipitously dropped despite frequent dextrose pushes. She ultimately was placed on dextrose drip. There was concern for septic process. Patient pending blood cultures given antibiotics. At this point no obvious source of infection. Urinalysis is pending. Patient did have elevated troponin patient was boarding in the ER when she coded. Please see addendum note for further details. Case was discussed with research executive. Concern for septic shock given hypoglycemia and hypotension. Did you discuss the management of the patient with other professionals (professionals i.e. , PA, [facility], lab, RT, psych nurse, nursing home social worker, cutter finisher, teacher, public records officer, porter sample case)? Give summary @ -See above Was critical care preformed (if so, how long)? @ -yes, 77 minutes Undiagnosed new problem with uncertain prognosis? @ -No Drug Therapy requiring intensive monitoring for toxicity (Heparin, Nitro, Insulin, Cardizem)? @ -No Were any procedures done? @ -No Diagnosis/symptom? Acute, or Chronic, or Acute on Chronic? Uncomplicated (without systemic symptoms) or Complicated (systemic symptoms)? @ -Hypoglycemia, hypotension Side effects of treatment? @ -No Exacerbation, Progression, or Severe Exacerbation? @ -No Poses a threat to life or bodily function? How? (Chest pain, USA, OR, pneumonia, PE, COPD, DKA, ARF, appy, cholecystitis, CVA, Diverticulitis, Homicidal, Suicidal, threat to staff... and all critical care pts) @ -yes - Lab Data Result diagrams: 06/16/24 10:37 06/16/24 10:37 Lab Results 06/16/24 06/16/24 06/16/24 Range/Units 10:09 10:28 10:37 WBC 9.3 (3.8-10.6) k/uL RBC 3.43 L (3.80-5.40) m/uL Hgb 7.7 L (11.4-16.0) gm/dL Hct 26.6 L (34.0-46.0) % MCV 77.6 L (80.0-100.0) fL MCH 22.4 L (25.0-35.0) pg MCHC 28.8 L (31.0-37.0) g/dL RDW 20.2 H (11.5-15.5) % Plt Count 202 (150-450) k/uL MPV 9.3 Neutrophils % 79 % Lymphocytes % 14 % Monocytes % 5 % Eosinophils % 0 % Basophils % 0 % Neutrophils # 7.3 (1.3-7.7) k/uL Lymphocytes # 1.3 (1.0-4.8) k/uL Monocytes # 0.5 (0-1.0) k/uL Eosinophils # 0.0 (0-0.7) k/uL Basophils # 0.0 (0-0.2) k/uL Hypochromasia Marked Poikilocytosis Moderate Anisocytosis Moderate Microcytosis Moderate PT (10.0-12.5) sec INR (<1.2) APTT (22.0-30.0) sec Sodium (137-145) mmol/L Potassium (3.5-5.1) mmol/L Chloride (98-107) mmol/L Carbon Dioxide (22-30) mmol/L Anion Gap mmol/L BUN (7-17) mg/dL Creatinine (0.52-1.04) mg/dL Est GFR (CKD-EPI)AfAm (>60 ml/min/1.73 sqM) Est GFR (CKD-EPI)NonAf (>60 ml/min/1.73 sqM) Glucose (74-99) mg/dL POC Glucose (mg/dL) 62 L 50 L (70-110) mg/dL POC Glu Concrete Boom Operator ID Reg Sandoval Lactic Ac Sepsis Rflx Plasma Lactic Acid Kenneth (0.7-2.0) mmol/L Calcium (8.4-10.2) mg/dL Ionized Calcium Cristian Magnesium (1.6-2.3) mg/dL Total Bilirubin (0.2-1.3) mg/dL AST (14-36) U/L ALT (4-34) U/L Alkaline Phosphatase (38-126) U/L Troponin I (0.000-0.034) ng/mL Total Protein (6.3-8.2) g/dL Albumin (3.5-5.0) g/dL 06/16/24 06/16/24 06/16/24 Range/Units 10:37 10:37 10:37 WBC (3.8-10.6) k/uL RBC (3.80-5.40) m/uL Hgb (11.4-16.0) gm/dL Hct (34.0-46.0) % MCV (80.0-100.0) fL MCH (25.0-35.0) pg MCHC (31.0-37.0) g/dL RDW (11.5-15.5) % Plt Count (150-450) k/uL MPV Neutrophils % % Lymphocytes % % Monocytes % % Eosinophils % % Basophils % % Neutrophils # (1.3-7.7) k/uL Lymphocytes # (1.0-4.8) k/uL Monocytes # (0-1.0) k/uL Eosinophils # (0-0.7) k/uL Basophils # (0-0.2) k/uL Hypochromasia Poikilocytosis Anisocytosis Microcytosis PT 12.5 (10.0-12.5) sec INR 1.2 H (<1.2) APTT 25.1 (22.0-30.0) sec Sodium 136 L (137-145) mmol/L Potassium 3.7 (3.5-5.1) mmol/L Chloride 105 (98-107) mmol/L Carbon Dioxide 15 L (22-30) mmol/L Anion Gap 16 mmol/L BUN 83 H (7-17) mg/dL Creatinine 3.34 H (0.52-1.04) mg/dL Est GFR (CKD-EPI)AfAm 14 (>60 ml/min/1.73 sqM) Est GFR (CKD-EPI)NonAf 12 (>60 ml/min/1.73 sqM) Glucose 45 L* (74-99) mg/dL POC Glucose (mg/dL) (70-110) mg/dL POC Glu Concrete Boom Operator ID Lactic Ac Sepsis Rflx Plasma Lactic Acid Kenneth 2.9 H* (0.7-2.0) mmol/L Calcium 7.1 L (8.4-10.2) mg/dL Ionized Calcium Cristian Cancelled Magnesium 1.6 (1.6-2.3) mg/dL Total Bilirubin 0.3 (0.2-1.3) mg/dL AST 35 (14-36) U/L ALT 19 (4-34) U/L Alkaline Phosphatase 134 H (38-126) U/L Troponin I (0.000-0.034) ng/mL Total Protein 5.5 L (6.3-8.2) g/dL Albumin 2.7 L (3.5-5.0) g/dL 06/16/24 06/16/24 06/16/24 Range/Units 10:37 10:44 11:07 WBC (3.8-10.6) k/uL RBC (3.80-5.40) m/uL Hgb (11.4-16.0) gm/dL Hct (34.0-46.0) % MCV (80.0-100.0) fL MCH (25.0-35.0) pg MCHC (31.0-37.0) g/dL RDW (11.5-15.5) % Plt Count (150-450) k/uL MPV Neutrophils % % Lymphocytes % % Monocytes % % Eosinophils % % Basophils % % Neutrophils # (1.3-7.7) k/uL Lymphocytes # (1.0-4.8) k/uL Monocytes # (0-1.0) k/uL Eosinophils # (0-0.7) k/uL Basophils # (0-0.2) k/uL Hypochromasia Poikilocytosis Anisocytosis Microcytosis PT (10.0-12.5) sec INR (<1.2) APTT (22.0-30.0) sec Sodium (137-145) mmol/L Potassium (3.5-5.1) mmol/L Chloride (98-107) mmol/L Carbon Dioxide (22-30) mmol/L Anion Gap mmol/L BUN (7-17) mg/dL Creatinine (0.52-1.04) mg/dL Est GFR (CKD-EPI)AfAm (>60 ml/min/1.73 sqM) Est GFR (CKD-EPI)NonAf (>60 ml/min/1.73 sqM) Glucose (74-99) mg/dL POC Glucose (mg/dL) 25 L* (70-110) mg/dL POC Glu Concrete Boom Operator ID Reg Sandoval Lactic Ac Sepsis Rflx Y Plasma Lactic Acid Kenneth (0.7-2.0) mmol/L Calcium (8.4-10.2) mg/dL Ionized Calcium Cristian Magnesium (1.6-2.3) mg/dL Total Bilirubin (0.2-1.3) mg/dL AST (14-36) U/L ALT (4-34) U/L Alkaline Phosphatase (38-126) U/L Troponin I 0.049 H* (0.000-0.034) ng/mL Total Protein (6.3-8.2) g/dL Albumin (3.5-5.0) g/dL 06/16/24 06/16/24 Range/Units 11:18 12:04 WBC (3.8-10.6) k/uL RBC (3.80-5.40) m/uL Hgb (11.4-16.0) gm/dL Hct (34.0-46.0) % MCV (80.0-100.0) fL MCH (25.0-35.0) pg MCHC (31.0-37.0) g/dL RDW (11.5-15.5) % Plt Count (150-450) k/uL MPV Neutrophils % % Lymphocytes % % Monocytes % % Eosinophils % % Basophils % % Neutrophils # (1.3-7.7) k/uL Lymphocytes # (1.0-4.8) k/uL Monocytes # (0-1.0) k/uL Eosinophils # (0-0.7) k/uL Basophils # (0-0.2) k/uL Hypochromasia Poikilocytosis Anisocytosis Microcytosis PT (10.0-12.5) sec INR (<1.2) APTT (22.0-30.0) sec Sodium (137-145) mmol/L Potassium (3.5-5.1) mmol/L Chloride (98-107) mmol/L Carbon Dioxide (22-30) mmol/L Anion Gap mmol/L BUN (7-17) mg/dL Creatinine (0.52-1.04) mg/dL Est GFR (CKD-EPI)AfAm (>60 ml/min/1.73 sqM) Est GFR (CKD-EPI)NonAf (>60 ml/min/1.73 sqM) Glucose (74-99) mg/dL POC Glucose (mg/dL) 159 H 170 H (70-110) mg/dL POC Glu Concrete Boom Operator ID Reg Sandoval Lactic Ac Sepsis Rflx Plasma Lactic Acid Kenneth (0.7-2.0) mmol/L Calcium (8.4-10.2) mg/dL Ionized Calcium Cristian Magnesium (1.6-2.3) mg/dL Total Bilirubin (0.2-1.3) mg/dL AST (14-36) U/L ALT (4-34) U/L Alkaline Phosphatase (38-126) U/L Troponin I (0.000-0.034) ng/mL Total Protein (6.3-8.2) g/dL Albumin (3.5-5.0) g/dL Disposition Clinical Impression: Cardiac arrest Disposition: Condition: Poor Is patient prescribed a controlled substance at d/c from ED?: No Time of Disposition: 15:14 Preliminary Cause of : cardiac arrest
[2024-06-16 10:29] LABS: Glucose,Whole Blood 50 mg/dL (70-110)
[2024-06-16] MEDS ORDERED: VANCOMYCIN IV PER PHARMACY 1 EACH MISC MISCELLANE PRN (10:31)
[2024-06-16] MEDS ORDERED: SODIUM CHLORIDE 0.9% 1,000 ML IV STA (10:35)
[2024-06-16] MEDS: SODIUM CHLORIDE 0.9% 2,000 ML IV STA (10:37)
[2024-06-16 10:45] LABS: Anisocytosis Moderate; Basophils % (A) 0 %; Eosinophils % (A) 0 %; HCT 26.6 % (34.0-46.0); HGB 7.7 gm/dL (11.4-16.0); Hypochromasia Marked; Lymphocytes # (A) 1.3 k/uL (1.0-4.8); Lymphocytes % (A) 14 %; MCH 22.4 pg (25.0-35.0); MCHC 28.8 g/dL (31.0-37.0); MCV 77.6 fL (80.0-100.0); Mean Platelet Volume 9.3; Microcytosis Moderate; Monocytes # (A) 0.5 k/uL (0-1.0); Monocytes % (A) 5 %; Neutrophils # (A) 7.3 k/uL (1.3-7.7); Neutrophils % (A) 79 %; Platelet Count 202 k/uL (150-450); Poikilocytosis Moderate; RBC 3.43 m/uL (3.80-5.40); RDW 20.2 % (11.5-15.5); WBC 9.3 k/uL (3.8-10.6)
[2024-06-16 10:49] LABS: Glucose,Whole Blood 25 mg/dL (70-110)
[2024-06-16] MEDS: DEXTROSE 10% IN WATER 1,000 ML with SODIUM CHLORIDE 4MEQ/ML VIAL 153.8 MEQ IV SCH (10:55)
[2024-06-16 10:58] LABS: INR 1.2 (<1.2); Partial Thromboplastin Time 25.1 sec (22.0-30.0); Prothrombin Time 12.5 sec (10.0-12.5)
[2024-06-16] MEDS: DEXTROSE 50% SYRINGE 50 ML IVP STA (10:58)
[2024-06-16 11:01] LABS: ALT 19 U/L (4-34); AST 35 U/L (14-36); African American GFR (CKD) 14 (>60 ml/min/1.73 sqM); Albumin 2.7 g/dL (3.5-5.0); Alkaline Phosphatase 134 U/L (38-126); Anion Gap 16 mmol/L; Blood Urea Nitrogen 83 mg/dL (7-17); Calcium 7.1 mg/dL (8.4-10.2); Carbon Dioxide 15 mmol/L (22-30); Chloride 105 mmol/L (98-107); Magnesium 1.6 mg/dL (1.6-2.3); Non-African American GFR(CKD) 12 (>60 ml/min/1.73 sqM); Potassium 3.7 mmol/L (3.5-5.1); Sodium 136 mmol/L (137-145); Total Bilirubin 0.3 mg/dL (0.2-1.3); Total Protein 5.5 g/dL (6.3-8.2)
[2024-06-16 11:05] LABS: Glucose 45 mg/dL (74-99)
[2024-06-16] MEDS: CEFEPIME 2 GM in SODIUM CHLORIDE 0.9% 100 ML IVPB STA (11:12)
[2024-06-16 11:21] LABS: Glucose,Whole Blood 159 mg/dL (70-110)
[2024-06-16] MEDS: VANCOMYCIN 1,500 MG in SODIUM CHLORIDE 0.9% 500 ML 500 ML IVPB ONE (12:01)
[2024-06-16 12:06] LABS: Glucose,Whole Blood 170 mg/dL (70-110)
--- NOTE | 2024-06-16 12:22 | XR ---
EXAMINATION TYPE: XR abdomen 1V DATE OF EXAM: 06/16/2024 Comparison: CT 06/01/2024 Clinical History: 84-year-old female abdominal pain, hypotension, hypoglycemia Findings: Splenic artery calcifications noted left upper quadrant. Gassy colon with only mild scattered stool. The transverse colon dilated up to 8.2 cm wide may be transient. No dilated small bowel loops. Pelvic phleboliths. Fusion hardware lower lumbar spine. Impression: Scattered mild stool. Nonobstructive bowel gas pattern. Gassy colon with the transverse colon dilated up to 8.2 cm. This may be a transient finding. Follow-up to reassess as clinically indicated. [facility], , 06/16/2024 12:20 PM
--- NOTE | 2024-06-16 12:22 | XR ---
EXAMINATION TYPE: XR chest 2V DATE OF EXAM: 06/16/2024 COMPARISON: 06/01/2024 HISTORY: 84-year-old female hypotension, hypoglycemia TECHNIQUE: AP and lateral views FINDINGS: Heart mild to moderately enlarged. Interstitial and patchy opacities mid and lower lungs similar to s lightly worsened. Moderate right pleural effusion has increased in size. IMPRESSION: 1. Correlate for slight worsening in CHF with patchy pulmonary edema/consolidation. 2. Increasing now moderate right pleural effusion. [facility], , 06/16/2024 12:20 PM
[2024-06-16] MEDS ORDERED: NALOXONE 0.4 MG/ML 1 ML VIAL IV PRN (12:31)
[2024-06-16] MEDS: NOREPINEPHRINE 4 MG in SODIUM CHLORIDE 0.9% 250 ML IV SCH (12:31)
[2024-06-16] MEDS ORDERED: ACETAMINOPHEN TAB 325 MG TAB PO PRN (12:39)
[2024-06-16] MEDS ORDERED: ONDANSETRON 4 MG TAB PO PRN (12:39)
[2024-06-16] MEDS ORDERED: polyethylene glycoL 3350 17 GM POWD.PACK PO PRN (12:42)
--- NOTE | 2024-06-16 12:53 | P.HPIM ---
History of Present Illness 84-year-old female was sent in from [facility] after she was having low blood sugars patient is also found to be severely hypotensive patient blood pressure is still significantly low although patient is able to answer questions alert oriented x 2-3. Patient has a right inguinal central line at this time because of the low blood pressure. Patient is being started on pressor support patient does not have any fever, no leukocytosis. Patient is a elderly sick female with multiple medical problems including chronic diastolic dysfunction was in the hospital for prolonged period of time and also had a cardiorenal syndrome with baseline creatinine of around 2 and present creatinine is around 3.5 and patient had a GI bleed during her last hospitalization present hemoglobin 7.7 patient does not have any symptoms of GI bleed at this time patient is also on Eliquis and aspirin. Patient does have history of atrial fibrillation presently not in A-fib patient is significantly sinus bradycardic uses metoprolol has an outpatient patient denies any dysuria nausea vomiting patient denies any cough chest x-ray showing bilateral pulmonary edema. Blood sugar results are extremely low patient takes glimepiride as an outpatient. Patient is also getting D5 at this time for low blood sugars. Patient is being admitted to ICU because of the shock most probably cardiogenic shock no clear evidence of sepsis although patient received a dose of cefepime at this time urine cultures are still pending. Will obtain a procalcitonin level. REVIEW OF SYSTEMS: All other systems are negative except those mentioned in the HPI PHYSICAL EXAMINATION: GENERAL: The patient is alert and oriented x3, not in any acute distress. Well developed, well nourished. HEENT: Pupils are round and equally reacting to light. EOMI. No scleral icterus. No conjunctival pallor. Normocephalic, atraumatic. No pharyngeal erythema. No thyromegaly. CARDIOVASCULAR: S1 and S2 present. No murmurs, rubs, or gallops. PULMONARY: Chest is clear to auscultation, no wheezing or crackles. ABDOMEN: Soft, nontender, nondistended, normoactive bowel sounds. No palpable organomegaly. MUSCULOSKELETAL: No joint swelling or deformity. EXTREMITIES: No cyanosis, clubbing, extensive bilateral pitting pedal edema NEUROLOGICAL: Gross neurological examination did not reveal any focal deficits. Significant generalized weakness SKIN: No rashes. Assessment and plan Shock patient is on pressor support mostly cardiogenic shock no clear evidence of sepsis at this time but I cannot completely rule it out continue with cefepime for now patient will be continued on pressor support. -Congestive heart failure chronic diastolic function with acute exacerbation patient is presently not receiving any Lasix patient is on pressor support once her blood pressure improves a little bit patient will need diuretics at that time -Severe hypoglycemia secondary to sulfonylurea which will be discontinued -Acute renal failure on chronic kidney disease stage IV acute renal failure probably cardiorenal syndrome nephrology will be consulted -Atrial fibrillation patient is bradycardic at this time hold off on beta- cole -Type 2 diabetes mellitus hypoglycemic as mentioned above -Coronary artery disease -Severe anemia probably from her recent to GI bleed will also obtain iron panel patient may benefit from IV iron transfusion DVT prophylaxis: Anticoagulation as mentioned above Past Medical History Past Medical History: Atrial Fibrillation, Cancer, COPD, Diabetes Mellitus, Hyperlipidemia, Hypertension, Myocardial Infarction (MD), Renal Disease Additional Past Medical History / Comment(s): Moderate to severe mitral regurgitation/SOB, mild aortic stenosis, NIDDM, uterine cancer/surgery only, MD x 2, stage III kidney failure Last Myocardial Infarction Date:: unknown History of Any Multi-Drug Resistant Organisms: None Reported Past Surgical History: Appendectomy, Back Surgery, Cholecystectomy, Heart Catheterization, Heart Catheterization With Stent, Hysterectomy Additional Past Surgical History / Comment(s): Cardioversions, hysterectomy/left one ovary Past Anesthesia/Blood Transfusion Reactions: No Reported Reaction Additional Past Anesthesia/Blood Transfusion Reaction / Comment(s): Pt has had autotransfusion only. Date of Last Stent Placement:: 12/2022 Past Psychological History: No Psychological Hx Reported Smoking Status: Former smoker Past Alcohol Use History: None Reported Past Drug Use History: None Reported - Past Family History Brother(s) Family Medical History: Cancer Additional Family Medical History / Comment(s): 2 brothers cancer. 1 brother cabg Medications and Allergies Home Medications Medication Instructions Recorded Confirmed Type Glimepiride [Amaryl] 1 mg PO DAILY@0600 03/11/20 06/16/24 History Pravastatin Sodium [Pravachol] 80 mg PO HS@2100 04/30/23 06/16/24 History Amiodarone [Cordarone] 200 mg PO DAILY@0900 04/14/24 06/16/24 History Apixaban [Eliquis] 2.5 mg PO BID@0900,2100 04/14/24 06/16/24 History Bumetanide [BUMEX] 1 mg PO BID@0900,1600 tab 04/28/24 06/16/24 Rx Metoprolol Tartrate [Lopressor] 50 mg PO BID@0900,2100 06/01/24 06/16/24 History Acetaminophen Tab [Tylenol] 650 mg PO Q6HR PRN tab 06/09/24 06/16/24 Rx Ipratropium-Albuterol Nebulize 3 ml INHALATION RT-TID PRN each 06/09/24 06/16/24 Rx [Duoneb 0.5 mg-3 mg/3 ml Soln] Aspirin 81 mg PO DAILY@0900 06/11/24 06/16/24 History Colchicine See Taper PO DIRECTED 06/11/24 06/16/24 History Glucerna Shake 1 can PO DAILY@0900 06/11/24 06/16/24 History Midodrine [ProAmatine] 7.5 mg PO AC-TID@08,12,17 06/11/24 06/16/24 History Potassium Chloride ER [K-Dur 20] 20 meq PO DAILY@0900 06/11/24 06/16/24 History Darbepoetin Keon [Aranesp] 60 mcg SQ TU 06/16/24 06/16/24 History Glucagon Emergency Kit 1 mg IM ONCE PRN 06/16/24 06/16/24 History Loperamide HCl [Imodium A-D] 2 - 4 mg PO TID PRN MDD 8 mg 06/16/24 06/16/24 History Ondansetron [Zofran] 4 mg PO TID PRN 06/16/24 06/16/24 History Allergies Allergy/AdvReac Type Severity Reaction Status Date / Time atorvastatin [From Lipitor] Allergy Nausea Verified 06/16/24 10:55 celecoxib [From Celebrex] Allergy Swelling Verified 06/16/24 10:55 ibuprofen [From Motrin] Allergy Swelling, Verified 06/16/24 10:55 itching Penicillins Allergy Swelling Verified 06/16/24 10:55 steroid AdvReac shaking Uncoded 06/01/24 13:42 Physical Exam Vitals: Vital Signs Temp Pulse Resp BP Pulse Ox 06/16/24 12:35 51 L 18 56/40 06/16/24 12:03 52 L 18 66/52 93 L 06/16/24 11:47 61 18 60/50 93 L 06/16/24 11:15 58 L 18 80/56 87 L 06/16/24 10:49 80/43 06/16/24 09:59 97.1 F L 62 16 69/49 94 L Intake and Output 06/15/24 06/16/24 06/16/24 22:59 06:59 14:59 Other: Weight 79.832 kg Results CBC & Chem 7: 06/16/24 10:37 06/16/24 10:37 Labs: Abnormal Lab Results - Last 24 Hours (Table) 06/16/24 06/16/24 06/16/24 Range/Units 10: 10: 10:37 RBC 3.43 L (3.80-5.40) m/uL Hgb 7.7 L (11.4-16.0) gm/dL Hct 26.6 L (34.0-46.0) % MCV 77.6 L (80.0-100.0) fL MCH 22.4 L (25.0-35.0) pg MCHC 28.8 L (31.0-37.0) g/dL RDW 20.2 H (11.5-15.5) % INR (<1.2) Sodium (137-145) mmol/L Carbon Dioxide (22-30) mmol/L BUN (7-17) mg/dL Creatinine (0.52-1.04) mg/dL Glucose (74-99) mg/dL POC Glucose (mg/dL) 62 L 50 L (70-110) mg/dL Plasma Lactic Acid Kenneth (0.7-2.0) mmol/L Calcium (8.4-10.2) mg/dL Alkaline Phosphatase (38-126) U/L Troponin I (0.000-0.034) ng/mL Total Protein (6.3-8.2) g/dL Albumin (3.5-5.0) g/dL 06/16/24 06/16/24 06/16/24 Range/Units 10:37 10:37 10:37 RBC (3.80-5.40) m/uL Hgb (11.4-16.0) gm/dL Hct (34.0-46.0) % MCV (80.0-100.0) fL MCH (25.0-35.0) pg MCHC (31.0-37.0) g/dL RDW (11.5-15.5) % INR 1.2 H (<1.2) Sodium 136 L (137-145) mmol/L Carbon Dioxide 15 L (22-30) mmol/L BUN 83 H (7-17) mg/dL Creatinine 3.34 H (0.52-1.04) mg/dL Glucose 45 L* (74-99) mg/dL POC Glucose (mg/dL) (70-110) mg/dL Plasma Lactic Acid Kenneth 2.9 H* (0.7-2.0) mmol/L Calcium 7.1 L (8.4-10.2) mg/dL Alkaline Phosphatase 134 H (38-126) U/L Troponin I (0.000-0.034) ng/mL Total Protein 5.5 L (6.3-8.2) g/dL Albumin 2.7 L (3.5-5.0) g/dL 06/16/24 06/16/24 06/16/24 Range/Units 10:37 10:44 11:18 RBC (3.80-5.40) m/uL Hgb (11.4-16.0) gm/dL Hct (34.0-46.0) % MCV (80.0-100.0) fL MCH (25.0-35.0) pg MCHC (31.0-37.0) g/dL RDW (11.5-15.5) % INR (<1.2) Sodium (137-145) mmol/L Carbon Dioxide (22-30) mmol/L BUN (7-17) mg/dL Creatinine (0.52-1.04) mg/dL Glucose (74-99) mg/dL POC Glucose (mg/dL) 25 L* 159 H (70-110) mg/dL Plasma Lactic Acid Kenneth (0.7-2.0) mmol/L Calcium (8.4-10.2) mg/dL Alkaline Phosphatase (38-126) U/L Troponin I 0.049 H* (0.000-0.034) ng/mL Total Protein (6.3-8.2) g/dL Albumin (3.5-5.0) g/dL 06/16/24 Range/Units 12:04 RBC (3.80-5.40) m/uL Hgb (11.4-16.0) gm/dL Hct (34.0-46.0) % MCV (80.0-100.0) fL MCH (25.0-35.0) pg MCHC (31.0-37.0) g/dL RDW (11.5-15.5) % INR (<1.2) Sodium (137-145) mmol/L Carbon Dioxide (22-30) mmol/L BUN (7-17) mg/dL Creatinine (0.52-1.04) mg/dL Glucose (74-99) mg/dL POC Glucose (mg/dL) 170 H (70-110) mg/dL Plasma Lactic Acid Kenneth (0.7-2.0) mmol/L Calcium (8.4-10.2) mg/dL Alkaline Phosphatase (38-126) U/L Troponin I (0.000-0.034) ng/mL Total Protein (6.3-8.2) g/dL Albumin (3.5-5.0) g/dL
[2024-06-16 12:59] VITALS: RESP 16
[2024-06-16 13:09] LABS: Glucose,Whole Blood 207 mg/dL (70-110)
[2024-06-16] MEDS: NOREPINEPHRINE 32 MG in SODIUM CHLORIDE 0.9% 218 ML IV ONE (13:32)
[2024-06-16 13:39] VITALS: BP 66/50; PULSE 50
[2024-06-16 13:48] LABS: Glucose,Whole Blood 178 mg/dL (70-110)
--- NOTE | 2024-06-16 14:08 | ED ---
Medical Decision Making - Medical Decision Making Patient was boarding the emergency department pending ICU placement when I was notified by nurse that patient lost a pulse. CPR was initiated. Patient send had been at the bedside states that patient had been steadily declining for the last several weeks. CODE STATUS was addressed with son who felt that CPR should be stopped so patient can pass peacefully especially because of patient's age and comorbidities. Patient son was also talking to his brother who agreed with ending CPR efforts. Patient has extensive cardiac history including cardiomyopathy. CPR was performed for a total of approximately 10 minutes when it was discontinued at 1:55 PM he was asystole for all the pulse checks. - Lab Data Result diagrams: 06/16/24 10:37 06/16/24 10:37 Lab Results 06/16/24 06/16/24 06/16/24 Range/Units 10:09 10:28 10:37 WBC 9.3 (3.8-10.6) k/uL RBC 3.43 L (3.80-5.40) m/uL Hgb 7.7 L (11.4-16.0) gm/dL Hct 26.6 L (34.0-46.0) % MCV 77.6 L (80.0-100.0) fL MCH 22.4 L (25.0-35.0) pg MCHC 28.8 L (31.0-37.0) g/dL RDW 20.2 H (11.5-15.5) % Plt Count 202 (150-450) k/uL MPV 9.3 Neutrophils % 79 % Lymphocytes % 14 % Monocytes % 5 % Eosinophils % 0 % Basophils % 0 % Neutrophils # 7.3 (1.3-7.7) k/uL Lymphocytes # 1.3 (1.0-4.8) k/uL Monocytes # 0.5 (0-1.0) k/uL Eosinophils # 0.0 (0-0.7) k/uL Basophils # 0.0 (0-0.2) k/uL Hypochromasia Marked Poikilocytosis Moderate Anisocytosis Moderate Microcytosis Moderate PT (10.0-12.5) sec INR (<1.2) APTT (22.0-30.0) sec Sodium (137-145) mmol/L Potassium (3.5-5.1) mmol/L Chloride (98-107) mmol/L Carbon Dioxide (22-30) mmol/L Anion Gap mmol/L BUN (7-17) mg/dL Creatinine (0.52-1.04) mg/dL Est GFR (CKD-EPI)AfAm (>60 ml/min/1.73 sqM) Est GFR (CKD-EPI)NonAf (>60 ml/min/1.73 sqM) Glucose (74-99) mg/dL POC Glucose (mg/dL) 62 L 50 L (70-110) mg/dL POC Glu Super[employer] ID Reg Sandoval Lactic Ac Sepsis Rflx Plasma Lactic Acid Kenneth (0.7-2.0) mmol/L Calcium (8.4-10.2) mg/dL Ionized Calcium Cristian Magnesium (1.6-2.3) mg/dL Total Bilirubin (0.2-1.3) mg/dL AST (14-36) U/L ALT (4-34) U/L Alkaline Phosphatase (38-126) U/L Troponin I (0.000-0.034) ng/mL Total Protein (6.3-8.2) g/dL Albumin (3.5-5.0) g/dL 06/16/24 06/16/24 06/16/24 Range/Units 10:37 10:37 10:37 WBC (3.8-10.6) k/uL RBC (3.80-5.40) m/uL Hgb (11.4-16.0) gm/dL Hct (34.0-46.0) % MCV (80.0-100.0) fL MCH (25.0-35.0) pg MCHC (31.0-37.0) g/dL RDW (11.5-15.5) % Plt Count (150-450) k/uL MPV Neutrophils % % Lymphocytes % % Monocytes % % Eosinophils % % Basophils % % Neutrophils # (1.3-7.7) k/uL Lymphocytes # (1.0-4.8) k/uL Monocytes # (0-1.0) k/uL Eosinophils # (0-0.7) k/uL Basophils # (0-0.2) k/uL Hypochromasia Poikilocytosis Anisocytosis Microcytosis PT 12.5 (10.0-12.5) sec INR 1.2 H (<1.2) APTT 25.1 (22.0-30.0) sec Sodium 136 L (137-145) mmol/L Potassium 3.7 (3.5-5.1) mmol/L Chloride 105 (98-107) mmol/L Carbon Dioxide 15 L (22-30) mmol/L Anion Gap 16 mmol/L BUN 83 H (7-17) mg/dL Creatinine 3.34 H (0.52-1.04) mg/dL Est GFR (CKD-EPI)AfAm 14 (>60 ml/min/1.73 sqM) Est GFR (CKD-EPI)NonAf 12 (>60 ml/min/1.73 sqM) Glucose 45 L* (74-99) mg/dL POC Glucose (mg/dL) (70-110) mg/dL POC Glu Supervisor [employer] ID Lactic Ac Sepsis Rflx Plasma Lactic Acid Kenneth 2.9 H* (0.7-2.0) mmol/L Calcium 7.1 L (8.4-10.2) mg/dL Ionized Calcium Cristian Cancelled Magnesium 1.6 (1.6-2.3) mg/dL Total Bilirubin 0.3 (0.2-1.3) mg/dL AST 35 (14-36) U/L ALT 19 (4-34) U/L Alkaline Phosphatase 134 H (38-126) U/L Troponin I (0.000-0.034) ng/mL Total Protein 5.5 L (6.3-8.2) g/dL Albumin 2.7 L (3.5-5.0) g/dL 06/16/24 06/16/24 06/16/24 Range/Units 10:37 10:44 11:07 WBC (3.8-10.6) k/uL RBC (3.80-5.40) m/uL Hgb (11.4-16.0) gm/dL Hct (34.0-46.0) % MCV (80.0-100.0) fL MCH (25.0-35.0) pg MCHC (31.0-37.0) g/dL RDW (11.5-15.5) % Plt Count (150-450) k/uL MPV Neutrophils % % Lymphocytes % % Monocytes % % Eosinophils % % Basophils % % Neutrophils # (1.3-7.7) k/uL Lymphocytes # (1.0-4.8) k/uL Monocytes # (0-1.0) k/uL Eosinophils # (0-0.7) k/uL Basophils # (0-0.2) k/uL Hypochromasia Poikilocytosis Anisocytosis Microcytosis PT (10.0-12.5) sec INR (<1.2) APTT (22.0-30.0) sec Sodium (137-145) mmol/L Potassium (3.5-5.1) mmol/L Chloride (98-107) mmol/L Carbon Dioxide (22-30) mmol/L Anion Gap mmol/L BUN (7-17) mg/dL Creatinine (0.52-1.04) mg/dL Est GFR (CKD-EPI)AfAm (>60 ml/min/1.73 sqM) Est GFR (CKD-EPI)NonAf (>60 ml/min/1.73 sqM) Glucose (74-99) mg/dL POC Glucose (mg/dL) 25 L* (70-110) mg/dL POC Glu Supervisor [employer] ID Reg Sandoval Lactic Ac Sepsis Rflx Y Plasma Lactic Acid Kenneth (0.7-2.0) mmol/L Calcium (8.4-10.2) mg/dL Ionized Calcium Cristian Magnesium (1.6-2.3) mg/dL Total Bilirubin (0.2-1.3) mg/dL AST (14-36) U/L ALT (4-34) U/L Alkaline Phosphatase (38-126) U/L Troponin I 0.049 H* (0.000-0.034) ng/mL Total Protein (6.3-8.2) g/dL Albumin (3.5-5.0) g/dL 06/16/24 06/16/24 06/16/24 Range/Units 11:18 12:04 13:07 WBC (3.8-10.6) k/uL RBC (3.80-5.40) m/uL Hgb (11.4-16.0) gm/dL Hct (34.0-46.0) % MCV (80.0-100.0) fL MCH (25.0-35.0) pg MCHC (31.0-37.0) g/dL RDW (11.5-15.5) % Plt Count (150-450) k/uL MPV Neutrophils % % Lymphocytes % % Monocytes % % Eosinophils % % Basophils % % Neutrophils # (1.3-7.7) k/uL Lymphocytes # (1.0-4.8) k/uL Monocytes # (0-1.0) k/uL Eosinophils # (0-0.7) k/uL Basophils # (0-0.2) k/uL Hypochromasia Poikilocytosis Anisocytosis Microcytosis PT (10.0-12.5) sec INR (<1.2) APTT (22.0-30.0) sec Sodium (137-145) mmol/L Potassium (3.5-5.1) mmol/L Chloride (98-107) mmol/L Carbon Dioxide (22-30) mmol/L Anion Gap mmol/L BUN (7-17) mg/dL Creatinine (0.52-1.04) mg/dL Est GFR (CKD-EPI)AfAm (>60 ml/min/1.73 sqM) Est GFR (CKD-EPI)NonAf (>60 ml/min/1.73 sqM) Glucose (74-99) mg/dL POC Glucose (mg/dL) 159 H 170 H 207 H (70-110) mg/dL POC Glu Supervisor [employer] ID Reg Sandoval Lactic Ac Sepsis Rflx Plasma Lactic Acid Kenneth (0.7-2.0) mmol/L Calcium (8.4-10.2) mg/dL Ionized Calcium Cristian Magnesium (1.6-2.3) mg/dL Total Bilirubin (0.2-1.3) mg/dL AST (14-36) U/L ALT (4-34) U/L Alkaline Phosphatase (38-126) U/L Troponin I (0.000-0.034) ng/mL Total Protein (6.3-8.2) g/dL Albumin (3.5-5.0) g/dL 06/16/24 Range/Units 13:46 WBC (3.8-10.6) k/uL RBC (3.80-5.40) m/uL Hgb (11.4-16.0) gm/dL Hct (34.0-46.0) % MCV (80.0-100.0) fL MCH (25.0-35.0) pg MCHC (31.0-37.0) g/dL RDW (11.5-15.5) % Plt Count (150-450) k/uL MPV Neutrophils % % Lymphocytes % % Monocytes % % Eosinophils % % Basophils % % Neutrophils # (1.3-7.7) k/uL Lymphocytes # (1.0-4.8) k/uL Monocytes # (0-1.0) k/uL Eosinophils # (0-0.7) k/uL Basophils # (0-0.2) k/uL Hypochromasia Poikilocytosis Anisocytosis Microcytosis PT (10.0-12.5) sec INR (<1.2) APTT (22.0-30.0) sec Sodium (137-145) mmol/L Potassium (3.5-5.1) mmol/L Chloride (98-107) mmol/L Carbon Dioxide (22-30) mmol/L Anion Gap mmol/L BUN (7-17) mg/dL Creatinine (0.52-1.04) mg/dL Est GFR (CKD-EPI)AfAm (>60 ml/min/1.73 sqM) Est GFR (CKD-EPI)NonAf (>60 ml/min/1.73 sqM) Glucose (74-99) mg/dL POC Glucose (mg/dL) 178 H (70-110) mg/dL POC Glu Supervisor [employer] ID Jan Paul Lactic Ac Sepsis Rflx Plasma Lactic Acid Kenneth (0.7-2.0) mmol/L Calcium (8.4-10.2) mg/dL Ionized Calcium Cristian Magnesium (1.6-2.3) mg/dL Total Bilirubin (0.2-1.3) mg/dL AST (14-36) U/L ALT (4-34) U/L Alkaline Phosphatase (38-126) U/L Troponin I (0.000-0.034) ng/mL Total Protein (6.3-8.2) g/dL Albumin (3.5-5.0) g/dL Disposition Clinical Impression: Cardiac arrest Disposition: Referrals: Roger Callahan DO [Primary Care Provider] - 1-2 days Preliminary Cause of : cardiac arrest
--- NOTE | 2024-06-16 14:59 | P.DS ---
Providers Expected date of discharge: 06/16/24 Consults: 06/16/24 12:31 Consult Physician Stat Consulting Provider: Darin Ibarra Consult Reason/Comments: icu patient Do you want consulting provider notified?: Already Contacted 06/16/24 12:43 Consult Physician Routine Consulting Provider: Tim Field Consult Reason/Comments: NERISSA Do you want consulting provider notified?: Yes 06/16/24 12:44 Consult Physician Routine Consulting Provider: Oral Mclain Consult Reason/Comments: CHF Do you want consulting provider notified?: Yes Primary care physician: Roger Callahan [facility] Hospital Course: Preliminary cause of Congestive heart failure with cardiogenic shock secondary to cardiorenal syndrome Final diagnoses -Shock, most likely cardiogenic shock, requiring pressor support mostly cardiogenic shock no clear evidence of sepsis at this time but I cannot completely rule it out continue with cefepime for now patient will be continued on pressor support. -Congestive heart failure chronic diastolic function with acute exacerbation patient is presently not receiving any Lasix patient is on pressor support once her blood pressure improves a little bit patient will need diuretics at that time -Severe hypoglycemia secondary to sulfonylurea which was discontinued -Acute renal failure on chronic kidney disease stage IV acute renal failure probably cardiorenal syndrome -Atrial fibrillation patient is bradycardic at this time hold off on beta- cole -Type 2 diabetes mellitus, uncontrolled with hypoglycemia -Coronary artery disease -Severe symptomatic anemia probably from her recent to GI bleed Obesity with a BMI of 30.2 DVT prophylaxis: Anticoagulation as mentioned above GI prophylaxis Full code Discharge disposition Patient has . According to nursing documentation, patient coded while in the ER awaiting an ICU bed after becoming pulseless and no ROSC obtained. Family was contacted regarding CODE STATUS as patient wished to remain full code and family requested to stop CPR and other life-saving measures. According to nursing documentation, time of was 1355 on 06/16/2024. Total time taken greater than 35 minutes Hospital course 84-year-old female was sent in from [facility] after she was having low blood sugars patient is also found to be severely hypotensive patient blood pressure is still significantly low although patient is able to answer questions alert oriented x 2-3. Patient has a right inguinal central line at this time because of the low blood pressure. Patient had been started on pressor support and was being admitted to the ICU. CODE STATUS was addressed and patient wished to remain full code when speaking to attending physician. Patient does not have any fever, no leukocytosis. Patient is a elderly sick female with multiple medical problems including chronic diastolic dysfunction was in the hospital for prolonged period of time and also had a cardiorenal syndrome with baseline creatinine of around 2 and present creatinine is around 3.5 and patient had a GI bleed during her last hospitalization present hemoglobin 7.7 patient does not have any symptoms of GI bleed at this time patient is also on Eliquis and aspirin. Patient does have history of atrial fibrillation presently not in A- fib patient is significantly sinus bradycardic uses metoprolol has an outpatient patient denies any dysuria nausea vomiting patient denies any cough chest x-ray showing bilateral pulmonary edema. Blood sugar results are extremely low patient takes glimepiride as an outpatient. Patient is also getting D5 at this time for low blood sugars. Patient was being admitted to ICU because of the shock most probably cardiogenic shock no clear evidence of sepsis although patient received a dose of cefepime at this time urine cultures are still pending. According to nursing documentation, patient was noted to lose a pulse and ACLS protocol was initiated. No ROSC obtained in ER physician Dr. Duff contacted family and son wanted to stop all invasive and interventional measures and instructed them to stop with CPR. Patient was pronounced at 1:55 PM on 06/16/2024. Patient was a patient of Dr. Roger Callahan. We are currently covering for Dr. Callahan. Please refer to ER documentation for further HPI. The impression and plan of care has been dictated by Alba Stock, Nurse Practitioner as directed. Dr. An MD I have performed a history and examination and MDM of this patient, discussed the same with the dictator, and agree with the dictator's assessment and plan as written ,documented as a scribe. Based on total visit time, I have performed more than 50% of the visit. Patient Condition at Discharge: Poor Plan - Discharge Summary New Discharge Prescriptions: No Action Glimepiride [Amaryl] 1 mg PO DAILY@0600 Pravastatin Sodium [Pravachol] 80 mg PO HS@2100 Bumetanide [BUMEX] 1 mg PO BID@0900,1600 tab Metoprolol Tartrate [Lopressor] 50 mg PO BID@0900,2100 Ipratropium-Albuterol Nebulize [Duoneb 0.5 mg-3 mg/3 ml Soln] 3 ml INHALATION RT-TID PRN each PRN Reason: Shortness Of Breath Or Wheezing Acetaminophen Tab [Tylenol] 650 mg PO Q6HR PRN tab PRN Reason: Mild Pain Or Fever > 100.5 Midodrine [ProAmatine] 7.5 mg PO AC-TID@08,12,17 Loperamide HCl [Imodium A-D] 2 - 4 mg PO TID PRN MDD 8 mg PRN Reason: Loose Stool Darbepoetin Keon [Aranesp] 60 mcg SQ TU Apixaban [Eliquis] 2.5 mg PO BID@0900,2099 Amiodarone [Cordarone] 200 mg PO DAILY@0900 Potassium Chloride ER [K-Dur 20] 20 meq PO DAILY@0900 Glucerna Shake 1 can PO DAILY@0900 Aspirin 81 mg PO DAILY@0900 Colchicine See Taper PO DIRECTED Ondansetron [Zofran] 4 mg PO TID PRN PRN Reason: Nausea Glucagon Emergency Kit 1 mg IM ONCE PRN PRN Reason: low blood sugar Discharge Medication List Glimepiride [Amaryl] 1 mg PO DAILY@0600 03/11/20 [History] Pravastatin Sodium [Pravachol] 80 mg PO HS@209904/30/23 [History] Amiodarone [Cordarone] 200 mg PO DAILY@0900 04/14/24 [History] Apixaban [Eliquis] 2.5 mg PO BID@0900,209904/14/24 [History] Bumetanide [BUMEX] 1 mg PO BID@0900,1600 tab 04/28/24 [Rx] Metoprolol Tartrate [Lopressor] 50 mg PO BID@0900,209906/01/24 [History] Acetaminophen Tab [Tylenol] 650 mg PO Q6HR PRN tab 06/09/24 [Rx] Ipratropium-Albuterol Nebulize [Duoneb 0.5 mg-3 mg/3 ml Soln] 3 ml INHALATION RT-TID PRN each 06/09/24 [Rx] Aspirin 81 mg PO DAILY@0900 06/11/24 [History] Colchicine See Taper PO DIRECTED 06/11/24 [History] Glucerna Shake 1 can PO DAILY@0900 06/11/24 [History] Midodrine [ProAmatine] 7.5 mg PO AC-TID@08,12,17 06/11/24 [History] Potassium Chloride ER [K-Dur 20] 20 meq PO DAILY@0900 06/11/24 [History] Darbepoetin Keon [Aranesp] 60 mcg SQ TU 06/16/24 [History] Glucagon Emergency Kit 1 mg IM ONCE PRN 06/16/24 [History] Loperamide HCl [Imodium A-D] 2 - 4 mg PO TID PRN MDD 8 mg 06/16/24 [History] Ondansetron [Zofran] 4 mg PO TID PRN 06/16/24 [History] Follow up Appointment(s)/Referral(s): Roger Callahan DO [Primary Care Provider] - 1-2 days Discharge Disposition: - Preliminary Cause of Preliminary Cause of : Congestive heart failure with cardiogenic shock secondary to cardiorenal sy
--- NOTE | 2024-06-16 16:25 | P.CNPUL ---
History of Present Illness Consult date: 06/16/24 Requesting physician: Bola Purvis Reason for consult: other Chief complaint: Hypotension. History of present illness: Pulmonary consult dated June 16, 2024. 84-year-old female seen in the emergency department, this afternoon, apparently was at [facility] on the [facility], for about a week. Prior to that, she was at [facility], for about 5 days. She initially was admitted, with a diagnosis of hypotension, and anemia, and received a blood transfusion. As mentioned, the patient was at [facility] for about 5, discharged to [facility]. She was at [facility] for about 1 week. She apparently came into the hospital, with complaints of weakness, was noted to have a very low blood pressure 40 systolic, blood sugar 25. The patient received fluid resuscitation in the form of saline at 2-1/2 L, and also was started on norepinephrine at 0.35 mcg/kg/min. The patient was also placed on oxygen at 3 L. A family member was at the bedside, and provided most of the history. The patient was quite weak, and really was not able to give much history. She was very pale. Anyway, I accepted the patient into the intensive care unit, but I told the ER physician, that there was no beds available and no nurses to take care of this patient, and the patient would have to stay in the emergency department, until a bed opens up. Labs, x-rays, and medications were reviewed. A central line was placed by the ER physician. Labs included a white count of 9.3, hemoglobin 7.7, he matocrit 26.6, and a platelet count of 202,000. Sodium 136, potassium 3.7, chlorides 105, CO2 15, anion gap 16, BUN 83, and creatinine 3.34. Glucose was 45. Lactic acid 2.9, calcium 7.1. Opponent was 0.049. The patient's chest x- ray showed evidence of a right pleural effusion, and vascular congestion consistent with CHF. EKG showed evidence of atrial fibrillation. Review of Systems REVIEW OF SYSTEMS: CONSTITUTIONAL: Weakness. NEUROLOGIC: [ Negative.] HEENT: [ Negative.] CARDIAC: Hypotension. PULMONARY: [Negative.] GI: [Negative.] : [Negative.] RHEUMATOLOGIC: [ Negative.] IMMUNOLOGIC: [ Negative.] ENDOCRINE: Hypoglycemic. DERMATOLOGIC: [Negative.] Past Medical History Past Medical History: Atrial Fibrillation, Cancer, COPD, Diabetes Mellitus, Hyperlipidemia, Hypertension, Myocardial Infarction ([place]), Renal Disease Additional Past Medical History / Comment(s): Moderate to severe mitral regurgitation/SOB, mild aortic stenosis, NIDDM, uterine cancer/surgery only, [place] x 2, stage III kidney failure Last Myocardial Infarction Date:: unknown History of Any Multi-Drug Resistant Organisms: None Reported Past Surgical History: Appendectomy, Back Surgery, Cholecystectomy, Heart Catheterization, Heart Catheterization With Stent, Hysterectomy Additional Past Surgical History / Comment(s): Cardioversions, hysterectomy/left one ovary Past Anesthesia/Blood Transfusion Reactions: No Reported Reaction Additional Past Anesthesia/Blood Transfusion Reaction / Comment(s): Pt has had autotransfusion only. Date of Last Stent Placement:: 12/2022 Past Psychological History: No Psychological Hx Reported Smoking Status: Former smoker Past Alcohol Use History: None Reported Past Drug Use History: None Reported - Past Family History Brother(s) Family Medical History: Cancer Additional Family Medical History / Comment(s): 2 brothers cancer. 1 brother cabg Medications and Allergies Home Medications Medication Instructions Recorded Confirmed Type Glimepiride [Amaryl] 1 mg PO DAILY@0600 03/11/20 06/16/24 History Pravastatin Sodium [Pravachol] 80 mg PO HS@209904/30/23 06/16/24 History Amiodarone [Cordarone] 200 mg PO DAILY@0904/14/24 06/16/24 History Apixaban [Eliquis] 2.5 mg PO BID@09,209904/14/24 06/16/24 History Bumetanide [BUMEX] 1 mg PO BID@0900,1600 tab 04/28/24 06/16/24 Rx Metoprolol Tartrate [Lopressor] 50 mg PO BID@0900,209906/01/24 06/16/24 History Acetaminophen Tab [Tylenol] 650 mg PO Q6HR PRN tab 06/09/24 06/16/24 Rx Ipratropium-Albuterol Nebulize 3 ml INHALATION RT-TID PRN each 06/09/24 06/16/24 Rx [Duoneb 0.5 mg-3 mg/3 ml Soln] Aspirin 81 mg PO DAILY@0900 06/11/24 06/16/24 History Colchicine See Taper PO DIRECTED 06/11/24 06/16/24 History Glucerna Shake 1 can PO DAILY@0900 06/11/24 06/16/24 History Midodrine [ProAmatine] 7.5 mg PO AC-TID@08,12,17 06/11/24 06/16/24 History Potassium Chloride ER [K-Dur 20] 20 meq PO DAILY@0900 06/11/24 06/16/24 History Darbepoetin Keon [Aranesp] 60 mcg SQ TU 06/16/24 06/16/24 History Glucagon Emergency Kit 1 mg IM ONCE PRN 06/16/24 06/16/24 History Loperamide HCl [Imodium A-D] 2 - 4 mg PO TID PRN MDD 8 mg 06/16/24 06/16/24 History Ondansetron [Zofran] 4 mg PO TID PRN 06/16/24 06/16/24 History Allergies Allergy/AdvReac Type Severity Reaction Status Date / Time atorvastatin [From Lipitor] Allergy Nausea Verified 06/16/24 10:55 celecoxib [From Celebrex] Allergy Swelling Verified 06/16/24 10:55 ibuprofen [From Motrin] Allergy Swelling, Verified 06/16/24 10:55 itching Penicillins Allergy Swelling Verified 06/16/24 10:55 steroid AdvReac shaking Uncoded 06/01/24 13:42 Physical Exam Osteopathic Statement: *. No significant issues noted on an osteopathic structural exam other than those noted in the History and Physical/Consult. Vitals: Vital Signs Temp Pulse Resp BP Pulse Ox 06/16/24 13:39 50 L 66/50 06/16/24 13:25 81/53 06/16/24 13:23 57 L 68/48 06/16/24 13:20 50 L 83/62 06/16/24 13:17 55 L 79/53 06/16/24 13:15 58 L 74/22 06/16/24 13:13 57 L 71/50 06/16/24 13:11 66/26 06/16/24 13:05 61/39 06/16/24 12:55 51 L 16 54/35 100 06/16/24 12:35 51 L 18 56/40 06/16/24 12:03 52 L 18 66/52 93 L 06/16/24 11:47 61 18 60/50 93 L 06/16/24 11:15 58 L 18 80/56 87 L 06/16/24 10:49 80/43 06/16/24 09:59 97.1 F L 62 16 69/49 94 L Intake and Output 06/16/24 06/16/24 06/16/24 06:59 14:59 22:59 Intake Total 99.005 Balance 99.005 Intake: Intake, IV Titration 99.005 Amount Norepinephrine 4 mg In 99.005 Sodium Chloride 0.9% 250 ml @ 0.03 MCG/KG/MIN 9. 125 mls/hr IV .Q24H HAKEEM Rx#:[id number] Other: Weight 79.832 kg No acute distress, nasal O2 in place. The patient was quite lethargic and somnolent. She did not provide much history. A family member provided the history. HEENT examination is grossly unremarkable. There were no oral lesions. Mucous membranes are dry. Neck supple. Full range of motion. No adenopathy thyromegaly or neck vein distention. Cardiovascular examination reveals an irregular rhythm and rate. S1-S2 normal. No S3 or S4. No discernible murmur noted. Heart sounds are distant. Lungs reveal mostly clear breath sounds. Minimal scattered rhonchi. No wheezes . Some basilar crackles noted. Abdomen soft bowel sounds are heard. No masses or tenderness. Extremities are intact. No cyanosis or clubbing. There was 2+ edema to the lower extremities. Skin is without rash or lesion. Neurologic examination is brief but nonfocal. Results - Laboratory Findings CBC and BMP: 06/16/24 10:37 06/16/24 10:37 PT/INR, D-dimer PT 12.5 sec (10.0-12.5) 06/16/24 10:37 INR 1.2 (<1.2) H 06/16/24 10:37 Abnormal lab findings: Abnormal Labs 06/16/24 06/16/24 06/16/24 10:09 10:28 10:37 RBC 3.43 L Hgb 7.7 L Hct 26.6 L MCV 77.6 L MCH 22.4 L MCHC 28.8 L RDW 20.2 H INR Sodium Carbon Dioxide BUN Creatinine Glucose POC Glucose (mg/dL) 62 L 50 L Plasma Lactic Acid Kenneth Calcium Alkaline Phosphatase Troponin I Total Protein Albumin 06/16/24 06/16/24 06/16/24 10:37 10:37 10:37 RBC Hgb Hct MCV MCH MCHC RDW INR 1.2 H Sodium 136 L Carbon Dioxide 15 L BUN 83 H Creatinine 3.34 H Glucose 45 L* POC Glucose (mg/dL) Plasma Lactic Acid Kenneth 2.9 H* Calcium 7.1 L Alkaline Phosphatase 134 H Troponin I Total Protein 5.5 L Albumin 2.7 L 06/16/24 06/16/24 06/16/24 10:37 10:44 11:18 RBC Hgb Hct MCV MCH MCHC RDW INR Sodium Carbon Dioxide BUN Creatinine Glucose POC Glucose (mg/dL) 25 L* 159 H Plasma Lactic Acid Kenneth Calcium Alkaline Phosphatase Troponin I 0.049 H* Total Protein Albumin 06/16/24 06/16/24 06/16/24 12:04 13:07 13:46 RBC Hgb Hct MCV MCH MCHC RDW INR Sodium Carbon Dioxide BUN Creatinine Glucose POC Glucose (mg/dL) 170 H 207 H 178 H Plasma Lactic Acid Kenneth Calcium Alkaline Phosphatase Troponin I Total Protein Albumin - Diagnostic Findings Chest x-ray: image reviewed Assessment and Plan Assessment: Profound hypotension, despite fluid resuscitation and norepinephrine, with elevated troponin, rule out non-ST segment elevation myocardial infarction. Anion gap metabolic acidosis. Acute on chronic renal failure. Profound hypoglycemia. History of chronic atrial fibrillation. History of coronary artery disease, S/P stent. History of myocardial infarction x 2. History of diabetes mellitus. Previous tobacco use, with a history of COPD. Recent hospitalization with anemia, requiring blood transfusion. History of hyperlipidemia. History of hypertension. Valvular heart disease in the form of mitral regurgitation. History of uterine cancer. Plan: Plan dated June 16, 2024. The patient is seen in the emergency department. The patient was initially etelvina luated by the ER physician, for hypoglycemia, and hypotension. The patient received about 3 L of fluid, for resuscitation, and was started on norepinephrine, after central line was placed. The patient was accepted into the intensive care unit, but unfortunately, there was no bed available for the patient to be transferred. I did mention to the ER physician, that eventually a bed would open up, and we would except the patient to the intensive care unit. The patient was quite weak, and very pale. A family member at the bedside, gave most of the history. Labs, x-rays, and medications are reviewed. The patient's overall prognosis is poor. Given her age, recent admission, and the abnormal ities noted on lab panel, chest x-ray, EKG, all suggested the possibility of a very poor prognosis, and outcome. Nonetheless, the patient will be admitted to the intensive care unit, as she is currently a full code. Additional recommendations and suggestions are forthcoming. Dictation was produced using [email or web address] ([employer]) dictation software. Please excuse any grammatical, word or spelling errors. Time with Patient: Greater than 30
[2024-06-16] MEDS ORDERED: MIDODRINE 5 MG TAB PO SCH (17:00)
[2024-06-16] MEDS ORDERED: PRAVASTATIN SODIUM 80 MG TAB PO SCH (21:00)
[2024-06-16] MEDS ORDERED: APIXABAN 2.5 MG TABLET PO SCH (21:00)
[2024-06-17] MEDS ORDERED: VANCOMYCIN 1,500 MG in SODIUM CHLORIDE 0.9% 500 ML 500 ML IVPB ONE (09:00)
[2024-06-17] MEDS ORDERED: AMIODARONE 200 MG TAB PO SCH (09:00)
[2024-06-17] MEDS ORDERED: ASPIRIN 81 MG PO SCH (09:00)
== END 2024-06-16 15:45 | disposition expired | DRG 637 ==
LOC: EC 09:54 → 2SICU 12:33
PROVIDERS: ADMIT Internal Medicine; ATTEND Internal Medicine
PROC: 02HV33Z Insertion of Infusion Device into Superior Vena Cava, Percutaneous Approach (ICD-10-PCS; principal; 2024-06-16)
PROC: 5A12012 Performance of Cardiac Output, Single, Manual (ICD-10-PCS; 2024-06-16)
PROC: 3E043XZ Introduction of Vasopressor into Central Vein, Percutaneous Approach (ICD-10-PCS; 2024-06-16)
PROC: 06HY33Z Insertion of Infusion Device into Lower Vein, Percutaneous Approach (ICD-10-PCS; 2024-06-16)
DX: E11.649 Type 2 diabetes mellitus with hypoglycemia without coma (principal); I50.33 Acute on chronic diastolic (congestive) heart failure; E87.20 Acidosis, unspecified; I42.9 Cardiomyopathy, unspecified; I13.0 Hypertensive heart and chronic kidney disease with heart failure and stage 1 through stage 4 chronic kidney disease, or unspecified chronic kidney disease; I48.20 Chronic atrial fibrillation, unspecified; I46.9 Cardiac arrest, cause unspecified; R57.0 Cardiogenic shock; N18.4 Chronic kidney disease, stage 4 (severe); N17.9 Acute kidney failure, unspecified; E11.22 Type 2 diabetes mellitus with diabetic chronic kidney disease; J44.9 Chronic obstructive pulmonary disease, unspecified; D63.1 Anemia in chronic kidney disease; E66.9 Obesity, unspecified; Z68.30 Body mass index [BMI] 30.0-30.9, adult; I08.0 Rheumatic disorders of both mitral and aortic valves; T38.3X5A Adverse effect of insulin and oral hypoglycemic [antidiabetic] drugs, initial encounter; I25.10 Atherosclerotic heart disease of native coronary artery without angina pectoris; E78.5 Hyperlipidemia, unspecified; R79.89 Other specified abnormal findings of blood chemistry; Z95.5 Presence of coronary angioplasty implant and graft; Z79.01 Long term (current) use of anticoagulants; Z79.84 Long term (current) use of oral hypoglycemic drugs; Z79.82 Long term (current) use of aspirin; I25.2 Old myocardial infarction; Z85.42 Personal history of malignant neoplasm of other parts of uterus; Z79.899 Other long term (current) drug therapy; Z90.710 Acquired absence of both cervix and uterus; Z87.891 Personal history of nicotine dependence; Z87.19 Personal history of other diseases of the digestive system
CPT/HCPCS: 36415; 71046; 74018; 80053; 83605; 83735; 84484; 85025; 85610; 85730; 87040; 92950; 93005; 96365; 96366; 96367; 96375; 99291